=== PATIENT | male | born 1950 | race Caucasian/White ===

== ENCOUNTER 2017-01-11 05:40 | Inpatient (IN) ==
[2017-01-11] MEDS ORDERED: *HR* Morphine 2 MG/ML SYRINGE IVP ONE (06:11)
[2017-01-11] MEDS ORDERED: 0.9 % Sodium Chloride 1,000 ML IVC ONE (06:11)
[2017-01-11] MEDS ORDERED: Ondansetron 4 MG/2 ML VIAL IVP ONE (06:11)
--- NOTE | 2017-01-11 06:34 | Emergency Department Note ---
Disposition Clinical Impression: Right flank pain Anemia Qualifiers: Anemia type: unspecified type Qualified Code(s): D64.9 - Anemia, unspecified Disposition: Still a Patient Condition: Fair Referrals: Elio Melendez MD [Primary Care Provider] - Forms: Work/School Release, ED Satisfaction Letter Abdominal Pain HPI - General Chief Complaint: ED Abdominal Pain Stated Complaint: R Flank pain/SOB Time Seen by Provider: 01/11/17 06:01 Source: patient Mode of arrival: ambulatory Limitations: no limitations Nursing Notes Reviewed: Yes Vital Signs Reviewed: Yes - History of Present Illness HPI Narrative: 58-year-old male with multiple comorbidities including CHF COPD CAD status post angioplasty, presents with bilateral flank pain atraumatic started a few days ago, worsening shortness of breath for the last few days. Patient has no history of renal stones denies hematuria dysuria states that this pain is 6 out of 10 bilateral flanks crampy aching. Spills like something expanding. Reports worsening shortness of breath and dyspnea also states that he has intermittent2/ 10 chest pain worse with exertion. Pt Subjective Complaint: abdominal pain Consistency: intermittent Pain Severity: moderate Pain Scale: 8 Quality: stabbing, aching Radiation: R flank Improves with: nothing Worsens with: nothing Associated symptoms: Denies: nausea, vomiting - Related Data Home Medications Medication Instructions Recorded Confirmed Aspirin Enteric Coated [Aspirin EC] 81 mg PO DAILY 09/06/15 09/07/15 Lisinopril [Zestril] 40 mg PO DAILY 09/06/15 09/07/15 Metoprolol XL (24 HR) Succ [Toprol 50 mg PO DAILY 09/06/15 09/07/15 Xl] metFORMIN [Glucophage] 500 mg PO DAILY 09/06/15 09/07/15 Simvastatin [Zocor] 40 mg PO HS 09/07/15 09/07/15 amLODIPine [Norvasc] 2.5 mg DAILY 09/07/15 09/07/15 Previous Rx's Medication Instructions Recorded Ondansetron ODT [Zofran ODT] 4 mg SL Q4HR PRN #20 tab.rapdis 09/05/15 Albuterol Sulfate [Albuterol 1 puff IH Q6HR PRN #1 hfa.aer.ad 09/10/15 Inhaler] Amoxicillin/Clavulanate [Augmentin] 875 mg PO BIDWM #14 tablet 09/10/15 predniSONE [PredniSONE] 20 mg PO DAILY #20 tablet 09/10/15 Allergies Allergy/AdvReac Type Severity Reaction Status Date / Time No Known Allergies Allergy Verified 01/26/15 08:12 All systems ED: reviewed and negative except as stated. Review of Systems: As Per HPI Constitutional: Denies: fever Eyes: Denies: eye pain ENT ED: Denies: ear pain Cardiovascular: Denies: chest pain Gastrointestinal: Reports: as per HPI, abdominal pain Genitourinary: Denies: urgency, dysuria, hematuria Musculoskeletal: Reports: back pain Integumentary: Denies: rash Neurological: Denies: headache Abdominal Pain PMH - Past Medical History Medical history: Reports: COPD, coronary artery disease, diabetes, hypertension , myocardial infarction Male Surgical History: Reports: other Psychiatric history: Reports: anxiety, depression - Social History Smoking status: Former smoker Alcohol use: Reports: none Drug use: Reports: none Physical Exam Constitutional: NAD, vital signs reviewed and wnl, cachectic appearing Eyes: PERRLA, sclera anicteric, conjunctival pallor ENT & Mouth: MM dry Neck: normal inspection, neck is supple Resp: CTA bilaterally, no resp distress CV: RRR, no m/g/r GI: normal inspection, soft, no guarding or rigidity , negative CVA tenderness bilaterally Neuro: A&O3, CNII-XII grossly intact, TAMEZ Skin: on limited exam, skin intact with no rashes or lesions - General Limitations: no limitations General appearance: alert, in no apparent distress Course Course Narrative: 58-year-old male appears distress given history of hypertension and smoking, and back pain atraumatic concerned that he could have an aneurysm that is undiagnosed, we will CT of abdomen and pelvis check basic lab work including renal function, urinalysis hydrated with 1 L of fluids, morphine and Zofran at this time is hemodynamically stable and if his workup is negative may be able to go home, but he does have multiple comorbiditiesto be reevaluated. - Reevaluation(s) Reevaluation #1: Hemoglobin came back at 6.9, ordered 2 units and type and screen, patient also had a CT noncontrast of his chest, noncontrast of his CT abdomen and pelvis was changed from the contrast study I initially ordered secondary to function, patient with acute renal failure, hemoglobin and anemia possibly chronic disease denies any hematuria hematemesis or melena, care signed out to the date team Dr. Arambula and Batista see their notes for follow-up on labs admission. Time: 07:13 Vital Signs Temperature 97.9 F 01/11/17 05:41 Pulse Rate 73 01/11/17 05:41 Respiratory Rate 20 01/11/17 05:41 Blood Pressure 205/81 01/11/17 05:41 O2 Sat by Pulse Oximetry 97 01/11/17 05:41 Temperature 97.9 F 01/11/17 05:41 Pulse Rate 64 01/11/17 07:14 Respiratory Rate 18 01/11/17 07:14 Blood Pressure 148/69 01/11/17 07:14 O2 Sat by Pulse Oximetry 96 01/11/17 07:14 Oxygen Delivery Oxygen Delivery Room Air Abdominal Pain - Differential Diagnosis Differential Diagnosis: Likely: abdominal pain non-specific, diverticulosis - Medical Records Medical records reviewed: Yes I reviewed the patient's medical records. - Lab Data Lab results reviewed: Yes I reviewed the patient's lab results. Result diagrams: 01/11/17 06:23 01/11/17 06:23 Lab Results 01/11/17 01/11/17 01/11/17 Range/Units 06:23 06:23 06:23 WBC 3.3 L (4.3-11.1) K/mcL RBC 2.28 L (4.19-5.50) M/mcL Hgb 6.9 L (12.9-16.9) g/dL Hct 22.0 L (37.5-50.1) % MCV 96.5 (83.0-100.0) fL MCH 30.3 (28.0-33.3) pg MCHC 31.4 L (31.6-35.5) g/dL RDW 17.1 H (11.5-14.5) % Plt Count 227 (140-400) K/mcL MPV 10.0 (9.4-12.4) fL Seg Neutrophils % 60.0 % Band Neutrophils % 2.0 (0-4) % Lymphocytes % 26.0 % Monocytes % 8.0 % Eosinophils % 2.0 % Myelocytes % 2.0 H (0) % Neutrophils # 2.1 (1.6-8.9) K/mcL Lymphocytes # 0.9 (0.6-4.6) K/mcL Monocytes # 0.3 (0.0-1.3) K/mcL Eosinophils # 0.1 (0.0-0.6) K/mcL Platelet Estimate Normal (Normal) Anisocytosis 1+ A (Not Present) Sodium 136 (136-145) mEq/L Potassium 4.0 (3.5-4.5) mEq/L Chloride 110 H (98-109) mEq/L Carbon Dioxide 21 (19-29) mEq/L BUN 50 H (8-26) mg/dL Creatinine 3.44 H (0.72-1.25) mg/dL Est GFR ( Amer) 22 L (> 60) Est GFR (Non-Af Amer) 18 L (> 60) BUN/Creatinine Ratio 15 (6-26) Glucose 102 H (70-99) mg/dL Calculated Osmolality 296 (280-300) Lactic Acid 0.6 (0.5-2.2) mmol/L Calcium 11.4 H (8.6-10.8) mg/dL Total Bilirubin 0.2 (0.2-1.2) mg/dL Direct Bilirubin 0.1 (0.0-0.5) mg/dL Indirect Bilirubin 0.1 (0.0-1.2) mg/dL AST 37 H (5-34) Units/L ALT 24 (0-55) Units/L Alkaline Phosphatase 119 (38-126) Units/L Troponin I (0-0.03) ng/mL Serum Total Protein 10.7 H (6.0-8.3) g/dL Albumin 2.6 L (3.5-5.0) g/dL Globulin 8.1 H (2.4-3.5) g/dL Albumin/Globulin Ratio 0.3 L (1.1-2.2) Lipase 38 (8-78) Units/L Urine Color (Yellow) Urine Clarity (Clear) Urine pH (5.0-8.0) pH Units Ur Specific [place] (1.010-1.025) Urine Protein (Neg-Trace) mg/dL Urine Glucose (UA) (Normal) mg/dL Urine Ketones (Negative) mg/dL Urine Blood (Negative) Urine Nitrite (Negative) Urine Bilirubin (Negative) Urine Urobilinogen (Normal) mg/dL Ur Leukocyte Esterase (Negative) Urine Microscopic RBC (0-3) per hpf Urine Microscopic WBC (0-3) per hpf Ur Squamous Epith Cells (None-Few) per lpf Urine Bacteria (None-Few) per hpf Hyaline Casts (None-Few) per lpf Ur Culture Indicated? (NO) 01/11/17 01/11/17 Range/Units 06:23 06:26 WBC (4.3-11.1) K/mcL RBC (4.19-5.50) M/mcL Hgb (12.9-16.9) g/dL Hct (37.5-50.1) % MCV (83.0-100.0) fL MCH (28.0-33.3) pg MCHC (31.6-35.5) g/dL RDW (11.5-14.5) % Plt Count (140-400) K/mcL MPV (9.4-12.4) fL Seg Neutrophils % % Band Neutrophils % (0-4) % Lymphocytes % % Monocytes % % Eosinophils % % Myelocytes % (0) % Neutrophils # (1.6-8.9) K/mcL Lymphocytes # (0.6-4.6) K/mcL Monocytes # (0.0-1.3) K/mcL Eosinophils # (0.0-0.6) K/mcL Platelet Estimate (Normal) Anisocytosis (Not Present) Sodium (136-145) mEq/L Potassium (3.5-4.5) mEq/L Chloride (98-109) mEq/L Carbon Dioxide (19-29) mEq/L BUN (8-26) mg/dL Creatinine (0.72-1.25) mg/dL Est GFR ( Amer) (> 60) Est GFR (Non-Af Amer) (> 60) BUN/Creatinine Ratio (6-26) Glucose (70-99) mg/dL Calculated Osmolality (280-300) Lactic Acid (0.5-2.2) mmol/L Calcium (8.6-10.8) mg/dL Total Bilirubin (0.2-1.2) mg/dL Direct Bilirubin (0.0-0.5) mg/dL Indirect Bilirubin (0.0-1.2) mg/dL AST (5-34) Units/L ALT (0-55) Units/L Alkaline Phosphatase (38-126) Units/L Troponin I 0.02 (0-0.03) ng/mL Serum Total Protein (6.0-8.3) g/dL Albumin (3.5-5.0) g/dL Globulin (2.4-3.5) g/dL Albumin/Globulin Ratio (1.1-2.2) Lipase (8-78) Units/L Urine Color Yellow (Yellow) Urine Clarity Clear (Clear) Urine pH 6.0 (5.0-8.0) pH Units Ur Specific [place] 1.024 (1.010-1.025) Urine Protein >=300 H (Neg-Trace) mg/dL Urine Glucose (UA) Normal (Normal) mg/dL Urine Ketones Negative (Negative) mg/dL Urine Blood Small H (Negative) Urine Nitrite Negative (Negative) Urine Bilirubin Negative (Negative) Urine Urobilinogen Normal (Normal) mg/dL Ur Leukocyte Esterase Negative (Negative) Urine Microscopic RBC 3-5 H (0-3) per hpf Urine Microscopic WBC 0-3 (0-3) per hpf Ur Squamous Epith Cells Many H (None-Few) per lpf Urine Bacteria None Seen (None-Few) per hpf Hyaline Casts None Seen (None-Few) per lpf Ur Culture Indicated? NO (NO) - Radiology Data Radiology results reviewed: Yes I reviewed the patient's radiology results. Chest X-Ray 01/11/17 06:38 IMPRESSION: 1. Increased bibasilar lung infiltrates, concerning for pneumonia. 2. There is a subpleural mass noted along the left lateral chest wall which may represent overlying soft tissue, however, an underlying pleural-based lesion cannot be excluded. CT of the chest versus repeat chest radiograph could be performed for further evaluation. D/ / Gary Wright MD / Gary Wright MD Interpreting Provider: Gary Wright MD - EKG Data EKG attestation: Yes I reviewed and interpreted this EKG. EKG shows normal: sinus rhythm Rate: normal (63 bpm OK 176 QRS [address] segment elevations or depressions.) Rhythm: NSR S.B.A.R. - S.B.A.R. Transition of Care: Dispo pending CT and labs Situation: Demographics, MOA Background: Presenting Complaint, Relevant PMH, Meds, & Allergies Assessment: Vital Signs, Course and respsone to treatment, Exam Concerns, Patient/Family Expectation, Pertinant Lab Results, Outstanding Labs Recommendation: Barrier(s) to disposition, Recommendation based on pending studies, treatments, or consults [email or web address] Report Given to: Lynne Phan Repor Time: 06:36 Attestation Statement - Attestation Attestation: I, Sanjay Rebollar MD, personally evaluated this patient and discussed their management with the resident physician. I reviewed the resident's note and agree with the documented findings, medical decision making, and plan of care. 66-year-old male presents to the emergency department with a complaint primarily of right flank pain which started about 3 days prior to arrival. He also has some left flank pain but worse on the right. The pain is worse with movement and improved with lying still. He denies any fall or injury but states he had been lifting some firewood before the pain started. Denies any chest pain or shortness of breath. No fever. No dizziness or syncope. No GI bleed symptoms. No UTI symptoms. On examination patient is a well-developed well-nourished elderly male in no acute distress. He is hard of hearing. He is alert and oriented 3. There is no cyanosis or diaphoresis. Chest is nontender to palpation. Breath sounds are equal bilaterally. Heart regular rate and rhythm. Abdomen is soft and nontender with normal bowel sounds. There is some tenderness to palpation over the right flank area. Labs reviewed. Hemoglobin 6.9. Acute kidney injury with creatinine greater than 3. Chest x-ray showed a questionable subpleural mass along the left lateral chest wall and CT was recommended. At shift change patient is awaiting a CT chest and of the abdomen and pelvis. Patient is signed out to the oncoming dayshift team, Dr. Batista and Dr. Arambula.
[2017-01-11 06:35] LABS: Mean Corpuscular HGB Conc 31.4 g/dL (31.6-35.5); Mean Corpuscular Hemoglobin 30.3 pg (28.0-33.3); Mean Corpuscular Volume 96.5 fL (83.0-100.0); Platelet Count 227 K/mcL (140-400); Red Blood Count 2.28 M/mcL (4.19-5.50); Red Cell Distribution Width 17.1 % (11.5-14.5)
[2017-01-11 06:37] LABS: Bilirubin,Urine Negative (Negative); Blood,Urine Small (Negative); Clarity,Urine Clear (Clear); Color,Urine Yellow (Yellow); Glucose,Urine (UA) Normal (Normal); Ketones,Urine Negative (Negative); Leukocyte Esterase,Urine Negative (Negative); Nitrite,Urine Negative (Negative); Protein,Urine >=300 mg/dL (Neg-Trace); Specific Gravity,Urine 1.024 (1.010-1.025); Urobilinogen,Urine Normal (Normal)
[2017-01-11 06:37] LABS: Hemoglobin 6.9 g/dL (12.9-16.9)
[2017-01-11 06:41] LABS: Bacteria,Urine None Seen per hpf (None-Few); Hyaline Casts,Urine None Seen per lpf (None-Few); Squamous Epithelial Cell,Urine Many per lpf (None-Few); WBC,Urine 0-3 per hpf (0-3)
[2017-01-11 06:47] LABS: Albumin 2.6 g/dL (3.5-5.0); Albumin/Globulin Ratio 0.3 (1.1-2.2); Bilirubin,Direct 0.1 mg/dL (0.0-0.5); Bilirubin,Indirect 0.1 mg/dL (0.0-1.2); Bilirubin,Total 0.2 mg/dL (0.2-1.2); Calcium 11.4 mg/dL (8.6-10.8); Globulin 8.1 g/dL (2.4-3.5); Total Protein 10.7 g/dL (6.0-8.3)
[2017-01-11 07:10] LABS: Eosinophils # 0.1 K/mcL (0.0-0.6)
[2017-01-11 07:12] LABS: Lymphocytes # 0.9 K/mcL (0.6-4.6); Monocytes # 0.3 K/mcL (0.0-1.3); Neutrophils # 2.1 K/mcL (1.6-8.9); Platelet Estimate Normal (Normal)
[2017-01-11 07:13] LABS: Anisocytosis 1+ (Not Present)
[2017-01-11] MEDS ORDERED: 0.9 % Sodium Chloride 250 ML ONE ×2 (08:19→14:21)
[2017-01-11 08:20] LABS: Prothrombin Time 10.8 Seconds (9.4-12.1)
[2017-01-11 08:23] LABS: Activated Partial Thrombo Time 28.8 Seconds (26.0-36.0)
--- NOTE | 2017-01-11 09:03 | Emergency Department Note ---
START Narrative - START START: Patient was signed out to me from Dr. Rebollar. I did a bedside rectal exam to evaluate for fecal occult blood. This was negative. Patient's CAT scans are concerning for a left lung mass as well as possible bronchogenic carcinoma. Patient also has destructive bony lesions to the chest and pelvis. In the setting of his renal failure as well as his anemia and bony destructive lesions multiple myeloma is a consideration. Patient will need to be transfused blood as well. We have consult with oncology. Patient will need to be admitted for further workup. Critical care time was approximately 35 minutes. Time spent and blood transfusion as well as consultation with oncology in the hospitalist service.
--- NOTE | 2017-01-11 09:17 | Emergency Department Note ---
Disposition Clinical Impression: Right flank pain, Lung mass, Bony metastasis, Acute kidney injury Anemia Qualifiers: Anemia type: unspecified type Qualified Code(s): D64.9 - Anemia, unspecified Disposition: Admitted As Inpatient Condition: Fair Referrals: Elio Melendez MD [Primary Care Provider] - Forms: ED Satisfaction Letter, Work/School Release General Adult HPI - General Chief complaint: ED Abdominal Pain Stated complaint: R Flank pain/SOB Time Seen by Provider: 01/11/17 06:01 Source: patient Mode of arrival: ambulatory Limitations: no limitations - History of Present Illness Pain Scale: 0 - Related Data Home Medications Medication Instructions Recorded Confirmed Aspirin Enteric Coated [Aspirin EC] 81 mg PO DAILY 09/06/15 09/07/15 Lisinopril [Zestril] 40 mg PO DAILY 09/06/15 09/07/15 Simvastatin [Zocor] 40 mg PO HS 09/07/15 09/07/15 Amlodipine Besylate 10 mg PO DAILY 01/11/17 01/11/17 Budesonide/Formoterol 160/4.5 2 puff IH BIDR 01/11/17 01/11/17 [Symbicort 160/4.5] Chlorthalidone 25 mg PO QAM 01/11/17 01/11/17 Ergocalciferol (VITAMIN D2) 50,000 unit PO QWEEK 01/11/17 01/11/17 [Vitamin D2] Gabapentin [Neurontin] 300 mg PO HS 01/11/17 01/11/17 Lidocaine Patch [Lidoderm 5% patch] 1 - 2 each TP DAILY PRN 01/11/17 01/11/17 Metoprolol Succinate 100 mg PO DAILY 01/11/17 01/11/17 Tamsulosin [Flomax] 0.4 mg PO DAILY 01/11/17 01/11/17 Previous Rx's Medication Instructions Recorded Albuterol Sulfate [Albuterol 1 puff IH Q6HR PRN #1 hfa.aer.ad 09/10/15 Inhaler] Allergies Allergy/AdvReac Type Severity Reaction Status Date / Time No Known Allergies Allergy Verified 01/26/15 08:12 Constitutional: Denies: fever Eyes: Denies: eye pain ENT ED: Denies: ear pain Cardiovascular: Denies: chest pain Gastrointestinal: Reports: as per HPI, abdominal pain Genitourinary: Denies: urgency, dysuria, hematuria Musculoskeletal: Reports: back pain Integumentary: Denies: rash Neurological: Denies: headache Past Medical History - Past Medical History Medical history: Reports: COPD, coronary artery disease, diabetes, hypertension , myocardial infarction Surgical history: Reports: angioplasty/stent Psychiatric history: Reports: anxiety, depression - Social History Smoking Status: Former smoker Smokeless Tobacco Status: No Alcohol use: Reports: none Drug use: Reports: none Physical Exam - General Limitations: no limitations General appearance: alert, in no apparent distress Course Course Narrative: I assumed care of this patient from the night team. The CT scan shows a pulmonary mass and rib bony erosion along with abd/pelvis bony changes. Possibly could be due to multiple myeloma. In addition he has an EVER with an elevated creatinine. I called and spoke with Dr Banegas with oncology who agreed to see the patient. Will admit to the hospitalist. He is currently receiving his blood. Hemodynamically stable. Accepted by Dr Matt. Vital Signs Temperature 97.9 F 01/11/17 05:41 Pulse Rate 73 01/11/17 05:41 Respiratory Rate 20 01/11/17 05:41 Blood Pressure 205/81 01/11/17 05:41 O2 Sat by Pulse Oximetry 97 01/11/17 05:41 Temperature 98.7 F 01/11/17 08:45 Pulse Rate 60 01/11/17 09:06 Respiratory Rate 18 01/11/17 09:06 Blood Pressure 142/77 01/11/17 09:06 O2 Sat by Pulse Oximetry 95 01/11/17 09:06 Oxygen Delivery Oxygen Delivery Room Air Medical Decision Making - Medical Records Medical records reviewed: Yes I reviewed the patient's medical records. - Lab Data Lab results reviewed: Yes I reviewed the patient's lab results. Result diagrams: 01/11/17 06:23 01/11/17 06:23 Lab Results 01/11/17 01/11/17 01/11/17 Range/Units 06:23 06:23 06:23 WBC 3.3 L (4.3-11.1) K/mcL RBC 2.28 L (4.19-5.50) M/mcL Hgb 6.9 L (12.9-16.9) g/dL Hct 22.0 L (37.5-50.1) % MCV 96.5 (83.0-100.0) fL MCH 30.3 (28.0-33.3) pg MCHC 31.4 L (31.6-35.5) g/dL RDW 17.1 H (11.5-14.5) % Plt Count 227 (140-400) K/mcL MPV 10.0 (9.4-12.4) fL Seg Neutrophils % 60.0 % Band Neutrophils % 2.0 (0-4) % Lymphocytes % 26.0 % Monocytes % 8.0 % Eosinophils % 2.0 % Myelocytes % 2.0 H (0) % Neutrophils # 2.1 (1.6-8.9) K/mcL Lymphocytes # 0.9 (0.6-4.6) K/mcL Monocytes # 0.3 (0.0-1.3) K/mcL Eosinophils # 0.1 (0.0-0.6) K/mcL Platelet Estimate Normal (Normal) Anisocytosis 1+ A (Not Present) PT (9.4-12.1) Seconds INR APTT (26.0-36.0) Seconds Sodium 136 (136-145) mEq/L Potassium 4.0 (3.5-4.5) mEq/L Chloride 110 H (98-109) mEq/L Carbon Dioxide 21 (19-29) mEq/L BUN 50 H (8-26) mg/dL Creatinine 3.44 H (0.72-1.25) mg/dL Est GFR ( Amer) 22 L (> 60) Est GFR (Non-Af Amer) 18 L (> 60) BUN/Creatinine Ratio 15 (6-26) Glucose 102 H (70-99) mg/dL Calculated Osmolality 296 (280-300) Lactic Acid 0.6 (0.5-2.2) mmol/L Calcium 11.4 H (8.6-10.8) mg/dL Total Bilirubin 0.2 (0.2-1.2) mg/dL Direct Bilirubin 0.1 (0.0-0.5) mg/dL Indirect Bilirubin 0.1 (0.0-1.2) mg/dL AST 37 H (5-34) Units/L ALT 24 (0-55) Units/L Alkaline Phosphatase 119 (38-126) Units/L Troponin I (0-0.03) ng/mL Serum Total Protein 10.7 H (6.0-8.3) g/dL Albumin 2.6 L (3.5-5.0) g/dL Globulin 8.1 H (2.4-3.5) g/dL Albumin/Globulin Ratio 0.3 L (1.1-2.2) Lipase 38 (8-78) Units/L Urine Color (Yellow) Urine Clarity (Clear) Urine pH (5.0-8.0) pH Units Ur Specific [place] (1.010-1.025) Urine Protein (Neg-Trace) mg/dL Urine Glucose (UA) (Normal) mg/dL Urine Ketones (Negative) mg/dL Urine Blood (Negative) Urine Nitrite (Negative) Urine Bilirubin (Negative) Urine Urobilinogen (Normal) mg/dL Ur Leukocyte Esterase (Negative) Urine Microscopic RBC (0-3) per hpf Urine Microscopic WBC (0-3) per hpf Ur Squamous Epith Cells (None-Few) per lpf Urine Bacteria (None-Few) per hpf Hyaline Casts (None-Few) per lpf Ur Culture Indicated? (NO) Stool Occult Blood (Negative) Blood Type Antibody Screen Crossmatch 01/11/17 01/11/17 01/11/17 Range/Units 06:23 06:23 06:26 WBC (4.3-11.1) K/mcL RBC (4.19-5.50) M/mcL Hgb (12.9-16.9) g/dL Hct (37.5-50.1) % MCV (83.0-100.0) fL MCH (28.0-33.3) pg MCHC (31.6-35.5) g/dL RDW (11.5-14.5) % Plt Count (140-400) K/mcL MPV (9.4-12.4) fL Seg Neutrophils % % Band Neutrophils % (0-4) % Lymphocytes % % Monocytes % % Eosinophils % % Myelocytes % (0) % Neutrophils # (1.6-8.9) K/mcL Lymphocytes # (0.6-4.6) K/mcL Monocytes # (0.0-1.3) K/mcL Eosinophils # (0.0-0.6) K/mcL Platelet Estimate (Normal) Anisocytosis (Not Present) PT 10.8 (9.4-12.1) Seconds INR 1.0 APTT 28.8 (26.0-36.0) Seconds Sodium (136-145) mEq/L Potassium (3.5-4.5) mEq/L Chloride (98-109) mEq/L Carbon Dioxide (19-29) mEq/L BUN (8-26) mg/dL Creatinine (0.72-1.25) mg/dL Est GFR ( Amer) (> 60) Est GFR (Non-Af Amer) (> 60) BUN/Creatinine Ratio (6-26) Glucose (70-99) mg/dL Calculated Osmolality (280-300) Lactic Acid (0.5-2.2) mmol/L Calcium (8.6-10.8) mg/dL Total Bilirubin (0.2-1.2) mg/dL Direct Bilirubin (0.0-0.5) mg/dL Indirect Bilirubin (0.0-1.2) mg/dL AST (5-34) Units/L ALT (0-55) Units/L Alkaline Phosphatase (38-126) Units/L Troponin I 0.02 (0-0.03) ng/mL Serum Total Protein (6.0-8.3) g/dL Albumin (3.5-5.0) g/dL Globulin (2.4-3.5) g/dL Albumin/Globulin Ratio (1.1-2.2) Lipase (8-78) Units/L Urine Color Yellow (Yellow) Urine Clarity Clear (Clear) Urine pH 6.0 (5.0-8.0) pH Units Ur Specific [place] 1.024 (1.010-1.025) Urine Protein >=300 H (Neg-Trace) mg/dL Urine Glucose (UA) Normal (Normal) mg/dL Urine Ketones Negative (Negative) mg/dL Urine Blood Small H (Negative) Urine Nitrite Negative (Negative) Urine Bilirubin Negative (Negative) Urine Urobilinogen Normal (Normal) mg/dL Ur Leukocyte Esterase Negative (Negative) Urine Microscopic RBC 3-5 H (0-3) per hpf Urine Microscopic WBC 0-3 (0-3) per hpf Ur Squamous Epith Cells Many H (None-Few) per lpf Urine Bacteria None Seen (None-Few) per hpf Hyaline Casts None Seen (None-Few) per lpf Ur Culture Indicated? NO (NO) Stool Occult Blood (Negative) Blood Type Antibody Screen Crossmatch 01/11/17 01/11/17 Range/Units 07:09 08:13 WBC (4.3-11.1) K/mcL RBC (4.19-5.50) M/mcL Hgb (12.9-16.9) g/dL Hct (37.5-50.1) % MCV (83.0-100.0) fL MCH (28.0-33.3) pg MCHC (31.6-35.5) g/dL RDW (11.5-14.5) % Plt Count (140-400) K/mcL MPV (9.4-12.4) fL Seg Neutrophils % % Band Neutrophils % (0-4) % Lymphocytes % % Monocytes % % Eosinophils % % Myelocytes % (0) % Neutrophils # (1.6-8.9) K/mcL Lymphocytes # (0.6-4.6) K/mcL Monocytes # (0.0-1.3) K/mcL Eosinophils # (0.0-0.6) K/mcL Platelet Estimate (Normal) Anisocytosis (Not Present) PT (9.4-12.1) Seconds INR APTT (26.0-36.0) Seconds Sodium (136-145) mEq/L Potassium (3.5-4.5) mEq/L Chloride (98-109) mEq/L Carbon Dioxide (19-29) mEq/L BUN (8-26) mg/dL Creatinine (0.72-1.25) mg/dL Est GFR ( Amer) (> 60) Est GFR (Non-Af Amer) (> 60) BUN/Creatinine Ratio (6-26) Glucose (70-99) mg/dL Calculated Osmolality (280-300) Lactic Acid (0.5-2.2) mmol/L Calcium (8.6-10.8) mg/dL Total Bilirubin (0.2-1.2) mg/dL Direct Bilirubin (0.0-0.5) mg/dL Indirect Bilirubin (0.0-1.2) mg/dL AST (5-34) Units/L ALT (0-55) Units/L Alkaline Phosphatase (38-126) Units/L Troponin I (0-0.03) ng/mL Serum Total Protein (6.0-8.3) g/dL Albumin (3.5-5.0) g/dL Globulin (2.4-3.5) g/dL Albumin/Globulin Ratio (1.1-2.2) Lipase (8-78) Units/L Urine Color (Yellow) Urine Clarity (Clear) Urine pH (5.0-8.0) pH Units Ur Specific [place] (1.010-1.025) Urine Protein (Neg-Trace) mg/dL Urine Glucose (UA) (Normal) mg/dL Urine Ketones (Negative) mg/dL Urine Blood (Negative) Urine Nitrite (Negative) Urine Bilirubin (Negative) Urine Urobilinogen (Normal) mg/dL Ur Leukocyte Esterase (Negative) Urine Microscopic RBC (0-3) per hpf Urine Microscopic WBC (0-3) per hpf Ur Squamous Epith Cells (None-Few) per lpf Urine Bacteria (None-Few) per hpf Hyaline Casts (None-Few) per lpf Ur Culture Indicated? (NO) Stool Occult Blood Negative (Negative) Blood Type A POSITIVE Antibody Screen NEGATIVE Crossmatch See Detail - Radiology Data Radiology results reviewed: Yes I reviewed the patient's radiology results.
[2017-01-11] MEDS ORDERED: Acetaminophen 325 MG TABLET PO PRN (11:11)
[2017-01-11] MEDS ORDERED: Naloxone 0.4 MG/ML INJ IVP PRN (11:11)
--- NOTE | 2017-01-11 11:23 | Internal Med History&Physical ---
Date of Encounter: 01/11/17 Time of Encounter: 10:00 Assessment and Plan (1) Acute kidney injury Current visit: Yes Status: Acute Patient likely has multifactorial acute kidney injury. Pt has CKD 3. He is on an KAMILAH inhibitor and this will be stopped. He does appear mildly dehydrated. I also suspect that he may have multiple myeloma involving kidney, with proteinuria. This could certainly contribute to renal failure as well. Patient will receive IV fluids. We will avoid nephrotoxins. Will closely monitor. If he does not improve, then we will need imaging and nephrology consultation. (2) Bony metastasis Current visit: Yes Status: Acute As mentioned patient likely has also myeloma with diffuse bony involvement. Cannot rule out a lung cancer given his history of pulmonary nodules with bony involvement as well, although I believe the former is more likely. Her there evidence of multiple myeloma includes his anemia, hypercalcemia, renal failure. Oncology has been consulted and we will await their input. I did order a serum protein electrophoresis. He will also need a urine protein electrophoresis, and a skeletal survey. We will defer this to oncology and their evaluation. For his hypercalcemia, a bisphosphonate would twice a day I will let this can also help reduce bone pain. Given his renal dysfunction I will hold on this for now and readdress pending their evaluation. His hip pain is almost certainly due to bony metastatic disease. It is currently improved with rest. Will use [place] when necessary. (3) Lung mass Current visit: Yes Status: Acute Patient with known lung nodules. Whether this is related to his myeloma versus a primary lung cancer is yet to be determined. I will hold off on pulmonary evaluation pending oncology evaluation. (4) Anemia Current visit: No Status: Acute Suspect this is due to multiple myeloma. He is receiving 2 units of packed red blood cells. He has no evidence of acute blood loss. He has never had a colonoscopy but did have a flexible sigmoidoscopy over a decade ago. He denies any rectal bleeding. Qualifiers: Anemia type: unspecified type Qualified Code(s): D64.9 - Anemia, unspecified (5) Hypercalcemia Current visit: Yes Status: Acute Likely due to Multiple Myeloma and dehydration. IVF as mentioned. See above for discussion on use of bisphosphonate (6) COPD (chronic obstructive pulmonary disease) Current visit: Yes Status: Acute Stable, home O2, MDI's, no acute exacerbation Qualifiers: COPD type: COPD with acute exacerbation Qualified Code(s): J44.1 - Chronic obstructive pulmonary disease with (acute) exacerbation (7) Chronic hypoxemic respiratory failure Current visit: Yes Status: Acute Stable (8) Diabetes mellitus Current visit: No Status: Chronic stbale, corrective insulin Qualifiers: Diabetes mellitus type: type 2 Diabetes mellitus complication status: without complication Diabetes mellitus cook station insulin use: without shelter use Qualified Code(s): E11.9 - Type 2 diabetes mellitus without complications (9) Tobacco abuse Current visit: Yes Status: Acute Quit 1 yr ago Internal Medicine - H&P: HPI Admitted From: Emergency Dept Plans for Post Hospital Care: Home History of present illness: Mr. Flores is a 66 year old male Hospital course: Mr. Flores is a 65 year old male with a past medical history of COPD on home oxygen., coronary artery disease s/ stenting, type 2 diabetes mellitus, hypertension, OR in 1996, hyperlipidemia, ckd 3, depression, and known pulmonary nodules. Patient has extensive tobacco abuse history but he quit one year ago.Patient was admitted here in August 2015 for aspiration pneumonia. Patient is unsure what follow-up he has had with his pulmonary nodules. Patient presents to the emergency room today with intractable back pain. Stating it occurred about 3 days ago and has been a persistent aching, pretty much only with activity. Described as low back up her sacral pain bilaterally. He denies any worsening shortness of breath. He is on oxygen chronically. No fevers or chills. No nausea, vomiting, diarrhea. No recent trauma. In the emergency department he was hemodynamically stable satting 90% on 2 L. On exam he appeared mildly dehydrated and disheveled. X-ray studies were markedly abnormal with a leukopenia of 3.3, hemoglobin of 6.9, platelets 2 27,000. MCV of 97. BUN/creatinine of 50 over 3.44. A urinalysis was positive for proteinuria. CT of his chest showed pulmonary nodules with a large mass with destruction of the sixth rib also evidence of diffuse bony infiltrative disease. Additional labs include an elevated calcium of 11.2, and an elevated total protein of 10.7. Patient was admitted for further workup and evaluation. Patient states she has no weight loss. No night sweats. He was feeling fine other than the pain he was describing above. Pt is currently receiving 2 units packed red blood cells. Oncology has been consulted. Past Med Surg Social Fam HX - Past Medical History Medical history: COPD, coronary artery disease, diabetes, hypertension, myocardial infarction Psychiatric history: anxiety, depression - Past Surgical History Surgical History: angioplasty/stent - Social History Smoking Status: Current every day smoker Packs per day: 2 Smokeless Tobacco Status: No Alcohol use: none Drug use: none Occupational status: retired Current living situation: Home Activity Level: Independent ambulation Recent Out of Country Travel Within the Last 8 Weeks: No Exposure or Possible Exposure to Illness During Travel: No - Family History Father Living Status: Hx Family Cardiac Disorders: Yes ([place]) Hx Family Endocrine Disorder: Yes (DM) Mother Living Status: Hx Family Endocrine Disorder: Yes (DM) Sister Adopted: No Race: Family Member Ethnicity: Non- Living Status: Still Living Hx Family Cancer: Yes (history of breast cancer s/p bilateral mastectomy.) - Additional Family History Additional family history: Fam hx reviewed and noncontributory Internal Medicine - H&P: Meds Aspirin Enteric Coated [Aspirin EC] 81 mg PO DAILY 09/06/15 [History] Lisinopril [Zestril] 40 mg PO DAILY 09/06/15 [History] Simvastatin [Zocor] 40 mg PO HS 09/07/15 [History] Albuterol Sulfate [Albuterol Inhaler] 1 puff IH Q6HR PRN #1 [email or web address] 09/10/15 [Rx] Amlodipine Besylate 10 mg PO DAILY 01/11/17 [History] Budesonide/Formoterol 160/4.5 [Symbicort 160/4.5] 2 puff IH BIDR 01/11/17 [ History] Chlorthalidone 25 mg PO QAM 01/11/17 [History] Ergocalciferol (VITAMIN D2) [Vitamin D2] 50,000 unit PO QWEEK 01/11/17 [History] Gabapentin [Neurontin] 300 mg PO HS 01/11/17 [History] Lidocaine Patch [Lidoderm 5% patch] 1 - 2 each TP DAILY PRN 01/11/17 [History] Metoprolol Succinate 100 mg PO DAILY 01/11/17 [History] Tamsulosin [Flomax] 0.4 mg PO DAILY 01/11/17 [History] 3 Allergy/AdvReac Type Severity Reaction Status Date / Time No Known Allergies Allergy Verified 01/26/15 08:12 All Systems PM: A 10-system review of systems was performed and is negative for pertinent findings except as documented above in the HPI. - Constitutional Vitals: Temp Pulse Resp BP Pulse Ox 98.0 F 54 18 167/90 100 01/11/17 10:40 01/11/17 10:40 01/11/17 10:40 01/11/17 10:40 01/11/17 10:40 General appearance: Present: A&O X 3, no acute distress - Head Head exam: Present: atraumatic, normocephalic - Eye Eye exam: Present: PERRL, conjuntiva pink, sclera anicteric Pupils: Present: PERRL - Neck Neck exam general surgery: Present: supple, trachea midline. Absent: lymphadenopathy - Respiratory Respiratory exam: Present: CTAB, rales (bilat bases, prolonged exp phase). Absent: accessory muscle use, rhonchi, wheezes - Cardiovascular Cardiovascular exam: Present: RRR, +S1, +S2. Absent: diastolic murmur, gallop, rubs, systolic murmur - GI/Abdominal GI/Abdominal exam: Present: normal bowel sounds, soft, no peritoneal signs. Absent: distended, tenderness - Extremities Exam Extremities exam: Present: warm, radial pulses palpable and symmetrical. Absent : calf tenderness, cyanotic, pedal edema - Neurological Exam Neurological exam: Present: CN II-XII intact, oriented X3, no focal deficits. Absent: pronater drift, facial droop, speech deficit - Skin Skin exam: Present: dry, intact Internal Med - H&P Results - Labs CBC & Chem 7: 01/11/17 06:23 01/11/17 06:23
--- NOTE | 2017-01-11 14:13 | Oncology Inp Consult Note ---
Date of Encounter: 01/11/17 Time of Encounter: 13:00 Assessment and Plan (1) Chest mass Status: Acute Assessment and plan: I reviewed personally his CT chest that revealed a soft tissue mass causing bone destruction at the at the level of the left 6th rib. He is minimally symptomatic from it at this time, but I suspect that it's been growing on for several months. He was informed of the results of his CT scans, and our concern of an underlying malignancy. Differential diagnosis included lung cancer, plasma cell neoplasm ( including Multiple myeloma, plasmocytoma), amyloidosis, or another malignancy with metastasis to bone. His CT chest revealed bilateral pulmonary nodes, some of them new, others stable when compared with prior scans. - I explained to Mr. Flores my recommendations for further work up to rule out an underlying malignancy, including a CT guided biopsy of the left chest wall mass. Recommendation: - Please arrange for IR guided biopsy of left chest wall mass. -Please order SPEP, UPEP ( ideally in 24 hour urine collection), serum immunofixation, urine immunofixation, serum free light chains (FLC). -Skeletal survey. - If biopsy of left chest wall mass reveals plasma cells, or if her myeloma work up (SPEP, UPEP, FLC) shows concerning results, I would recommend to perform a bone marrow biopsy ( under IR); so at this time, I will hold off onto that. (2) Hypercalcemia Status: Acute Assessment and plan: Probably hypercalcemia of malignancy. - Check serum PTH, ionized calcium, PTHrP, phosphorus, magnesium - Please order Zoledronic acid 4 mg x 1 ( IV infusion). - IVF NS - Lasix is not indicated, unless he develops volume overload/CHF like picture. - Repeat BMP in AM. (3) Pulmonary nodules Status: Chronic Assessment and plan: - CT shows a combination of stable and new bilateral lung nodules, but not dominant lung mass. -I'll reassess once the results of the chest wall mass biopsy and myeloma work up are available (4) Anemia Status: Acute Assessment and plan: - Normocytic, but MCV leading toward upper normal values. - Vitamin B12 levels low ( 207) in April 2016. Apparently not in vitamin B12 replacement. It may be nutritional, in view of poor diet habits. Repeat Vitamin B12 and start replacement with 1000 mcg IM daily if abnormally low. - Please check iron panel ( ferritin, TIBC, transferrin saturation ) - Check occult blood in stools ( if not done yet). - Please order blood smear ( physician review). - Supportive management with transfusion of blood for Hemoglobin level of 7.0 g/ dl or lower. Qualifiers: Anemia type: other cause Other causes of anemia: other cause, not classified Qualified Code(s): D64.89 - Other specified anemias (5) Acute kidney injury Status: Acute Assessment and plan: - More likely due to a combination of hypercalcemia, volume depletion. Management with IVF. - Check FLC, SPEP to rule out MM. (6) Diabetes mellitus Status: Chronic Assessment and plan: - Continue management as per primary team. Qualifiers: Diabetes mellitus type: type 2 Diabetes mellitus complication status: without complication Diabetes mellitus group home insulin use: without group home use Qualified Code(s): E11.9 - Type 2 diabetes mellitus without complications (7) COPD (chronic obstructive pulmonary disease) Status: Acute Assessment and plan: - Seems stable/baseline. Qualifiers: COPD type: COPD with acute exacerbation Qualified Code(s): J44.1 - Chronic obstructive pulmonary disease with (acute) exacerbation - Data of Consult Requesting Physician: Italo Garner MD Primary Care Provider: Elio Melendez MD - Consult Narrative Reason for consult: left chest wall mass suspcious for malignancy. History of present illness: Chief complaint: left chest wall mass, flank pain. Mr. Flores is a 66 year old male with history of COPD on home oxygen, CAD s/p stent, DM 2, HTN, hyperlipidemia, CKD 3, depression, smoking ( quit one year ago ) presenting to the ED due to right flank pain. Oncology consult requested after CT scan shows a mass in the left chest wall associated with destruction of the left rib highly suggestive of malignancy. labs also demonstrate hypercalcemia, acute on chronic kidney injury and anemia. Mr. Flores reports that he came to the hospital due to right flank pain. Reports that his right flank pain started approximately 3 days ago, not radiated and not associated with ipsilateral or contralateral leg weakness. He denies urinary complaints. He reports a history of pain at the level of the left thoracic wall, that has been going on for approximately 2 years. He reports that he was told by his primary care physician that his pain was due to shingles although he does not remember having noticed erythema or blisters in that area. He was prescribed gabapentin with some improvement, although his pain has intermittent recurred and worsened. At the time of the visit he reports that the pain is still present , but minimal, worsen usually with cough and with palpation. He denies weight loss. Reports that his diet is not great in view that he lives alone and usually does not cook healthy food. He reports a family history of breast cancer ( sister, who underwent bilateral mastectomy without recurrence). He is , and reports that his only child ( adult daughter) lives in [place]. He lives alone, and reports being independent with activities of daily living. Reports a long history of smoking, but quit approximately one year ago due to COPD. He reports using oxygen at home, but only at night. 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 Denies recent falls, or difficulties with ambulation, not requiring walkker or cane. He has history of DM and CKD, but his creatinine is above the baseline values. Upon review of prior records, I noticed that his creatinine in 2013 was 1.10,, but then went up to 1.6 in August 2015, and fluctuate from 1.5 to 1.6 until April 2016. There are not more labs in our system until the current admission when his creatinine was found to be 3.44 mg/dl. He was noticed to be anemic. He reports eating mainly meats, but his vitamin B12 levels are low. He denies any bleeding events, including hematochezia. 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 Reports that his daughter lives in [place].) Activity Level: Independent ambulation Recent Out of Country Travel Within the Last 8 Weeks: No - Family History Father Living Status: Hx Family Cardiac Disorders: Yes ([place]) Hx Family Endocrine Disorder: Yes (DM) Mother Living Status: Hx Family Endocrine Disorder: Yes (DM) Sister Adopted: No Race: Family Member Ethnicity: Non- Living Status: Still Living Hx Family Cancer: Yes (history of breast cancer s/p bilateral mastectomy.) Medications and Allergies Aspirin Enteric Coated [Aspirin EC] 81 mg PO DAILY 09/06/15 [History] Lisinopril [Zestril] 40 mg PO DAILY 09/06/15 [History] Simvastatin [Zocor] 40 mg PO HS 09/07/15 [History] Albuterol Sulfate [Albuterol Inhaler] 1 puff IH Q6HR PRN #1 [email or web address] 09/10/15 [Rx] Amlodipine Besylate 10 mg PO DAILY 01/11/17 [History] Budesonide/Formoterol 160/4.5 [Symbicort 160/4.5] 2 puff IH BIDR 01/11/17 [ History] Chlorthalidone 25 mg PO QAM 01/11/17 [History] Ergocalciferol (VITAMIN D2) [Vitamin D2] 50,000 unit PO QWEEK 01/11/17 [History] Gabapentin [Neurontin] 300 mg PO HS 01/11/17 [History] Lidocaine Patch [Lidoderm 5% patch] 1 - 2 each TP DAILY PRN 01/11/17 [History] Metoprolol Succinate 100 mg PO DAILY 01/11/17 [History] Tamsulosin [Flomax] 0.4 mg PO DAILY 01/11/17 [History] 3 Allergy/AdvReac Type Severity Reaction Status Date / Time No Known Allergies Allergy Verified 01/26/15 08:12 Constitutional: Present: fatigue. Absent: fever(s), frequent falls, headache(s) , weight gain, weight loss Eyes: Absent: blurry vision, change in vision, diplopia Ears: Present: decreased hearing (Reports decreased hearing for many years, what he attribute to a family history ( mother also had hearing issues).) Nose, mouth and throat: Present: abnormal hearing. Absent: bleeding gums, facial pain, odynophagia Cardiovascular: Present: chest pain at rest, dyspnea, dyspnea on exertion. Absent: edema, irregular heart rhythm, leg edema, pedal edema Respiratory: Present: dyspnea, dyspnea on exertion. Absent: hemoptysis, wheezing, chest congestion Gastrointestinal: Present: nausea. Absent: abdominal pain, change in bowel habits, coffee ground emesis, diarrhea, dysphagia, melena Genitourinary: flank pain (right sided flank pain going on for the last 3 days.) Musculoskeletal: Absent: joint swelling, loss of height, radiating pain into limb Integumentary: Absent: pruritus, rash, skin ulcer Neurological: Present: abnormal hearing, disequilibrium, lack of coordination. Absent: abnormal gait, abnormal speech, behavioral changes, radicular pain Psychiatric: Absent: anxiety, behavioral changes, confusion, hallucinations Endocrine: Absent: polyphagia, polyuria Hematologic/Lymphatic: Absent: easy bleeding, lymphadenopathy Oncology - Exam - Constitutional Vitals: Temp Pulse Resp BP Pulse Ox 98.0 F 58 14 153/77 100 01/11/17 11:35 01/11/17 11:35 01/11/17 11:35 01/11/17 11:35 01/11/17 10:40 - Head Head exam: Present: normal inspection, normocephalic - Eye Eye exam: Present: EOMI, PERRL Pupils: Present: PERRL - ENT ENT exam: Present: mucous membranes moist, normal exam, normal oropharynx - Neck Neck exam: Present: full ROM, normal inspection. Absent: lymphadenopathy, meningismus, tenderness - Respiratory Respiratory exam: Present: CTAB. Absent: prolonged expiratory phase, rales, respiratory distress, wheezes, tachypnea - Cardiovascular Cardiovascular exam: Present: RRR, +S1. Absent: diastolic murmur, gallop, irregular rhythm - GI/Abdominal GI/Abdominal exam: Present: normal bowel sounds, pulsatile mass, soft. Absent: organomegaly, rebound, rigid, tenderness - Extremities Exam Extremities exam: Present: normal capillary refill, normal inspection. Absent: joint swelling, pedal edema, tenderness - Back Exam Back exam: Present: CVA tenderness (R) (with palpation at the level of the right flank. no skin changes. Pain does not get worse with gentle palpation.). Absent: vertebral tenderness - Neurological Exam Neurological exam: Present: alert, altered, CN II-XII intact, oriented X3 - Psychiatric Psychiatric exam: Present: normal affect, normal mood - Skin Skin exam: Present: intact. Absent: cyanosis, erythema Consult Discharge Plan - Plan Referrals: Elio Melendez MD [Primary Care Provider] -
[2017-01-11] MEDS: 0.9 % Sodium Chloride 1,000 ML IVC SCH (17:53)
[2017-01-11] MEDS: Gabapentin 300 MG CAPSULE PO SCH (21:18)
[2017-01-11] MEDS: Budesonide/Formoterol 160/4.5 MDI IH SCH (22:31)
[2017-01-12] MEDS: 0.9 % Sodium Chloride 1,000 ML IVC SCH ×3 (00:41→23:16)
[2017-01-12 05:26] LABS: Basophils % 0.8 %; Eosinophils # 0.1 K/mcL (0.0-0.6); Eosinophils % 4.9 %; Hematocrit 22.9 % (37.5-50.1); Hemoglobin 7.5 g/dL (12.9-16.9); Immature Granulocytes % 3.2 % (0-4); Lymphocytes # 0.9 K/mcL (0.6-4.6); Mean Corpuscular HGB Conc 32.8 g/dL (31.6-35.5); Mean Corpuscular Hemoglobin 31.1 pg (28.0-33.3); Mean Platelet Volume 10.1 fL (9.4-12.4); Monocytes # 0.2 K/mcL (0.0-1.3); Monocytes % 7.7 %; Neutrophils # 1.2 K/mcL (1.6-8.9); Platelet Count 160 K/mcL (140-400); Red Blood Count 2.41 M/mcL (4.19-5.50); Red Cell Distribution Width 17.2 % (11.5-14.5); Segmented Neutrophils % 47.4 %
[2017-01-12 05:40] LABS: Calcium 9.7 mg/dL (8.6-10.8); Potassium 4.1 mEq/L (3.5-4.5)
--- NOTE | 2017-01-12 07:24 | Electrocardiograph Report ---
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
[2017-01-12] MEDS: Aspirin Enteric Coated 81 MG Tablet PO SCH (08:22)
[2017-01-12] MEDS: Metoprolol XL (24 HR) Succ 50 MG TAB.ER.24H PO SCH (08:22)
[2017-01-12] MEDS: amLODIPine 5 MG TABLET PO SCH (08:23)
[2017-01-12] MEDS: Budesonide/Formoterol 160/4.5 MDI IH SCH ×2 (08:50→21:55)
[2017-01-12] MEDS ORDERED: 0.9 % Sodium Chloride 1,000 ML IVC SCH (11:33)
--- NOTE | 2017-01-12 11:52 | Internal Med Progress Note ---
Date of Encounter: 01/12/17 Time of Encounter: 11:50 - Assessment and plan (1) Hypercalcemia Current Visit: Yes Status: Acute Assessment and plan: Due to possible malignancy Improving Cont IV hydration will check PTH, Mg, PO4 levels in AM Will give 1 dose Bisphopshoate Zolendronic acid too (2) Chest mass Current Visit: Yes Status: Acute Assessment and plan: Heme Onc consulted Ordered CT guided Left chest wall mas Biopsy will f/u on results (3) Bony metastasis Current Visit: Yes Status: Acute Assessment and plan: Intractable pain cont IV analgesics Will give 1 dose IV Zolendronic acid too (4) Right flank pain Current Visit: Yes Status: Acute (5) Anemia Current Visit: No Status: Acute Assessment and plan: Acute anemia due to malignancy s/p PRBC .. Hb improved to 7.5 check Iron studies cont close monitoring Qualifiers: Anemia type: unspecified type Qualified Code(s): D64.9 - Anemia, unspecified (6) Pulmonary nodules Current Visit: No Status: Chronic Assessment and plan: Possible metastatic disease had h/o smoking.. concerned for primary lung malignancy too will f/u on CT guided chest wall mass biopsy (7) Acute kidney injury Current Visit: Yes Status: Acute Assessment and plan: EVER with CKD-3 mostly due to dehydration and possible multiple myeloma too will f/u on SPEP and UPEP results Nephro consulted (8) CKD (chronic kidney disease) stage 3, GFR 30-59 ml/min Current Visit: Yes Status: Chronic (9) Hypertension Current Visit: No Status: Chronic Assessment and plan: resumed home meds Qualifiers: Hypertension type: essential hypertension Qualified Code(s): I10 - Essential (primary) hypertension (10) Diabetes mellitus Current Visit: No Status: Chronic Assessment and plan: BS are well controlled and in 100's with out any therapy check HbA1C Accu checks ACHS for now Qualifiers: Diabetes mellitus type: type 2 Diabetes mellitus complication status: without complication 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 Flores is a 65 year old male with a past medical history of COPD on home oxygen., coronary artery disease s/ stenting, type 2 diabetes mellitus, hypertension, CT in 1996, hyperlipidemia, ckd 3, depression, and known pulmonary nodules. Patient has extensive tobacco abuse history but he quit one year ago.Patient was admitted here in August 2015 for aspiration pneumonia. Patient is unsure what follow-up he has had with his pulmonary nodules. Patient presents to the emergency room today with intractable back pain. Stating it occurred about 3 days ago and has been a persistent aching, pretty much only with activity. Described as low back up her sacral pain bilaterally. He denies any worsening shortness of breath. He is on oxygen chronically. No fevers or chills. No nausea, vomiting, diarrhea. No recent trauma. In the emergency department he was hemodynamically stable satting 90% on 2 L. On exam he appeared mildly dehydrated and disheveled. X-ray studies were markedly abnormal with a leukopenia of 3.3, hemoglobin of 6.9, platelets 2 27,000. MCV of 97. BUN/creatinine of 50 over 3.44. A urinalysis was positive for proteinuria. CT of his chest showed pulmonary nodules with a large mass with destruction of the sixth rib also evidence of diffuse bony infiltrative disease. Additional labs include an elevated calcium of 11.2, and an elevated total protein of 10.7. Patient was admitted for further workup and evaluation. Pt was admitted in the hospital and started him on aggressive IV hydration. His symptoms started improving slowly. He still has same amount of pain in lower back.. Worsens with movement.. denied any CP / SOB. - Constitutional Vitals: Temp Pulse Resp BP Pulse Ox 98.1 F 61 18 137/71 98 01/12/17 10:22 01/12/17 10:22 01/12/17 10:22 01/12/17 10:22 01/12/17 10:22 General appearance: Present: A&O X 3, no acute distress - Head Head exam: Present: atraumatic, normal inspection - Respiratory Respiratory exam: Present: decreased breath sounds. Absent: respiratory distress, rhonchi, wheezes - Cardiovascular Cardiovascular exam: Present: RRR, +S1, +S2. Absent: systolic murmur - GI/Abdominal GI/Abdominal exam: Present: soft. Absent: rebound, rigid, tenderness - Extremities Exam Extremities exam: Absent: calf tenderness, pedal edema, tenderness - Back Exam Back exam: Present: paraspinal tenderness - Neurological Exam Neurological exam: Present: alert, oriented X3 - Psychiatric Psychiatric exam: Present: normal affect, normal mood Internal Medicine: Result - Labs CBC & Chem 7: 01/12/17 04:53 01/12/17 04:53 Labs: Short CBC 01/12/17 Range/Units 04:53 WBC 2.5 L (4.3-11.1) K/mcL Hgb 7.5 L (12.9-16.9) g/dL Hct 22.9 L (37.5-50.1) % Plt Count 160 (140-400) K/mcL Neutrophils # 1.2 L (1.6-8.9) K/mcL BMP 01/12/17 04:53 Sodium 137 Potassium 4.1 Chloride 113 H Carbon Dioxide 21 BUN 42 H Creatinine 2.89 H Glucose 94 Calcium 9.7 - ABG Interpretation ABG results: PT/INR, D-dimer PT 10.8 Seconds (9.4-12.1) 01/11/17 06:23 Consult Discharge Plan - Plan Referrals: Elio Melendez MD [Primary Care Provider] -
--- NOTE | 2017-01-12 12:50 | IR Procedure Note ---
Date of procedure: 01/12/17 Consent Obtained: Verbal consent, Written consent Timeout: Correct patient and procedure verified, Correct site verified, Time out performed, Skin prep completed Local anesthetic: Lidocaine 1% Indications: Pleural mass Procedure Performed: CT guided biopsy Site/Technique: CT guided biopsy left pleural based mass Results/Findings: 7 20 gauge biopsies obtained Estimated blood loss (cc): 2 Complications: None; Tolerated procedure well Post Procedure Treatment Plan: Continue inpatient care
--- NOTE | 2017-01-12 13:07 | Oncology Inp Progress Note ---
Date of Encounter: 01/12/17 Time of Encounter: 12:00 (1) Chest mass Current Visit: Yes Status: Acute Assessment and plan: - s/p IR guided biopsy today. Follow up pathology results. - Still waiting for SPEP, UPEP, serum IF, urine IF, serum Free light chains to rule out an underlying plasma cell neoplasm. -If work up reveals the presence of clonal paraproteinemia/paraproteinuria, I'd recommend to perform a Bone Marrow biopsy ( discussed with the patient, and agreeable). (2) Hypercalcemia Current Visit: Yes Status: Acute Assessment and plan: - Resolved while being managed with IVF. Serum calcium levels today dropped to 9.7 mg/dl. - Monitor calcium levels daily. If recurrent hypercalcemia, consider zoledronic acid 4 mg x 1 ( if not administered before, since I do not see him in the JUN). (3) Pulmonary nodules Current Visit: No Status: Chronic Assessment and plan: - CT shows a combination of stable and new bilateral lung nodules, but not dominant lung mass. - The significance of the lung nodules needs to be reassess once the results of the chest wall mass biopsy and myeloma work up are available (4) Anemia Current Visit: Yes Status: Acute Assessment and plan: - s/p 2 PRBC yesterday. Hb levels today improved up only to 7.5 due to concommitant administration of IVF and hemodilutional component. - No associated bleeding. Blood smear reviewed: no presence of RBC fragmentation. Noticed normocytic, hypochromic red blood cells. WBC with normal stage of maturation. - Awaiting for work up to rule out plasma cell neoplasm. - Start vitamin b12 replacement, but discontinue it if repeated levels are within normal parameters. - Please check iron panel ( ferritin, TIBC, transferrin saturation ) and occult blood in stools. - Supportive management with transfusion of blood for Hemoglobin level of 7.0 g/ dl or lower. Qualifiers: Anemia type: other cause Other causes of anemia: other cause, not classified Qualified Code(s): D64.89 - Other specified anemias (5) Acute kidney injury Current Visit: No Status: Acute Assessment and plan: - Serum creatinine improving, now down to 2.8 mg/dl after receiving IVF. Oncology: Subj Interval history: Chief complaint: right flank pain. Patient seen at the bedside prior to IR guided biopsy. He reported not significant overnight events, but persistent right flank pain. He feels that has not improved. Only minimal discomfort at the left chest wall. ROS: negative for shortness of breath , nausea, vomiting, fever - Constitutional Vitals: Vital Signs Temp Pulse Resp BP Pulse Ox 01/12/17 10:22 98.1 F 61 18 137/71 98 01/12/17 08:52 18 98 01/12/17 06:57 98.0 F 56 16 149/71 95 01/12/17 04:10 98.5 F 61 15 164/72 96 01/11/17 23:17 98.4 F 64 14 133/71 98 01/11/17 22:31 17 97 01/11/17 18:45 99.2 F 64 16 154/70 96 01/11/17 17:29 97.8 F 65 14 161/78 99 01/11/17 14:48 98.3 F 60 14 137/62 97 Intake and Output 01/11/17 01/12/17 01/12/17 23:59 07:59 15:59 Intake Total 816 / 816 1999 240 / 240 Output Total 525 / 525 800 / 800 300 / 300 Balance 291 / 291 1200 / 1200 -60 / -60 Intake: IV Fluids 1999 0.9 % Sodium Chloride 1, 1999 000 ML @ 150 mls/hr IVC . Q6H40M [facility] Rx#:[id number] Oral 490 / 490 240 / 240 Blood Product 326 / 326 Rbcs Leuko Poor As-1 326 / 326 Unit [id number] Output: Urine 525 / 525 800 / 800 300 / 300 Other: Meal Dinner Breakfast Percent of Meal Consumed 95% 100% # Bowel Movements 0 0 Weight 85.729 kg Patient Weight 01/12/17 23:59 Weight 85.729 kg - Head Head exam: Present: normal inspection, normocephalic - Eye Eye exam: Present: EOMI, normal appearance - ENT ENT exam: Present: normal exam - Respiratory Respiratory exam: Present: chest wall tenderness, CTAB. Absent: rales, respiratory distress - Cardiovascular Cardiovascular exam: Absent: diastolic murmur, irregular rhythm, JVD - GI/Abdominal GI/Abdominal exam: Present: normal bowel sounds. Absent: organomegaly, pulsatile mass, rebound - Extremities Exam Extremities exam: Present: normal inspection. Absent: pedal edema - Neurological Exam Neurological exam: Present: alert. Absent: altered - Psychiatric Psychiatric exam: Present: normal affect Oncology: Obj Data - Labs CBC & Chem 7: 01/12/17 04:53 01/12/17 04:53 Labs: Laboratory Results - last 24 hr 01/12/17 01/12/17 04:53 04:53 WBC 2.5 L RBC 2.41 L Hgb 7.5 L Hct 22.9 L MCV 95.0 MCH 31.1 MCHC 32.8 RDW 17.2 H Plt Count 160 MPV 10.1 Immature Gran % 3.2 Seg Neutrophils % 47.4 Lymphocytes % 36.0 Monocytes % 7.7 Eosinophils % 4.9 Basophils % 0.8 Neutrophils # 1.2 L Lymphocytes # 0.9 Monocytes # 0.2 Eosinophils # 0.1 Basophils # 0.0 Sodium 137 Potassium 4.1 Chloride 113 H Carbon Dioxide 21 BUN 42 H Creatinine 2.89 H Est GFR ( Amer) 26 L Est GFR (Non-Af Amer) 22 L BUN/Creatinine Ratio 15 Glucose 94 Calculated Osmolality 294 Calcium 9.7 - ABG Interpretation ABG results: PT/INR, D-dimer PT 10.8 Seconds (9.4-12.1) 01/11/17 06:23 Consult Discharge Plan - Plan Referrals: Elio Melendez MD [Primary Care Provider] -
[2017-01-12] MEDS ORDERED: *HR* Morphine 2 MG/ML SYRINGE IVP PRN (15:21)
[2017-01-12] MEDS: Gabapentin 300 MG CAPSULE PO SCH (20:09)
--- NOTE | 2017-01-12 23:08 | Nephrology Consult Note ---
Date of Encounter: 01/12/17 Time of Encounter: 23:04 Assessment and Plan (1) Acute kidney injury Current Visit: Yes Status: Acute Patient with acute kidney injury that is likely due to upper calcium anemia and possible dehydration. Renal function is improving with lower calcium level and hydration. At this time is does not appear that he needs renal replacement therapy. We will check renal ultrasound. (2) Anemia Current Visit: Yes Status: Acute Per primary team. Transfuse as needed. Qualifiers: Anemia type: other cause Other causes of anemia: other cause, not classified Qualified Code(s): D64.89 - Other specified anemias (3) Hypercalcemia Current Visit: Yes Status: Acute Improving with aggressive hydration. May be related to malignancy. (4) Lung mass Current Visit: Yes Status: Acute Per oncology. S/p biopsy. (5) Right flank pain Current Visit: Yes Status: Acute Etiology is unclear. Not likely related to renal dysfunction. Seems musculoskeletal History of Present Illness - Reason for Consult Consult date: 01/12/17 Acute Kidney Injury - Chief Complaint EVER Past Med Surg Social Fam HX - Past Medical History Medical history: COPD, coronary artery disease, diabetes, hypertension, myocardial infarction Psychiatric history: anxiety, depression - Past Surgical History Surgical History: angioplasty/stent - Social History Smoking Status: Current every day smoker Packs per day: 2 Smokeless Tobacco Status: No Alcohol use: none Drug use: none - Family History Sister Adopted: No Race: Family Member Ethnicity: Non- Living Status: Still Living Hx Family Cancer: Yes (history of breast cancer s/p bilateral mastectomy.) Father Living Status: Hx Family Cardiac Disorders: Yes ([place]) Hx Family Endocrine Disorder: Yes (DM) Mother Living Status: Hx Family Endocrine Disorder: Yes (DM) Medications and Allergies Aspirin Enteric Coated [Aspirin EC] 81 mg PO DAILY 09/06/15 [History] Lisinopril [Zestril] 40 mg PO DAILY 09/06/15 [History] Simvastatin [Zocor] 40 mg PO HS 09/07/15 [History] Albuterol Sulfate [Albuterol Inhaler] 1 puff IH Q6HR PRN #1 [email or web address] 09/10/15 [Rx] Amlodipine Besylate 10 mg PO DAILY 01/11/17 [History] Budesonide/Formoterol 160/4.5 [Symbicort 160/4.5] 2 puff IH BIDR 01/11/17 [ History] Chlorthalidone 25 mg PO QAM 01/11/17 [History] Ergocalciferol (VITAMIN D2) [Vitamin D2] 50,000 unit PO QWEEK 01/11/17 [History] Gabapentin [Neurontin] 300 mg PO HS 01/11/17 [History] Lidocaine Patch [Lidoderm 5% patch] 1 - 2 each TP DAILY PRN 01/11/17 [History] Metoprolol Succinate 100 mg PO DAILY 01/11/17 [History] Tamsulosin [Flomax] 0.4 mg PO DAILY 01/11/17 [History] 3 Allergy/AdvReac Type Severity Reaction Status Date / Time No Known Allergies Allergy Verified 01/26/15 08:12 Exam - Vital Signs Vital signs: Initial Vital Signs Temp Pulse Resp BP Pulse Ox 97.9 F 73 20 205/81 97 01/11/17 05:41 01/11/17 05:41 01/11/17 05:41 01/11/17 05:41 01/11/17 05:41 Vital Signs - Last 8 Hours Temp Pulse Resp BP Pulse Ox 01/12/17 22:07 143/75 01/12/17 19:50 97.1 F L 70 16 174/78 96 Intake and Output 01/12/17 01/12/17 01/12/17 07:59 15:59 23:59 Intake Total 1999 480 / 480 240 / 240 Output Total 800 / 800 850 / 850 300 / 300 Balance 1200 / 1200 -370 / -370 -60 / -60 Intake: IV Fluids 1999 0.9 % Sodium Chloride 1, 1999 / 1999 000 ML @ 150 mls/hr IVC . Q6H40M [facility] Rx#:[id number] Oral 480 / 480 240 / 240 Output: Urine 800 / 800 850 / 850 300 / 300 Other: Meal Breakfast Dinner Percent of Meal Consumed 100% 100% # Bowel Movements 0 0 Weight 85.729 kg Patient Weight 01/12/17 23:59 Weight 85.729 kg Results - Lab Results 01/12/17 04:53 01/12/17 04:53 Most recent lab results Calcium 9.7 mg/dL (8.6-10.8) 01/12/17 04:53 Consult Discharge Plan - Plan Referrals: Elio Melendez MD [Primary Care Provider] -
[2017-01-13 08:15] LABS: Basophils % 0.4 %; Eosinophils # 0.1 K/mcL (0.0-0.6); Eosinophils % 3.7 %; Hematocrit 22.7 % (37.5-50.1); Hemoglobin 7.2 g/dL (12.9-16.9); Immature Granulocytes % 2.6 % (0-4); Lymphocytes # 0.8 K/mcL (0.6-4.6); Lymphocytes % 30.4 %; Mean Corpuscular HGB Conc 31.7 g/dL (31.6-35.5); Mean Corpuscular Hemoglobin 30.1 pg (28.0-33.3); Mean Platelet Volume 10.7 fL (9.4-12.4); Monocytes # 0.2 K/mcL (0.0-1.3); Monocytes % 6.7 %; Neutrophils # 1.5 K/mcL (1.6-8.9); Platelet Count 175 K/mcL (140-400); Red Blood Count 2.39 M/mcL (4.19-5.50); Segmented Neutrophils % 56.2 %
[2017-01-13 09:03] LABS: Albumin 2.5 g/dL (3.5-5.0); Albumin/Globulin Ratio 0.4 (1.1-2.2); Bilirubin,Total 0.3 mg/dL (0.2-1.2); Calcium 9.8 mg/dL (8.6-10.8); Globulin 6.5 g/dL (2.4-3.5); Magnesium 1.5 mg/dL (1.6-2.6); Phosphorous 3.5 mg/dL (2.3-4.7)
[2017-01-13] MEDS: amLODIPine 5 MG TABLET PO SCH (09:50)
[2017-01-13] MEDS: Aspirin Enteric Coated 81 MG Tablet PO SCH (09:51)
[2017-01-13] MEDS: Metoprolol XL (24 HR) Succ 50 MG TAB.ER.24H PO SCH (09:51)
[2017-01-13] MEDS: Budesonide/Formoterol 160/4.5 MDI IH SCH ×2 (10:07→22:31)
--- NOTE | 2017-01-13 10:11 | Oncology Inp Progress Note ---
Date of Encounter: 01/13/17 Time of Encounter: 10:10 (1) Acute kidney injury Current Visit: Yes Status: Acute Assessment and plan: Given subacute worsening since earlier this year, likely paraproteinemia compounded by associated hypercalcemia with dehydration. Responding to fluids. If MM present, will initiate decadron/velcade before d/c. (2) Bony metastasis Current Visit: Yes Status: Acute Assessment and plan: Likely paraproteinemia given presentation and elevated globulin. Awaiting SPEP , UPEP, serum IF, urine IF, serum Free light chains to evaluate for underlying plasma cell neoplasm. Further workup pending these results. Again, will likely treat with Dex/Velcade Sunday prior to d/c if paraproteinemia confirmed. Patient informed of plan today (3) Chest mass Current Visit: Yes Status: Acute Assessment and plan: Awaiting biopsy results (4) Anemia Current Visit: No Status: Acute Assessment and plan: Hemoglobin stable at 7.2. Again likely secondary to underlying MM/ paraproteinemia. No need for transfusion. Continue to monitor Qualifiers: Anemia type: unspecified type Qualified Code(s): D64.9 - Anemia, unspecified Oncology: Subj Interval history: Had acute right back spasm this AM, improving. Otherwise uneventful night overnight. Feeling okay this AM. SPEP pending. Urine studies yet to be collected and nursing notified. Anxious to go home. - Constitutional Vitals: Vital Signs Temp Pulse Resp BP Pulse Ox 01/13/17 10:08 16 97 01/13/17 08:06 98.5 F 64 16 171/76 96 01/13/17 03:58 98.5 F 60 14 138/68 94 01/12/17 23:00 98.6 F 65 15 133/62 97 01/12/17 22:07 143/75 01/12/17 19:50 97.1 F L 70 16 174/78 96 01/12/17 14:24 98.5 F 64 18 146/68 97 01/12/17 10:22 98.1 F 61 18 137/71 98 Intake and Output 01/13/17 01/13/17 01/13/17 00:59 08:59 16:59 Intake Total 240 / 240 450 / 450 Output Total 300 / 300 1150 / 1150 Balance -60 / -60 -700 / -700 Intake: Oral 240 / 240 450 / 450 Output: Urine 300 / 300 1150 / 1150 Other: Meal Dinner Percent of Meal Consumed 100% # Bowel Movements 0 Weight 86.183 kg Patient Weight 01/14/17 00:59 Weight 86.183 kg - Head Head exam: Present: atraumatic, normal inspection, normocephalic - Eye Eye exam: Present: conjuntiva pink, sclera anicteric - ENT ENT exam: Present: mucous membranes moist, normal exam - Neck Neck exam: Present: full ROM, normal inspection - Respiratory Respiratory exam: Present: decreased breath sounds, CTAB - Cardiovascular Cardiovascular exam: Present: RRR - Extremities Exam Extremities exam: Present: normal capillary refill, normal inspection - Back Exam Back exam: Present: muscle spasm - Neurological Exam Neurological exam: Present: alert, CN II-XII intact, oriented X3 Oncology: Obj Data - Labs CBC & Chem 7: 01/13/17 06:44 01/13/17 06:44 Labs: Laboratory Results - last 24 hr 01/13/17 01/13/17 01/13/17 06:44 06:44 06:44 WBC 2.7 L RBC 2.39 L Hgb 7.2 L Hct 22.7 L MCV 95.0 MCH 30.1 MCHC 31.7 RDW 17.0 H Plt Count 175 MPV 10.7 Immature Gran % 2.6 Seg Neutrophils % 56.2 Lymphocytes % 30.4 Monocytes % 6.7 Eosinophils % 3.7 Basophils % 0.4 Neutrophils # 1.5 L Lymphocytes # 0.8 Monocytes # 0.2 Eosinophils # 0.1 Basophils # 0.0 Sodium 136 Potassium 4.0 Chloride 114 H Carbon Dioxide 19 BUN 38 H Creatinine 2.85 H Est GFR ( Amer) 27 L Est GFR (Non-Af Amer) 22 L BUN/Creatinine Ratio 13 Glucose 90 Calculated Osmolality 291 Calcium 9.8 Phosphorus 3.5 Magnesium 1.5 L Iron 50 L % Saturation 22 Transferrin 162 L Ferritin 326 H Total Bilirubin 0.3 AST 26 ALT 19 Alkaline Phosphatase 99 Serum Total Protein 9.0 H Albumin 2.5 L Globulin 6.5 H Albumin/Globulin Ratio 0.4 L PTH Intact 3.8 L - Impressions Impressions Biopsy CT 01/12/17 00:00 IMPRESSION: Successful CT guided core biopsy of a pleural based mass in the left chest.. D/ / Juaquin Kelly MD / Juaquin Kelly MD Interpreting Provider: Juaquin Kelly MD Chest X-Ray 01/12/17 13:50 IMPRESSION: No pneumothorax following percutaneous needle biopsy of a pleural based mass in the left chest. D/ / Juaquin Kelly MD / Juaquin Kelly MD Interpreting Provider: Juaquin Kelly MD - ABG Interpretation ABG results: PT/INR, D-dimer PT 10.8 Seconds (9.4-12.1) 01/11/17 06:23 Consult Discharge Plan - Plan Referrals: Elio Melendez MD [Primary Care Provider] -
[2017-01-13] MEDS: 0.9 % Sodium Chloride 1,000 ML IVC SCH ×2 (10:21→20:46)
[2017-01-13 10:31] LABS: Folate 7.9 ng/mL (7.0-31.4)
[2017-01-13] MEDS ORDERED: Magnesium Sulfate 2 GM in D5% in Water 100 ML IVPB ONE (10:56)
[2017-01-13] MEDS ORDERED: Baclofen 10 MG TABLET PO PRN (11:45)
--- NOTE | 2017-01-13 11:45 | Internal Med Progress Note ---
Date of Encounter: 01/13/17 Time of Encounter: 10:45 - Assessment and plan (1) Lung mass Current Visit: Yes Status: Acute Assessment and plan: s/p biopsy by IR, awaiting results oncology on board and consultation appreciated (2) Bony metastasis Current Visit: Yes Status: Acute Assessment and plan: Intractable pain cont IV analgesics added Senna plus 2tabs PO BID for constipation miralax prn constipation added baclofen prn back spasm (3) Hypercalcemia Current Visit: Yes Status: Acute Assessment and plan: Due to possible malignancy Improving Cont IV hydration (4) Hypertension Current Visit: No Status: Chronic Assessment and plan: Noted to be hypertensive added hydralazine 10mg IV q6h prn SBP>160 will continue home meds closely monitor BP Qualifiers: Hypertension type: essential hypertension Qualified Code(s): I10 - Essential (primary) hypertension (5) Diabetes mellitus Current Visit: No Status: Chronic Assessment and plan: BS are well controlled and in 100's with out any therapy f/u HbA1C Accu checks ACHS for now Qualifiers: Diabetes mellitus type: type 2 Diabetes mellitus complication status: without complication Diabetes mellitus medical terminologist insulin use: without medical terminologist use Qualified Code(s): E11.9 - Type 2 diabetes mellitus without complications (6) Acute kidney injury Current Visit: No Status: Acute Assessment and plan: Nephrology on board and consultation appreciated will continue to closely monitor avoid nephrotoxic agents (7) Anemia Current Visit: No Status: Acute Assessment and plan: Acute anemia due to malignancy s/p PRBC H&H low but acceptable will continue to monitor and transfuse for Hgb<7 iron studies consistent with anemia of chronic disease cont close monitoring Qualifiers: Anemia type: unspecified type Qualified Code(s): D64.9 - Anemia, unspecified (8) COPD (chronic obstructive pulmonary disease) Current Visit: Yes Status: Acute Assessment and plan: not in exacerbation resumed home bronchodilators Qualifiers: COPD type: COPD with acute exacerbation Qualified Code(s): J44.1 - Chronic obstructive pulmonary disease with (acute) exacerbation (9) CKD (chronic kidney disease) stage 3, GFR 30-59 ml/min Current Visit: Yes Status: Chronic (10) DVT prophylaxis Current Visit: No Status: Acute Assessment and plan: SCD - Subjective Interval history: Patient seen and examined at bedside. Resting in bed and reports of having back spasms and being constipated. No overnight issues reported. - Constitutional Vitals: Temp Pulse Resp BP Pulse Ox 98.6 F 62 16 160/74 94 01/13/17 10:41 01/13/17 10:41 01/13/17 10:41 01/13/17 10:41 01/13/17 10:41 General appearance: Present: A&O X 3, no acute distress, answers questions appropriately - Head Head exam: Present: atraumatic, normocephalic - Eye Eye exam: Present: conjuntiva pink, sclera anicteric - Respiratory Respiratory exam: Present: CTAB. Absent: accessory muscle use, rales, rhonchi, wheezes - Cardiovascular Cardiovascular exam: Present: RRR, +S1, +S2 - GI/Abdominal GI/Abdominal exam: Present: normal bowel sounds, soft, no peritoneal signs. Absent: distended, tenderness - Extremities Exam Extremities exam: Present: warm, radial pulses palpable and symmetrical. Absent : calf tenderness - Neurological Exam Neurological exam: Present: alert, oriented X3 - Psychiatric Psychiatric exam: Present: normal affect, normal mood Internal Medicine: Result - Labs CBC & Chem 7: 01/13/17 06:44 01/13/17 06:44 Labs: Short CBC 01/13/17 Range/Units 06:44 WBC 2.7 L (4.3-11.1) K/mcL Hgb 7.2 L (12.9-16.9) g/dL Hct 22.7 L (37.5-50.1) % Plt Count 175 (140-400) K/mcL Neutrophils # 1.5 L (1.6-8.9) K/mcL BMP 01/13/17 06:44 Sodium 136 Potassium 4.0 Chloride 114 H Carbon Dioxide 19 BUN 38 H Creatinine 2.85 H Glucose 90 Calcium 9.8 Liver Function 01/13/17 Range/Units 06:44 Total Bilirubin 0.3 (0.2-1.2) mg/dL AST 26 (5-34) Units/L ALT 19 (0-55) Units/L Alkaline Phosphatase 99 (38-126) Units/L Albumin 2.5 L (3.5-5.0) g/dL - ABG Interpretation ABG results: PT/INR, D-dimer PT 10.8 Seconds (9.4-12.1) 01/11/17 06:23 - Impressions Impressions Biopsy CT 01/12/17 00:00 IMPRESSION: Successful CT guided core biopsy of a pleural based mass in the left chest.. D/ / Juaquin Kelly MD / Juaquin Kelly MD Interpreting Provider: Juaquin Kelly MD Chest X-Ray 01/12/17 13:50 IMPRESSION: No pneumothorax following percutaneous needle biopsy of a pleural based mass in the left chest. D/ / Juaquin Kelly MD / Juaquin Kelly MD Interpreting Provider: Juaquin Kelly MD - VTE Documentation of Mechanical Device: Intermittent pneumatic compression device Consult Discharge Plan - Plan Referrals: Elio Melendez MD [Primary Care Provider] -
[2017-01-13] MEDS: *HR* HYDROcodone/Acet 5/325 mg TABLET PO PRN (12:17)
[2017-01-13] MEDS: Sennosides/Docusate Sodium TABLET PO SCH ×2 (14:17→20:45)
[2017-01-13] MEDS: Gabapentin 300 MG CAPSULE PO SCH ×2 (20:45→20:54)
[2017-01-14 05:13] LABS: Basophils % 0.7 %; Eosinophils # 0.1 K/mcL (0.0-0.6); Eosinophils % 3.6 %; Hematocrit 22.1 % (37.5-50.1); Hemoglobin 7.1 g/dL (12.9-16.9); Immature Granulocytes % 2.2 % (0-4); Lymphocytes # 0.8 K/mcL (0.6-4.6); Mean Corpuscular HGB Conc 32.1 g/dL (31.6-35.5); Mean Corpuscular Hemoglobin 30.5 pg (28.0-33.3); Mean Corpuscular Volume 94.8 fL (83.0-100.0); Mean Platelet Volume 10.4 fL (9.4-12.4); Monocytes # 0.2 K/mcL (0.0-1.3); Monocytes % 7.3 %; Neutrophils # 1.6 K/mcL (1.6-8.9); Platelet Count 143 K/mcL (140-400); Red Blood Count 2.33 M/mcL (4.19-5.50); Red Cell Distribution Width 16.8 % (11.5-14.5); Segmented Neutrophils % 58.2 %
[2017-01-14 05:31] LABS: Calcium 9.6 mg/dL (8.6-10.8); Magnesium 1.6 mg/dL (1.6-2.6); Phosphorous 3.7 mg/dL (2.3-4.7)
[2017-01-14] MEDS: 0.9 % Sodium Chloride 1,000 ML IVC SCH ×2 (06:08→20:13)
[2017-01-14] MEDS: Budesonide/Formoterol 160/4.5 MDI IH SCH ×2 (07:42→22:16)
[2017-01-14 08:55] LABS: Hematocrit 24.1 % (37.5-50.1); Hemoglobin 7.7 g/dL (12.9-16.9)
[2017-01-14] MEDS ORDERED: Sennosides/Docusate Sodium TABLET PO ONE (09:58)
[2017-01-14] MEDS: *HR* HYDROcodone/Acet 5/325 mg TABLET PO PRN ×2 (10:45→20:18)
[2017-01-14] MEDS: Metoprolol XL (24 HR) Succ 50 MG TAB.ER.24H PO SCH (10:46)
[2017-01-14] MEDS: Aspirin Enteric Coated 81 MG Tablet PO SCH (10:47)
[2017-01-14] MEDS: amLODIPine 5 MG TABLET PO SCH (10:47)
[2017-01-14] MEDS: Sennosides/Docusate Sodium TABLET PO SCH ×2 (11:25→20:07)
--- NOTE | 2017-01-14 11:38 | Internal Med Progress Note ---
Date of Encounter: 01/14/17 Time of Encounter: 11:38 - Assessment and plan (1) Lung mass Current Visit: Yes Status: Acute Assessment and plan: s/p biopsy by IR, awaiting results oncology on board and consultation appreciated (2) Bony metastasis Current Visit: Yes Status: Acute Assessment and plan: Intractable pain cont IV analgesics continue Senna plus 2tabs PO BID for constipation miralax prn constipation baclofen prn back spasm (3) Hypercalcemia Current Visit: Yes Status: Acute Assessment and plan: Due to possible malignancy Improving Cont IV hydration (4) Hypertension Current Visit: No Status: Chronic Assessment and plan: Noted to be hypertensive hydralazine 10mg IV q6h prn SBP>160 will continue home meds closely monitor BP Qualifiers: Hypertension type: essential hypertension Qualified Code(s): I10 - Essential (primary) hypertension (5) Diabetes mellitus Current Visit: No Status: Chronic Assessment and plan: BS are well controlled f/u HbA1C Accu checks ACHS for now Qualifiers: Diabetes mellitus type: type 2 Diabetes mellitus complication status: without complication Diabetes mellitus long-term insulin use: without long-term use Qualified Code(s): E11.9 - Type 2 diabetes mellitus without complications (6) Acute kidney injury Current Visit: No Status: Acute Assessment and plan: Nephrology on board and consultation appreciated will continue to closely monitor avoid nephrotoxic agents (7) Anemia Current Visit: No Status: Acute Assessment and plan: Acute anemia due to malignancy s/p PRBC H&H low but acceptable will continue to monitor and transfuse for Hgb<7 iron studies consistent with anemia of chronic disease cont close monitoring Qualifiers: Anemia type: unspecified type Qualified Code(s): D64.9 - Anemia, unspecified (8) COPD (chronic obstructive pulmonary disease) Current Visit: Yes Status: Acute Assessment and plan: not in exacerbation resumed home bronchodilators Qualifiers: COPD type: COPD with acute exacerbation Qualified Code(s): J44.1 - Chronic obstructive pulmonary disease with (acute) exacerbation (9) CKD (chronic kidney disease) stage 3, GFR 30-59 ml/min Current Visit: Yes Status: Chronic (10) DVT prophylaxis Current Visit: No Status: Acute Assessment and plan: SCD - Subjective Interval history: Patient seen and examined at bedside. Reports of improvement in back spasms and reports of having a bowel movement after receiving senna plus and miralax. No overnight events reported. - Constitutional Vitals: Temp Pulse Resp BP Pulse Ox 98.4 F 63 14 176/82 96 01/14/17 11:32 01/14/17 11:32 01/14/17 11:32 01/14/17 11:32 01/14/17 11:32 General appearance: Present: A&O X 3, no acute distress, answers questions appropriately - Head Head exam: Present: atraumatic, normocephalic - Eye Eye exam: Present: conjuntiva pink, sclera anicteric - Respiratory Respiratory exam: Present: CTAB. Absent: accessory muscle use, rales, rhonchi, wheezes - Cardiovascular Cardiovascular exam: Present: RRR, +S1, +S2. Absent: diastolic murmur, gallop, rubs, systolic murmur - GI/Abdominal GI/Abdominal exam: Present: normal bowel sounds, soft, no peritoneal signs. Absent: distended, tenderness - Extremities Exam Extremities exam: Present: warm, radial pulses palpable and symmetrical. Absent : calf tenderness - Neurological Exam Neurological exam: Present: alert, oriented X3 - Psychiatric Psychiatric exam: Present: normal affect, normal mood Internal Medicine: Result - Labs CBC & Chem 7: 01/14/17 08:29 01/14/17 04:52 Labs: Short CBC 01/14/17 01/14/17 Range/Units 04:52 08:29 WBC 2.8 L (4.3-11.1) K/mcL Hgb 7.1 L 7.7 L (12.9-16.9) g/dL Hct 22.1 L 24.1 L (37.5-50.1) % Plt Count 143 (140-400) K/mcL Neutrophils # 1.6 (1.6-8.9) K/mcL BMP 01/14/17 04:52 Sodium 136 Potassium 4.0 Chloride 113 H Carbon Dioxide 20 BUN 35 H Creatinine 2.53 H Glucose 91 Calcium 9.6 - ABG Interpretation ABG results: PT/INR, D-dimer PT 10.8 Seconds (9.4-12.1) 01/11/17 06:23 - VTE Documentation of Mechanical Device: Intermittent pneumatic compression device Consult Discharge Plan - Plan Referrals: Elio Melendez MD [Primary Care Provider] -
[2017-01-14 19:49] LABS: Lambda Qnt Free Light Chains 0.74 mg/dL (0.57-2.63)
[2017-01-14] MEDS: Gabapentin 300 MG CAPSULE PO SCH (20:13)
[2017-01-14 23:53] LABS: Alpha 2 Globulin (PEP) 0.96 g/dL (0.48-1.05); Beta Globulin (PEP) 0.52 g/dL (0.48-1.10)
[2017-01-15 04:22] LABS: Basophils % 0.7 %; Eosinophils # 0.1 K/mcL (0.0-0.6); Eosinophils % 3.2 %; Hematocrit 22.5 % (37.5-50.1); Hemoglobin 7.2 g/dL (12.9-16.9); Immature Granulocytes % 2.2 % (0-4); Lymphocytes # 0.7 K/mcL (0.6-4.6); Lymphocytes % 24.5 %; Mean Corpuscular Hemoglobin 30.4 pg (28.0-33.3); Mean Corpuscular Volume 94.9 fL (83.0-100.0); Mean Platelet Volume 9.9 fL (9.4-12.4); Monocytes # 0.2 K/mcL (0.0-1.3); Monocytes % 6.5 %; Neutrophils # 1.7 K/mcL (1.6-8.9); Platelet Count 139 K/mcL (140-400); Red Blood Count 2.37 M/mcL (4.19-5.50); Red Cell Distribution Width 16.8 % (11.5-14.5); Segmented Neutrophils % 62.9 %
[2017-01-15 04:44] LABS: Calcium 9.8 mg/dL (8.6-10.8); Magnesium 1.4 mg/dL (1.6-2.6); Phosphorous 3.6 mg/dL (2.3-4.7); Potassium 3.9 mEq/L (3.5-4.5)
[2017-01-15] MEDS ORDERED: Magnesium Sulfate 2 GM in D5% in Water 100 ML IVPB ONE (07:44)
[2017-01-15] MEDS: Budesonide/Formoterol 160/4.5 MDI IH SCH ×2 (07:48→21:21)
[2017-01-15] MEDS: 0.9 % Sodium Chloride 1,000 ML IVC SCH ×3 (07:51→15:45)
--- NOTE | 2017-01-15 07:56 | Oncology Inp Progress Note ---
Date of Encounter: 01/15/17 Time of Encounter: 06:30 (1) Acute kidney injury Current Visit: Yes Status: Acute Assessment and plan: Given subacute worsening since earlier this year, likely paraproteinemia compounded by associated hypercalcemia with dehydration. Responding to fluids. If MM present, will initiate decadron/velcade before d/c. Awaiting labs and biopsy. (2) Bony metastasis Current Visit: Yes Status: Acute Assessment and plan: Likely paraproteinemia given presentation and elevated globulin. Awaiting SPEP , UPEP, serum IF, urine IF, serum Free light chains to evaluate for underlying plasma cell neoplasm. Further workup pending these results. Again, will likely treat with Dex/Velcade Sunday prior to d/c if paraproteinemia confirmed. Patient informed of plan today. Awaiting labs and biopsy (3) Chest mass Current Visit: Yes Status: Acute Assessment and plan: Awaiting biopsy results (4) Anemia Current Visit: No Status: Acute Assessment and plan: Hemoglobin stable at 7.2. Again likely secondary to underlying MM/ paraproteinemia. No need for transfusion. Continue to monitor Qualifiers: Anemia type: unspecified type Qualified Code(s): D64.9 - Anemia, unspecified Oncology: Subj Interval history: Sleeping well this morning. He does note some continued right lower back pain. Pain has relented from Sunday. He still has difficulty standing secondary to pain. He is worried about how he will be of the shave. Appetite is good. No fever chills or symptoms of infection. Laboratory reports and biopsy are currently pending. - Constitutional Vitals: Vital Signs Temp Pulse Resp BP Pulse Ox 01/15/17 03:46 98.7 F 65 14 145/65 93 01/15/17 01:33 98.0 F 59 14 152/68 97 01/14/17 19:10 98.2 F 63 16 138/58 93 01/14/17 15:28 98.5 F 58 16 149/75 94 01/14/17 12:36 60 144/68 01/14/17 11:32 98.4 F 63 14 176/82 96 Intake and Output 01/14/17 01/15/17 01/15/17 16:59 00:59 08:59 Intake Total 353 / 353 360 / 360 550 / 550 Output Total 250 / 250 500 / 500 900 / 900 Balance 103 / 103 -140 / -140 -350 / -350 Intake: IV Fluids 213 / 213 0.9 % Sodium Chloride 1, 213 / 213 000 ML @ 100 mls/hr IVC . Q10H TETE Rx#:[id number] Oral 140 / 140 360 / 360 550 / 550 Output: Urine 250 / 250 500 / 500 900 / 900 Other: Meal Lunch Dinner Percent of Meal Consumed 75% 80% Stool Size Moderate Stool Consistency formed Stool Color Brown # Voids 1 # Bowel Movements 0 Weight 86.183 kg Patient Weight 01/16/17 00:59 Weight 86.183 kg - Head Head exam: Present: atraumatic, normal inspection, normocephalic - Eye Eye exam: Present: conjuntiva pink, sclera anicteric - ENT ENT exam: Present: mucous membranes moist, normal exam - Neck Neck exam: Present: full ROM, normal inspection - Respiratory Respiratory exam: Present: CTAB - Cardiovascular Cardiovascular exam: Present: RRR - GI/Abdominal GI/Abdominal exam: Present: normal bowel sounds, soft - Extremities Exam Extremities exam: Present: normal inspection - Neurological Exam Neurological exam: Present: alert, CN II-XII intact, oriented X3 Oncology: Obj Data - Labs CBC & Chem 7: 01/15/17 03:52 01/15/17 03:52 Labs: Laboratory Results - last 24 hr 01/14/17 01/15/17 01/15/17 08:29 03:52 03:52 WBC 2.8 L RBC 2.37 L Hgb 7.7 L 7.2 L Hct 24.1 L 22.5 L MCV 94.9 MCH 30.4 MCHC 32.0 RDW 16.8 H Plt Count 139 L MPV 9.9 Immature Gran % 2.2 Seg Neutrophils % 62.9 Lymphocytes % 24.5 Monocytes % 6.5 Eosinophils % 3.2 Basophils % 0.7 Neutrophils # 1.7 Lymphocytes # 0.7 Monocytes # 0.2 Eosinophils # 0.1 Basophils # 0.0 Sodium 134 L Potassium 3.9 Chloride 112 H Carbon Dioxide 18 L BUN 37 H Creatinine 2.63 H Est GFR ( Amer) 30 L Est GFR (Non-Af Amer) 24 L BUN/Creatinine Ratio 14 Glucose 85 Calculated Osmolality 286 Calcium 9.8 Phosphorus 3.6 Magnesium 1.4 L - ABG Interpretation ABG results: PT/INR, D-dimer PT 10.8 Seconds (9.4-12.1) 01/11/17 06:23 Consult Discharge Plan - Plan Referrals: Elio Melendez MD [Primary Care Provider] -
[2017-01-15] MEDS: Metoprolol XL (24 HR) Succ 50 MG TAB.ER.24H PO SCH (09:05)
[2017-01-15] MEDS: Aspirin Enteric Coated 81 MG Tablet PO SCH (09:05)
[2017-01-15] MEDS: amLODIPine 5 MG TABLET PO SCH (09:05)
[2017-01-15] MEDS: Sennosides/Docusate Sodium TABLET PO SCH ×2 (09:06→20:31)
[2017-01-15 09:33] LABS: IFE Reflexed IFE Done
[2017-01-15] MEDS ORDERED: Dexamethasone 10 MG/ML VIAL PO ONE (09:57)
[2017-01-15] MEDS: Acyclovir 200 MG CAPSULE PO SCH ×2 (10:56→20:31)
[2017-01-15 12:46] LABS: Immunoglobulin A <7 mg/dL (68-408); Immunoglobulin G 4900 mg/dL (768-1632); Immunoglobulin M 10 mg/dL (35-263)
--- NOTE | 2017-01-15 14:43 | Internal Med Progress Note ---
Date of Encounter: 01/15/17 Time of Encounter: 14:40 - Assessment and plan (1) Lung mass Current Visit: Yes Status: Acute Assessment and plan: s/p biopsy by IR, awaiting results oncology on board and consultation appreciated SPEP confirmed Multiple myeloma scheduled for bone marrow biopsy in am (2) Bony metastasis Current Visit: Yes Status: Acute Assessment and plan: Intractable pain cont IV analgesics continue Senna plus 2tabs PO BID for constipation miralax prn constipation baclofen prn back spasm (3) Hypercalcemia Current Visit: Yes Status: Acute Assessment and plan: Due to possible malignancy Improving Cont IV hydration (4) Hypertension Current Visit: No Status: Chronic Assessment and plan: Noted to be hypertensive hydralazine 10mg IV q6h prn SBP>160 will continue home meds closely monitor BP Qualifiers: Hypertension type: essential hypertension Qualified Code(s): I10 - Essential (primary) hypertension (5) Diabetes mellitus Current Visit: No Status: Chronic Assessment and plan: BS are well controlled f/u HbA1C Accu checks ACHS for now Qualifiers: Diabetes mellitus type: type 2 Diabetes mellitus complication status: without complication Diabetes mellitus shelter insulin use: without shelter use Qualified Code(s): E11.9 - Type 2 diabetes mellitus without complications (6) Acute kidney injury Current Visit: No Status: Acute Assessment and plan: Nephrology on board and consultation appreciated will continue to closely monitor avoid nephrotoxic agents f/u renal US (7) Anemia Current Visit: No Status: Acute Assessment and plan: Acute anemia due to malignancy H&H low but acceptable will continue to monitor and transfuse for Hgb<7 iron studies consistent with anemia of chronic disease cont close monitoring Qualifiers: Anemia type: unspecified type Qualified Code(s): D64.9 - Anemia, unspecified (8) COPD (chronic obstructive pulmonary disease) Current Visit: Yes Status: Acute Assessment and plan: not in exacerbation resumed home bronchodilators Qualifiers: COPD type: COPD with acute exacerbation Qualified Code(s): J44.1 - Chronic obstructive pulmonary disease with (acute) exacerbation (9) CKD (chronic kidney disease) stage 3, GFR 30-59 ml/min Current Visit: Yes Status: Chronic (10) DVT prophylaxis Current Visit: No Status: Acute Assessment and plan: SCD (11) Hypomagnesemia Current Visit: Yes Status: Acute Assessment and plan: Mg supplemented continue to monitor electrolytes and replace as needed - Subjective Interval history: Patient seen and examined at bedside. Resting in bed and denies any distress. SPEP confirms patient has multiple myeloma Oncology to do bone marrow biopsy in am renal us pending - Constitutional Vitals: Temp Pulse Resp BP Pulse Ox 99.4 F 64 19 160/71 96 01/15/17 08:07 01/15/17 08:07 01/15/17 08:07 01/15/17 08:07 01/15/17 08:07 General appearance: Present: A&O X 3, no acute distress, answers questions appropriately - Head Head exam: Present: atraumatic, normocephalic - Eye Eye exam: Present: conjuntiva pink, sclera anicteric - Respiratory Respiratory exam: Absent: respiratory distress, wheezes - Cardiovascular Cardiovascular exam: Present: RRR, +S1, +S2. Absent: diastolic murmur, gallop, rubs, systolic murmur - GI/Abdominal GI/Abdominal exam: Present: normal bowel sounds, soft, no peritoneal signs. Absent: distended, tenderness - Extremities Exam Extremities exam: Present: warm, radial pulses palpable and symmetrical. Absent : calf tenderness - Neurological Exam Neurological exam: Present: alert, oriented X3 - Psychiatric Psychiatric exam: Present: normal affect, normal mood Internal Medicine: Result - Labs CBC & Chem 7: 01/15/17 03:52 01/15/17 03:52 Labs: Short CBC 01/15/17 Range/Units 03:52 WBC 2.8 L (4.3-11.1) K/mcL Hgb 7.2 L (12.9-16.9) g/dL Hct 22.5 L (37.5-50.1) % Plt Count 139 L (140-400) K/mcL Neutrophils # 1.7 (1.6-8.9) K/mcL BMP 01/15/17 03:52 Sodium 134 L Potassium 3.9 Chloride 112 H Carbon Dioxide 18 L BUN 37 H Creatinine 2.63 H Glucose 85 Calcium 9.8 - ABG Interpretation ABG results: PT/INR, D-dimer PT 10.8 Seconds (9.4-12.1) 01/11/17 06:23 - VTE Documentation of Mechanical Device: Intermittent pneumatic compression device Consult Discharge Plan - Plan Referrals: Elio Melendez MD [Primary Care Provider] -
[2017-01-15] MEDS: Gabapentin 300 MG CAPSULE PO SCH (20:31)
[2017-01-16 07:17] LABS: Hematocrit 20.2 % (37.5-50.1); Hemoglobin 6.7 g/dL (12.9-16.9); Mean Corpuscular HGB Conc 33.2 g/dL (31.6-35.5); Mean Corpuscular Hemoglobin 31.2 pg (28.0-33.3); Mean Platelet Volume 10.7 fL (9.4-12.4); Platelet Count 131 K/mcL (140-400); Red Blood Count 2.15 M/mcL (4.19-5.50); Red Cell Distribution Width 16.4 % (11.5-14.5)
[2017-01-16 07:32] LABS: Magnesium 1.6 mg/dL (1.6-2.6); Phosphorous 3.2 mg/dL (2.3-4.7)
[2017-01-16] MEDS: Budesonide/Formoterol 160/4.5 MDI IH SCH ×2 (08:11→20:41)
[2017-01-16] MEDS: Metoprolol XL (24 HR) Succ 50 MG TAB.ER.24H PO SCH (08:22)
[2017-01-16 08:39] LABS: Lymphocytes # 0.8 K/mcL (0.6-4.6); Monocytes # 0.1 K/mcL (0.0-1.3); Neutrophils # 3.1 K/mcL (1.6-8.9); Platelet Estimate Normal (Normal)
[2017-01-16] MEDS: amLODIPine 5 MG TABLET PO SCH (09:19)
[2017-01-16] MEDS: Aspirin Enteric Coated 81 MG Tablet PO SCH (09:19)
[2017-01-16] MEDS: Sennosides/Docusate Sodium TABLET PO SCH ×2 (09:19→20:27)
[2017-01-16] MEDS: Acyclovir 200 MG CAPSULE PO SCH ×2 (09:19→20:28)
--- NOTE | 2017-01-16 10:27 | History & Physical Report ---
Date of Encounter: 01/16/17 Time of Encounter: 10:27 24 Hour HP Update - Instructions Instructions: If the History and Physical is less than 30 days old and was completed prior to A.M. admission and or procedure and has NOT been updated on calendar day of procedure please complete this update prior to performing procedure. - Update Patient reports changes in Medical Condition: No Changes in examination, assessment, or condition: No Changes in Medication: No Preop tests/diagnostics Reviewed: Yes Surgery Remains Indicated: Yes Consent for Planned Operative Procedure(s) Verified: Yes
--- NOTE | 2017-01-16 10:28 | Pre-Sedation Evaluation ---
Pre-sedation evaluation - Pre-sedation checklist Date of procedure: 01/12/17 Procedure: bronch Recent Vitals: Last Vital Signs Temp 97.6 F 01/16/17 07:15 Pulse 56 01/16/17 07:15 Resp 16 01/16/17 07:15 BP 131/65 01/16/17 07:15 Pulse Ox 97 01/16/17 07:15 H&P (including ROS) documented in medical record: Yes Previous reaction to sedatives/anesthetics: No Dietary Status: NPO after Midnight Airway Assessment: Patient can open mouth completely, TMJ function normal, Micrognathia (under-bite, receding chin) absent, Neck with adequate range of motion Dentition: No loose teeth or bridges Possible difficult airway: No ASA Classification *see protocol: CLASS II-Mild systemic disease Plan of Care: Pt appropriate candidate for procedure/moderate/conscious sedation , Risks/benefits of procedure/sedation discussed w/ patient/family
[2017-01-16] MEDS ORDERED: 0.9 % Sodium Chloride 500 ML ONE ×2 (10:42→14:20)
[2017-01-16] MEDS: *HR* FentaNYL (PF) 100 MCG/2 ML VIAL IVP PRN ×2 (10:59→11:03)
[2017-01-16] MEDS: *HR* Midazolam HCl 2 MG/2 ML VIAL IVP PRN ×2 (11:00→11:03)
--- NOTE | 2017-01-16 12:03 | Nephrology Progress Note ---
Date of Encounter: 01/16/17 Time of Encounter: 12:01 - Assessment and Plan (1) Acute kidney injury Current Visit: No Status: Acute Kidney function worsening last 2 days-Scr 2.74 and GFR 23 Good UOP 1525 (2) Anemia Current Visit: Yes Status: Acute Hgb 6.7 per primary team Transfuse per parameters Qualifiers: Anemia type: other cause Other causes of anemia: other cause, not classified Qualified Code(s): D64.89 - Other specified anemias (3) Lung mass Current Visit: Yes Status: Acute per oncology team Had bone biopsy today Subjective Principal diagnosis: EVER, lung mass Interval history: Patient seen and examined. Just returned from bone biopsy. Objective - Vital Signs Vital signs: Vital Signs Temp Pulse Resp BP Pulse Ox 01/16/17 11:52 97.2 F L 53 18 129/71 93 01/16/17 11:35 97.2 F L 53 18 119/59 95 01/16/17 11:11 55 16 135/96 98 01/16/17 11:04 56 18 141/72 98 01/16/17 07:15 97.6 F 56 16 131/65 97 01/16/17 03:33 98.2 F 60 17 136/60 93 01/15/17 23:13 97.6 F 61 17 144/68 94 01/15/17 19:44 97.7 F 66 16 153/70 95 Intake and Output 01/15/17 01/16/17 01/16/17 23:59 07:59 15:59 Intake Total 920 / 920 0 / 0 0 / 0 Output Total 525 / 525 250 / 250 250 / 250 Balance 395 / 395 -250 / -250 -250 / -250 Intake: Oral 920 / 920 0 / 0 0 / 0 Output: Urine 525 / 525 250 / 250 250 / 250 Other: Meal Dinner NPO Percent of Meal Consumed 100% 0% # Bowel Movements 1 Weight 87.226 kg Blood Glucose* 201 Patient Weight 01/16/17 23:59 Weight 87.226 kg - General Appearance General appearance: Present: well-developed, well-nourished EENT: Present: ATNC, mucous membranes moist, hearing intact, vision intact Neck: Present: supple Respiratory: Present: clear Cardiology: Present: no edema, normal S1, normal S2 Gastrointestinal: Present: no tenderness, no guarding Integumentary: Present: warm and dry Neurologic: Present: alert and oriented x3 Psychiatric: Present: mood/affect appropriate, cooperative - Lab 01/16/17 06:51 01/16/17 06:51 Most recent lab results Calcium 10.0 mg/dL (8.6-10.8) 01/16/17 06:51 Phosphorus 3.2 mg/dL (2.3-4.7) 01/16/17 06:51 Magnesium 1.6 mg/dL (1.6-2.6) 01/16/17 06:51 - VTE Documentation of Mechanical Device: Intermittent pneumatic compression device Consult Discharge Plan - Plan Referrals: Elio Melendez MD [Primary Care Provider] -
[2017-01-16] MEDS ORDERED: *HR* Dextrose 50 % in Water (Syg) 50 ML SYRINGE IVP PRN ×2 (12:16→12:17)
[2017-01-16] MEDS ORDERED: Dextrose Gel 15 GM PO PRN ×2 (12:16)
[2017-01-16] MEDS ORDERED: D5% in Water 1,000 ML IVC PRN ×2 (12:16→12:17)
--- NOTE | 2017-01-16 16:25 | Internal Med Progress Note ---
Date of Encounter: 01/16/17 Time of Encounter: 11:30 - Assessment and plan (1) Multiple myeloma Current Visit: Yes Status: Acute Assessment and plan: New diagnosis of multiple myeloma based findings of SPEP. Bone marrow biopsy done today. Received Velcade and Decadron. Acyclovir 400 mg twice daily for prophylaxis also started. Oncology following. Qualifiers: Multiple myeloma remission status: not in remission Qualified Code(s): C90.00 - Multiple myeloma not having achieved remission (2) Anemia Current Visit: Yes Status: Acute Assessment and plan: Hemoglobin 6.7 today. Likely due to multiple myeloma. Has borderline normal vitamin B-12. We will replete. we will transfuse 1 unit packed red blood cells. Qualifiers: Anemia type: other cause Other causes of anemia: chronic disease, neoplastic Qualified Code(s): D63.0 - Anemia in neoplastic disease (3) ARF (acute renal failure) Current Visit: Yes Status: Acute Assessment and plan: Due to multiple myeloma. Renal function slightly worse today. Nephrology following. Continue to monitor renal function. Avoid further nephrotoxic agents. Qualifiers: Acute renal failure type: with other specified pathological lesion Qualified Code(s): N17.8 - Other acute kidney failure (4) Bony metastasis Current Visit: Yes Status: Acute Assessment and plan: Most likely from multiple myeloma (5) CKD (chronic kidney disease) stage 3, GFR 30-59 ml/min Current Visit: Yes Status: Chronic Assessment and plan: With acute renal failure. Management as above (6) COPD (chronic obstructive pulmonary disease) Current Visit: Yes Status: Acute Qualifiers: COPD type: COPD with acute exacerbation Qualified Code(s): J44.1 - Chronic obstructive pulmonary disease with (acute) exacerbation (7) Diabetes mellitus Current Visit: Yes Status: Chronic Assessment and plan: blood glucose is elevated today. Likely due to use of Decadron. We will monitor blood sugars closely Qualifiers: Diabetes mellitus type: type 2 Diabetes mellitus complication status: without complication Diabetes mellitus superintendent terminal insulin use: without superintendent terminal use Qualified Code(s): E11.9 - Type 2 diabetes mellitus without complications (8) DVT prophylaxis Current Visit: Yes Status: Acute Assessment and plan: With subcutaneous Lovenox (9) Hypercalcemia Current Visit: Yes Status: Acute Assessment and plan: Calcium levels are stable. (10) Hypertension Current Visit: Yes Status: Chronic Assessment and plan: Blood pressure is slightly elevated today but overall has been well controlled. Will continue to monitor for now. If persistently elevated, will increase antihypertensive regimen Qualifiers: Hypertension type: essential hypertension Qualified Code(s): I10 - Essential (primary) hypertension (11) Hypomagnesemia Current Visit: Yes Status: Acute Assessment and plan: Improved. (12) Lung mass Current Visit: Yes Status: Acute Assessment and plan: Pleural-based mass. This has been biopsied. Awaiting pathology results. - Subjective Interval history: Patient is awake and alert. Underwent bone marrow biopsy earlier today. Tolerated procedure well. Pain well-controlled postprocedure. Says that his back pain and spasms have resolved now. - Constitutional Vitals: Temp Pulse Resp BP Pulse Ox 97.4 F L 62 20 144/66 93 01/16/17 15:06 01/16/17 15:06 01/16/17 15:06 01/16/17 15:06 01/16/17 15:06 General appearance: Present: cooperative, A&O X 3, no acute distress, answers questions appropriately - Neck Neck exam general surgery: Present: supple, trachea midline. Absent: lymphadenopathy - Respiratory Respiratory exam: Present: CTAB. Absent: accessory muscle use, rales, rhonchi, wheezes - Cardiovascular Cardiovascular exam: Present: RRR, +S1, +S2. Absent: diastolic murmur, gallop, rubs, systolic murmur - GI/Abdominal GI/Abdominal exam: Present: normal bowel sounds, soft, no peritoneal signs. Absent: distended, tenderness - Extremities Exam Extremities exam: Present: warm, radial pulses palpable and symmetrical. Absent : calf tenderness, cyanotic, pedal edema - Neurological Exam Neurological exam: Present: alert, oriented X3, no focal deficits. Absent: facial droop, speech deficit - Skin Skin exam: Present: dry, intact Internal Medicine: Result - Labs CBC & Chem 7: 01/16/17 06:51 01/16/17 06:51 Labs: Short CBC 01/16/17 Range/Units 06:51 WBC 4.0 L (4.3-11.1) K/mcL Hgb 6.7 L (12.9-16.9) g/dL Hct 20.2 L (37.5-50.1) % Plt Count 131 L (140-400) K/mcL Neutrophils # 3.1 (1.6-8.9) K/mcL BMP 01/16/17 06:51 Sodium 136 Potassium 4.0 Chloride 114 H Carbon Dioxide 16 L BUN 47 H D Creatinine 2.74 H Glucose 192 H Calcium 10.0 - ABG Interpretation ABG results: PT/INR, D-dimer PT 10.8 Seconds (9.4-12.1) 01/11/17 06:23 - Impressions Impressions Retroperitoneum Ultrasound 01/15/17 19:30 IMPRESSION: Mild increase in renal parenchymal echogenicity consistent with medical renal disease. No obstruction. Unremarkable urinary bladder ultrasound. D/ / 01/15/2017 20:51:58 Ryan Zarate MD / sulaiman Interpreting Provider: Ryan Zarate MD Bone Marrow Biopsy w/ CT 01/16/17 00:00 IMPRESSION: Successful CT guided bone marrow aspiration and core biopsy of the iliac bone. D/ / Segundo Lozano MD / Segundo Lozano MD Interpreting Provider: Segundo Lozano MD - VTE Documentation of Mechanical Device: Intermittent pneumatic compression device Consult Discharge Plan - Plan Referrals: Elio Melendez MD [Primary Care Provider] -
[2017-01-16] MEDS: Insulin LISPRO 300 UNITS/3 ML VIAL SQ SCH (16:33)
[2017-01-16] MEDS: Cyanocobalamin (B-12) 1,000 MCG TABLET PO SCH (18:11)
[2017-01-16] MEDS: Gabapentin 300 MG CAPSULE PO SCH (20:28)
[2017-01-16] MEDS ORDERED: Insulin LISPRO 300 UNITS/3 ML VIAL SQ SCH (21:00)
[2017-01-17 06:06] LABS: Hematocrit 21.5 % (37.5-50.1); Immature Platelets 3.2 % (1.1-6.1); Mean Corpuscular HGB Conc 32.6 g/dL (31.6-35.5); Mean Corpuscular Hemoglobin 30.7 pg (28.0-33.3); Mean Corpuscular Volume 94.3 fL (83.0-100.0); Mean Platelet Volume 11.4 fL (9.4-12.4); Platelet Count 147 K/mcL (140-400); Red Blood Count 2.28 M/mcL (4.19-5.50)
[2017-01-17 06:49] LABS: Calcium 10.2 mg/dL (8.6-10.8)
[2017-01-17 07:19] LABS: Anisocytosis 1+ (Not Present); Lymphocytes # 0.3 K/mcL (0.6-4.6); Monocytes # 0.2 K/mcL (0.0-1.3); Neutrophils # 4.4 K/mcL (1.6-8.9); Platelet Estimate Normal (Normal)
[2017-01-17] MEDS: Budesonide/Formoterol 160/4.5 MDI IH SCH (08:42)
[2017-01-17] MEDS: Insulin LISPRO 300 UNITS/3 ML VIAL SQ SCH ×3 (09:35→17:10)
[2017-01-17] MEDS: amLODIPine 5 MG TABLET PO SCH (09:40)
[2017-01-17] MEDS: Sennosides/Docusate Sodium TABLET PO SCH (09:41)
[2017-01-17] MEDS: Cyanocobalamin (B-12) 1,000 MCG TABLET PO SCH (09:41)
[2017-01-17] MEDS: Metoprolol XL (24 HR) Succ 50 MG TAB.ER.24H PO SCH (09:41)
[2017-01-17] MEDS: Aspirin Enteric Coated 81 MG Tablet PO SCH (09:41)
[2017-01-17] MEDS: Acyclovir 200 MG CAPSULE PO SCH (09:42)
[2017-01-17] MEDS ORDERED: *HR* Enoxaparin 30 MG/0.3 ML SYRINGE SQ SCH (13:00)
[2017-01-17] MEDS ORDERED: Mag Hydrox/Al Hydrox/Simeth 30 ML UDC PO PRN (14:23)
--- NOTE | 2017-01-17 14:35 | Discharge Summary ---
Date of Encounter: 01/17/17 Time of Encounter: 14:26 - Discharge Diagnosis (1) Multiple myeloma Priority: Primary Status: Acute Qualifiers: Multiple myeloma remission status: not in remission Qualified Code(s): C90.00 - Multiple myeloma not having achieved remission (2) Anemia Priority: Secondary Status: Acute Qualifiers: Anemia type: other cause Other causes of anemia: chronic disease, neoplastic Qualified Code(s): D63.0 - Anemia in neoplastic disease (3) ARF (acute renal failure) Priority: Secondary Status: Acute Qualifiers: Acute renal failure type: with other specified pathological lesion Qualified Code(s): N17.8 - Other acute kidney failure (4) Bony metastasis Priority: Secondary Status: Acute (5) CKD (chronic kidney disease) stage 3, GFR 30-59 ml/min Priority: Secondary Status: Chronic (6) COPD (chronic obstructive pulmonary disease) Priority: Secondary Status: Acute Qualifiers: COPD type: COPD with acute exacerbation Qualified Code(s): J44.1 - Chronic obstructive pulmonary disease with (acute) exacerbation (7) Diabetes mellitus Priority: Secondary Status: Chronic Qualifiers: Diabetes mellitus type: type 2 Diabetes mellitus complication status: without complication Diabetes mellitus parts counterman insulin use: without parts counterman use Qualified Code(s): E11.9 - Type 2 diabetes mellitus without complications (8) DVT prophylaxis Priority: Secondary Status: Acute (9) Hypercalcemia Priority: Secondary Status: Acute (10) Hypertension Priority: Secondary Status: Chronic Qualifiers: Hypertension type: essential hypertension Qualified Code(s): I10 - Essential (primary) hypertension (11) Hypomagnesemia Priority: Secondary Status: Acute (12) Lung mass Priority: Secondary Status: Acute - Discharge Medications Prescriptions: hydrALAZINE [HydrALAZINE] 25 mg PO Q8HR #90 tablet Acyclovir [Zovirax] 400 mg PO BID #30 capsule Cyanocobalamin (Vitamin B-12) [Vitamin B12] 1,000 mcg PO DAILY #30 tablet Home Medications: Aspirin Enteric Coated [Aspirin EC] 81 mg PO DAILY 09/06/15 [History] Simvastatin [Zocor] 40 mg PO HS 09/07/15 [History] Albuterol Sulfate [Albuterol Inhaler] 1 puff IH Q6HR PRN #1 hfa.aer.ad 09/10/15 [Rx] Amlodipine Besylate 10 mg PO DAILY 01/11/17 [History] Budesonide/Formoterol 160/4.5 [Symbicort 160/4.5] 2 puff IH BIDR 01/11/17 [ History] Gabapentin [Neurontin] 300 mg PO HS 01/11/17 [History] Lidocaine Patch [Lidoderm 5% patch] 1 - 2 each TP DAILY PRN 01/11/17 [History] Metoprolol Succinate 100 mg PO DAILY 01/11/17 [History] Tamsulosin [Flomax] 0.4 mg PO DAILY 01/11/17 [History] Acyclovir [Zovirax] 400 mg PO BID #30 capsule 01/17/17 [Rx] Cyanocobalamin (Vitamin B-12) [Vitamin B12] 1,000 mcg PO DAILY #30 tablet [Rx] hydrALAZINE [HydrALAZINE] 25 mg PO Q8HR #90 tablet 01/17/17 [Rx] Allergies/Adverse Reactions: 3 Allergy/AdvReac Type Severity Reaction Status Date / Time No Known Allergies Allergy Verified 01/26/15 08:12 Procedures/tests Complete & Pending: Procedures Performed prior 72 hours Category Date Time Status CT guided biopsy [CT] Routine Cat Scan 01/16/[address] biopsy bone marrow [CT] Routine Exams 01/16/17 Completed Retroperitoneal Ultrasound - Complete [US Exams 01/15/17 19:30 Completed retroperitoneal comp] [US] Stat Date of admission: 01/11/17 14:38 Primary care physician: Elio Melendez MD Consults: 01/12/17 11:31 Consult to Interventional Radiology [CONS] Routine Consulting Provider: Radiology Interventional Cols Reason for Consult: CT guided biopsy of Left chestwall mass Call Completed: Yes 01/12/17 11:46 Consult to Nephrology [CONS] Routine Consulting Provider: Delon Obrien Reason for Consult: EVER with hypercalcemia Call Completed: Yes 01/16/17 10:53 Consult to Physical Therapy [CONS] Routine Comment: Evaluate, develop and implement POC Reason for Consult: discharge planning OT [Consult to Occupational Therapy] [CONS] Routine Comment: Evaluate, develop and implement POC Reason for Consult: discharge planning Discharging clinician: Charlotte Stubbs Anticipated date of discharge: 01/17/17 - Patient Status Disposition: Home, Self-Care Condition: Good Functional capacity at discharge: independent ambulation Overall status at discharge: patient is back to baseline - Discharge Instructions Instructions: Diabetes Mellitus Type 2 in Adults (DC), Anemia (GEN) Follow Up With: Elio Melendez MD [Primary Care Provider] - 01/25/17 3:00 pm (in 1 week) Delon Obrien MD [Partnered Physician] - 02/15/17 10:30 am (in 3 weeks) Fransisco Cabral MD [Partnered Physician] - 02/01/17 9:00 am (in 1-2 weeks) - Diet and Activity Activity: as per physical therapy Diet: diabetic diet, low salt diet Hospital course: Mr. Flores is a 66 year old male patient with history of multiple myeloma, COPD was hospitalized here with acute kidney injury on chronic kidney disease stage III. He had presented to the ER with intractable back pain. CT scan of the chest was done which showed pulmonary nodules with a large mass with destruction of the sixth rib and evidence of diffuse bony infiltrative disease. He did have elevated calcium of 11.2 and elevated total protein of 10.7. His BUN was 50 and creatinine 3.4. He also had hemoglobin of 6.9. Oncology was consulted and per their recommendations patient underwent biopsy of the left pleural-based mass under CT guidance. Nephrology was also consulted to help manage patient's acute kidney injury. Patient was treated with IV fluids. His renal function improved initially but his creatinine has more or less stabilized between 2.5 and 2.7. Patient also underwent bone marrow biopsy and he can follow-up on the results with oncology. His hemoglobin level this morning was 7 . I discussed this with patient's electromechanical inspector and he recommended transfusing patient in discharging him with outpatient follow-up. His back pain has now completely subsided. Patient will be discharged today with outpatient follow-up arranged with nephrology and hematology. Pathology results from biopsy of the pleural-based mass suggest that it is related to his multiple myeloma with kappa monocytic plasma cell neoplasm. - Time Spent with Patient Total time spent providing and/or coordinating discharge services: Greater than 30 minutes (45 min) - Constitutional Vitals: Temp Pulse Resp BP Pulse Ox 97.8 F 56 16 155/73 95 01/17/17 12:00 01/17/17 12:00 01/17/17 12:00 01/17/17 12:01/17/17 12:00 General appearance: Present: cooperative, A&O X 3, no acute distress, answers questions appropriately - Neck Neck exam general surgery: Present: supple, trachea midline. Absent: lymphadenopathy - Respiratory Respiratory exam: Present: CTAB. Absent: accessory muscle use, rales, rhonchi, wheezes - Cardiovascular Cardiovascular exam: Present: RRR, +S1, +S2. Absent: diastolic murmur, gallop, rubs, systolic murmur - Extremities Exam Extremities exam: Present: warm, radial pulses palpable and symmetrical. Absent : calf tenderness, cyanotic, pedal edema - Skin Skin exam: Present: dry, intact, pallor - VTE Documentation of Mechanical Device: Intermittent pneumatic compression device
[2017-01-17] MEDS ORDERED: 0.9 % Sodium Chloride 250 ML ONE (15:21)
[2017-01-17 18:19] VITALS: BP 157/84
[2017-01-17 20:13] LABS: Urine Collection Duration RANDOM hr; Urine Collection Volume RANDOM mL
== END 2017-01-17 18:55 | disposition home or self-care (01) | DRG 841 ==
LOC: EMEROO 05:40 → 3ANU 05:40 → SUATTDRO 14:38
PROVIDERS: ADMIT Internal Medicine; ATTEND Internal Medicine

== ENCOUNTER 2017-02-06 10:15 | Inpatient (IN) ==
[2017-02-06] MEDS ORDERED: Aspirin 81 MG TAB.CHEW PO ONE (10:20)
--- NOTE | 2017-02-06 10:23 | Emergency Department Note ---
Disposition Clinical Impression: Chest pain Qualifiers: Chest pain type: unspecified Qualified Code(s): R07.9 - Chest pain, unspecified Disposition: Admitted As Inpatient Condition: Fair Referrals: Elio Melendez MD [Primary Care Provider] - Forms: ED Satisfaction Letter Time of Disposition: 14:05 Chest Pain HPI - General Chief Complaint: ED Chest Pain Stated Complaint: chest pain Time Seen by Provider: 02/06/17 10:18 Source: patient, EMS Mode of arrival: EMS Limitations: other (Hard of hearing) Vital Signs Reviewed: Yes Nursing Notes Reviewed: Yes - History of Present Illness HPI Narrative: 66-year-old who comes in complaining of chest pain started just prior to arrival describes is substernal. Patient is hard of hearing and does not have his hearing aids. Pt complaint: chest pain Onset (ago): Just [employer] Duration: intermittent Onset: during rest Pain Location: substernal, left chest Severity: moderate Quality: tightness, aching Pain Radiation: none Improves with: nitroglycerin Worsens with: nothing Context: other Treatments prior to arrival chest pain: nitroglycerin - Related Data Home Medications Medication Instructions Recorded Confirmed Aspirin Enteric Coated [Aspirin EC] 81 mg PO DAILY 09/06/15 02/01/17 Simvastatin [Zocor] 40 mg PO HS 09/07/15 02/01/17 Amlodipine Besylate 10 mg PO DAILY 01/11/17 02/01/17 Budesonide/Formoterol 160/4.5 2 puff IH BIDR 01/11/17 02/01/17 [Symbicort 160/4.5] Gabapentin [Neurontin] 300 mg PO HS 01/11/17 02/01/17 Lidocaine Patch [Lidoderm 5% patch] 1 - 2 each TP DAILY PRN 01/11/17 02/01/17 Metoprolol Succinate 100 mg PO DAILY 01/11/17 02/01/17 Tamsulosin [Flomax] 0.4 mg PO DAILY 01/11/17 02/01/17 Previous Rx's Medication Instructions Recorded Albuterol Sulfate [Albuterol 1 puff IH Q6HR PRN #1 hfa.aer.ad 09/10/15 Inhaler] Acyclovir [Zovirax] 400 mg PO BID #30 capsule 01/17/17 Cyanocobalamin (Vitamin B-12) 1,000 mcg PO DAILY #30 tablet 01/17/17 [Vitamin B12] hydrALAZINE [HydrALAZINE] 25 mg PO Q8HR #90 tablet 01/17/17 Acyclovir [Zovirax] 400 mg PO BID #60 tablet 01/26/17 Dexamethasone [Decadron] 40 mg PO DAILY #40 tab 01/26/17 Ranitidine HCl [Zantac] 150 mg PO DAILY #30 tablet 01/26/17 Promethazine [Phenergan] 25 mg PO Q6HR PRN #60 tablet 02/01/17 Allergies Allergy/AdvReac Type Severity Reaction Status Date / Time No Known Allergies Allergy Verified 02/06/17 10:18 All systems ED: reviewed and negative except as stated. Constitutional: Denies: fever, chills, weakness, weight change Eyes: Denies: eye pain, eye discharge, vision change ENT ED: Denies: ear pain, throat pain, dental pain, hearing loss, epistaxis, congestion, dysphagia Cardiovascular: Reports: chest pain. Denies: palpitations, dyspnea on exertion , edema, syncope Respiratory: Denies: cough, dyspnea, wheezes, hemoptysis, stridor Gastrointestinal: Denies: abdominal pain, nausea, vomiting, diarrhea, constipation, hematemesis, melena, hematochezia Genitourinary: Denies: urgency, dysuria, frequency, hematuria Musculoskeletal: Denies: back pain, neck pain, arthralgia, myalgia Integumentary: Denies: rash, abrasion, lesions Neurological: Denies: headache, weakness, numbness, paresthesias, confusion, abnormal gait, vertigo Psychiatric: Denies: anxiety, depression, suicidal thoughts, homicidal thoughts , auditory hallucinations, visual hallucinations Endocrine: Denies: fatigue Hematological/Lymphatic: Denies: easy bleeding, easy bruising Allergic/Immunologic: Denies: facial swelling, urticaria Chest Pain PMH - Past Medical History Medical history: Reports: COPD, coronary artery disease, diabetes, hypertension , myocardial infarction Surgical history: Reports: angioplasty/stent Psychiatric history: Reports: anxiety, depression - Social History Smoking Status: Former smoker Alcohol use: Reports: none Drug use: Reports: none Physical Exam - General Limitations: no limitations General appearance: alert, in no apparent distress - Head Head exam: atraumatic, normocephalic, normal inspection - Eye Eye exam: Present: normal appearance, PERRL, EOMI - ENT ENT exam: normal exam, normal oropharynx, mucous membranes moist - Neck Neck exam: Present: normal inspection, full ROM, trachea midline - Chest Chest inspection: Present: normal inspection, symmetric chest wall rise - Respiratory Respiratory exam: Present: normal lung sounds bilaterally - Cardiovascular Cardiovascular exam: Present: regular rate, normal rhythm, normal heart sounds - Abdominal Exam Abdominal exam: Present: soft, Non-Tender. Absent: tenderness, distention, guarding, rebound, rigidity - Extremities Exam Extremities exam: Present: normal inspection, full ROM. Absent: tenderness, pedal edema - Expanded Lower Extremity Exam Neurovascular/Tendon exam: Absent: motor deficit, sensory deficit, tendon deficit Gait: not tested/not observed - Back Exam Back exam: Present: normal inspection, full ROM. Absent: tenderness - Neurological Exam Neurological exam: Present: alert, oriented X3 - Psychiatric Psychiatric exam: Present: normal affect, normal mood - Skin Skin exam: Present: warm, dry, intact, normal color Course - Reevaluation(s) Reevaluation #1: 66-year-old coming in with chest pain has a history of multiple myeloma. D- dimer was elevated at 1800, creatinine was 2.91. A VQ scan was obtained which low probability PE. Time: 14:04 - Consultations Consultation #1: Discussed with Porter Abbott Time: 14:07 Vital Signs Temperature 97.6 F 02/06/17 10:19 Pulse Rate 82 02/06/17 10:19 Respiratory Rate 24 02/06/17 10:19 Blood Pressure 173/92 02/06/17 10:19 O2 Sat by Pulse Oximetry 92 02/06/17 10:19 Temperature 97.6 F 02/06/17 10:19 Pulse Rate 76 02/06/17 12:02 Respiratory Rate 24 02/06/17 12:02 Blood Pressure 165/79 02/06/17 11:37 O2 Sat by Pulse Oximetry 92 02/06/17 12:02 Oxygen Delivery Oxygen Delivery Nasal Cannula Chest Pain - Lab Data Lab results reviewed: Yes I reviewed the patient's lab results. Result diagrams: 02/06/17 10:45 02/06/17 10:45 Lab Results 02/06/17 02/06/17 02/06/17 Range/Units 10:45 10:45 10:45 WBC 9.4 D (4.3-11.1) K/mcL RBC 2.54 L (4.19-5.50) M/mcL Hgb 7.8 L (12.9-16.9) g/dL Hct 23.9 L (37.5-50.1) % MCV 94.1 (83.0-100.0) fL MCH 30.7 (28.0-33.3) pg MCHC 32.6 (31.6-35.5) g/dL RDW 16.2 H (11.5-14.5) % Plt Count 185 (140-400) K/mcL MPV 10.7 (9.4-12.4) fL Seg Neutrophils % 62.0 % Band Neutrophils % 6.0 H (0-4) % Lymphocytes % 22.0 % Monocytes % 8.0 % Metamyelocytes % 2.0 H (0) % Neutrophils # 6.4 (1.6-8.9) K/mcL Lymphocytes # 2.1 (0.6-4.6) K/mcL Monocytes # 0.8 (0.0-1.3) K/mcL Platelet Estimate Normal (Normal) PT 11.7 (9.4-12.1) Seconds INR 1.1 APTT 28.7 (26.0-36.0) Seconds D-Dimer 1866 H (0-500) ng/mLFEU Sodium (136-145) mEq/L Potassium (3.5-4.5) mEq/L Chloride (98-109) mEq/L Carbon Dioxide (19-29) mEq/L BUN (8-26) mg/dL Creatinine (0.72-1.25) mg/dL Est GFR ( Amer) (> 60) Est GFR (Non-Af Amer) (> 60) BUN/Creatinine Ratio (6-26) Glucose (70-99) mg/dL Calculated Osmolality (280-300) Calcium (8.6-10.8) mg/dL Troponin I (0-0.03) ng/mL B-Natriuretic Peptide 1147 H (0-100) pg/mL 02/06/17 02/06/17 Range/Units 10:45 10:45 WBC (4.3-11.1) K/mcL RBC (4.19-5.50) M/mcL Hgb (12.9-16.9) g/dL Hct (37.5-50.1) % MCV (83.0-100.0) fL MCH (28.0-33.3) pg MCHC (31.6-35.5) g/dL RDW (11.5-14.5) % Plt Count (140-400) K/mcL MPV (9.4-12.4) fL Seg Neutrophils % % Band Neutrophils % (0-4) % Lymphocytes % % Monocytes % % Metamyelocytes % (0) % Neutrophils # (1.6-8.9) K/mcL Lymphocytes # (0.6-4.6) K/mcL Monocytes # (0.0-1.3) K/mcL Platelet Estimate (Normal) PT (9.4-12.1) Seconds INR APTT (26.0-36.0) Seconds D-Dimer (0-500) ng/mLFEU Sodium 135 L (136-145) mEq/L Potassium 4.3 (3.5-4.5) mEq/L Chloride 112 H (98-109) mEq/L Carbon Dioxide 18 L (19-29) mEq/L BUN 55 H (8-26) mg/dL Creatinine 2.91 H (0.72-1.25) mg/dL Est GFR ( Amer) 26 L (> 60) Est GFR (Non-Af Amer) 22 L (> 60) BUN/Creatinine Ratio 19 (6-26) Glucose 231 H (70-99) mg/dL Calculated Osmolality 302 H (280-300) Calcium 8.4 L (8.6-10.8) mg/dL Troponin I 0.02 (0-0.03) ng/mL B-Natriuretic Peptide (0-100) pg/mL - Radiology Data Radiology results reviewed: Yes I reviewed the patient's radiology results. Chest X-Ray 02/06/17 10:20 IMPRESSION: Slightly increased interstitial opacities bilaterally as well as increased airspace opacity in mid to lower left lung. Findings may reflect pneumonia in the appropriate clinical setting. D/ / 02/06/2017 11:00:14 Claudia Palmer MD / sulaiman Interpreting Provider: Claudia Palmer MD Pulmonary Perfusion Imaging 02/06/17 11:57 IMPRESSION: Low Probability for Pulmonary Embolus. D/ / Vinh Morrison MD / Vinh Morrison MD Interpreting Provider: Vinh Morrison MD - EKG Data EKG attestation: Yes I reviewed and interpreted this EKG. EKG shows normal: sinus rhythm Rate: normal Rhythm: NSR Interpretation: nonspecific ST-T wave changes Heart Score - Score History: Moderately Suspicious EKG: Non Specific repolarisation Disturbance Age: Greater than 65 Risk Factors: Equal/Greater than 3 risk factor or history of atherosclerotic disease Troponin: Less than normal limit HEART Score Total: 6
[2017-02-06 10:51] LABS: Hematocrit 23.9 % (37.5-50.1); Mean Corpuscular HGB Conc 32.6 g/dL (31.6-35.5); Mean Corpuscular Hemoglobin 30.7 pg (28.0-33.3); Mean Corpuscular Volume 94.1 fL (83.0-100.0); Mean Platelet Volume 10.7 fL (9.4-12.4); Platelet Count 185 K/mcL (140-400); Red Blood Count 2.54 M/mcL (4.19-5.50); Red Cell Distribution Width 16.2 % (11.5-14.5)
[2017-02-06 10:56] LABS: INR 1.1; Prothrombin Time 11.7 Seconds (9.4-12.1)
[2017-02-06 10:58] LABS: Activated Partial Thrombo Time 28.7 Seconds (26.0-36.0)
[2017-02-06 11:20] LABS: Calcium 8.4 mg/dL (8.6-10.8); Potassium 4.3 mEq/L (3.5-4.5)
[2017-02-06 11:22] LABS: Hemoglobin 7.8 g/dL (12.9-16.9)
[2017-02-06 11:24] LABS: Lymphocytes # 2.1 K/mcL (0.6-4.6); Monocytes # 0.8 K/mcL (0.0-1.3); Neutrophils # 6.4 K/mcL (1.6-8.9); Platelet Estimate Normal (Normal)
[2017-02-06] MEDS ORDERED: Acetaminophen 325 MG TABLET PO PRN (15:07)
[2017-02-06] MEDS ORDERED: Naloxone 0.4 MG/ML INJ IVP PRN (15:07)
[2017-02-06] MEDS ORDERED: 0.9 % Sodium Chloride 1,000 ML IVC SCH (15:15)
[2017-02-06] MEDS ORDERED: *HR* Dextrose 50 % in Water (Syg) 50 ML SYRINGE IVP PRN (15:24)
[2017-02-06] MEDS ORDERED: Dextrose Gel 15 GM PO PRN ×2 (15:24)
[2017-02-06] MEDS ORDERED: D5% in Water 1,000 ML IVC PRN (15:24)
[2017-02-06] MEDS ORDERED: Albuterol 2.5 MG/3 ML NEBULIZER IH PRN (15:25)
--- NOTE | 2017-02-06 15:39 | Internal Med History&Physical ---
Date of Encounter: 02/06/17 Time of Encounter: 15:34 Assessment and Plan (1) Chest pain Current visit: Yes Status: Acute 1 patient was awakened with midsternal moderate chest pain 10 out of 10. Patient does have a past medical history of CAD with NJ in the past. As well as hypertension diabetes recently diagnosed with cancer. First troponin was 0.02 which we will continue to trend 2 continuous cardiac monitoring 3 we will obtain cardiac echo 4 continue with aspirin and statin beta santi 5. Nothing by mouth at midnight 6 consult cardiology Qualifiers: Chest pain type: unspecified Qualified Code(s): R07.9 - Chest pain, unspecified (2) CHF (congestive heart failure) Current visit: Yes Status: Acute 1 unsure of EF. Will obtain cardiac echo 2 strict I's and O's 3Daily weights 4 give a dose of Lasix and monitor creatinine Qualifiers: Congestive heart failure type: unspecified congestive heart failure type Congestive heart failure chronicity: unspecified congestive heart failure chronicity Qualified Code(s): I50.9 - Heart failure, unspecified (3) Acute kidney injury Current visit: No Status: Acute 1 patient has history of CK D stage III previous creatinine was 2.6 presently 2.9. Patient does admit that he has had poor oral intake. continue to monitor creatinine 2 monitor intake and output daily weights 3 avoid nephrotoxins 4 we will give a dose of Lasix (4) Hypertension Current visit: No Status: Chronic 1 continue with Norvasc and metoprolol Qualifiers: Hypertension type: essential hypertension Qualified Code(s): I10 - Essential (primary) hypertension (5) Diabetes mellitus Current visit: No Status: Chronic 1 patient is on steroids for treatment of multiple myeloma. He does have elevated blood sugars 231. 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 Qualified Code(s): E11.9 - Type 2 diabetes mellitus without complications (6) COPD (chronic obstructive pulmonary disease) Current visit: No Status: Chronic 1 continue with oxygen as needed titrated to maintain SPO2 greater than 92% 2 continue with bronchodilators Qualifiers: COPD type: unspecified COPD Qualified Code(s): J44.9 - Chronic obstructive pulmonary disease, unspecified (7) DVT prophylaxis Current visit: No Status: Acute Heparin subcutaneous (8) Multiple myeloma Current visit: No Status: Acute 1 patient is following with oncology we will continue as outpatient and consult as needed 2 continue with Velcade and decadron on Mondays and as outpatient. Qualifiers: Multiple myeloma remission status: not in remission Qualified Code(s): C90.00 - Multiple myeloma not having achieved remission Internal Medicine - H&P: HPI Chief complaint: CP Admitted From: Emergency Dept Plans for Post Hospital Care: Home History of present illness: Mr. Flores is a 66 year old male past medical history of COPD coronary disease NJ several years ago diabetes hypertension multiple myeloma. According to the patient he was awakened this morning by midsternal sharp 10 out of 10 chest pain which was nonradiating. He did experience associated symptoms of shortness of breath he denies any nausea or lightheadedness. He said the pain was intense and was not similar to the pain he had with his previous NJ. There were no aggravating or relieving factors. He did call EMS and by the time they arrived the pain had subsided. However by the time he was transported to the emergency department his pain had returned. He was given an aspirin placed on oxygen. He states the pain was relieved once he was sitting on the side of the bed was able to catch his breath. Lab work did reveal elevated d-dimer of 1866 VQ scan was performed due to elevated creatinine at 2.9 which was low probability for PE. BNP was 1147 history prior was 0.02. EKG with ST depression in lateral leads chest x-ray suggestive of possible pneumonia. He has been admitted for further workup and evaluation. Presently patient denies any chest pain his lung sounds are clear heart sounds are regular S1-S2 with no rubs Gallops murmurs noted abdomen soft and nontender no pedal edema noted. He does have chronic shortness of breath denies any cough or sputum production fevers or chills. He does admit to some chronic fatigue and states that he sleeps a lot. He admits that he experienced a presyncopal episode last week while he was sitting as well as occasional palpitations. He did see his oncologist and the EKG was obtained at that time. He is hemodynamically stable at this time. I did review this case with Dr. Dudley who agrees with plan. Past Med Surg Social Fam HX - Past Medical History Medical history: COPD, coronary artery disease, diabetes, hypertension, myocardial infarction Psychiatric history: anxiety, depression - Past Surgical History Surgical History: angioplasty/stent - Social History Smoking Status: Former smoker Smokeless Tobacco Status: No Alcohol use: none Drug use: none - Family History Sister Adopted: No Family Member Ethnicity: Non- Living Status: Still Living Hx Family Cancer: Yes (history of breast cancer s/p bilateral mastectomy.) Father Living Status: Hx Family Cardiac Disorders: Yes (NJ) Hx Family Endocrine Disorder: Yes (DM) Mother Living Status: Hx Family Endocrine Disorder: Yes (DM) Internal Medicine - H&P: Meds Aspirin Enteric Coated [Aspirin EC] 81 mg PO DAILY 09/06/15 [History] Simvastatin [Zocor] 40 mg PO HS 09/07/15 [History] Albuterol Sulfate [Albuterol Inhaler] 1 puff IH Q6HR PRN #1 [id number] 09/10/15 [Rx] Amlodipine Besylate 10 mg PO DAILY 01/11/17 [History] Budesonide/Formoterol 160/4.5 [Symbicort 160/4.5] 2 puff IH BIDR 01/11/17 [ History] Gabapentin [Neurontin] 300 mg PO HS 01/11/17 [History] Lidocaine Patch [Lidoderm 5% patch] 1 - 2 each TP DAILY PRN 01/11/17 [History] Metoprolol Succinate 100 mg PO DAILY 01/11/17 [History] Tamsulosin [Flomax] 0.4 mg PO DAILY 01/11/17 [History] Acyclovir [Zovirax] 400 mg PO BID #30 capsule 01/17/17 [Rx] Cyanocobalamin (Vitamin B-12) [Vitamin B12] 1,000 mcg PO DAILY #30 tablet [Rx] hydrALAZINE [HydrALAZINE] 25 mg PO Q8HR #90 tablet 01/17/17 [Rx] Dexamethasone [Decadron] 40 mg PO DAILY #40 tab 01/26/17 [Rx] Ranitidine HCl [Zantac] 150 mg PO DAILY #30 tablet 01/26/17 [Rx] Promethazine [Phenergan] 25 mg PO Q6HR PRN #60 tablet 02/01/17 [Rx] 3 Allergy/AdvReac Type Severity Reaction Status Date / Time No Known Allergies Allergy Verified 02/06/17 10:18 All Systems PM: A 10-system review of systems was performed and is negative for pertinent findings except as documented above in the HPI. - Constitutional Constitutional: fatigue, no chills, no fever(s), no night sweats - EENT Eyes: no change in vision, no discharge, no pain, no photophobia Nose, mouth and throat: no dysphagia, no nasal discharge, no neck pain, no sore throat - Cardiovascular Cardiovascular ROS IM: chest pain, dyspnea, orthopnea, palpitations - Respiratory Respiratory: dyspnea on exertion, no cough, no dyspnea, no wheezing, no excessive phlegm production - Gastrointestinal Gastrointestinal: no abdominal pain, no diarrhea, no hematemesis, no hematochezia, no melena, no nausea, no vomiting - Musculoskeletal Musculoskeletal ROS IM: no numbness, no tingling - Integumentary Integumentary IM: no rash, no unusual bruising - Neurological Neurological ROS: no confusion, no convulsions, no focal weakness, no numbness, no tingling, no tremor(s) - Hematologic/Lymphatic Hematologic/Lymphatic: no easy bruising - Constitutional Vitals: Temp Pulse Resp BP Pulse Ox 97.6 F 68 20 157/95 94 02/06/17 10:19 02/06/17 14:00 02/06/17 14:40 02/06/17 14:40 02/06/17 14:00 General appearance: Present: A&O X 3, answers questions appropriately - Head Head exam: Present: atraumatic, normocephalic - Eye Eye exam: Present: PERRL, conjuntiva pink, sclera anicteric Pupils: Present: PERRL - Neck Neck exam general surgery: Present: supple, trachea midline. Absent: lymphadenopathy - Respiratory Respiratory exam: Present: CTAB. Absent: accessory muscle use, rales, rhonchi, wheezes - Cardiovascular Cardiovascular exam: Present: RRR, +S1, +S2. Absent: diastolic murmur, gallop, rubs, systolic murmur - GI/Abdominal GI/Abdominal exam: Present: normal bowel sounds, soft, no peritoneal signs. Absent: distended, tenderness - Extremities Exam Extremities exam: Present: warm, radial pulses palpable and symmetrical. Absent : calf tenderness, cyanotic, pedal edema - Neurological Exam Neurological exam: Present: CN II-XII intact, oriented X3, no focal deficits. Absent: pronater drift, facial droop, speech deficit - Skin Skin exam: Present: dry, intact Internal Med - H&P Results - Labs CBC & Chem 7: 02/06/17 19:22 02/06/17 10:45 - EKG Data EKG shows normal: sinus rhythm - EKG Data EKG comments: 02/06/17 15:45 He does have left ventricle hypertrophy and T wave inversion 02/06/17 18:02 - Diagnostic Studies Chest x-ray Additional comments: Chest X-Ray 02/06/17 10:20 IMPRESSION: Slightly increased interstitial opacities bilaterally as well as increased airspace opacity in mid to lower left lung. Findings may reflect pneumonia in the appropriate clinical setting. D/ / 02/06/2017 11:00:14 Claudia Palmer MD / sulaiman Interpreting Provider: Claudia Palmer MD Pulmonary Perfusion Imaging 02/06/17 11:57 IMPRESSION: Low Probability for Pulmonary Embolus. D/ / Vinh Morrison MD / Vinh Morrison MD Interpreting Provider: Vinh Morrison MD
[2017-02-06] MEDS ORDERED: *HR* Heparin 5,000 UNIT/ML VIAL SQ SCH (18:00)
[2017-02-06] MEDS ORDERED: *HR* Heparin 5,000 UNIT/ML VIAL IVP ONE (19:05)
[2017-02-06] MEDS ORDERED: *HR* Heparin 5,000 UNIT/ML VIAL IVP PRN ×2 (19:05)
[2017-02-06] MEDS ORDERED: Furosemide 20 MG/2 ML VIAL IVP ONE (19:07)
[2017-02-06] MEDS ORDERED: Heparin 25,000 UNIT/500 ML D5W 25,000 UNIT/500 ML MLS IVC SCH (19:15)
[2017-02-06 19:29] LABS: Hematocrit 22.8 % (37.5-50.1); Hemoglobin 7.4 g/dL (12.9-16.9); Mean Corpuscular HGB Conc 32.5 g/dL (31.6-35.5); Mean Corpuscular Hemoglobin 30.8 pg (28.0-33.3); Mean Platelet Volume 10.7 fL (9.4-12.4); Platelet Count 183 K/mcL (140-400)
[2017-02-06 19:37] LABS: INR 1.1; Prothrombin Time 12.3 Seconds (9.4-12.1)
[2017-02-06 19:39] LABS: Activated Partial Thrombo Time 27.3 Seconds (26.0-36.0)
[2017-02-06] MEDS: hydrALAZINE 25 MG TABLET PO SCH (19:52)
[2017-02-06] MEDS: Insulin LISPRO 300 UNITS/3 ML VIAL SQ SCH ×2 (19:53→22:33)
[2017-02-06] MEDS: Budesonide/Formoterol 160/4.5 MDI IH SCH (22:19)
[2017-02-06] MEDS: Gabapentin 300 MG CAPSULE PO SCH (22:31)
[2017-02-07] MEDS: hydrALAZINE 25 MG TABLET PO SCH ×3 (03:09→18:00)
[2017-02-07 05:54] LABS: Hematocrit 20.7 % (37.5-50.1); Hemoglobin 6.6 g/dL (12.9-16.9); Mean Corpuscular HGB Conc 31.9 g/dL (31.6-35.5); Mean Corpuscular Hemoglobin 30.6 pg (28.0-33.3); Mean Corpuscular Volume 95.8 fL (83.0-100.0); Mean Platelet Volume 11.5 fL (9.4-12.4); Platelet Count 165 K/mcL (140-400); Red Blood Count 2.16 M/mcL (4.19-5.50); Red Cell Distribution Width 16.5 % (11.5-14.5)
[2017-02-07 06:03] LABS: Calcium 8.1 mg/dL (8.6-10.8); Potassium 4.9 mEq/L (3.5-4.5)
[2017-02-07 06:04] LABS: Chol/HDL Ratio 6.5 (0-4.9)
[2017-02-07 06:18] LABS: Lymphocytes # 0.8 K/mcL (0.6-4.6); Monocytes # 0.3 K/mcL (0.0-1.3); Neutrophils # 6.7 K/mcL (1.6-8.9); Platelet Estimate Normal (Normal)
[2017-02-07] MEDS: Budesonide/Formoterol 160/4.5 MDI IH SCH ×2 (07:25→20:15)
[2017-02-07] MEDS ORDERED: Lidocaine -MPF 2% 5 ML VIAL INFILT ONE (08:17)
[2017-02-07] MEDS ORDERED: *HR* Propofol 200 MG/20 ML VIAL IVP ONE (08:17)
[2017-02-07] MEDS ORDERED: Aspirin Enteric Coated 81 MG Tablet PO SCH (09:00)
[2017-02-07] MEDS: amLODIPine 5 MG TABLET PO SCH (09:47)
[2017-02-07] MEDS: Metoprolol XL (24 HR) Succ 50 MG TAB.ER.24H PO SCH (09:47)
[2017-02-07] MEDS: Famotidine 20 MG TABLET PO SCH (09:47)
[2017-02-07] MEDS: Cyanocobalamin (B-12) 1,000 MCG TABLET PO SCH (09:47)
[2017-02-07] MEDS: Insulin LISPRO 300 UNITS/3 ML VIAL SQ SCH ×4 (09:49→20:00)
--- NOTE | 2017-02-07 09:58 | Internal Med Progress Note ---
<Grayson Arshad - Last Filed: 02/07/17 15:48> Date of Encounter: 02/07/17 Time of Encounter: 09:54 - Assessment and plan (1) NSTEMI (non-ST elevated myocardial infarction) Current Visit: Yes Status: Acute Assessment and plan: 66M presents with CP previous hx of NJ s/p angioplasty and HTN Troponin trending up 0.02>1.28>3.21>3.88 TORIN [address] depression in leads V4,V5 started on heparin drip overnight Repeat echo shows EF 60% with moderate to severe pulmonary HTN Due to patient hgb <6.6 heparin was d/c and patient is being given 3 units BANNER additional troponin pending appreciate cardiology recommendations: patient decline LHC, may be started on aspirin after GI clears him. (2) Anemia Current Visit: Yes Status: Acute Assessment and plan: hgb 6.6 hx of multiple myeloma no evidence of bleeding on exam denies hematocezia and melena transfusing 3 units BANNER cardiology states patient at intermediate risk for endoscopy GI consulted: Endoscopy tomorrow. NPO midnight repeat CBC at 11PM tonight. Qualifiers: Anemia type: other cause Other causes of anemia: chronic disease, neoplastic Qualified Code(s): D63.0 - Anemia in neoplastic disease (3) Acute kidney injury Current Visit: Yes Status: Acute Assessment and plan: EVER on CKD stage 3 in setting of multiple myeloma and anemia hgb <6.6 tranfusing 3PRBC repeat CMP pending for tonight. patient is fluid overloaded: sob, rales in b/l bases will be cautious about given him IVF nephrology consulted. (4) DVT prophylaxis Current Visit: Yes Status: Acute Assessment and plan: EPCD (5) Elevated d-dimer Current Visit: Yes Status: Acute Assessment and plan: elevated d-dimer nuclear ventilation/perfusion scan low probability Wells score 1 for multiple myeloma (6) Multiple myeloma Current Visit: Yes Status: Acute Assessment and plan: recent diagnosis of multiple myeloma on Velcade/Dexamethasone with last dose two days ago recent hospitalization last month when diagnoses with multiple myeloma requiring transfuion: had findings on Chest Ct Soft tissue mass centered to the left chest wall centered within the lateral aspect of the left 6th rib with bony destruction of the left 6th rib in the region. which was biopsied and path result showed kappa-monotypic plasma cell neoplasm. oncology consulted Qualifiers: Multiple myeloma remission status: not in remission Qualified Code(s): C90.00 - Multiple myeloma not having achieved remission - Subjective Interval history: Patient reports he had 2nd epidose of chest pain overnight which has now resolved. Troponin have been on upward trend with latest 3.83. He was started on heparin drip overnight and cardiology was consulted. Hgb was 6.6 this morning. Patient states his sob has improved, denies palpiations N/V, LE swelling, LE pain. - Constitutional Vitals: Temp Pulse Resp BP Pulse Ox 97.5 F L 67 15 117/74 91 02/07/17 05:00 02/07/17 07:00 02/07/17 07:00 02/07/17 07:00 02/07/17 07:00 General appearance: Present: A&O X 3, answers questions appropriately - Respiratory Respiratory exam: Present: decreased breath sounds, rales (b/l up to mid lungs) . Absent: wheezes - Cardiovascular Cardiovascular exam: Present: RRR, +S1, +S2 - GI/Abdominal GI/Abdominal exam: Present: normal bowel sounds, soft, no peritoneal signs. Absent: distended, tenderness - Extremities Exam Extremities exam: Present: warm, radial pulses palpable and symmetrical. Absent : calf tenderness, cyanotic, pedal edema - Neurological Exam Neurological exam: Present: altered, CN II-XII intact, oriented X3, strengths equal and symetr throughout. Absent: motor sensory deficit, facial droop, speech deficit - Psychiatric Psychiatric exam: Present: normal affect, normal mood - Skin Skin exam: Present: dry, intact Internal Medicine: Result - Labs CBC & Chem 7: 02/07/17 05:13 02/07/17 05:13 Labs: Short CBC 02/06/17 02/07/17 Range/Units 19:22 05:13 WBC 10.1 7.8 (4.3-11.1) K/mcL Hgb 7.4 L 6.6 L (12.9-16.9) g/dL Hct 22.8 L 20.7 L (37.5-50.1) % Plt Count 183 165 (140-400) K/mcL Neutrophils # 6.7 (1.6-8.9) K/mcL BMP 02/07/17 05:13 Sodium 138 Potassium 4.9 H Chloride 115 H Carbon Dioxide 22 BUN 63 H Creatinine 3.06 H Glucose 129 H Calcium 8.1 L Cardiac Enzymes 02/06/17 02/06/17 02/07/17 Range/Units 16:28 22:34 05:13 Troponin I 1.28 H* 3.21 H* 3.88 H* (0-0.03) ng/mL - ABG Interpretation ABG results: PT/INR, D-dimer PT 12.3 Seconds (9.4-12.1) H 02/06/17 19:22 D-Dimer 1866 ng/mLFEU (0-500) H 02/06/17 10:45 - Impressions Impressions Echocardiogram 02/06/17 15:26 Impressions: Normal LV systolic function, LVEF 60%. Normal left ventricular diastolic function. Normal right ventricular size and function. Mildly dilated left atrium. Mildly dilated right atrium. Mild mitral regurgitation. Moderate-severe pulmonary hypertension. Estimated RVSP = 58-63 mmHg. Left Ventricular Wall Motion: Rest Echo Findings All wall segments showed normal motion. Findings: Study Quality * Suboptimal echo windows. ECG Findings * Normal sinus rhythm. Left Ventricle * Normal LV systolic function, LVEF 60%. * Normal LV chamber size and wall thickness. * Normal left ventricular diastolic function. Right Ventricle * Normal right ventricular size and function. Left Atrium * Mildly dilated left atrium. Right Atrium * Mildly dilated right atrium. Aorta * Normally sized aortic root. Pericardium * There is no pericardial effusion present. IVC * The IVC is borderline dilated. Aortic Valve * Aortic valve not well visualized. * No aortic stenosis. * Trace aortic regurgitation. Mitral Valve * Mildly thickened mitral valve leaflets. * No mitral stenosis. * Mild mitral regurgitation. Tricuspid Valve * Normal tricuspid valve structure. * No tricuspid stenosis. * Trace tricuspid regurgitation. * Moderate-severe pulmonary hypertension. Estimated RVSP = 58-63 mmHg. Pulmonic Valve * Pulmonic valve not well visualized. * No pulmonic stenosis. * No pulmonic regurgitation. Consult Discharge Plan - Plan Referrals: Elio Melendez MD [Primary Care Provider] - <Italo Garner P - Last Filed: 02/07/17 18:47> Date of Encounter: 02/07/17 - Constitutional Vitals: Temp Pulse Resp BP Pulse Ox 97.9 F 74 18 138/76 92 02/07/17 18:01 02/07/17 18:01 02/07/17 18:01 02/07/17 18:01 02/07/17 18:01 Internal Medicine: Result - Labs CBC & Chem 7: 02/07/17 05:13 02/07/17 05:13 Labs: Short CBC 02/06/17 02/07/17 Range/Units 19:22 05:13 WBC 10.1 7.8 (4.3-11.1) K/mcL Hgb 7.4 L 6.6 L (12.9-16.9) g/dL Hct 22.8 L 20.7 L (37.5-50.1) % Plt Count 183 165 (140-400) K/mcL Neutrophils # 6.7 (1.6-8.9) K/mcL BMP 02/07/17 05:13 Sodium 138 Potassium 4.9 H Chloride 115 H Carbon Dioxide 22 BUN 63 H Creatinine 3.06 H Glucose 129 H Calcium 8.1 L Cardiac Enzymes 02/06/17 02/07/17 02/07/17 Range/Units 22:34 05:13 16:20 Troponin I 3.21 H* 3.88 H* 2.63 H* (0-0.03) ng/mL - ABG Interpretation ABG results: PT/INR, D-dimer PT 12.3 Seconds (9.4-12.1) H 02/06/17 19:22 D-Dimer 1866 ng/mLFEU (0-500) H 02/06/17 10:45 - Impressions Impressions Echocardiogram 02/06/17 15:26 Impressions: Normal LV systolic function, LVEF 60%. Normal left ventricular diastolic function. Normal right ventricular size and function. Mildly dilated left atrium. Mildly dilated right atrium. Mild mitral regurgitation. Moderate-severe pulmonary hypertension. Estimated RVSP = 58-63 mmHg. Left Ventricular Wall Motion: Rest Echo Findings All wall segments showed normal motion. Findings: Study Quality * Suboptimal echo windows. ECG Findings * Normal sinus rhythm. Left Ventricle * Normal LV systolic function, LVEF 60%. * Normal LV chamber size and wall thickness. * Normal left ventricular diastolic function. Right Ventricle * Normal right ventricular size and function. Left Atrium * Mildly dilated left atrium. Right Atrium * Mildly dilated right atrium. Aorta * Normally sized aortic root. Pericardium * There is no pericardial effusion present. IVC * The IVC is borderline dilated. Aortic Valve * Aortic valve not well visualized. * No aortic stenosis. * Trace aortic regurgitation. Mitral Valve * Mildly thickened mitral valve leaflets. * No mitral stenosis. * Mild mitral regurgitation. Tricuspid Valve * Normal tricuspid valve structure. * No tricuspid stenosis. * Trace tricuspid regurgitation. * Moderate-severe pulmonary hypertension. Estimated RVSP = 58-63 mmHg. Pulmonic Valve * Pulmonic valve not well visualized. * No pulmonic stenosis. * No pulmonic regurgitation. - Attending Attestation I examined this patient and my medical decision-making was reviewed with the Resident Physician. I agree with the documented findings, disposition and treatment plan as described except to the extent set forth below. Cardiology/GI/oncology recommendations appreciated.
[2017-02-07] MEDS ORDERED: 0.9 % Sodium Chloride 500 ML ONE ×2 (11:12→16:08)
[2017-02-07] MEDS ORDERED: Furosemide 20 MG/2 ML VIAL IVP ONE ×2 (11:25→15:19)
--- NOTE | 2017-02-07 11:49 | Gastroenterology Consult Note ---
<[place] - Last Filed: 02/07/17 11:45> Date of Encounter: 02/07/17 Time of Encounter: 11:15 - Assessment and plan (1) Anemia Current Visit: No Status: Acute Assessment and plan: Pt has recent diagnosis of multiple myeloma. Will check LFTs. May be related to multiple myeloma but GI bleeding needs ruled out. Pt also has elevated troponins. Will proceed with EGD and Colonoscopy tomorrow if pt is cleared per cardiology. Qualifiers: Anemia type: other cause Other causes of anemia: chronic disease, neoplastic Qualified Code(s): D63.0 - Anemia in neoplastic disease - Time Spent With Patient Total time spent is greater than 50% in coordination of care (as documented) at patient's floor/unit and/or counseling patient: GI History of Present Illness - Data of Consult Patient: known to practice within the last 3 years Consult date: 02/07/17 Requesting Physician: Ramiro Mata DO - Consult Narrative Reason for consult: anemia History of present illness: Mr. Flores is a 66 year old male who presented with chest pain. He has past a medical history of recently diagnosed with multiple myeloma, COPD, coronary disease, [place] several years ago, diabetes and hypertension.Troponins have been trending up with max 3.88, followed by cardiology. His initial labs showed a hgb of 7.4 and now has dropped to 6.6, PLT 165, INR 1.1, BUN 63, Creat 3.06. He was hospitalized in 01/[address] with flank pain and CT chest showed left chest wall mass. CT guided needle biopsy was consistent with multiple myeloma. He was anemic at that time with a Hgb 6.9 and was transfused 4 units PRBCs. He has been started on velcade and decadron per oncology. He was awakened this morning by midsternal sharp 10 out of 10 chest pain which was nonradiating, with associated symptoms of shortness of breath. He denies any nausea or lightheadedness. He denies abdominal pain, nausea or vomiting. He denies bloody or tarry stools. He does complain of constipation and has not had a BM in the past 4 days. He denies dysphagia or odynophagia. He has decreased appetite and reports losing 20 pounds in the past month. Colonoscopy: 10/12 which showed internal hemorrhoids EGD: denies NSAIDS: ASA Anticoagulants: heparin drip Past Med Surg Social Fam HX - Past Medical History Medical history: COPD, coronary artery disease, diabetes, hypertension, myocardial infarction Psychiatric history: anxiety, depression - Past Surgical History Surgical History: angioplasty/stent - Social History Smoking Status: Former smoker Smokeless Tobacco Status: No Alcohol use: none Drug use: none - Family History Sister Adopted: No Family Member Ethnicity: Non- Living Status: Still Living Hx Family Cancer: Yes (history of breast cancer s/p bilateral mastectomy.) Father Living Status: Age at : 61 Hx Family Cardiac Disorders: Yes ([place]) Hx Family Endocrine Disorder: Yes (DM) Mother Living Status: Age at : 90 Hx Family Endocrine Disorder: Yes (DM) Review of Systems: GI: as per [place] GENERAL: denies fever, or chills EYES: denies yellow discoloration ENT: denies pain with swallowing or difficulty swallowing CARDIO: see HPI, no palpitations RESP: Shortness of breath with exertion : denies change in color of urine NEURO: weakness HEME: increased bruising MS: denies joint pain, joint swelling or back pain. DERM: denies rash or itching PSYCH: history of anxiety or depression - Constitutional Vitals: Temp Pulse Resp BP Pulse Ox 97.3 F L 68 17 115/55 92 02/07/17 11:00 02/07/17 11:00 02/07/17 11:00 02/07/17 11:00 02/07/17 11:00 Exam: CONSTITUTIONAL:~alert, no acute distress.~HEAD:~normocephalic.~EYES:~no jaundice.~NECK:~no obvious swelling.~HEART:~regular rate and rhythm, no murmurs. ~LUNGS:~bilateral good air entry.~ABDOMEN:~non distended, soft, non tender, no masses pulpable, no organomegaly.~RECTAL EXAM:~Deferred.~EXTREMITIES:~no clubbing, cyanosis or edema.~SKIN:~no stigmata of chronic liver disease.~ NEUROLOGIC:~no obvious focal defect.~~~~ Results - Labs CBC & Chem 7: 02/07/17 05:13 02/07/17 05:13 Labs: Last Result Calcium 8.1 mg/dL (8.6-10.8) L 02/07/17 05:13 Troponin I 3.88 ng/mL (0-0.03) H* 02/07/17 05:13 Triglycerides 134 mg/dL (< 150) 02/07/17 05:13 Entire Visit Hgb 6.6 g/dL (12.9-16.9) L 02/07/17 05:13 Hct 20.7 % (37.5-50.1) L 02/07/17 05:13 PT 12.3 Seconds (9.4-12.1) H 02/06/17 19:22 - ABG ABG results: PT/INR, D-dimer PT 12.3 Seconds (9.4-12.1) H 02/06/17 19:22 D-Dimer 1866 ng/mLFEU (0-500) H 02/06/17 10:45 - Impressions Impressions Echocardiogram 02/06/17 15:26 Impressions: Normal LV systolic function, LVEF 60%. Normal left ventricular diastolic function. Normal right ventricular size and function. Mildly dilated left atrium. Mildly dilated right atrium. Mild mitral regurgitation. Moderate-severe pulmonary hypertension. Estimated RVSP = 58-63 mmHg. Left Ventricular Wall Motion: Rest Echo Findings All wall segments showed normal motion. Findings: Study Quality * Suboptimal echo windows. ECG Findings * Normal sinus rhythm. Left Ventricle * Normal LV systolic function, LVEF 60%. * Normal LV chamber size and wall thickness. * Normal left ventricular diastolic function. Right Ventricle * Normal right ventricular size and function. Left Atrium * Mildly dilated left atrium. Right Atrium * Mildly dilated right atrium. Aorta * Normally sized aortic root. Pericardium * There is no pericardial effusion present. IVC * The IVC is borderline dilated. Aortic Valve * Aortic valve not well visualized. * No aortic stenosis. * Trace aortic regurgitation. Mitral Valve * Mildly thickened mitral valve leaflets. * No mitral stenosis. * Mild mitral regurgitation. Tricuspid Valve * Normal tricuspid valve structure. * No tricuspid stenosis. * Trace tricuspid regurgitation. * Moderate-severe pulmonary hypertension. Estimated RVSP = 58-63 mmHg. Pulmonic Valve * Pulmonic valve not well visualized. * No pulmonic stenosis. * No pulmonic regurgitation. Consult Discharge Plan - Plan Referrals: Elio Melendez MD [Primary Care Provider] - <Marisa Hutson - Last Filed: 02/07/17 17:23> Date of Encounter: 02/07/17 Time of Encounter: 13:00 - Time Spent With Patient Total time spent is greater than 50% in coordination of care (as documented) at patient's floor/unit and/or counseling patient: GI History of Present Illness - Data of Consult Requesting Physician: Ramiro Mata DO - Consult Narrative History of present illness: Mr. Flores is a 66 year old male - Constitutional Vitals: Temp Pulse Resp BP Pulse Ox 98.6 F 68 18 121/52 92 02/07/17 17:13 02/07/17 17:13 02/07/17 17:13 02/07/17 17:13 02/07/17 17:13 Results - Labs CBC & Chem 7: 02/07/17 05:13 02/07/17 05:13 Labs: Last Result Calcium 8.1 mg/dL (8.6-10.8) L 02/07/17 05:13 Troponin I 2.63 ng/mL (0-0.03) H* 02/07/17 16:20 Triglycerides 134 mg/dL (< 150) 02/07/17 05:13 Entire Visit Hgb 6.6 g/dL (12.9-16.9) L 02/07/17 05:13 Hct 20.7 % (37.5-50.1) L 02/07/17 05:13 PT 12.3 Seconds (9.4-12.1) H 02/06/17 19:22 - ABG ABG results: PT/INR, D-dimer PT 12.3 Seconds (9.4-12.1) H 02/06/17 19:22 D-Dimer 1866 ng/mLFEU (0-500) H 02/06/17 10:45 - Impressions Impressions Echocardiogram 02/06/17 15:26 Impressions: Normal LV systolic function, LVEF 60%. Normal left ventricular diastolic function. Normal right ventricular size and function. Mildly dilated left atrium. Mildly dilated right atrium. Mild mitral regurgitation. Moderate-severe pulmonary hypertension. Estimated RVSP = 58-63 mmHg. Left Ventricular Wall Motion: Rest Echo Findings All wall segments showed normal motion. Findings: Study Quality * Suboptimal echo windows. ECG Findings * Normal sinus rhythm. Left Ventricle * Normal LV systolic function, LVEF 60%. * Normal LV chamber size and wall thickness. * Normal left ventricular diastolic function. Right Ventricle * Normal right ventricular size and function. Left Atrium * Mildly dilated left atrium. Right Atrium * Mildly dilated right atrium. Aorta * Normally sized aortic root. Pericardium * There is no pericardial effusion present. IVC * The IVC is borderline dilated. Aortic Valve * Aortic valve not well visualized. * No aortic stenosis. * Trace aortic regurgitation. Mitral Valve * Mildly thickened mitral valve leaflets. * No mitral stenosis. * Mild mitral regurgitation. Tricuspid Valve * Normal tricuspid valve structure. * No tricuspid stenosis. * Trace tricuspid regurgitation. * Moderate-severe pulmonary hypertension. Estimated RVSP = 58-63 mmHg. Pulmonic Valve * Pulmonic valve not well visualized. * No pulmonic stenosis. * No pulmonic regurgitation. - Attending Attestation I examined this patient and my medical decision-making was reviewed with the Resident Physician. I agree with the documented findings, disposition and treatment plan as described except to the extent set forth below. Anemia, most prob due to MM, but r/o GI causes
--- NOTE | 2017-02-07 12:27 | Cardiology Consult Note ---
Date of Encounter: 02/07/17 Time of Encounter: 12:19 - Attending Attestation I have personally performed a face to face evaluation on this patient. I have reviewed and agree with the care plan with METAL CONTROL COORDINATOR. History and Exam by me shows: Subjective: Patient presented with an episode of chest pain described as different in quality from prior DE. Exam: NAD, alert, conversant and oriented x3 No JVD RRR, normal S1S2, no murmur rub or gallop Lungs with diminished air entry, no rales wheeze or rhonchi Abdomen soft, audible bowel sounds No LE edema, 2+ symmetric radial pulses, 2+ distal pulses Impression: 1. NSTEMI: Elevated troponin, now 3.88, in the setting of profound anemia Hgb 6.6 and ARF on CKD. Does have known CAD and history of remote POBA. Echo returned demonstrating normal LV and RV function. Suspect troponin elevation and ECG changes are secondary to demand ischemia in setting of anemia. He is currently being transfused - recommend stopping heparin gtt. Discussed consideration for LHC with patient and educated him on R/B/A specifically addressing concern for anemia and ARF. Patient expressed understanding of the risks vs benefits - he declined proceeding with LHC. Recommend resuming aspirin when okay with GI. Continue statin and BB. Cardiac rehab not warranted at this time. 2. Pre-Op CV Assessment: Asked by GI to give risk recommendations surrounding endoscopy. This is a low risk procedure not being performed with general anesthesia. The patient denies any further pain since presenting to the hospital and his LV EF is normal. He is being transfused at this time. Patient has declined LHC. No further cardiac testing is appropriate at this time. Estimated intermediate risk given presenting NSTEMI. Assessment and Plan (1) NSTEMI (non-ST elevated myocardial infarction) Current Visit: Yes Status: Acute Troponins 0.02, 1.28, 3.21, 3.88--still uptrending, in setting of anemia with HGB 6.6, EVER on CKD with creatinine 3.06. NSTEMI vs demand ischemia. Check another troponin since still uptrending. Hx of CAD and angioplasty 16 years ago. Episode of chest pain yesterday, since resolved. Currently chest pain free. Chest pain may have been secondary to anemia. Pt was on heparin gtt initially, however, HGB is 6.6 (6-9 range since last month ). Heparin gtt stopped, as primary team is giving blood. Diffuse EKG changes noted--could also be secondary to anemia. Echo resulted--EF 60%, normal wall motion, normal diastolic function. Moderate- severe phtn est RVSP 58-63mmHg. Discussed with pt regarding LHC--R/B/A--complicated given anemia and EVER on CKD. Pt is DNRCCA-DNI. He verbalizes understanding of details discussed and voiced that he does not wish to undergo a LHC, which is reasonable given his anemia and renal function with preserved EF and normal wall motion on echo. Recommend resuming ASA once okay with GI. Continue Statin, BB. Anticipate sign off once seen and evaluated by Dr. Walden. (2) ARF (acute renal failure) Current Visit: Yes Status: Acute Stage III CKD at baseline, currently EVER on CKD with creatinine 3.06. Management per primary team. Qualifiers: Acute renal failure type: with other specified pathological lesion Qualified Code(s): N17.8 - Other acute kidney failure (3) COPD exacerbation Current Visit: Yes Status: Acute Reports worsened dyspnea. Echo shows preserved EF and normal diastolic function. This rules out CHF. Moderate-severe phtn est RVSP 58-63mmHg. Treatment per primary team. (4) CAD (coronary artery disease) Current Visit: Yes Status: Chronic CAD with hx of DE/angioplasty 16 years ago per pt. Continue BB and Statin. Recommend resuming ASA once okay with GI. Qualifiers: Coronary Disease-Associated Artery/Lesion type: [place] artery [place] vs. transplanted heart: [place] heart Associated angina: angina presence unspecified Qualified Code(s): I25.10 - Atherosclerotic heart disease of [place] coronary artery without angina pectoris (5) Pre-operative cardiovascular examination Current Visit: Yes Status: Acute Pre-op risk stratification to undergo GI evaluation (colonoscopy/EGD). Troponin 3.88, still uptrending in setting of anemia and EVER on CKD. EKG changes in setting of anemia. Will check another troponin to see if up or downtrending. Echo shows EF preserved 60%, normal wall motion. Pt declines LHC, wants medical management. Pt intermediate risk from cardiac standpoint to undergo low risk procedure of EGD/colonoscopy. (6) Anemia Current Visit: No Status: Acute HGB 6.6 (ranging 6-9 over the past month). Could be secondary to multiple myeloma. GI following as well. Heparin gtt stopped due to anemia. PRBC ordered by primary team. Qualifiers: Anemia type: other cause Other causes of anemia: chronic disease, neoplastic Qualified Code(s): D63.0 - Anemia in neoplastic disease Discussion w patient/family: The assessment and plan as outlined above was discussed with the patient and/or family members who expressed understanding and agreement. All questions were answered. Thank you for involving us in the care of your patient. Please call with any questions. History of Present Illness Consult date: 02/07/17 Requesting physician: Hari Dudley Consult reason: NSTEMI Chief complaint: chest pain, dyspnea History of present illness: Mr. Flores is a 66 year old male with PMH of COPD, CAD s/p angioplasty 16 years ago, DM, hypertension, recently diagnosed multiple myeloma. According to the patient he was awakened yesterday morning by midsternal sharp 10 out of 10 chest pain which was nonradiating. He did experience associated symptoms of shortness of breath, diaphoresis. He said the pain was intense and was not similar to the pain he had with his previous DE. He called EMS, was given nitro which helped the pain then it returned. He was given an aspirin placed on oxygen. He states the pain was relieved once he was sitting on the side of the bed was able to catch his breath. No recurrence of chest pain since yesterday. He had an elevated d-dimer of 1866, VQ scan was performed due to elevated creatinine and was low probability for PE. BNP was 1147. Troponins elevated. Initial was 0.02, then 1.28, 3.21 and 3.88. Cardiology consulted for further recommendations. Pt chest pain free. Still reports dyspnea when trying to lay flat. HGB 6.6, creatinine 3.06 (EVER on CKD). Echo resulted-- EF 60% with normal diastolic function, mild MR and TR, moderate-severe phtn estimated RVSP 58- 63mmHg. Past Med Surg Social Fam HX - Past Medical History Medical history: COPD, coronary artery disease, diabetes, hypertension, myocardial infarction Psychiatric history: anxiety, depression - Past Surgical History Surgical History: angioplasty/stent - Social History Smoking Status: Former smoker Smokeless Tobacco Status: No Alcohol use: none Drug use: none - Family History Sister Adopted: No Family Member Ethnicity: Non- Living Status: Still Living Hx Family Cancer: Yes (history of breast cancer s/p bilateral mastectomy.) Father Living Status: Age at : 61 Hx Family Cardiac Disorders: Yes (DE) Hx Family Endocrine Disorder: Yes (DM) Mother Living Status: Age at : 90 Hx Family Endocrine Disorder: Yes (DM) Medications and Allergies Aspirin Enteric Coated [Aspirin EC] 81 mg PO DAILY 09/06/15 [History] Simvastatin [Zocor] 40 mg PO HS 09/07/15 [History] Albuterol Sulfate [Albuterol Inhaler] 1 puff IH Q6HR PRN #1 [email or web address] 09/10/15 [Rx] Amlodipine Besylate 10 mg PO DAILY 01/11/17 [History] Budesonide/Formoterol 160/4.5 [Symbicort 160/4.5] 2 puff IH BIDR 01/11/17 [ History] Gabapentin [Neurontin] 300 mg PO HS 01/11/17 [History] Lidocaine Patch [Lidoderm 5% patch] 1 - 2 each TP DAILY PRN 01/11/17 [History] Metoprolol Succinate 100 mg PO DAILY 01/11/17 [History] Tamsulosin [Flomax] 0.4 mg PO DAILY 01/11/17 [History] Acyclovir [Zovirax] 400 mg PO BID #30 capsule 01/17/17 [Rx] Cyanocobalamin (Vitamin B-12) [Vitamin B12] 1,000 mcg PO DAILY #30 tablet [Rx] hydrALAZINE [HydrALAZINE] 25 mg PO Q8HR #90 tablet 01/17/17 [Rx] Dexamethasone [Decadron] 40 mg PO DAILY #40 tab 01/26/17 [Rx] Ranitidine HCl [Zantac] 150 mg PO DAILY #30 tablet 01/26/17 [Rx] Promethazine [Phenergan] 25 mg PO Q6HR PRN #60 tablet 02/01/17 [Rx] 3 Allergy/AdvReac Type Severity Reaction Status Date / Time No Known Allergies Allergy Verified 02/06/17 10:18 All Systems Review: A 10-system review of systems was performed and is negative for pertinent findings except as documented above in the HPI. - Cardiovascular Cardiovascular: as per HPI, chest pain at rest, chest pain with exertion, dyspnea at rest, dyspnea on exertion, orthopnea - Respiratory Respiratory: dyspnea Physical Examination Vital Signs, Last 4 Hours Temp Pulse Resp BP Pulse Ox 02/07/17 11:45 97.3 F L 68 18 115/55 02/07/17 11:00 97.3 F L 68 17 115/55 92 Vital Signs Temp Pulse Resp BP Pulse Ox 02/07/17 12:18 97.8 F 68 18 160/89 92 02/07/17 11:45 97.3 F L 68 18 115/55 02/07/17 11:00 97.3 F L 68 17 115/55 92 02/07/17 07:00 67 15 117/74 91 02/07/17 05:00 97.5 F L 64 18 115/56 96 02/07/17 00:00 98.3 F 67 18 126/58 94 02/06/17 21:00 97.9 F 76 24 148/73 93 02/06/17 16:57 97.8 F 65 14 130/74 94 02/06/17 15:30 63 20 120/59 96 02/06/17 15:00 66 20 141/66 95 02/06/17 14:40 20 157/95 02/06/17 14:30 70 20 157/95 95 02/06/17 14:00 68 24 138/75 94 Intake and Output 02/06/17 02/07/17 02/07/17 23:59 07:59 15:59 Intake Total 240 / 240 159 / 159 228 / 228 Output Total 490 / 490 600 / 600 Balance 240 / 240 -331 / -331 -372 / -372 Intake: IV Fluids 139 / 139 128 / 128 Heparin 25,000 UNIT/500 ML D5W 139 / 139 128 / 128 25,000 unit In 500 ml @ 11.2 UNIT/KG/HR 19.833 mls/hr IVC . Q24H TETE Rx#:[id number] Oral 240 / 240 20 / 20 100 / 100 Blood Product 0 / 0 Rbcs Leuko Poor As-3 Ph Unit 0 / 0 [id number] Output: Urine 490 / 490 600 / 600 Other: Meal Dinner Percent of Meal Consumed 100% # Voids 1 Weight 84.5 kg Blood Glucose* 200 124 114 Patient Weight 02/07/17 23:59 Weight 84.5 kg General: Conversant, No Apparent Distress HEENT: Atraumatic, Normocephaly, Mucus Membranes Moist Neck: Normal carotid pulses Cardiac: Reg Rate and Rhythm, Normal S1 and S2, No Murmur Lungs: Other (diminished) Neuro: Alert and responsive, No focal deficits noted Abdomen: Soft, Non-Tender Skin: No rashes noted on visualized skin Musculoskeletal: No Chest Wall Tenderness Extremities: No Clubbing, No Cyanosis, No Edema, Normal Pulses Results 02/07/17 05:13 02/07/17 05:13 Lab Results 02/06/17 02/06/17 02/06/17 16:28 19:22 19:22 WBC 10.1 Hgb 7.4 L Hct 22.8 L Plt Count 183 INR 1.1 APTT 27.3 Sodium Potassium Chloride Carbon Dioxide BUN Creatinine Glucose Calcium Magnesium Troponin I 1.28 H* 02/06/17 02/07/17 02/07/17 22:34 01:51 05:13 WBC Hgb Hct Plt Count INR APTT 74.8 H D Sodium Potassium Chloride Carbon Dioxide BUN Creatinine Glucose Calcium Magnesium Troponin I 3.21 H* 3.88 H* 02/07/17 02/07/17 02/07/17 05:13 05:13 07:59 WBC 7.8 Hgb 6.6 L Hct 20.7 L Plt Count 165 INR APTT 80.1 H Sodium 138 Potassium 4.9 H Chloride 115 H Carbon Dioxide 22 BUN 63 H Creatinine 3.06 H Glucose 129 H Calcium 8.1 L Magnesium 2.0 Troponin I Short CBC 02/07/17 02/06/17 Range/Units 05:13 19:22 WBC 7.8 10.1 (4.3-11.1) K/mcL Hgb 6.6 L 7.4 L (12.9-16.9) g/dL Hct 20.7 L 22.8 L (37.5-50.1) % Plt Count 165 183 (140-400) K/mcL Neutrophils # 6.7 (1.6-8.9) K/mcL BMP 02/07/17 Range/Units 05:13 Sodium 138 (136-145) mEq/L Potassium 4.9 H (3.5-4.5) mEq/L Chloride 115 H (98-109) mEq/L Carbon Dioxide 22 (19-29) mEq/L BUN 63 H (8-26) mg/dL Creatinine 3.06 H (0.72-1.25) mg/dL Glucose 129 H (70-99) mg/dL Calcium 8.1 L (8.6-10.8) mg/dL Cardiac Enzymes 02/07/17 02/06/17 02/06/17 Range/Units 05:13 22:34 16:28 Troponin I 3.88 H* 3.21 H* 1.28 H* (0-0.03) ng/mL Impressions Chest X-Ray 02/06/17 10:20 IMPRESSION: Slightly increased interstitial opacities bilaterally as well as increased airspace opacity in mid to lower left lung. Findings may reflect pneumonia in the appropriate clinical setting. D/ / 02/06/2017 11:00:14 Claudia Palmer MD / sulaiman Interpreting Provider: Claudia Palmer MD Pulmonary Perfusion Imaging 02/06/17 11:57 IMPRESSION: Low Probability for Pulmonary Embolus. D/ / Vinh Morrison MD / Vinh Morrison MD Interpreting Provider: Vinh Morrison MD Echocardiogram 02/06/17 15:26 Impressions: Normal LV systolic function, LVEF 60%. Normal left ventricular diastolic function. Normal right ventricular size and function. Mildly dilated left atrium. Mildly dilated right atrium. Mild mitral regurgitation. Moderate-severe pulmonary hypertension. Estimated RVSP = 58-63 mmHg. Left Ventricular Wall Motion: Rest Echo Findings All wall segments showed normal motion. Findings: Study Quality * Suboptimal echo windows. ECG Findings * Normal sinus rhythm. Left Ventricle * Normal LV systolic function, LVEF 60%. * Normal LV chamber size and wall thickness. * Normal left ventricular diastolic function. Right Ventricle * Normal right ventricular size and function. Left Atrium * Mildly dilated left atrium. Right Atrium * Mildly dilated right atrium. Aorta * Normally sized aortic root. Pericardium * There is no pericardial effusion present. IVC * The IVC is borderline dilated. Aortic Valve * Aortic valve not well visualized. * No aortic stenosis. * Trace aortic regurgitation. Mitral Valve * Mildly thickened mitral valve leaflets. * No mitral stenosis. * Mild mitral regurgitation. Tricuspid Valve * Normal tricuspid valve structure. * No tricuspid stenosis. * Trace tricuspid regurgitation. * Moderate-severe pulmonary hypertension. Estimated RVSP = 58-63 mmHg. Pulmonic Valve * Pulmonic valve not well visualized. * No pulmonic stenosis. * No pulmonic regurgitation. Active Medications Acetaminophen (Tylenol) 650 mg PO Q6HR PRN PRN Reason: Mild Pain (1-3) Stop: 08/08/17 15:08 Albuterol Sulfate (Proventil Neb) 2.5 mg IH Q2H PRN PRN Reason: Shortness Of Breath/Wheezing Stop: 08/08/17 15:26 Amlodipine Besylate (Norvasc) 10 mg PO DAILY [facility] Stop: 08/09/17 09:01 Last Admin: 02/07/17 09:47 Dose: 10 mg Budesonide/Formoterol Fumarate (Symbicort) 2 puff IH BIDR TETE PRN Reason: Protocol Stop: 08/08/17 22:01 Last Admin: 02/07/17 07:25 Dose: Not Given Cyanocobalamin (Vitamin B12) 1,000 mcg PO DAILY [facility] Stop: 08/09/17 09:01 Last Admin: 02/07/17 09:47 Dose: 1,000 mcg Dextrose/Water (Dextrose 50% (Syg)) 25 ml IVP AD PRN PRN Reason: Hypoglycemia Stop: 08/08/17 15:25 Famotidine (Pepcid) 20 mg PO DAILY [facility] Stop: 08/09/17 09:01 Last Admin: 02/07/17 09:47 Dose: 20 mg Gabapentin (Neurontin) 300 mg PO HS [facility] Stop: 08/08/17 21:01 Last Admin: 02/06/17 22:31 Dose: 300 mg Glucagon (Glucagen) 1 mg IM ONCE PRN PRN Reason: Hypoglycemia Stop: 08/08/17 15:25 Glucose (Gluctose) 15 gm PO ONCE PRN PRN Reason: Hypoglycemia Stop: 08/08/17 15:25 Glucose (Gluctose) 30 gm PO ONCE PRN PRN Reason: Hypoglycemia Stop: 08/08/17 15:25 Hydralazine HCl (Hydralazine) 25 mg PO Q8HR TETE Stop: 08/08/17 16:01 Last Admin: 02/07/17 09:49 Dose: 25 mg Dextrose (Dextrose 5%) 1,000 mls @ 100 mls/hr IVC .Q10H PRN PRN Reason: HYPOGLYCEMIA Stop: 08/08/17 15:25 Insulin Human Lispro (Humalog) 0 units SQ HS TETE PRN Reason: Protocol Stop: 08/08/17 21:01 Last Admin: 02/06/17 22:33 Dose: Not Given Insulin Human Lispro (Humalog) 0 units SQ TIDAC TETE PRN Reason: Protocol Stop: 08/08/17 16:31 Last Admin: 02/07/17 12:08 Dose: Not Given Lidocaine HCl (Lidoderm 5% Patch) 1 each TP DAILY PRN PRN Reason: Pain Stop: 08/08/17 15:19 Metoprolol Succinate (Toprol Xl) 100 mg PO DAILY [facility] Stop: 08/09/17 09:01 Last Admin: 02/07/17 09:47 Dose: 100 mg Morphine Sulfate (Morphine Sulfate) 2 mg IVP Q4HR PRN PRN Reason: Severe Pain (7-10) Stop: 08/08/17 15:08 Naloxone HCl (Narcan) 0.4 mg IVP Q2MIN PRN PRN Reason: Opioid Reversal Stop: 08/08/17 15:08 Simvastatin (Zocor) 40 mg PO HS [facility] PRN Reason: Protocol Stop: 08/08/17 21:01 Last Admin: 02/06/17 22:31 Dose: 40 mg Tamsulosin HCl (Flomax) 0.4 mg PO DAILY [facility] PRN Reason: Protocol Stop: 08/09/17 09:01 Last Admin: 02/07/17 09:48 Dose: 0.4 mg - Imaging and Cardiology Echo: report reviewed - EKG Interpretation EKG results cardiology: personally reviewed (diffuse EKG changes noted.), other (12 hr tele AVG HR 64, SR, no significant pauses or arrhythmias.) Consult Discharge Plan - Plan Referrals: Elio Melendez MD [Primary Care Provider] -
--- NOTE | 2017-02-07 12:37 | Electrocardiograph Report ---
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
--- NOTE | 2017-02-07 17:04 | Oncology Inp Consult Note ---
<Evan Arambula Jr - Last Filed: 02/07/17 17:09> Date of Encounter: 02/07/17 Time of Encounter: 16:25 Assessment and Plan (1) Multiple myeloma Status: Acute Assessment and plan: This is a new IgG kappa ISS stage III multiple myeloma diagnosis. Seen by Dr Fransisco Cabral at [facility]. Hx CKD and DM, off medication. Patient stes he had LHC greater than 10 years ago "with 73% and 52% blockages". Initially diagnosed with myeloma on 01/11/17 during hospitalization for back pain , hypercalcemia and EVER. BM bx 01/16/17 with hypocellular marrow with ~70% kappa restricted involvement. Normal (46XY) cytogenetics, FISH with gain 5,9,15 (Hyperploidy), standard risk disease. Current therapy: 1. Velcade/Dexamethasone days 1,4,8,15 every 21 days Treatment intent: Palliative Velcade/Dexamethasone Day 1 on 02/05/17; Day 4 on a no show appointment Day 8 treatment scheduled for 02/08/17 and Day 15 on 02/12/17 at [facility]. Patient admitted 02/06/17 for NSTEMI. Hgb 6.8, heparin drip with transfusions. Heparin drip subsequently stopped. Patient declined LHC. Hx left heart cath greater than 10 years ago with CAD. GI Scopes planned due to anemia. Most likely could be related to myeloma. However, need to rule out GI cause. Hold velcade and dexamethasone on 02/08 and 02/12/[address] Gutiérrez datapower consultant and she was advised, and will assess patient in the morning. Qualifiers: Multiple myeloma remission status: not in remission Qualified Code(s): C90.00 - Multiple myeloma not having achieved remission (2) NSTEMI (non-ST elevated myocardial infarction) Status: Acute Assessment and plan: Per cardiology (3) Anemia Status: Acute Assessment and plan: This multifactorial, most likely related to his multiple myeloma. However, we need to rule out GI bleed. We agree with GI plan. Transfuse PRN. Qualifiers: Anemia type: other cause Other causes of anemia: chronic disease, neoplastic Qualified Code(s): D63.0 - Anemia in neoplastic disease - Data of Consult Patient: known to practice within the last 3 years Consult date: 02/07/17 Requesting Physician: Ramiro Mata DO Primary Care Provider: Elio Melendez MD - Consult Narrative Reason for consult: multiple myeloma with NSTEMI History of present illness: Mr. Flores is a 66 year old male Diagnosis: 1. IgG kappa ISS stage III multiple myeloma. Initially diagnosed 01/11/17 during hospitalization for back pain, hypercalcemia and EVER. BM bx 01/16/17 with hypocellular marrow with ~70% kappa restricted involvement. Normal (46XY) cytogenetics, FISH with gain 5,9,15 (Hyperploidy), standard risk disease. 2. Acute on chronic kidney disease 3. DM, off medication Current therapy: 1. Velcade/Dexamethasone days 1,4,8,15 every 21 days Treatment intent: Palliative Velcade/Dexamethasone Day 1 on 02/05; Day 4 on 02-05 no show Day 8 scheduled for 02/08/17 and Day 15 on 02/12/17 Patient admitted 02/06/17 for NSTEMI. Hgb 6.8, heparin drip with transfusions. Heparin drip subsequently stopped. Pateint declined LHC. Hx left heart cath greater than 10 years ago with CAD. Oncology consulted to follow due to patient's low Hgb and Cycle 1 treatment for multiple myeloma. Past Med Surg Social Fam HX - Past Medical History Medical history: COPD, coronary artery disease, diabetes, hypertension, myocardial infarction Psychiatric history: anxiety, depression - Past Surgical History Surgical History: angioplasty/stent - Social History Smoking Status: Former smoker Smokeless Tobacco Status: No Alcohol use: none Drug use: none - Family History Sister Adopted: No Family Member Ethnicity: Non- Living Status: Still Living Hx Family Cancer: Yes (history of breast cancer s/p bilateral mastectomy.) Father Living Status: Age at : 61 Hx Family Cardiac Disorders: Yes (MS) Hx Family Endocrine Disorder: Yes (DM) Mother Living Status: Age at : 90 Hx Family Endocrine Disorder: Yes (DM) Medications and Allergies Aspirin Enteric Coated [Aspirin EC] 81 mg PO DAILY 09/06/15 [History] Simvastatin [Zocor] 40 mg PO HS 09/07/15 [History] Albuterol Sulfate [Albuterol Inhaler] 1 puff IH Q6HR PRN #1 hfa.aer.ad 09/10/15 [Rx] Amlodipine Besylate 10 mg PO DAILY 01/11/17 [History] Budesonide/Formoterol 160/4.5 [Symbicort 160/4.5] 2 puff IH BIDR 01/11/17 [ History] Gabapentin [Neurontin] 300 mg PO HS 01/11/17 [History] Lidocaine Patch [Lidoderm 5% patch] 1 - 2 each TP DAILY PRN 01/11/17 [History] Metoprolol Succinate 100 mg PO DAILY 01/11/17 [History] Tamsulosin [Flomax] 0.4 mg PO DAILY 01/11/17 [History] Acyclovir [Zovirax] 400 mg PO BID #30 capsule 01/17/17 [Rx] Cyanocobalamin (Vitamin B-12) [Vitamin B12] 1,000 mcg PO DAILY #30 tablet [Rx] hydrALAZINE [HydrALAZINE] 25 mg PO Q8HR #90 tablet 01/17/17 [Rx] Dexamethasone [Decadron] 40 mg PO DAILY #40 tab 01/26/17 [Rx] Ranitidine HCl [Zantac] 150 mg PO DAILY #30 tablet 01/26/17 [Rx] Promethazine [Phenergan] 25 mg PO Q6HR PRN #60 tablet 02/01/17 [Rx] 3 Allergy/AdvReac Type Severity Reaction Status Date / Time No Known Allergies Allergy Verified 02/06/17 10:18 Cardiovascular: Present: chest pain, dyspnea on exertion Oncology - Exam - Constitutional Vitals: Temp Pulse Resp BP Pulse Ox 98.3 F 67 18 129/58 90 02/07/17 16:58 02/07/17 16:58 02/07/17 16:58 02/07/17 16:58 02/07/17 16:58 General appearance: cooperative, no acute distress - Head Head exam: Present: atraumatic, normal inspection - Eye Eye exam: Present: normal appearance Pupils: Present: PERRL - ENT ENT exam: Present: mucous membranes moist - Neck Neck exam: Present: full ROM, normal inspection - Respiratory Respiratory exam: Present: CTAB - Cardiovascular Cardiovascular exam: Present: RRR, +S1, +S2 - GI/Abdominal GI/Abdominal exam: Present: normal bowel sounds, soft - Extremities Exam Extremities exam: Present: full ROM, normal inspection - Neurological Exam Neurological exam: Present: alert, oriented X3, no focal deficits - Psychiatric Psychiatric exam: Present: normal affect, normal mood - Skin Skin exam: Present: dry, intact, warm Oncology - Results Labs: Short CBC 02/06/17 02/07/17 Range/Units 19:22 05:13 WBC 10.1 7.8 (4.3-11.1) K/mcL Hgb 7.4 L 6.6 L (12.9-16.9) g/dL Hct 22.8 L 20.7 L (37.5-50.1) % Plt Count 183 165 (140-400) K/mcL Neutrophils # 6.7 (1.6-8.9) K/mcL BMP 02/07/17 05:13 Sodium 138 Potassium 4.9 H Chloride 115 H Carbon Dioxide 22 BUN 63 H Creatinine 3.06 H Glucose 129 H Calcium 8.1 L Cardiac Enzymes 02/06/17 02/06/17 02/07/17 Range/Units 16:28 22:34 05:13 Troponin I 1.28 H* 3.21 H* 3.88 H* (0-0.03) ng/mL Consult Discharge Plan - Plan Referrals: Elio Melendez MD [Primary Care Provider] - <Sierra Gutiérrez - Last Filed: 02/08/17 11:06> Date of Encounter: 02/08/17 - Data of Consult Requesting Physician: Ramiro Mata DO Primary Care Provider: Elio Melendez MD - Consult Narrative History of present illness: Multiple myeloma, patient reports that he has had 3 doses of Velcade injections so far, presented with anemia and and NSTEMI. Due to significant anemia patient has been transfused. Monitor hemoglobin and hematocrit. We will hold Velcade, during hospital stay. Endoscopy planned as in-patient. I examined this patient and my medical decision-making was reviewed with the Advanced Practice Nurse, Anthony Arambula. I agree with the documented findings, disposition and treatment plan as described except to the extent set forth below. Oncology - Exam - Constitutional Vitals: Temp Pulse Resp BP Pulse Ox 98.8 F 66 14 134/56 92 02/08/17 10:39 02/08/17 10:39 02/08/17 10:39 02/08/17 10:39 02/08/17 10:39 Oncology - Results Labs: Short CBC 02/08/17 Range/Units 06:40 WBC 5.8 (4.3-11.1) K/mcL Hgb 8.8 L D (12.9-16.9) g/dL Hct 26.3 L (37.5-50.1) % Plt Count 136 L (140-400) K/mcL BMP 02/08/17 05:28 Sodium 137 Potassium 4.1 Chloride 112 H Carbon Dioxide 19 BUN 70 H Creatinine 2.97 H Glucose 91 Calcium 8.2 L Liver Function 02/08/17 Range/Units 05:28 Total Bilirubin 0.4 (0.2-1.2) mg/dL AST 39 H (5-34) Units/L ALT 40 (0-55) Units/L Alkaline Phosphatase 110 (38-126) Units/L Albumin 1.9 L (3.5-5.0) g/dL
[2017-02-07] MEDS: Gabapentin 300 MG CAPSULE PO SCH (20:02)
[2017-02-07] MEDS ORDERED: 0.9 % Sodium Chloride 250 ML ONE (22:27)
[2017-02-08] MEDS: hydrALAZINE 25 MG TABLET PO SCH ×3 (00:35→17:45)
[2017-02-08 06:21] LABS: Albumin/Globulin Ratio 0.3 (1.1-2.2); Bilirubin,Total 0.4 mg/dL (0.2-1.2); Calcium 8.2 mg/dL (8.6-10.8); Potassium 4.1 mEq/L (3.5-4.5); Total Protein 7.9 g/dL (6.0-8.3)
[2017-02-08 06:31] LABS: Albumin 1.9 g/dL (3.5-5.0)
--- NOTE | 2017-02-08 06:50 | Internal Med Progress Note ---
<Grayson Arshad - Last Filed: 02/08/17 14:36> Date of Encounter: 02/08/17 Time of Encounter: 14:36 - Assessment and plan (1) NSTEMI (non-ST elevated myocardial infarction) Current Visit: Yes Status: Acute Assessment and plan: Troponin trending down. Currently not on aspirin secondary to anemia. Anemia improved with 3 PPI C. Hemoglobin now 8.8. At this point were awaiting upper and lower endoscopy before starting patient on aspirin. (2) Anemia Current Visit: Yes Status: Acute Assessment and plan: hgb 8.8 now after 3 [facility] hx of multiple myeloma GI consulted: Endoscopy today. repeat H&H this afternoon. Hemodynamically stable. Qualifiers: Anemia type: other cause Other causes of anemia: chronic disease, neoplastic Qualified Code(s): D63.0 - Anemia in neoplastic disease (3) Acute kidney injury Current Visit: Yes Status: Acute Assessment and plan: EVER on CKD stage 3 in setting of multiple myeloma and anemia hgb <6.6 nephrology consulted. Minor improvement. Continue to monitor. (4) DVT prophylaxis Current Visit: Yes Status: Acute Assessment and plan: EPCD (5) Elevated d-dimer Current Visit: Yes Status: Acute Assessment and plan: elevated d-dimer nuclear ventilation/perfusion scan low probability Wells score 1 for multiple myeloma Respiratory status stable. (6) Multiple myeloma Current Visit: Yes Status: Acute Assessment and plan: recent diagnosis of multiple myeloma Oncologist stated that we will hold Velcade and dexamethasone until patient status improves. Qualifiers: Multiple myeloma remission status: not in remission Qualified Code(s): C90.00 - Multiple myeloma not having achieved remission - Subjective Interval history: sob improved. Denies chest pain, abdominal pain, nausea, vomiting, weakness. - Constitutional Vitals: Temp Pulse Resp BP Pulse Ox 98.9 F 76 20 137/87 90 02/08/17 02:08 02/08/17 02:08 02/08/17 02:08 02/08/17 02:08 02/08/17 02:08 General appearance: Present: A&O X 3, answers questions appropriately - Respiratory Additional comments: Right basilar rales. Otherwise clear. - Cardiovascular Cardiovascular exam: Present: RRR, +S1, +S2 - GI/Abdominal GI/Abdominal exam: Present: normal bowel sounds, soft, no peritoneal signs. Absent: distended, tenderness - Extremities Exam Extremities exam: Present: warm, radial pulses palpable and symmetrical. Absent : calf tenderness, cyanotic, pedal edema - Neurological Exam Neurological exam: Present: alert, oriented X3 - Psychiatric Psychiatric exam: Present: normal affect, normal mood Internal Medicine: Result - Labs CBC & Chem 7: 02/08/17 06:40 02/08/17 05:28 Labs: BMP 02/08/17 05:28 Sodium 137 Potassium 4.1 Chloride 112 H Carbon Dioxide 19 BUN 70 H Creatinine 2.97 H Glucose 91 Calcium 8.2 L Liver Function 02/08/17 Range/Units 05:28 Total Bilirubin 0.4 (0.2-1.2) mg/dL AST 39 H (5-34) Units/L ALT 40 (0-55) Units/L Alkaline Phosphatase 110 (38-126) Units/L Albumin 1.9 L (3.5-5.0) g/dL - ABG Interpretation ABG results: PT/INR, D-dimer PT 12.3 Seconds (9.4-12.1) H 02/06/17 19:22 D-Dimer 1866 ng/mLFEU (0-500) H 02/06/17 10:45 Consult Discharge Plan - Plan Referrals: Elio Melendez MD [Primary Care Provider] - <Italo Garner - Last Filed: 02/08/17 18:51> Date of Encounter: 02/08/17 - Constitutional Vitals: Temp Pulse Resp BP Pulse Ox 98.3 F 57 12 132/70 92 02/08/17 16:44 02/08/17 16:44 02/08/17 16:44 02/08/17 16:44 02/08/17 16:44 Internal Medicine: Result - Labs CBC & Chem 7: 02/08/17 16:29 02/08/17 05:28 Labs: Short CBC 02/08/17 02/08/17 Range/Units 06:40 16:29 WBC 5.8 (4.3-11.1) K/mcL Hgb 8.8 L D 8.5 L (12.9-16.9) g/dL Hct 26.3 L 25.6 L (37.5-50.1) % Plt Count 136 L (140-400) K/mcL Neutrophils # 4.4 (1.6-8.9) K/mcL BMP 02/08/17 05:28 Sodium 137 Potassium 4.1 Chloride 112 H Carbon Dioxide 19 BUN 70 H Creatinine 2.97 H Glucose 91 Calcium 8.2 L Liver Function 02/08/17 Range/Units 05:28 Total Bilirubin 0.4 (0.2-1.2) mg/dL AST 39 H (5-34) Units/L ALT 40 (0-55) Units/L Alkaline Phosphatase 110 (38-126) Units/L Albumin 1.9 L (3.5-5.0) g/dL - ABG Interpretation ABG results: PT/INR, D-dimer PT 12.3 Seconds (9.4-12.1) H 02/06/17 19:22 D-Dimer 1866 ng/mLFEU (0-500) H 02/06/17 10:45 - Attending Attestation I examined this patient and my medical decision-making was reviewed with the Resident Physician. I agree with the documented findings, disposition and treatment plan as described except to the extent set forth below.
[2017-02-08 06:56] LABS: Hematocrit 26.3 % (37.5-50.1); Hemoglobin 8.8 g/dL (12.9-16.9); Mean Corpuscular HGB Conc 33.5 g/dL (31.6-35.5); Mean Corpuscular Hemoglobin 30.6 pg (28.0-33.3); Mean Corpuscular Volume 91.3 fL (83.0-100.0); Mean Platelet Volume 10.9 fL (9.4-12.4); Platelet Count 136 K/mcL (140-400); Red Blood Count 2.88 M/mcL (4.19-5.50); Red Cell Distribution Width 17.2 % (11.5-14.5)
[2017-02-08] MEDS: Budesonide/Formoterol 160/4.5 MDI IH SCH ×2 (07:57→20:02)
[2017-02-08] MEDS: Insulin LISPRO 300 UNITS/3 ML VIAL SQ SCH ×4 (09:17→20:36)
[2017-02-08] MEDS: amLODIPine 5 MG TABLET PO SCH (09:17)
[2017-02-08] MEDS: Famotidine 20 MG TABLET PO SCH (09:17)
[2017-02-08] MEDS: Metoprolol XL (24 HR) Succ 50 MG TAB.ER.24H PO SCH (09:18)
[2017-02-08] MEDS: Cyanocobalamin (B-12) 1,000 MCG TABLET PO SCH (09:18)
[2017-02-08 10:10] LABS: Eosinophils # 0.1 K/mcL (0.0-0.6); Lymphocytes # 0.6 K/mcL (0.6-4.6); Monocytes # 0.5 K/mcL (0.0-1.3); Neutrophils # 4.4 K/mcL (1.6-8.9)
[2017-02-08 10:11] LABS: Nucleated Red Blood Cells 1 /100 WBC (0)
[2017-02-08 10:24] LABS: Large Platelets Present (Not Present); Platelet Clumps Few (Not Present); Platelet Estimate Slight Decrease (Normal)
--- NOTE | 2017-02-08 11:25 | Nephrology Consult Note ---
Date of Encounter: 02/08/17 Time of Encounter: 11:21 Assessment and Plan (1) Acute kidney injury Current Visit: No Status: Acute Creatinine 2.97, GFR 21, BUN 70. Mr. Flores was admitted one month prior with similar lab results with previously normal renal function. He was found to have hypercalciuria and with treatment his renal function slightly improved but not significantly. His current calcium is 8.2. - Suspect to underlying multiple myeloma. Plan: - Urinalysis with reflex microscopy, serum uric acid, urine creatinine, urine sodium, urine protein - Avoid nephrotoxic medications and renally dose antibiotics - Daily standing weights, strict renal diet low-sodium. - Strict urinary intake and output (2) Hypertension Current Visit: No Status: Chronic Blood pressure appropriate, continue current antihypertensive therapy. Qualifiers: Hypertension type: essential hypertension Qualified Code(s): I10 - Essential (primary) hypertension (3) Multiple myeloma Current Visit: Yes Status: Acute Current history of multiple myeloma, oncology on board. Patient undergo chemotherapy. Qualifiers: Multiple myeloma remission status: not in remission Qualified Code(s): C90.00 - Multiple myeloma not having achieved remission History of Present Illness - Reason for Consult Consult date: 02/08/17 Acute Kidney Injury Requesting physician: Italo Garner - Chief Complaint Multiple myeloma - History of Present Illness Mr. Flores 66-year-old male with a past medical history COPD, coronary artery disease, ND, diabetes type 2, multiple myeloma, hypertension was admitted with chest pain found to have a NSTEMI and congestive heart failure. At the time of admission his creatinine was 2.91, GFR of 22, BUN 55. He is currently undergoing treatment for his other medical problems without improvement in his renal function. Discussion with Mr. Flores identifies that he was admitted one month prior and had elevated creatinine and diminished GFR. He denies any acute medical changes since the time of his last discharge and has not followed up with a cheesemaker. He does have a history of BPH for which he takes normal medication daily but has noticed that it is more difficult for him to start and stop the stream. He denies any history of kidney stones, blood in his urine, burning with urination, recent urinary tract infections, previous diagnosis of chronic kidney disease or history of renal failure or injury. Past Med Surg Social Fam HX - Past Medical History Medical history: COPD, coronary artery disease, diabetes, hypertension, myocardial infarction Psychiatric history: anxiety, depression - Past Surgical History Surgical History: angioplasty/stent - Social History Smoking Status: Former smoker Smokeless Tobacco Status: No Alcohol use: none Drug use: none - Family History Sister Adopted: No Family Member Ethnicity: Non- Living Status: Still Living Hx Family Cancer: Yes (history of breast cancer s/p bilateral mastectomy.) Father Living Status: Age at : 61 Hx Family Cardiac Disorders: Yes (ND) Hx Family Endocrine Disorder: Yes (DM) Mother Living Status: Age at : 90 Hx Family Endocrine Disorder: Yes (DM) Medications and Allergies Aspirin Enteric Coated [Aspirin EC] 81 mg PO DAILY 09/06/15 [History] Simvastatin [Zocor] 40 mg PO HS 09/07/15 [History] Albuterol Sulfate [Albuterol Inhaler] 1 puff IH Q6HR PRN #1 hfa.aer.ad 09/10/15 [Rx] Amlodipine Besylate 10 mg PO DAILY 01/11/17 [History] Budesonide/Formoterol 160/4.5 [Symbicort 160/4.5] 2 puff IH BIDR 01/11/17 [ History] Gabapentin [Neurontin] 300 mg PO HS 01/11/17 [History] Lidocaine Patch [Lidoderm 5% patch] 1 - 2 each TP DAILY PRN 01/11/17 [History] Metoprolol Succinate 100 mg PO DAILY 01/11/17 [History] Tamsulosin [Flomax] 0.4 mg PO DAILY 01/11/17 [History] Acyclovir [Zovirax] 400 mg PO BID #30 capsule 01/17/17 [Rx] Cyanocobalamin (Vitamin B-12) [Vitamin B12] 1,000 mcg PO DAILY #30 tablet [Rx] hydrALAZINE [HydrALAZINE] 25 mg PO Q8HR #90 tablet 01/17/17 [Rx] Dexamethasone [Decadron] 40 mg PO DAILY #40 tab 01/26/17 [Rx] Ranitidine HCl [Zantac] 150 mg PO DAILY #30 tablet 01/26/17 [Rx] Promethazine [Phenergan] 25 mg PO Q6HR PRN #60 tablet 02/01/17 [Rx] 3 Allergy/AdvReac Type Severity Reaction Status Date / Time No Known Allergies Allergy Verified 02/06/17 10:18 Review of Systems Constitutional: no excessive sweating, no weight loss Eyes: bilateral: blurred vision (patient denies), diplopia (patient denies) Nose, mouth and throat: no dizziness, no headache(s) Cardiovascular: no chest pain, no palpitations Respiratory: no cough, no dyspnea Gastrointestinal: no abdominal pain, no change in bowel habits Musculoskeletal: no muscle weakness, no numbness Integumentary: no hirsutism, no striae Psychiatric: no depression, no difficulty concentrating Endocrine: as per HPI Hematologic/Lymphatic: no easy bruising, no lymphadenopathy Exam - Vital Signs Vital signs: Initial Vital Signs Temp Pulse Resp BP Pulse Ox 97.6 F 82 24 173/92 92 02/06/17 10:19 02/06/17 10:19 02/06/17 10:19 02/06/17 10:19 02/06/17 10:19 Vital Signs - Last 8 Hours Temp Pulse Resp BP Pulse Ox 02/08/17 10:39 98.8 F 66 14 134/56 92 02/08/17 06:52 99.8 F H 70 14 142/63 92 Intake and Output 02/07/17 02/08/17 02/08/17 23:59 07:59 15:59 Intake Total 470 / 470 470 / 470 360 / 360 Output Total 600 / 850 375 / 375 125 / 125 Balance -130 / -380 95 / 95 235 / 235 Intake: Oral 120 / 120 120 / 120 360 / 360 Blood Product 350 / 350 350 / 350 Rbcs Leuko Poor As-1 Unit 350 / 350 [id number] Rbcs Leuko Poor As-1 Unit 0 / 0 350 / 350 [id number] Output: Urine 600 / 850 375 / 375 125 / 125 Other: Meal Breakfast Percent of Meal Consumed 0% Weight 83.8 kg Blood Glucose* 159 89 84 Patient Weight 02/08/17 23:59 Weight 83.8 kg - General Appearance Exam: General: Patient alert, awake, oriented 3, interactive, in no acute distress HEENT: Normocephalic, atraumatic, pupils equal reactive to light, nasal cavity patent and open septum median position, oral mucosa moist, uvula midline, neck supple trachea midline no palpable lymphadenopathy, no thyromegaly. Chest: Symmetric bilateral correlating with respiratory effort, effort nonlabored. Cardiac: Regular rate and rhythm, positive S1 and S2. no bruits appreciated bilateral carotids, Radial pulses 2+ bilateral, posterior tibial and dorsal pedal pulses 2+ bilateral. Respiratory: Clear to auscultation all lung painter Abdomen: Soft, nontender, positive bowel sounds, no palpable masses appreciated on examination Extremities: Symmetric bilateral, bilateral lower extremities without erythema or edema patient moving all 4 extremities spontaneously. Neurologic: No focal deficits appreciated on examination. Face symmetric, muscle strength symmetric bilateral upper and lower extremities. Results - Lab Results 02/08/17 06:40 02/08/17 05:28 Most recent lab results Calcium 8.2 mg/dL (8.6-10.8) L 02/08/17 05:28 Magnesium 2.0 mg/dL (1.6-2.6) 02/07/17 05:13 Consult Discharge Plan - Plan Referrals: Elio Melendez MD [Primary Care Provider] -
[2017-02-08 12:33] LABS: Total Protein 7.6 g/dL (6.0-8.3)
[2017-02-08 13:12] LABS: Uric Acid 9.7 mg/dL (3.5-7.2)
--- NOTE | 2017-02-08 14:55 | Anesthesia Evaluation PreOp ---
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 History: Denies Any Significant HX Other Medical History: Renal (CKD), Other (multiple myeloma) Alcohol Use: none Drug use: none Medications and Allergies Aspirin Enteric Coated [Aspirin EC] 81 mg PO DAILY 09/06/15 [History] Simvastatin [Zocor] 40 mg PO HS 09/07/15 [History] Albuterol Sulfate [Albuterol Inhaler] 1 puff IH Q6HR PRN #1 hfa.aer.ad 09/10/15 [Rx] Amlodipine Besylate 10 mg PO DAILY 01/11/17 [History] Budesonide/Formoterol 160/4.5 [Symbicort 160/4.5] 2 puff IH BIDR 01/11/17 [ History] Gabapentin [Neurontin] 300 mg PO HS 01/11/17 [History] Lidocaine Patch [Lidoderm 5% patch] 1 - 2 each TP DAILY PRN 01/11/17 [History] Metoprolol Succinate 100 mg PO DAILY 01/11/17 [History] Tamsulosin [Flomax] 0.4 mg PO DAILY 01/11/17 [History] Acyclovir [Zovirax] 400 mg PO BID #30 capsule 01/17/17 [Rx] Cyanocobalamin (Vitamin B-12) [Vitamin B12] 1,000 mcg PO DAILY #30 tablet [Rx] hydrALAZINE [HydrALAZINE] 25 mg PO Q8HR #90 tablet 01/17/17 [Rx] Dexamethasone [Decadron] 40 mg PO DAILY #40 tab 01/26/17 [Rx] Ranitidine HCl [Zantac] 150 mg PO DAILY #30 tablet 01/26/17 [Rx] Promethazine [Phenergan] 25 mg PO Q6HR PRN #60 tablet 02/01/17 [Rx] 3 Allergy/AdvReac Type Severity Reaction Status Date / Time No Known Allergies Allergy Verified 02/06/17 10:18 - Meds/Allergy Pre-op Review Medications Reviewed: Yes Allergies Reviewed: Yes Beta Blockers on Current Med List: Yes If Beta Blockers taken, Date/Time (Last Dose taken): today 917 Anesthesia Results - Labs 02/08/17 06:40 02/08/17 05:28 Laboratory Tests 02/08/17 02/08/17 05:28 06:40 Hgb 8.8 L D Hct 26.3 L Plt Count 136 L BUN 70 H Creatinine 2.97 H - Imaging EKG: report reviewed (SINUS RHYTHM LEFT VENTRICULAR HYPERTROPHY AND ST-T CHANGE [VOLTAGE CRITERIA PLUS ST/T ABNORMALITY]) Additional studies: echo: Impressions: Normal LV systolic function, LVEF 60%. Normal left ventricular diastolic function. Normal right ventricular size and function. Mildly dilated left atrium. Mildly dilated right atrium. Mild mitral regurgitation. Moderate-severe pulmonary hypertension. Estimated RVSP = 58-63 mmHg. Anesthesia Exam Selected Entries 02/08/17 10:39 Temperature 98.8 F Pulse Rate 66 Respiratory Rate 14 Blood Pressure 134/56 O2 Sat by Pulse Oximetry 92 Oxygen Flow Rate (LPM) 2 - HEENT Pupil (Motor): EOMI Mallampati: II Teeth: Poor dentition Oral Opening: Greater than 3 - BLEACHER PULP LOC: Oriented BLEACHER PULP Motor: Normal RUE, Normal LUE, Normal RLE, Normal LLE, Normal Face BLEACHER PULP Sensory: Normal: RUE, LUE, RLE, LLE, Face - Cardiac Rhythm: Regular Murmur: None - Pulmonary Breath Sounds: bilateral Clear Respiratory Effort: Symmetrical Anesthesia Assess/Plan ASA Score: 4 Modified [place] Scale for Level of Consciousness: Cooperative, oriented, and tranquil Anesthetic Plan: MAC Monitoring Plan: Standard Monitors Recovery Plan: Other
[2017-02-08] MEDS ORDERED: Lidocaine -MPF 2% 5 ML VIAL INFILT ONE (14:58)
[2017-02-08] MEDS ORDERED: *HR* Propofol 200 MG/20 ML VIAL IVP ONE (14:58)
[2017-02-08] MEDS ORDERED: SODIUM CHLORIDE/NAHCO3/KCL/PEG 4,000 ML SOLN.RECON PO ONE (15:34)
[2017-02-08] MEDS ORDERED: Polyethylene Glycol 3350 255 GM POWDER PO ONE (15:34)
[2017-02-08 16:41] LABS: Hematocrit 25.6 % (37.5-50.1); Hemoglobin 8.5 g/dL (12.9-16.9)
[2017-02-08] MEDS: Gabapentin 300 MG CAPSULE PO SCH (20:31)
[2017-02-09] MEDS: hydrALAZINE 25 MG TABLET PO SCH ×3 (01:33→17:04)
[2017-02-09 06:44] LABS: Eosinophils # 0.1 K/mcL (0.0-0.6); Hematocrit 27.9 % (37.5-50.1); Hemoglobin 9.3 g/dL (12.9-16.9); Mean Corpuscular HGB Conc 33.3 g/dL (31.6-35.5); Mean Corpuscular Hemoglobin 30.1 pg (28.0-33.3); Mean Corpuscular Volume 90.3 fL (83.0-100.0); Mean Platelet Volume 11.7 fL (9.4-12.4); Platelet Count 132 K/mcL (140-400); Red Blood Count 3.09 M/mcL (4.19-5.50); Red Cell Distribution Width 17.5 % (11.5-14.5)
[2017-02-09 06:59] LABS: Calcium 8.2 mg/dL (8.6-10.8)
--- NOTE | 2017-02-09 07:09 | Internal Med Progress Note ---
<Grayson Arshad - Last Filed: 02/09/17 14:35> Date of Encounter: 02/09/17 Time of Encounter: 10:50 - Assessment and plan (1) Anemia Current Visit: Yes Status: Acute Assessment and plan: hgb stable hx of multiple myeloma GI consulted: EGD shows gastritis, salmon-colored mucosa and granular mucosa of duodenal bulb. biospy pending Colonoscopy today daily PPI Hemodynamically stable. Qualifiers: Anemia type: other cause Other causes of anemia: chronic disease, neoplastic Qualified Code(s): D63.0 - Anemia in neoplastic disease (2) NSTEMI (non-ST elevated myocardial infarction) Current Visit: Yes Status: Acute Assessment and plan: Troponin trending down. Currently not on aspirin secondary to anemia. Anemia improved with 3 PPI C. Hemoglobin now 8.8. At this point were awaiting upper and lower endoscopy before starting patient on aspirin. (3) Acute kidney injury Current Visit: Yes Status: Acute Assessment and plan: EVER on CKD stage 3 in setting of multiple myeloma and anemia hgb <6.6 nephrology consulted. improving Continue to monitor. (4) DVT prophylaxis Current Visit: Yes Status: Acute Assessment and plan: EPCD (5) Elevated d-dimer Current Visit: Yes Status: Acute Assessment and plan: elevated d-dimer nuclear ventilation/perfusion scan low probability Wells score 1 for multiple myeloma Respiratory status stable. (6) Multiple myeloma Current Visit: Yes Status: Acute Assessment and plan: recent diagnosis of multiple myeloma Oncologist stated that we will hold Velcade and dexamethasone until patient status improves. will resume velcade and dexamethasone on sunday: patient has outpatient follow up with oncology. back pain worse since last dose held. morphine prn for pain control. Qualifiers: Multiple myeloma remission status: not in remission Qualified Code(s): C90.00 - Multiple myeloma not having achieved remission - Subjective Interval history: Denies chest pain, abdominal pain, nausea, vomiting, weakness. Reports sharp low back pain which patient had before diagnosis of Multiple Myeloma. Pain worse with bending or standing and denies radiation. Denies LE weakness, numbness, tingling. Patient was prepped overnight for colonoscopy but still is having dark stool. Will continue bowel prep until clear. - Constitutional Vitals: Temp Pulse Resp BP Pulse Ox 97.5 F L 65 22 162/78 94 02/09/17 03:00 02/09/17 03:00 02/09/17 03:00 02/09/17 03:00 02/09/17 03:00 General appearance: Present: A&O X 3, answers questions appropriately - Respiratory Respiratory exam: Present: rales (minor b/l basilar). Absent: accessory muscle use, wheezes - Cardiovascular Cardiovascular exam: Present: RRR, +S1, +S2 - GI/Abdominal GI/Abdominal exam: Present: normal bowel sounds, soft, no peritoneal signs. Absent: distended, tenderness - Extremities Exam Extremities exam: Present: radial pulses palpable and symmetrical. Absent: pedal edema Additional comments: low back pain with palpation, standing. - Neurological Exam Neurological exam: Present: alert, oriented X3 Internal Medicine: Result - Labs CBC & Chem 7: 02/09/17 05:56 02/09/17 05:56 Labs: Short CBC 02/08/17 02/08/17 02/09/17 Range/Units 06:40 16:29 05:56 WBC 5.8 4.5 (4.3-11.1) K/mcL Hgb 8.8 L D 8.5 L 9.3 L (12.9-16.9) g/dL Hct 26.3 L 25.6 L 27.9 L (37.5-50.1) % Plt Count 136 L 132 L (140-400) K/mcL Neutrophils # 4.4 (1.6-8.9) K/mcL BMP 02/09/17 05:56 Sodium 135 L Potassium 4.0 Chloride 111 H Carbon Dioxide 20 BUN 62 H Creatinine 2.71 H Glucose 93 Calcium 8.2 L - ABG Interpretation ABG results: PT/INR, D-dimer PT 12.3 Seconds (9.4-12.1) H 02/06/17 19:22 D-Dimer 1866 ng/mLFEU (0-500) H 02/06/17 10:45 Consult Discharge Plan - Plan Referrals: Elio Melendez MD [Primary Care Provider] - 02/16/17 3:00 pm <Italo Garner - Last Filed: 02/09/17 19:03> Date of Encounter: 02/09/17 - Constitutional Vitals: Temp Pulse Resp BP Pulse Ox 97.8 F 79 20 165/78 95 02/09/17 18:40 02/09/17 18:40 02/09/17 18:40 02/09/17 18:40 02/09/17 18:40 Internal Medicine: Result - Labs CBC & Chem 7: 02/09/17 05:56 02/09/17 05:56 Labs: Short CBC 02/09/17 Range/Units 05:56 WBC 4.5 (4.3-11.1) K/mcL Hgb 9.3 L (12.9-16.9) g/dL Hct 27.9 L (37.5-50.1) % Plt Count 132 L (140-400) K/mcL Neutrophils # 3.2 (1.6-8.9) K/mcL BMP 02/09/17 05:56 Sodium 135 L Potassium 4.0 Chloride 111 H Carbon Dioxide 20 BUN 62 H Creatinine 2.71 H Glucose 93 Calcium 8.2 L - ABG Interpretation ABG results: PT/INR, D-dimer PT 12.3 Seconds (9.4-12.1) H 02/06/17 19:22 D-Dimer 1866 ng/mLFEU (0-500) H 02/06/17 10:45 - Attending Attestation I examined this patient and my medical decision-making was reviewed with the Resident Physician. I agree with the documented findings, disposition and treatment plan as described except to the extent set forth below.
[2017-02-09 07:19] LABS: Lymphocytes # 0.9 K/mcL (0.6-4.6); Monocytes # 0.1 K/mcL (0.0-1.3); Neutrophils # 3.2 K/mcL (1.6-8.9); Platelet Estimate Slight Decrease (Normal)
[2017-02-09 07:20] LABS: Toxic Granulation Present (Not Present)
[2017-02-09] MEDS: Budesonide/Formoterol 160/4.5 MDI IH SCH ×2 (08:02→19:37)
[2017-02-09] MEDS: Insulin LISPRO 300 UNITS/3 ML VIAL SQ SCH ×4 (09:39→22:06)
--- NOTE | 2017-02-09 10:54 | Nephrology Progress Note ---
Date of Encounter: 02/09/17 Time of Encounter: 10:50 - Assessment and Plan (1) Acute kidney injury Current Visit: No Status: Acute Creatinine 2.97, GFR 21, BUN 70. Mr. Flores was admitted one month prior with similar lab results with previously normal renal function. He was found to have hypercalciuria and with treatment his renal function slightly improved but not significantly. His current calcium is 8.2. - Suspect to underlying multiple myeloma. 02/09: Slight improvement in creatinine at 2.71, GFR 24. This may be his new baseline. - Serum uric acid was 9.7, urine creatinine, sodium, protein and urinalysis with reflex microscopy still pending. Plan: - Urinalysis with reflex microscopy, urine creatinine, urine sodium, urine protein -All pending. - Avoid nephrotoxic medications and renally dose antibiotics - Daily standing weights, strict renal diet low-sodium. - Strict urinary intake and output (2) Hypertension Current Visit: No Status: Chronic Blood pressure appropriate, continue current antihypertensive therapy. Qualifiers: Hypertension type: essential hypertension Qualified Code(s): I10 - Essential (primary) hypertension (3) Multiple myeloma Current Visit: Yes Status: Acute Current history of multiple myeloma, oncology on board. Patient undergo chemotherapy. Qualifiers: Multiple myeloma remission status: not in remission Qualified Code(s): C90.00 - Multiple myeloma not having achieved remission Subjective Principal diagnosis: Acute kidney injury Interval history: Mr. Flores 58-year-old male seen and evaluated patient that since morning. He denies any changes or acute problems since our interactions yesterday. He is planning for colonoscopy today and possible discharge. He denies any headaches , fevers, chills, nausea vomiting diarrhea constipation and abdominal pain, chest pain, palpitations, change in urination burning with urination or blood in his urine. Objective - Vital Signs Vital signs: Vital Signs Temp Pulse Resp BP Pulse Ox 02/09/17 07:16 98.3 F 61 15 140/64 92 02/09/17 03:00 97.5 F L 65 22 162/78 94 02/09/17 00:00 97.9 F 64 20 158/67 02/08/17 20:00 97.8 F 62 19 135/61 96 02/08/17 16:44 98.3 F 57 12 132/70 92 02/08/17 15:04 98 F 63 20 139/66 93 Intake and Output 02/08/17 02/09/17 02/09/17 23:59 07:59 15:59 Intake Total 680 / 680 0 / 0 0 / 0 Output Total 200 / 200 0 / 0 Balance 680 / 680 -200 / -200 0 / 0 Intake: Oral 680 / 680 0 / 0 0 / 0 Output: Urine 0 / 0 Urine/Stool Mix 200 / 200 Other: Meal Dinner Percent of Meal Consumed 0% Stool Size Large Moderate Stool Consistency loose liquid Stool Color Green Brown Black # Voids 2 1 Weight 82.7 kg 82.7 kg Blood Glucose* 94 83 Patient Weight 02/09/17 23:59 Weight 82.7 kg - General Appearance General appearance: Present: well-developed, well-nourished, appears started age Neck: Present: no JVD, no thyromegaly, supple Respiratory: Present: no kyphosis, no scoliosis Cardiology: Present: no murmurs, no rub, no gallops, no edema, regular rate, regular rhythm, normal S1, normal S2 Gastrointestinal: Present: normoactive bowel sounds, no tenderness Integumentary: Present: no rash, warm and dry Neurologic: Present: no focal deficit, no asterixis, alert and oriented x3, reflexes 2+ and symmetric, gait normal, strength 5/5 Musculoskeletal: Present: no deformities, no erythema, no cyanosis, no clubbing Psychiatric: Present: mood/affect appropriate, cooperative - Lab 02/09/17 05:56 02/09/17 05:56 Most recent lab results Calcium 8.2 mg/dL (8.6-10.8) L 02/09/17 05:56 Magnesium 2.0 mg/dL (1.6-2.6) 02/07/17 05:13 Consult Discharge Plan - Plan Referrals: Elio Melendez MD [Primary Care Provider] -
[2017-02-09] MEDS: 0.9 % Sodium Chloride 1,000 ML IVC SCH (14:40)
[2017-02-09] MEDS ORDERED: Ipratropium/Albuterol Neb 3 ML ONE (15:04)
--- NOTE | 2017-02-09 15:48 | Event Note ---
Date of Encounter: 02/09/17 Time of Encounter: 15:00 Patient out of room for colonoscopy. Anemia suspected acute loss and secondary to multiple myeloma. Current therapy: 1. Velcade/Dexamethasone days 1,4,8,15 every 21 days Treatment intent: Palliative Velcade/Dexamethasone Day 1 on 01/31/17; Day 4 on Day 8 treatment scheduled for 02/08/17 (held due to inpatient with NSTEMI) and Day 15 on 02/12/17. Patient has existing appointment with Dr Danny Cabral 02/12/17 at 220pm and treatment at 300 pm. OK to discharge if medically stable, and we will see him outpatient,
[2017-02-09] MEDS: Cyanocobalamin (B-12) 1,000 MCG TABLET PO SCH (17:00)
[2017-02-09] MEDS: amLODIPine 5 MG TABLET PO SCH (17:00)
[2017-02-09] MEDS: Metoprolol XL (24 HR) Succ 50 MG TAB.ER.24H PO SCH (17:00)
[2017-02-09 19:49] LABS: Bilirubin,Urine Negative (Negative); Blood,Urine Trace (Negative); Clarity,Urine Clear (Clear); Color,Urine Yellow (Yellow); Glucose,Urine (UA) Normal (Normal); Ketones,Urine Negative (Negative); Leukocyte Esterase,Urine Negative (Negative); Nitrite,Urine Negative (Negative); PH,Urine 5.5 pH Units (5.0-8.0); Protein,Urine >=300 mg/dL (Neg-Trace); Specific Gravity,Urine 1.019 (1.010-1.025); Urobilinogen,Urine Normal (Normal)
[2017-02-09 19:50] LABS: Bacteria,Urine None Seen per hpf (None-Few); Hyaline Casts,Urine None Seen per lpf (None-Few); Squamous Epithelial Cell,Urine Many per lpf (None-Few); WBC,Urine 0-3 per hpf (0-3)
[2017-02-09 20:28] LABS: Protein/Creatinine Ratio,Urine 8.37 mg/mg (0-0.20)
[2017-02-09] MEDS: Gabapentin 300 MG CAPSULE PO SCH (21:03)
[2017-02-10] MEDS: hydrALAZINE 25 MG TABLET PO SCH ×3 (00:51→16:47)
[2017-02-10 05:10] LABS: Eosinophils # 0.1 K/mcL (0.0-0.6); Hematocrit 27.1 % (37.5-50.1); Mean Corpuscular HGB Conc 33.2 g/dL (31.6-35.5); Mean Corpuscular Hemoglobin 30.7 pg (28.0-33.3); Mean Corpuscular Volume 92.5 fL (83.0-100.0); Mean Platelet Volume 11.7 fL (9.4-12.4); Platelet Count 124 K/mcL (140-400); Red Blood Count 2.93 M/mcL (4.19-5.50); Red Cell Distribution Width 16.7 % (11.5-14.5)
[2017-02-10 05:23] LABS: Calcium 7.7 mg/dL (8.6-10.8); Potassium 3.8 mEq/L (3.5-4.5)
[2017-02-10 05:50] LABS: Lymphocytes # 0.7 K/mcL (0.6-4.6); Monocytes # 0.4 K/mcL (0.0-1.3); Neutrophils # 2.4 K/mcL (1.6-8.9); Platelet Estimate Slight Decrease (Normal)
[2017-02-10 05:51] LABS: Large Platelets Present (Not Present); Platelet Clumps Few (Not Present); Toxic Granulation Present (Not Present)
[2017-02-10] MEDS: Budesonide/Formoterol 160/4.5 MDI IH SCH ×2 (08:00→20:08)
[2017-02-10] MEDS: Insulin LISPRO 300 UNITS/3 ML VIAL SQ SCH ×4 (09:45→21:38)
[2017-02-10] MEDS: Cyanocobalamin (B-12) 1,000 MCG TABLET PO SCH (09:48)
[2017-02-10] MEDS: Metoprolol XL (24 HR) Succ 50 MG TAB.ER.24H PO SCH (09:48)
[2017-02-10] MEDS: amLODIPine 5 MG TABLET PO SCH (09:48)
--- NOTE | 2017-02-10 12:51 | Nephrology Progress Note ---
Date of Encounter: 02/10/17 Time of Encounter: 12:48 - Assessment and Plan (1) ARF (acute renal failure) Current Visit: Yes Status: Acute Patient has acute kidney injury that seemed to be related to her multiple myeloma. She is currently getting treatment for her multiple myeloma. We will evaluate for improvement. At this time her renal function seems stable. Avoid nephrotoxins. Adjust medications for renal function. Qualifiers: Acute renal failure type: with other specified pathological lesion Qualified Code(s): N17.8 - Other acute kidney failure (2) Anemia Current Visit: Yes Status: Acute EGD and colonoscopy were unremarkable for a source of bleeding. Transfuse as needed. He is on vitamin B12. Most recent iron saturation was 22%. Qualifiers: Anemia type: other cause Other causes of anemia: chronic disease, neoplastic Qualified Code(s): D63.0 - Anemia in neoplastic disease (3) Multiple myeloma Current Visit: Yes Status: Acute Per hematology. Qualifiers: Multiple myeloma remission status: not in remission Qualified Code(s): C90.00 - Multiple myeloma not having achieved remission (4) NSTEMI (non-ST elevated myocardial infarction) Current Visit: Yes Status: Acute No active chest pain. May be demand ischemia. Defer to primary team and cardiology. Subjective Principal diagnosis: Acute kidney injury Interval history: Patient seen. He has no new complaint. His review of systems is overall stable. Objective - Vital Signs Vital signs: Vital Signs Temp Pulse Resp BP Pulse Ox 02/10/17 07:59 98.1 F 65 16 158/85 98 02/09/17 23:20 98.8 F 79 18 141/67 95 02/09/17 18:40 97.8 F 79 20 165/78 95 02/09/17 16:00 97.8 F 69 15 148/63 94 02/09/17 14:10 98.3 F 67 16 169/89 95 Intake and Output 02/09/17 02/10/17 02/10/17 23:59 07:59 15:59 Intake Total 0 / 0 720 / 720 Output Total 350 / 350 700 / 700 Balance -350 / -350 -700 / -700 720 / 720 Intake: Oral 0 / 0 720 / 720 Output: Urine 350 / 350 700 / 700 Other: Meal Breakfast Percent of Meal Consumed 100% Weight 82.2 kg Blood Glucose* 92 92 100 Patient Weight 02/10/17 23:59 Weight 82.2 kg - General Appearance General appearance: Present: well-developed, well-nourished EENT: Present: ATNC Neck: Present: supple Additional Comments: Respirations are unlabored. Cardiology: Present: regular rate Integumentary: Present: warm and dry Neurologic: Present: alert and oriented x3 Psychiatric: Present: mood/affect appropriate - Lab 02/10/17 04:38 02/10/17 04:38 Most recent lab results Calcium 7.7 mg/dL (8.6-10.8) L 02/10/17 04:38 Magnesium 2.0 mg/dL (1.6-2.6) 02/07/17 05:13 Urine Creatinine 68 mg/dL 02/09/17 15:50 Urine Sodium 74.0 mEq/L 02/09/17 15:50 Urine Total Protein 569 mg/dL (1-14) H 02/09/17 15:50 Consult Discharge Plan - Plan Referrals: Elio Melendez MD [Primary Care Provider] - 02/16/17 3:00 pm
[2017-02-10] MEDS: 0.9 % Sodium Chloride 1,000 ML IVC SCH (16:36)
--- NOTE | 2017-02-10 17:55 | Internal Med Progress Note ---
Date of Encounter: 02/10/17 Time of Encounter: 17:53 - Assessment and plan (1) Anemia Current Visit: Yes Status: Acute Assessment and plan: hgb stable hx of multiple myeloma GI consulted: EGD shows gastritis, salmon-colored mucosa and granular mucosa of duodenal bulb. biospy pending Colonoscopy today daily PPI Hemodynamically stable. 02/10/2017. Patient's hemoglobin is stable. GI on board for anemia workup. Presently on daily PPI. We will follow the recommendations from gastroenterology. Qualifiers: Anemia type: other cause Other causes of anemia: chronic disease, neoplastic Qualified Code(s): D63.0 - Anemia in neoplastic disease (2) NSTEMI (non-ST elevated myocardial infarction) Current Visit: Yes Status: Acute Assessment and plan: Troponin trending down. Currently not on aspirin secondary to anemia. Anemia improved with 3 PPI C. Hemoglobin now 8.8. At this point were awaiting upper and lower endoscopy before starting patient on aspirin. (3) Acute kidney injury Current Visit: Yes Status: Acute Assessment and plan: Patient's creatinine is getting better. Nephrology on the board. We will follow their recommendations. (4) DVT prophylaxis Current Visit: Yes Status: Acute Assessment and plan: EPCD - Subjective Interval history: Patient seen and examined. Chart reviewed. Patient is comfortably sitting in a chair. patient denies any chest pain, shortness of breath, nausea, vomiting, abdominal pain or diarrhea. - Constitutional Vitals: Temp Pulse Resp BP Pulse Ox 98.4 F 65 16 148/78 97 02/10/17 16:02 02/10/17 16:02 02/10/17 16:02 02/10/17 16:02 02/10/17 16:02 General appearance: Present: A&O X 3, answers questions appropriately - Head Head exam: Present: atraumatic, normocephalic - Eye Eye exam: Present: PERRL, conjuntiva pink, sclera anicteric Pupils: Present: PERRL - Neck Neck exam general surgery: Present: supple, trachea midline. Absent: lymphadenopathy - Respiratory Respiratory exam: Present: CTAB. Absent: accessory muscle use, rales, rhonchi, wheezes - Cardiovascular Cardiovascular exam: Present: RRR, +S1, +S2. Absent: diastolic murmur, gallop, rubs, systolic murmur - GI/Abdominal GI/Abdominal exam: Present: normal bowel sounds, soft, no peritoneal signs. Absent: distended, tenderness - Extremities Exam Extremities exam: Present: warm, radial pulses palpable and symmetrical. Absent : calf tenderness, cyanotic, pedal edema - Neurological Exam Neurological exam: Present: CN II-XII intact, oriented X3, no focal deficits. Absent: pronater drift, facial droop, speech deficit - Skin Skin exam: Present: dry, intact Internal Medicine: Result - Labs CBC & Chem 7: 02/10/17 04:38 02/10/17 04:38 Labs: Short CBC 02/10/17 Range/Units 04:38 WBC 3.7 L (4.3-11.1) K/mcL Hgb 9.0 L (12.9-16.9) g/dL Hct 27.1 L (37.5-50.1) % Plt Count 124 L (140-400) K/mcL Neutrophils # 2.4 (1.6-8.9) K/mcL BMP 02/10/17 04:38 Sodium 138 Potassium 3.8 Chloride 113 H Carbon Dioxide 22 BUN 52 H Creatinine 2.73 H Glucose 97 Calcium 7.7 L Urine 02/09/17 Range/Units 15:50 Urine Color Yellow (Yellow) Urine Clarity Clear (Clear) Urine pH 5.5 (5.0-8.0) pH Units Ur Specific [place] 1.019 (1.010-1.025) Urine Protein >=300 H (Neg-Trace) mg/dL Urine Glucose (UA) Normal (Normal) mg/dL - ABG Interpretation ABG results: PT/INR, D-dimer PT 12.3 Seconds (9.4-12.1) H 02/06/17 19:22 D-Dimer 1866 ng/mLFEU (0-500) H 02/06/17 10:45 Consult Discharge Plan - Plan Referrals: Elio Melendez MD [Primary Care Provider] - 02/16/17 3:00 pm
[2017-02-10] MEDS: Gabapentin 300 MG CAPSULE PO SCH (19:07)
[2017-02-11] MEDS: hydrALAZINE 25 MG TABLET PO SCH ×3 (00:18→17:20)
[2017-02-11 04:08] LABS: Basophils % 0.2 %; Eosinophils # 0.1 K/mcL (0.0-0.6); Eosinophils % 2.6 %; Hematocrit 27.2 % (37.5-50.1); Hemoglobin 8.8 g/dL (12.9-16.9); Immature Granulocytes % 4.1 % (0-4); Lymphocytes # 0.7 K/mcL (0.6-4.6); Lymphocytes % 17.3 %; Mean Corpuscular HGB Conc 32.4 g/dL (31.6-35.5); Mean Corpuscular Hemoglobin 30.1 pg (28.0-33.3); Mean Corpuscular Volume 93.2 fL (83.0-100.0); Mean Platelet Volume 11.9 fL (9.4-12.4); Monocytes # 0.3 K/mcL (0.0-1.3); Monocytes % 7.2 %; Neutrophils # 2.9 K/mcL (1.6-8.9); Platelet Count 123 K/mcL (140-400); Red Blood Count 2.92 M/mcL (4.19-5.50); Red Cell Distribution Width 16.6 % (11.5-14.5); Segmented Neutrophils % 68.6 %
[2017-02-11 04:28] LABS: Albumin/Globulin Ratio 0.3 (1.1-2.2); Bilirubin,Total 0.3 mg/dL (0.2-1.2); Globulin 5.6 g/dL (2.4-3.5); Potassium 4.3 mEq/L (3.5-4.5); Total Protein 7.3 g/dL (6.0-8.3)
[2017-02-11 04:29] LABS: Albumin 1.7 g/dL (3.5-5.0)
[2017-02-11] MEDS: Budesonide/Formoterol 160/4.5 MDI IH SCH ×2 (07:40→20:30)
[2017-02-11] MEDS: Insulin LISPRO 300 UNITS/3 ML VIAL SQ SCH ×4 (09:38→21:58)
[2017-02-11] MEDS: Cyanocobalamin (B-12) 1,000 MCG TABLET PO SCH (09:42)
[2017-02-11] MEDS: amLODIPine 5 MG TABLET PO SCH (09:42)
[2017-02-11] MEDS: Metoprolol XL (24 HR) Succ 50 MG TAB.ER.24H PO SCH (09:42)
--- NOTE | 2017-02-11 11:38 | Nephrology Progress Note ---
Date of Encounter: 02/11/17 Time of Encounter: 11:35 - Assessment and Plan (1) ARF (acute renal failure) Current Visit: Yes Status: Acute Patient has acute kidney injury that seemed to be related to his multiple myeloma. He is currently getting treatment for her multiple myeloma. We will evaluate for improvement. At this time his renal function seems stable. Avoid nephrotoxins. Adjust medications for renal function. Qualifiers: Acute renal failure type: with other specified pathological lesion Qualified Code(s): N17.8 - Other acute kidney failure (2) Anemia Current Visit: Yes Status: Acute EGD and colonoscopy were unremarkable for a source of bleeding other than what was described as mild gastritis. Transfuse as needed. He is on vitamin B12. Most recent iron saturation was 22%. Seems to be secondary to multiple myeloma. Qualifiers: Anemia type: other cause Other causes of anemia: chronic disease, neoplastic Qualified Code(s): D63.0 - Anemia in neoplastic disease (3) Multiple myeloma Current Visit: Yes Status: Acute Per hematology. Current therapy: 1. Velcade/Dexamethasone days 1,4,8,15 every 21 days Qualifiers: Multiple myeloma remission status: not in remission Qualified Code(s): C90.00 - Multiple myeloma not having achieved remission (4) NSTEMI (non-ST elevated myocardial infarction) Current Visit: Yes Status: Acute No active chest pain. May be demand ischemia. Defer to primary team and cardiology. Subjective Principal diagnosis: Acute kidney injury Interval history: Patient seen. He has no new complaint. His review of systems is overall stable. Objective - Vital Signs Vital signs: Vital Signs Temp Pulse Resp BP Pulse Ox 02/11/17 07:43 98.4 F 65 16 138/71 96 02/11/17 05:14 98.6 F 66 18 133/58 93 02/11/17 00:17 66 127/57 02/10/17 20:42 98.8 F 66 16 132/73 93 02/10/17 16:02 98.4 F 65 16 148/78 97 Intake and Output 02/10/17 02/11/17 02/11/17 23:59 07:59 15:59 Intake Total 0 / 0 0 / 0 240 / 240 Output Total 350 / 350 825 / 825 Balance -350 / -350 -825 / -825 240 / 240 Intake: Oral 0 / 0 0 / 0 240 / 240 Output: Urine 350 / 350 825 / 825 Other: Meal Breakfast Percent of Meal Consumed 100% # Voids 0 0 Weight 82.7 kg Blood Glucose* 92 98 96 Patient Weight 02/11/17 23:59 Weight 82.7 kg - General Appearance General appearance: Present: well-developed, well-nourished EENT: Present: ATNC Neck: Present: supple Additional Comments: Respirations are unlabored. Cardiology: Present: no edema, regular rate Integumentary: Present: warm and dry Neurologic: Present: alert and oriented x3 Psychiatric: Present: mood/affect appropriate - Lab 02/11/17 03:29 02/11/17 03:29 Most recent lab results Calcium 8.0 mg/dL (8.6-10.8) L 02/11/17 03:29 Magnesium 2.0 mg/dL (1.6-2.6) 02/07/17 05:13 Urine Creatinine 68 mg/dL 02/09/17 15:50 Urine Sodium 74.0 mEq/L 02/09/17 15:50 Urine Total Protein 569 mg/dL (1-14) H 02/09/17 15:50 Consult Discharge Plan - Plan Referrals: Elio Melendez MD [Primary Care Provider] - 02/16/17 3:00 pm
--- NOTE | 2017-02-11 13:30 | Internal Med Progress Note ---
Date of Encounter: 02/11/17 Time of Encounter: 13:27 - Assessment and plan (1) Anemia Current Visit: Yes Status: Acute Assessment and plan: hgb stable hx of multiple myeloma GI consulted: EGD shows gastritis, salmon-colored mucosa and granular mucosa of duodenal bulb. biospy pending Colonoscopy today daily PPI Hemodynamically stable. 02/10/2017. Patient's hemoglobin is stable. GI on board for anemia workup. Presently on daily PPI. We will follow the recommendations from gastroenterology. 02/11/2017 Stable hemoglobin and hematocrit. No occult or obvious bleeding noted. We will continue present treatment. Qualifiers: Anemia type: other cause Other causes of anemia: chronic disease, neoplastic Qualified Code(s): D63.0 - Anemia in neoplastic disease (2) NSTEMI (non-ST elevated myocardial infarction) Current Visit: Yes Status: Acute Assessment and plan: Troponin trending down. Currently not on aspirin secondary to anemia. Anemia improved with 3 PPI C. Hemoglobin now 8.8. At this point were awaiting upper and lower endoscopy before starting patient on aspirin. 02/11/2017 Patient is not keen for any further intervention by cardiology. He is aware of the possible complications and risk involved. (3) Acute kidney injury Current Visit: Yes Status: Acute Assessment and plan: Patient's creatinine is getting better. Nephrology on the board. We will follow their recommendations. (4) DVT prophylaxis Current Visit: Yes Status: Acute Assessment and plan: EPCD - Subjective Interval history: Patient seen and examined. Chart reviewed. Patient is comfortably sitting in a chair. patient denies any chest pain, shortness of breath, nausea, vomiting, abdominal pain or diarrhea. 02/11/2017 Patient seen and examined. Chart reviewed. Patient is comfortably sitting in the chair. Patient lives by himself. Patient is very keen to go home Patient denies chest pain, shortness of breath, nausea, vomiting, abdominal pain or diarrhea. - Constitutional Vitals: Temp Pulse Resp BP Pulse Ox 98.4 F 65 16 138/71 96 02/11/17 07:43 02/11/17 07:43 02/11/17 07:43 02/11/17 07:43 02/11/17 07:43 General appearance: Present: A&O X 3, answers questions appropriately - Head Head exam: Present: atraumatic, normocephalic - Eye Eye exam: Present: PERRL, conjuntiva pink, sclera anicteric Pupils: Present: PERRL - Neck Neck exam general surgery: Present: supple, trachea midline. Absent: lymphadenopathy - Respiratory Respiratory exam: Present: CTAB. Absent: accessory muscle use, rales, rhonchi, wheezes - Cardiovascular Cardiovascular exam: Present: RRR, +S1, +S2. Absent: diastolic murmur, gallop, rubs, systolic murmur - GI/Abdominal GI/Abdominal exam: Present: normal bowel sounds, soft, no peritoneal signs. Absent: distended, tenderness - Extremities Exam Extremities exam: Present: warm, radial pulses palpable and symmetrical. Absent : calf tenderness, cyanotic, pedal edema - Neurological Exam Neurological exam: Present: CN II-XII intact, oriented X3, no focal deficits. Absent: pronater drift, facial droop, speech deficit - Skin Skin exam: Present: dry, intact Internal Medicine: Result - Labs CBC & Chem 7: 02/11/17 03:29 02/11/17 03:29 Labs: Short CBC 02/11/17 Range/Units 03:29 WBC 4.2 L (4.3-11.1) K/mcL Hgb 8.8 L (12.9-16.9) g/dL Hct 27.2 L (37.5-50.1) % Plt Count 123 L (140-400) K/mcL Neutrophils # 2.9 (1.6-8.9) K/mcL BMP 02/11/17 03:29 Sodium 139 Potassium 4.3 Chloride 112 H Carbon Dioxide 21 BUN 43 H Creatinine 2.85 H Glucose 91 Calcium 8.0 L Liver Function 02/11/17 Range/Units 03:29 Total Bilirubin 0.3 (0.2-1.2) mg/dL AST 40 H (5-34) Units/L ALT 47 (0-55) Units/L Alkaline Phosphatase 108 (38-126) Units/L Albumin 1.7 L (3.5-5.0) g/dL - ABG Interpretation ABG results: PT/INR, D-dimer PT 12.3 Seconds (9.4-12.1) H 02/06/17 19:22 D-Dimer 1866 ng/mLFEU (0-500) H 02/06/17 10:45 Consult Discharge Plan - Plan Referrals: Elio Melendez MD [Primary Care Provider] - 02/16/17 3:00 pm
[2017-02-11] MEDS: *HR* Morphine 2 MG/ML SYRINGE IVP PRN ×2 (17:20→22:20)
[2017-02-11] MEDS: Gabapentin 300 MG CAPSULE PO SCH (22:01)
[2017-02-12] MEDS: hydrALAZINE 25 MG TABLET PO SCH ×2 (01:21→10:04)
[2017-02-12 03:27] LABS: Basophils % 0.3 %; Eosinophils # 0.1 K/mcL (0.0-0.6); Eosinophils % 2.5 %; Hematocrit 27.1 % (37.5-50.1); Hemoglobin 8.9 g/dL (12.9-16.9); Immature Granulocytes % 3.9 % (0-4); Lymphocytes # 0.7 K/mcL (0.6-4.6); Lymphocytes % 20.3 %; Mean Corpuscular HGB Conc 32.8 g/dL (31.6-35.5); Mean Corpuscular Hemoglobin 30.2 pg (28.0-33.3); Mean Corpuscular Volume 91.9 fL (83.0-100.0); Mean Platelet Volume 11.2 fL (9.4-12.4); Monocytes # 0.3 K/mcL (0.0-1.3); Monocytes % 8.1 %; Neutrophils # 2.3 K/mcL (1.6-8.9); Platelet Count 125 K/mcL (140-400); Red Blood Count 2.95 M/mcL (4.19-5.50); Red Cell Distribution Width 16.4 % (11.5-14.5); Segmented Neutrophils % 64.9 %
--- NOTE | 2017-02-12 06:11 | Discharge Summary ---
<Grayson Arshad - Last Filed: 02/12/17 14:03> Date of Encounter: 02/12/17 Time of Encounter: 06:11 - Discharge Diagnosis (1) Anemia Priority: Primary Status: Acute Qualifiers: Anemia type: other cause Other causes of anemia: chronic disease, neoplastic Qualified Code(s): D63.0 - Anemia in neoplastic disease (2) Multiple myeloma Priority: Secondary Status: Acute Qualifiers: Multiple myeloma remission status: not in remission Qualified Code(s): C90.00 - Multiple myeloma not having achieved remission (3) NSTEMI (non-ST elevated myocardial infarction) Priority: Secondary Status: Acute (4) Acute kidney injury Priority: Secondary Status: Acute (5) Elevated d-dimer Priority: Secondary Status: Acute (6) DVT prophylaxis Priority: Secondary Status: Acute - Discharge Medications Prescriptions: Omeprazole [PriLOSEC] 40 mg PO DAILY@0730 #30 capsule.dr Home Medications: Aspirin Enteric Coated [Aspirin EC] 81 mg PO DAILY 09/06/15 [History] Simvastatin [Zocor] 40 mg PO HS 09/07/15 [History] Albuterol Sulfate [Albuterol Inhaler] 1 puff IH Q6HR PRN #1 hfa.aer.ad 09/10/15 [Rx] Amlodipine Besylate 10 mg PO DAILY 01/11/17 [History] Budesonide/Formoterol 160/4.5 [Symbicort 160/4.5] 2 puff IH BIDR 01/11/17 [ History] Gabapentin [Neurontin] 300 mg PO HS 01/11/17 [History] Lidocaine Patch [Lidoderm 5% patch] 1 - 2 each TP DAILY PRN 01/11/17 [History] Metoprolol Succinate 100 mg PO DAILY 01/11/17 [History] Tamsulosin [Flomax] 0.4 mg PO DAILY 01/11/17 [History] Acyclovir [Zovirax] 400 mg PO BID #30 capsule 01/17/17 [Rx] Cyanocobalamin (Vitamin B-12) [Vitamin B12] 1,000 mcg PO DAILY #30 tablet [Rx] hydrALAZINE [HydrALAZINE] 25 mg PO Q8HR #90 tablet 01/17/17 [Rx] Dexamethasone [Decadron] 40 mg PO DAILY #40 tab 01/26/17 [Rx] Promethazine [Phenergan] 25 mg PO Q6HR PRN #60 tablet 02/01/17 [Rx] Omeprazole [PriLOSEC] 40 mg PO DAILY@0730 #30 capsule. 02/12/17 [Rx] Allergies/Adverse Reactions: 3 Allergy/AdvReac Type Severity Reaction Status Date / Time No Known Allergies Allergy Verified 02/06/17 10:18 Date of admission: 02/07/17 18:45 Primary care physician: Elio Melendez MD Consults: 02/09/17 09:36 Consult to Occupational Therapy [CONS] Routine Comment: Evaluate, develop and implement POC Reason for Consult: evaluaiton for weakness Consult to Physical Therapy [CONS] Routine Comment: Evaluate, develop and implement POC Reason for Consult: evaluation for weakness. Discharging clinician: Grayson Arshad Anticipated date of discharge: 02/12/17 - Patient Status Disposition: Home, Self-Care Condition: Fair Functional capacity at discharge: independent ambulation Overall status at discharge: patient is progressing back to baseline - Discharge Instructions Instructions: Omeprazole (By mouth), Chest Pain (DC), Anemia (GEN) Follow Up With: Elio Melendez MD [Primary Care Provider] - 02/16/17 3:00 pm Alex Javier MD [Partnered Physician] - (requested an appointment office will call patient at home with appointment date and time) Delon Obrien MD [Partnered Physician] - 02/15/17 10:30 am - Diet and Activity Activity: increase activity as tolerated Diet: advance to your usual diet Hospital course: Mr. Flores is a 66 year old male history of multiple myeloma, coronary artery disease, presented with chest pain. Patient elevated d-dimer and underwent ventilation perfusion scanning which showed low probability of myocardial infarction. His Well's score was 1 (multiple myeloma). Patient had anginal chest pain. EKG showed ST depressions in leads V4, V5. Patient's troponin initially was 0.02 became elevated through the night and peaked at 3.88. TORIN score 7. Patient was placed on heparin drip and cardiology was consulted. However, next morning after admission patient's hemoglobin was seen to be 6.6. Cardiology was notified and heparin gtt was discontinued. Cardiology also asked patient if he would proceed with [facility] but patient declined. Furthermore patient was transfused 3 units PRBC. GI was consulted for EGD and colonoscopy. Patient was started on PPI twice a day. This anemia patient also had EVER on CKD (2nd to multiple myeloma in setting of anemia) nephrology was consulted. Oncology was also consulted as patient has recent diagnosis of multiple myeloma one month ago where he presented with low back pain. Patient got a bone marrow biopsy which resulted in this diagnosis. During previous admission he required 4 PBRC transfusion as well. Patient was on Velcade and dexamethasone for treatment, but this was held due to his admission. Upper endoscopy showed salmon colored mucosa, granular mucosa the duodenal bulb , biopsy are pending. Colonoscopy showed internal hemorrhoids. Due to no active bleeding patient was restarted on aspirin. After transfusing patient 3 PBRC, his hemoglobin remained stable around 9.0. Patient's kidney function improved with tranfusion, and he will follow up with nephrology outpatient. His hemodynamics also remained stable. Patient's low back pain returned and he was unable to tolerate standing on his legs due to the pain. PT/OT conuslted and cleared patient for discharge. Patient will be going home with home health PT. He has oncology appointment today at 3PM for his next dose of Velcade/ dexamethasone. Patient will follow up GI outpatient for follow up on biopsy results from endoscopy. Patient will start omeprazole twice a day. - Time Spent with Patient Total time spent providing and/or coordinating discharge services: - Constitutional Vitals: Temp Pulse Resp BP Pulse Ox 98.2 F 64 18 134/63 96 02/12/17 04:23 02/12/17 04:23 02/12/17 04:23 02/12/17 04:23 02/12/17 04:23 General appearance: Present: A&O X 3, answers questions appropriately - Head Head exam: Present: atraumatic, normocephalic - Eye Eye exam: Present: PERRL, conjuntiva pink, sclera anicteric - Neck Neck exam general surgery: Present: supple, trachea midline. Absent: lymphadenopathy - Respiratory Respiratory exam: Present: CTAB. Absent: accessory muscle use, rales, rhonchi, wheezes - Cardiovascular Cardiovascular exam: Present: RRR, +S1, +S2. Absent: diastolic murmur, gallop, rubs, systolic murmur - GI/Abdominal GI/Abdominal exam: Present: normal bowel sounds, soft. Absent: distended, tenderness - Extremities Exam Extremities exam: Present: warm, radial pulses palpable and symmetrical. Absent : calf tenderness, cyanotic, pedal edema - Neurological Exam Neurological exam: Present: alert, oriented X3. Absent: facial droop, speech deficit - Skin Skin exam: Present: dry, intact <Patsy,Italo P - Last Filed: 02/12/17 21:03> Date of Encounter: 02/12/17 - Discharge Diagnosis (1) Anemia Status: Acute Qualifiers: Anemia type: other cause Other causes of anemia: chronic disease, neoplastic Qualified Code(s): D63.0 - Anemia in neoplastic disease (2) NSTEMI (non-ST elevated myocardial infarction) Status: Acute (3) Acute kidney injury Status: Acute (4) DVT prophylaxis Status: Acute Date of admission: 02/07/17 18:45 Primary care physician: Elio Melendez MD Consults: 02/09/17 09:36 Consult to Occupational Therapy [CONS] Routine Comment: Evaluate, develop and implement POC Reason for Consult: evaluaiton for weakness Consult to Physical Therapy [CONS] Routine Comment: Evaluate, develop and implement POC Reason for Consult: evaluation for weakness. Hospital course: Mr. Flores is a 66 year old male - Time Spent with Patient Total time spent providing and/or coordinating discharge services: - Constitutional Vitals: Temp Pulse Resp BP Pulse Ox 98.3 F 65 18 157/77 96 02/12/17 07:00 02/12/17 07:00 02/12/17 07:00 02/12/17 07:00 02/12/17 07:00 - Attending Attestation I examined this patient and my medical decision-making was reviewed with the Resident Physician. I agree with the documented findings, disposition and treatment plan as described except to the extent set forth below.
[2017-02-12 07:16] VITALS: BP 157/77
--- NOTE | 2017-02-12 10:01 | Physician Discharge Referral ---
<Grayson Arshad - Last Filed: 02/12/17 14:02> Home Health/Hosp Referral Info Transfer to: Home Health Attending Provider: Dr. Garner Provider in Charge Post Discharge: PCP - Diagnosis (1) Anemia Priority: Primary Status: Acute (2) Multiple myeloma Priority: Secondary Status: Acute (3) NSTEMI (non-ST elevated myocardial infarction) Priority: Secondary Status: Acute (4) Acute kidney injury Priority: Secondary Status: Acute (5) Elevated d-dimer Priority: Secondary Status: Acute (6) DVT prophylaxis Priority: Secondary Status: Acute - Respiratory Orders None Smoking Cessation: Smoking cessation has been advised. For more information, call the [employer] Quit Line at 5-627-XQXT-NOW. - Diet/Nutrition Diet/Nutrition Orders: Renal - Activity Activity Orders: Up ad chani - Services Needed Following services are medically necessary services: Physical Therapy - Transfer Medications Prescriptions: Omeprazole [PriLOSEC] 40 mg PO DAILY@0730 #30 capsule. Home Medications: Aspirin Enteric Coated [Aspirin EC] 81 mg PO DAILY 09/06/15 [History] Simvastatin [Zocor] 40 mg PO HS 09/07/15 [History] Albuterol Sulfate [Albuterol Inhaler] 1 puff IH Q6HR PRN #1 hfa.aer.ad 09/10/15 [Rx] Amlodipine Besylate 10 mg PO DAILY 01/11/17 [History] Budesonide/Formoterol 160/4.5 [Symbicort 160/4.5] 2 puff IH BIDR 01/11/17 [ History] Gabapentin [Neurontin] 300 mg PO HS 01/11/17 [History] Lidocaine Patch [Lidoderm 5% patch] 1 - 2 each TP DAILY PRN 01/11/17 [History] Metoprolol Succinate 100 mg PO DAILY 01/11/17 [History] Tamsulosin [Flomax] 0.4 mg PO DAILY 01/11/17 [History] Acyclovir [Zovirax] 400 mg PO BID #30 capsule 01/17/17 [Rx] Cyanocobalamin (Vitamin B-12) [Vitamin B12] 1,000 mcg PO DAILY #30 tablet [Rx] hydrALAZINE [HydrALAZINE] 25 mg PO Q8HR #90 tablet 01/17/17 [Rx] Dexamethasone [Decadron] 40 mg PO DAILY #40 tab 01/26/17 [Rx] Promethazine [Phenergan] 25 mg PO Q6HR PRN #60 tablet 02/01/17 [Rx] Omeprazole [PriLOSEC] 40 mg PO DAILY@0730 #30 capsule. 02/12/17 [Rx] Allergies/Adverse Reactions: 3 Allergy/AdvReac Type Severity Reaction Status Date / Time No Known Allergies Allergy Verified 02/06/17 10:18 Certification: Further, I certify that my clinical findings support that this patient is homebound (i.e. absences from home require considerable and taxing effort and are for medical reasons or shinto services or infrequently or short duration when for other reasons) because: Homebound Reason: Patient requires assistance of a person or device to safely leave home Attestation: My signature below is to certify that this patient is under my care and that I, or nurse practitioner, or a physician's human resource assistant working with me, has a face-to -face encounter with this patient. <Italo Garner P - Last Filed: 02/12/17 21:03> - Diagnosis (1) Anemia Status: Acute (2) NSTEMI (non-ST elevated myocardial infarction) Status: Acute (3) Acute kidney injury Status: Acute (4) DVT prophylaxis Status: Acute - Respiratory Orders Smoking Cessation: Smoking cessation has been advised. For more information, call the [place] [employer] Quit Line at 5-027-JGBG-NOW. Certification: Further, I certify that my clinical findings support that this patient is homebound (i.e. absences from home require considerable and taxing effort and are for medical reasons or shinto services or infrequently or short duration when for other reasons) because: Attestation: My signature below is to certify that this patient is under my care and that I, or nurse practitioner, or a physician's human resource assistant working with me, has a face-to -face encounter with this patient.
[2017-02-12] MEDS: Cyanocobalamin (B-12) 1,000 MCG TABLET PO SCH (10:04)
[2017-02-12] MEDS: Metoprolol XL (24 HR) Succ 50 MG TAB.ER.24H PO SCH (10:04)
[2017-02-12] MEDS: amLODIPine 5 MG TABLET PO SCH (10:04)
[2017-02-12] MEDS: Insulin LISPRO 300 UNITS/3 ML VIAL SQ SCH ×2 (10:05→11:50)
[2017-02-12] MEDS: Budesonide/Formoterol 160/4.5 MDI IH SCH (10:42)
== END 2017-02-12 15:52 | disposition home or self-care (01) | DRG 280 ==
LOC: EMEROO 10:15 → 2NENU 10:15
PROVIDERS: ADMIT Internal Medicine; ATTEND Internal Medicine
PROC: ENDOEBX (2017-02-08 15:05)

== ENCOUNTER 2017-02-23 14:06 | Inpatient (IN) ==
[2017-02-23] MEDS ORDERED: 0.9 % Sodium Chloride 500 ML IVC ONE (14:16)
--- NOTE | 2017-02-23 14:21 | Emergency Department Note ---
Disposition Clinical Impression: Chest pain Disposition: Admitted As Inpatient Condition: Fair Time of Disposition: 17:28 Chest Pain HPI - General Chief Complaint: ED Chest Pain Stated Complaint: Chest pain /CARISSA Time Seen by Provider: 02/23/17 14:13 Source: patient, EMS Mode of arrival: EMS Limitations: no limitations Vital Signs Reviewed: Yes Nursing Notes Reviewed: Yes - History of Present Illness HPI Narrative: Patient presents to ED with the chief complaint of chest pain. Patient reports that he has been having chest discomfort since last night. States it is retrosternal and radiates up towards the sternal notch. The very heavy pressure-like feeling. States the pain went away last night, but he woke up this morning at 3 AM and had pain that will not go away. EMS gave him nitroglycerin which took his pain from an 8 to a 2. States he has had a stent previously but was over a decade ago. States from what he can remember. This pain is very similar. Also has a history of COPD and states that that made him feel short of breath. Denies any recent illnesses. - Related Data Home Medications Medication Instructions Recorded Confirmed Aspirin Enteric Coated [Aspirin EC] 81 mg PO DAILY 09/06/15 02/23/17 Simvastatin [Zocor] 40 mg PO HS 09/07/15 02/23/17 Amlodipine Besylate 10 mg PO DAILY 01/11/17 02/23/17 Gabapentin [Neurontin] 300 mg PO HS 01/11/17 02/23/17 Lidocaine Patch [Lidoderm 5% patch] 1 - 2 each TP DAILY PRN 01/11/17 02/23/17 Metoprolol Succinate 100 mg PO DAILY 01/11/17 02/23/17 Tamsulosin [Flomax] 0.4 mg PO DAILY 01/11/17 02/23/17 Dexamethasone [Decadron] 40 mg PO AD 02/23/17 02/23/17 Oxygen 3 l NS AD 02/23/17 02/23/17 Previous Rx's Medication Instructions Recorded Acyclovir [Zovirax] 400 mg PO BID #30 capsule 01/17/17 Cyanocobalamin (Vitamin B-12) 1,000 mcg PO DAILY #30 tablet 01/17/17 [Vitamin B12] hydrALAZINE [HydrALAZINE] 25 mg PO Q8HR #90 tablet 01/17/17 Promethazine [Phenergan] 25 mg PO Q6HR PRN #60 tablet 02/01/17 Omeprazole [PriLOSEC] 40 mg PO DAILY@0730 #30 capsule. 02/12/17 Cyclobenzaprine [Flexeril] 10 mg PO TID PRN #30 tablet 02/15/17 HYDROcodone/Acet 5/325 mg [[place] 1 tab PO Q6H PRN #60 tab 02/15/17 5-325 mg] Sennosides [Senokot] 8.6 mg PO BID #60 tablet 02/22/17 Allergies Allergy/AdvReac Type Severity Reaction Status Date / Time No Known Allergies Allergy Verified 02/22/17 11:28 All systems ED: reviewed and negative except as stated. Constitutional: Denies: fever Eyes: Denies: vision change Cardiovascular: Reports: chest pain, palpitations, dyspnea on exertion Respiratory: Denies: cough, dyspnea Musculoskeletal: Denies: back pain Neurological: Denies: headache Chest Pain PMH - Past Medical History Medical history: Reports: COPD, coronary artery disease, diabetes, hypertension , myocardial infarction Surgical history: Reports: angioplasty/stent Psychiatric history: Reports: anxiety, depression - Social History Smoking Status: Former smoker Alcohol use: Reports: none Drug use: Reports: none Physical Exam - General Limitations: no limitations General appearance: alert, in no apparent distress - Head Head exam: atraumatic, normocephalic, normal inspection - Eye Eye exam: Present: normal appearance, PERRL, EOMI - ENT ENT exam: normal exam, normal oropharynx, mucous membranes moist - Neck Neck exam: Present: normal inspection, full ROM, trachea midline - Chest Chest inspection: Present: normal inspection, symmetric chest wall rise - Respiratory Respiratory exam: Present: normal lung sounds bilaterally - Cardiovascular Cardiovascular exam: Present: regular rate, normal rhythm, normal heart sounds - Abdominal Exam Abdominal exam: Present: soft, Non-Tender. Absent: tenderness, distention, guarding, rebound, rigidity - Extremities Exam Extremities exam: Present: normal inspection, full ROM. Absent: tenderness, pedal edema - Neurological Exam Neurological exam: Present: alert, oriented X3 - Psychiatric Psychiatric exam: Present: normal affect, normal mood - Skin Skin exam: Present: warm, dry, intact, normal color Course Course Narrative: Patient presenting with chest pain since 3 AM. Reports that it is his anginal component. Takes aspirin daily. We will workup and likely admit. Vital Signs Temperature 97.8 F 02/23/17 14:08 Pulse Rate 91 02/23/17 14:08 Respiratory Rate 18 02/23/17 14:08 Blood Pressure 141/89 02/23/17 14:08 O2 Sat by Pulse Oximetry 96 02/23/17 14:08 Temperature 97.8 F 02/23/17 14:08 Pulse Rate 91 02/23/17 14:08 Respiratory Rate 18 02/23/17 14:08 Blood Pressure 141/89 02/23/17 14:08 O2 Sat by Pulse Oximetry 96 02/23/17 14:08 Oxygen Delivery Oxygen Delivery Nasal Cannula Chest Pain - Lab Data Result diagrams: 02/23/17 14:42 02/23/17 14:42 Lab Results 02/23/17 02/23/17 02/23/17 Range/Units 14:42 14:42 14:42 WBC 5.6 D (4.3-11.1) K/mcL RBC 2.54 L (4.19-5.50) M/mcL Hgb 7.6 L (12.9-16.9) g/dL Hct 23.8 L (37.5-50.1) % MCV 93.7 (83.0-100.0) fL MCH 29.9 (28.0-33.3) pg MCHC 31.9 (31.6-35.5) g/dL RDW 16.8 H (11.5-14.5) % Plt Count 75 L (140-400) K/mcL MPV 11.2 (9.4-12.4) fL Seg Neutrophils % 88.0 % Band Neutrophils % 4.0 (0-4) % Lymphocytes % 4.0 % Monocytes % 2.0 % Metamyelocytes % 2.0 H (0) % Neutrophils # 5.2 (1.6-8.9) K/mcL Lymphocytes # 0.2 L (0.6-4.6) K/mcL Monocytes # 0.1 (0.0-1.3) K/mcL Nucleated RBCs/100 WBC 0.5 H (0) /100 WBC Toxic Granulation Present A (Not Present) Platelet Estimate Decreased L (Normal) Immature Plt Fraction 3.2 (1.1-6.1) % Anisocytosis 1+ A (Not Present) PT 10.7 (9.4-12.1) Seconds INR 1.0 APTT 25.3 L (26.0-36.0) Seconds Sodium (136-145) mEq/L Potassium (3.5-4.5) mEq/L Chloride (98-109) mEq/L Carbon Dioxide (19-29) mEq/L BUN (8-26) mg/dL Creatinine (0.72-1.25) mg/dL Est GFR ( Amer) (> 60) Est GFR (Non-Af Amer) (> 60) BUN/Creatinine Ratio (6-26) Glucose (70-99) mg/dL Calculated Osmolality (280-300) Calcium (8.6-10.8) mg/dL Troponin I (0-0.03) ng/mL B-Natriuretic Peptide 823 H (0-100) pg/mL Urine Color (Yellow) Urine Clarity (Clear) Urine pH (5.0-8.0) pH Units Ur Specific [place] (1.010-1.025) Urine Protein (Neg-Trace) mg/dL Urine Glucose (UA) (Normal) mg/dL Urine Ketones (Negative) mg/dL Urine Blood (Negative) Urine Nitrite (Negative) Urine Bilirubin (Negative) Urine Urobilinogen (Normal) mg/dL Ur Leukocyte Esterase (Negative) Urine Microscopic RBC (0-3) per hpf Urine Microscopic WBC (0-3) per hpf Ur Squamous Epith Cells (None-Few) per lpf Amorphous Sediment (Few) Urine Bacteria (None-Few) per hpf Hyaline Casts (None-Few) per lpf Ur Culture Indicated? (NO) 02/23/17 02/23/17 02/23/17 Range/Units 14:42 14:42 15:42 WBC (4.3-11.1) K/mcL RBC (4.19-5.50) M/mcL Hgb (12.9-16.9) g/dL Hct (37.5-50.1) % MCV (83.0-100.0) fL MCH (28.0-33.3) pg MCHC (31.6-35.5) g/dL RDW (11.5-14.5) % Plt Count (140-400) K/mcL MPV (9.4-12.4) fL Seg Neutrophils % % Band Neutrophils % (0-4) % Lymphocytes % % Monocytes % % Metamyelocytes % (0) % Neutrophils # (1.6-8.9) K/mcL Lymphocytes # (0.6-4.6) K/mcL Monocytes # (0.0-1.3) K/mcL Nucleated RBCs/100 WBC (0) /100 WBC Toxic Granulation (Not Present) Platelet Estimate (Normal) Immature Plt Fraction (1.1-6.1) % Anisocytosis (Not Present) PT (9.4-12.1) Seconds INR APTT (26.0-36.0) Seconds Sodium 140 (136-145) mEq/L Potassium 4.6 H (3.5-4.5) mEq/L Chloride 113 H (98-109) mEq/L Carbon Dioxide 20 (19-29) mEq/L BUN 70 H D (8-26) mg/dL Creatinine 2.61 H (0.72-1.25) mg/dL Est GFR ( Amer) 30 L (> 60) Est GFR (Non-Af Amer) 25 L (> 60) BUN/Creatinine Ratio 27 H (6-26) Glucose 128 H (70-99) mg/dL Calculated Osmolality 312 H (280-300) Calcium 7.7 L (8.6-10.8) mg/dL Troponin I 0.04 H* (0-0.03) ng/mL B-Natriuretic Peptide (0-100) pg/mL Urine Color Yellow (Yellow) Urine Clarity Clear (Clear) Urine pH 6.0 (5.0-8.0) pH Units Ur Specific [place] 1.028 H (1.010-1.025) Urine Protein >=1000 H (Neg-Trace) mg/dL Urine Glucose (UA) 100 H (Normal) mg/dL Urine Ketones Negative (Negative) mg/dL Urine Blood Small H (Negative) Urine Nitrite Negative (Negative) Urine Bilirubin Negative (Negative) Urine Urobilinogen Normal (Normal) mg/dL Ur Leukocyte Esterase Negative (Negative) Urine Microscopic RBC 5-15 H (0-3) per hpf Urine Microscopic WBC 5-15 H (0-3) per hpf Ur Squamous Epith Cells Many H (None-Few) per lpf Amorphous Sediment Few (Few) Urine Bacteria None Seen (None-Few) per hpf Hyaline Casts Few (None-Few) per lpf Ur Culture Indicated? NO (NO) - EKG Data EKG attestation: Yes I reviewed and interpreted this EKG. EKG results narrative: Patient's EKG showed sinus rhythm, ST segment depression in precordial leads that is unchanged from previous, no acute ischemic changes, normal axis. Heart Score - Score History: Moderately Suspicious EKG: Non Specific repolarisation Disturbance Age: Greater than 65 Risk Factors: Equal/Greater than 3 risk factor or history of atherosclerotic disease Troponin: 1-3x normal limit HEART Score Total: 7 Attestation Statement - Attestation Attestation: I examined this patient and my medical decision-making was reviewed with the Resident Physician. I agree with the documented findings, disposition and treatment plan as described except to the extent set forth below. Patient presents to the ED with a chief complaint of chest pain. Nonradiating. Now resolved. Patient has a history of an SC. He had angioplasty several years ago. Examination shows some laying in bed in no acute distress. Lungs clear. Plan. The patient's cardiac workup appears unremarkable. He does have a history of SC. Admitted secondary to risk factors for further cardiac workup.
[2017-02-23 14:49] LABS: Hematocrit 23.8 % (37.5-50.1); Immature Platelets 3.2 % (1.1-6.1); Mean Corpuscular HGB Conc 31.9 g/dL (31.6-35.5); Mean Corpuscular Hemoglobin 29.9 pg (28.0-33.3); Mean Corpuscular Volume 93.7 fL (83.0-100.0); Mean Platelet Volume 11.2 fL (9.4-12.4); Nucleated Red Blood Cells 0.5 /100 WBC (0); Red Blood Count 2.54 M/mcL (4.19-5.50); Red Cell Distribution Width 16.8 % (11.5-14.5)
[2017-02-23 14:59] LABS: Prothrombin Time 10.7 Seconds (9.4-12.1)
[2017-02-23 15:00] LABS: Calcium 7.7 mg/dL (8.6-10.8); Potassium 4.6 mEq/L (3.5-4.5)
[2017-02-23 15:02] LABS: Activated Partial Thrombo Time 25.3 Seconds (26.0-36.0)
[2017-02-23 15:18] LABS: Hemoglobin 7.6 g/dL (12.9-16.9); Platelet Count 75 K/mcL (140-400)
[2017-02-23 15:29] LABS: Anisocytosis 1+ (Not Present); Lymphocytes # 0.2 K/mcL (0.6-4.6); Monocytes # 0.1 K/mcL (0.0-1.3); Neutrophils # 5.2 K/mcL (1.6-8.9)
[2017-02-23 15:30] LABS: Platelet Estimate Decreased (Normal); Toxic Granulation Present (Not Present)
[2017-02-23 15:52] LABS: Bilirubin,Urine Negative (Negative); Blood,Urine Small (Negative); Clarity,Urine Clear (Clear); Color,Urine Yellow (Yellow); Glucose,Urine (UA) 100 mg/dL (Normal); Ketones,Urine Negative (Negative); Leukocyte Esterase,Urine Negative (Negative); Nitrite,Urine Negative (Negative); Specific Gravity,Urine 1.028 (1.010-1.025); Urobilinogen,Urine Normal (Normal)
[2017-02-23 15:53] LABS: Bacteria,Urine None Seen per hpf (None-Few); Hyaline Casts,Urine Few per lpf (None-Few); Squamous Epithelial Cell,Urine Many per lpf (None-Few)
[2017-02-23 16:05] LABS: Protein,Urine >=1000 mg/dL (Neg-Trace)
[2017-02-23 16:08] LABS: Amorphous Sediment,Urine Few (Few)
[2017-02-23] MEDS ORDERED: Acetaminophen 325 MG TABLET PO PRN (19:13)
[2017-02-23] MEDS ORDERED: *HR* Morphine 2 MG/ML SYRINGE IVP PRN (19:13)
[2017-02-23] MEDS ORDERED: Naloxone 0.4 MG/ML INJ IVP PRN (19:13)
[2017-02-23] MEDS ORDERED: Ondansetron 4 MG/2 ML VIAL IVP PRN (19:13)
[2017-02-23] MEDS ORDERED: NON-FORMULARY MEDICATION 1 EACH EACH (Oxygen [Oxygen] 3 L) NS SCH (19:15)
[2017-02-23 20:23] LABS: % Iron Saturation 49 % (20-55); Iron 102 mcg/dL (65-175); Transferrin 149 mg/dL (174-364)
[2017-02-23] MEDS: Aspirin Enteric Coated 81 MG Tablet PO SCH (21:02)
[2017-02-23] MEDS: Sennosides 8.6 MG TABLET PO SCH (21:02)
[2017-02-23] MEDS: Acyclovir 200 MG CAPSULE PO SCH (21:02)
--- NOTE | 2017-02-23 21:14 | Internal Med History&Physical ---
Date of Encounter: 02/23/17 Time of Encounter: 08:55 Assessment and Plan (1) NSTEMI (non-ST elevated myocardial infarction) Current visit: No Status: Acute Non-ST elevation HI - causing chest pain with elevated troponin Possible type II HI due to demand ischemia Continue Aspirin and statin, Toprol, low-dose IV heparin, Transfuse 2 units PRBC EKG - sinus rhythm with no acute changes Troponin - 0.68, cycle troponin BNP - 823 Watch for any bleeding due to thrombocytopenia Cardiology consult - discussed with Dr. Hill Repeat EKG, trend troponin, Cardiac telemetry, labs in a.m., monitor closely (2) Multiple myeloma Current visit: No Status: Acute Currently undergoing chemotherapy with Velcade Oncology consult - discussed with Dr. Villareal Qualifiers: Multiple myeloma remission status: not in remission Qualified Code(s): C90.00 - Multiple myeloma not having achieved remission (3) Thrombocytopenia Current visit: Yes Status: Chronic Thrombocytopenia likely due to chemotherapy - patient did have some nasal bleeding earlier in the day No active bleeding, monitor Oncology consult (4) CKD (chronic kidney disease) stage 3, GFR 30-59 ml/min Current visit: No Status: Chronic Chronic kidney disease stage III, with acute kidney injury Creatinine is higher than baseline likely due to chemotherapy (5) Hypertension Current visit: No Status: Chronic Essential hypertension, controlled, monitor Continue home dose of hydralazine and Toprol Qualifiers: Hypertension type: essential hypertension Qualified Code(s): I10 - Essential (primary) hypertension (6) COPD (chronic obstructive pulmonary disease) Current visit: No Status: Chronic COPD, stable, not in exacerbation Qualifiers: COPD type: unspecified COPD Qualified Code(s): J44.9 - Chronic obstructive pulmonary disease, unspecified (7) DVT prophylaxis Current visit: Yes Status: Acute Continue SCDs, patient is on low-dose IV heparin for non-STEMI Internal Medicine - H&P: HPI Chief complaint: chest pain Admitted From: Emergency Dept Plans for Post Hospital Care: Home History of present illness: Mr. Flores is a 66 year old male with past medical history of COPD, coronary artery disease, diabetes, hypertension, multiple myeloma on chemotherapy and anxiety and depression. Patient presents to the ED with complaints of chest pain. Examined in the room. Patient is awake and alert. Able to provide all history. Not in any distress. Family members at bedside. Patient states he developed chest discomfort last night and again this morning. He decided to call the squad to come to the ER. Patient states he did have some nasal bleed earlier today as well which she says has been a chronic issue for him. Patient also complains of shortness of breath which is worse with exertion. Patient describes the pain as dull pressure and rates it currently 2/10. Initially was around 8. Did not radiate and was mainly in the left side of chest. No aggravating or alleviating factors. No other associated symptoms. Initial workup in the ED reveals low H&H and low platelet count. Patient also has elevated creatinine which is likely chronic kidney disease. His initial troponin is 0.04 and the second troponin is 0.68. Due to patient's thrombocytopenia heparin is contraindicated. Patient has been given aspirin and statin. Cardiology consult pending. Patient will need probable left heart catheterization in view of elevated troponin. Patient recently admitted for non -ST elevation HI and refused heart catheter at the time. It was thought the patient likely has demand ischemia due to anemia. He underwent colonoscopy. Patient and family have been explained about his condition and plan of care. Past Med Surg Social Fam HX - Past Medical History Medical history: COPD, coronary artery disease, diabetes, hypertension, myocardial infarction Psychiatric history: anxiety, depression - Past Surgical History Surgical History: angioplasty/stent - Social History Smoking Status: Former smoker Smokeless Tobacco Status: No Alcohol use: none Drug use: none - Family History Sister Adopted: No Family Member Ethnicity: Non- Living Status: Still Living Hx Family Cancer: Yes (history of breast cancer s/p bilateral mastectomy.) Father Living Status: Hx Family Cardiac Disorders: Yes ([place]) Hx Family Endocrine Disorder: Yes (DM) Mother Living Status: Hx Family Endocrine Disorder: Yes (DM) Internal Medicine - H&P: Meds Aspirin Enteric Coated [Aspirin EC] 81 mg PO DAILY 09/06/15 [History] Simvastatin [Zocor] 40 mg PO HS 09/07/15 [History] Amlodipine Besylate 10 mg PO DAILY 01/11/17 [History] Gabapentin [Neurontin] 300 mg PO HS 01/11/17 [History] Lidocaine Patch [Lidoderm 5% patch] 1 - 2 each TP DAILY PRN 01/11/17 [History] Metoprolol Succinate 100 mg PO DAILY 01/11/17 [History] Tamsulosin [Flomax] 0.4 mg PO DAILY 01/11/17 [History] Acyclovir [Zovirax] 400 mg PO BID #30 capsule 01/17/17 [Rx] Cyanocobalamin (Vitamin B-12) [Vitamin B12] 1,000 mcg PO DAILY #30 tablet [Rx] hydrALAZINE [HydrALAZINE] 25 mg PO Q8HR #90 tablet 01/17/17 [Rx] Promethazine [Phenergan] 25 mg PO Q6HR PRN #60 tablet 02/01/17 [Rx] Omeprazole [PriLOSEC] 40 mg PO DAILY@0730 #30 capsule. 02/12/17 [Rx] Cyclobenzaprine [Flexeril] 10 mg PO TID PRN #30 tablet 02/15/17 [Rx] HYDROcodone/Acet 5/325 mg [[place] 5-325 mg] 1 tab PO Q6H PRN #60 tab 02/15/17 [Rx ] Sennosides [Senokot] 8.6 mg PO BID #60 tablet 02/22/17 [Rx] Dexamethasone [Decadron] 40 mg PO AD 02/23/17 [History] Oxygen 3 l NS AD 02/23/17 [History] 3 Allergy/AdvReac Type Severity Reaction Status Date / Time No Known Allergies Allergy Verified 02/22/17 11:28 All Systems PM: A 10-system review of systems was performed and is negative for pertinent findings except as documented above in the HPI. - Constitutional Constitutional: fatigue, no fever(s), no weakness - EENT Eyes: no blurry vision - Cardiovascular Cardiovascular ROS IM: chest pain, dyspnea, dyspnea on exertion, edema, no lightheadedness, no orthopnea, no palpitations, no syncope - Respiratory Respiratory: dyspnea, hemoptysis, dyspnea on exertion, wheezing, no cough, no chest congestion - Gastrointestinal Gastrointestinal: no abdominal pain, no belching, no bloating, no diarrhea, no hematemesis, no melena, no nausea, no vomiting - Genitourinary Genitourinary ROS male: no dysuria - Neurological Neurological ROS: no abnormal gait, no confusion, no disequilibrium, no dizziness, no memory loss, no numbness, no tingling - Constitutional Vitals: Temp Pulse Resp BP Pulse Ox 98.3 F 74 16 158/81 94 02/23/17 19:14 02/23/17 19:14 02/23/17 19:14 02/23/17 19:14 02/23/17 19:14 General appearance: Present: cooperative, A&O X 3, pleasant, no acute distress, loss of weight, answers questions appropriately - Head Head exam: Present: atraumatic - Eye Eye exam: Present: EOMI - ENT ENT exam: Present: mucous membranes moist - Respiratory Respiratory exam: Present: CTAB. Absent: rales, rhonchi, wheezes, tachypnea - Cardiovascular Cardiovascular exam: Present: RRR, +S1, +S2 - GI/Abdominal GI/Abdominal exam: Present: soft. Absent: distended, firm, guarding, tenderness - Extremities Exam Extremities exam: Present: radial pulses palpable and symmetrical. Absent: calf tenderness, cyanotic, pedal edema - Neurological Exam Neurological exam: Present: alert, oriented X3, no focal deficits. Absent: facial droop, speech deficit Internal Med - H&P Results - Labs CBC & Chem 7: 02/23/17 14:42 02/23/17 14:42 Labs: Cardiac Enzymes 02/23/17 Range/Units 20:02 Troponin I 0.68 H* (0-0.03) ng/mL
[2017-02-23] MEDS ORDERED: *HR* Heparin 5,000 UNIT/ML VIAL IVP PRN ×2 (21:58)
[2017-02-23] MEDS ORDERED: 0.9 % Sodium Chloride 500 ML ONE (22:50)
[2017-02-23] MEDS: Heparin 25,000 UNIT/500 ML D5W 25,000 UNIT/500 ML MLS IVC SCH (23:39)
--- NOTE | 2017-02-23 23:41 | Cardiology Consult Note ---
Date of Encounter: 02/23/17 Time of Encounter: 23:39 Assessment and Plan (1) NSTEMI (non-ST elevated myocardial infarction) Current Visit: Yes Status: Acute 66-year-old male with some cytopenia, severe anemia, chronic kidney disease with a creatinine of 2.61 presents with chest pain likely demand ischemia resulted in elevated troponin. Patient is high risk for left heart catheter for worsening renal failure as well as his significant anemia. His platelets are low however not prohibitive. The patient's hemoglobin has been low despite multiple blood transfusions. We will consult nephrology for further recommendations and GI further recommendations. We will continue to trend his troponins and likely will not intervene unless persistent ongoing unrelenting chest pain or progressive elevation of his troponins Discussion w patient/family: The assessment and plan as outlined above was discussed with the patient and/or family members who expressed understanding and agreement. All questions were answered. Thank you for involving us in the care of your patient. Please call with any questions. History of Present Illness Consult date: 02/23/17 Requesting physician: Tod Amador Consult reason: NSTEMI Chief complaint: chest pain History of present illness: Mr. Flores is a 66 year old male with past history of COPD coronary artery disease status post and possibly almost 16 years ago. Reports of his annulus are not available to review. He also has a history of multiple myeloma and hypertension. He was recently admitted to the hospital and evaluated cardiology 02/06/2017 with a peak troponin of 3.88. Patient's BNP was 1147 and presented with similar symptoms of exercise or sternal chest pain associated with significant shortness of breath. His hemoglobin today also is below 7 with an elevated creatinine above 2. His last echocardiogram showed a preserved ejection fraction with moderate severe pulmonary hypertension Past Med Surg Social Fam HX - Past Medical History Medical history: COPD, coronary artery disease, diabetes, hypertension, myocardial infarction Psychiatric history: anxiety, depression - Past Surgical History Surgical History: angioplasty/stent - Social History Smoking Status: Former smoker Smokeless Tobacco Status: No Alcohol use: none Drug use: none - Family History Sister Adopted: No Family Member Ethnicity: Non- Living Status: Still Living Hx Family Cancer: Yes (history of breast cancer s/p bilateral mastectomy.) Father Living Status: Hx Family Cardiac Disorders: Yes ([place]) Hx Family Endocrine Disorder: Yes (DM) Mother Living Status: Hx Family Endocrine Disorder: Yes (DM) Medications and Allergies Aspirin Enteric Coated [Aspirin EC] 81 mg PO DAILY 09/06/15 [History] Simvastatin [Zocor] 40 mg PO HS 09/07/15 [History] Amlodipine Besylate 10 mg PO DAILY 01/11/17 [History] Gabapentin [Neurontin] 300 mg PO HS 01/11/17 [History] Lidocaine Patch [Lidoderm 5% patch] 1 - 2 each TP DAILY PRN 01/11/17 [History] Metoprolol Succinate 100 mg PO DAILY 01/11/17 [History] Tamsulosin [Flomax] 0.4 mg PO DAILY 01/11/17 [History] Acyclovir [Zovirax] 400 mg PO BID #30 capsule 01/17/17 [Rx] Cyanocobalamin (Vitamin B-12) [Vitamin B12] 1,000 mcg PO DAILY #30 tablet [Rx] hydrALAZINE [HydrALAZINE] 25 mg PO Q8HR #90 tablet 01/17/17 [Rx] Promethazine [Phenergan] 25 mg PO Q6HR PRN #60 tablet 02/01/17 [Rx] Omeprazole [PriLOSEC] 40 mg PO DAILY@0730 #30 capsule. 02/12/17 [Rx] Cyclobenzaprine [Flexeril] 10 mg PO TID PRN #30 tablet 02/15/17 [Rx] HYDROcodone/Acet 5/325 mg [[place] 5-325 mg] 1 tab PO Q6H PRN #60 tab 02/15/17 [Rx ] Sennosides [Senokot] 8.6 mg PO BID #60 tablet 02/22/17 [Rx] Dexamethasone [Decadron] 40 mg PO AD 02/23/17 [History] Oxygen 3 l NS AD 02/23/17 [History] 3 Allergy/AdvReac Type Severity Reaction Status Date / Time No Known Allergies Allergy Verified 02/22/17 11:28 All Systems Review: A 10-system review of systems was performed and is negative for pertinent findings except as documented above in the HPI. Physical Examination Vital Signs, Last 4 Hours Temp Pulse Resp BP Pulse Ox 02/23/17 23:33 97.9 F 74 20 156/79 02/23/17 23:32 97.9 F 74 20 156/79 95 02/23/17 23:18 98.3 F 75 20 159/80 95 02/23/17 23:10 97.9 F 77 30 157/76 96 General: Conversant, No Apparent Distress HEENT: Atraumatic, Normocephaly, Mucus Membranes Moist Neck: No JVD, Normal carotid pulses Cardiac: Reg Rate and Rhythm, Normal S1 and S2, No Murmur Lungs: Normal Breath Sounds, No Wheeze, Rales, Rhonchi Neuro: Alert and responsive, No focal deficits noted Abdomen: Soft, Non-Tender Skin: No rashes noted on visualized skin Musculoskeletal: No Chest Wall Tenderness Extremities: No Clubbing, No Cyanosis, No Edema, Normal Pulses Results 02/23/17 14:42 02/23/17 14:42 Lab Results 02/23/17 02/23/17 20:02 23:05 APTT 27.9 Troponin I 0.68 H* Consult Discharge Plan - Plan Referrals: Elio Melendez MD [Primary Care Provider] -
[2017-02-24] MEDS ORDERED: Furosemide 40 MG/4 ML VIAL IVP ONE (01:59)
[2017-02-24] MEDS ORDERED: Ipratropium/Albuterol Neb 3 ML IH PRN (02:23)
[2017-02-24] MEDS ORDERED: 0.9 % Sodium Chloride 500 ML ONE (03:31)
[2017-02-24] MEDS ORDERED: *HR* Labetalol 20 MG/4 ML SYRINGE IVP PRN (04:15)
[2017-02-24] MEDS: Famotidine 20 MG/2 ML VIAL IVP SCH ×2 (05:44→20:15)
[2017-02-24] MEDS: Aspirin Enteric Coated 81 MG Tablet PO SCH (08:32)
[2017-02-24] MEDS: Metoprolol XL (24 HR) Succ 50 MG TAB.ER.24H PO SCH (08:33)
[2017-02-24] MEDS: amLODIPine 5 MG TABLET PO SCH (08:33)
[2017-02-24] MEDS: Cyanocobalamin (B-12) 1,000 MCG TABLET PO SCH (08:33)
[2017-02-24] MEDS: Acyclovir 200 MG CAPSULE PO SCH ×2 (08:34→20:14)
[2017-02-24] MEDS: Sennosides 8.6 MG TABLET PO SCH ×2 (08:34→20:14)
[2017-02-24 09:11] LABS: Hematocrit 27.9 % (37.5-50.1); Mean Corpuscular Hemoglobin 30.6 pg (28.0-33.3); Mean Corpuscular Volume 92.7 fL (83.0-100.0); Nucleated Red Blood Cells 1.6 /100 WBC (0); Red Blood Count 3.01 M/mcL (4.19-5.50); Red Cell Distribution Width 17.6 % (11.5-14.5)
[2017-02-24 09:13] LABS: Hemoglobin 9.2 g/dL (12.9-16.9); Platelet Count 69 K/mcL (140-400)
[2017-02-24 09:26] LABS: Calcium 7.8 mg/dL (8.6-10.8); Chol/HDL Ratio 7.7 (0-4.9); Magnesium 2.4 mg/dL (1.6-2.6); Potassium 4.4 mEq/L (3.5-4.5)
[2017-02-24 09:30] LABS: Eosinophils # 0.1 K/mcL (0.0-0.6); Lymphocytes # 1.1 K/mcL (0.6-4.6); Monocytes # 0.1 K/mcL (0.0-1.3); Neutrophils # 3.7 K/mcL (1.6-8.9)
[2017-02-24 09:31] LABS: Anisocytosis 1+ (Not Present); Platelet Estimate Decreased (Normal)
--- NOTE | 2017-02-24 09:32 | Oncology Inp Consult Note ---
Date of Encounter: 02/24/17 Time of Encounter: 09:26 Assessment and Plan (1) NSTEMI (non-ST elevated myocardial infarction) Status: Acute Assessment and plan: - I appreciate cardiology input. Cardiac event possible demand mediated. Cardiology not planning for interventions unless patient experiences persistent unrelenting chest pain( reports that at this time his chest pain has resolved) or worsening troponin values. - At this time being anticoagulated for NSTEMI with heparin. Duration of anticoagulation as per cardiology, usually a time frame between 48 hours and 5 days for patients who are managed conservatively. - Transfuse to keep platelet counts above 50K or I'd aim for a platelet goal > 75K if he experiences recurrent bleeding ( epistaxis). - Consider to monitor CBC every 8 or 12 hours. (2) Multiple myeloma Status: Acute Assessment and plan: - Seen at the clinic on 02/22/17, received treatment with velcade; currently on day 3 of current cycle. Current regimen is Velcade/dexamethasone ( day 1,,4,8,11 ). Reports being told by primary oncology team that he would be due for next treatment on Sunday. Qualifiers: Multiple myeloma remission status: not in remission Qualified Code(s): C90.00 - Multiple myeloma not having achieved remission (3) Anemia Status: Acute Assessment and plan: - Received last 2 blood transfusions on 02/23 and 02/24. CBC today revealed an hemoglobin of 9.2 g/dl. - Labs showed not findings suggestive of hemolysis. - I'd recommend to transfuse to keep an hemoglobin above 9 g/dl in view of ongoing cardiac issues; if he experiences recurrent chest pain or worsening troponin, I'd recommend to transfuse to keep his hemoglobin at or above 10 g/dl. Qualifiers: Anemia type: other cause Other causes of anemia: chronic disease, neoplastic Qualified Code(s): D63.0 - Anemia in neoplastic disease (4) CKD (chronic kidney disease) stage 3, GFR 30-59 ml/min Status: Chronic Assessment and plan: - Mildly abov baseline. Serum creatinine remains in the range of 2.5-2.6 mg/dl. - I agree with nephrology consult as per cardiology recommendations. - Data of Consult Requesting Physician: Tod Amador Primary Care Provider: Elio Melendez MD - Consult Narrative Reason for consult: management of MM History of present illness: Mr. Flores is a 66 year old male with recent diagnosis of IgG kappa ISS stage III multiple myeloma initially diagnosed on January 11, 2017 after being admitted to the hospital for babck pain , hypercalcemia and EVER. Another past medical history includes DM, CAD and anemia of CKD. He received first outpatient cycle of velcade/dexamenthasone on 02/22, planned for day 1,4,8, and 12 of 21 day cycle. He reports that on Sunday he woke with chest pain, what prompted to call emergency services and he was brought to the hospital by ambulance. EKG and troponins were consistent with NSTEMI PR. He recently experienced an episode of NSTEMI and was managed conservatively. He was started on heparin drip, and transfused blood with resolution of his symptoms. He was seen by cardiology who recommended for now only conservative management unless he experiences persistent relentless chest pain or worsening troponins. At that time of the visit today he reports that his chest pain has totally resolved, it resolved since yesterday. He denies shortness of breath and reports that his family are aware that he is being hospitalized. he reports being told that [facility] next chemotherapy treatment would be due on Sunday. Past Med Surg Social Fam HX - Past Medical History Medical history: COPD, coronary artery disease, diabetes, hypertension, myocardial infarction Psychiatric history: anxiety, depression - Past Surgical History Surgical History: angioplasty/stent - Social History Smoking Status: Former smoker Smokeless Tobacco Status: No Alcohol use: none Drug use: none - Family History Sister Adopted: No Family Member Ethnicity: Non- Living Status: Still Living Hx Family Cancer: Yes (history of breast cancer s/p bilateral mastectomy.) Father Living Status: Hx Family Cardiac Disorders: Yes ([place]) Hx Family Endocrine Disorder: Yes (DM) Mother Living Status: Hx Family Endocrine Disorder: Yes (DM) Medications and Allergies Aspirin Enteric Coated [Aspirin EC] 81 mg PO DAILY 09/06/15 [History] Simvastatin [Zocor] 40 mg PO HS 09/07/15 [History] Amlodipine Besylate 10 mg PO DAILY 01/11/17 [History] Gabapentin [Neurontin] 300 mg PO HS 01/11/17 [History] Lidocaine Patch [Lidoderm 5% patch] 1 - 2 each TP DAILY PRN 01/11/17 [History] Metoprolol Succinate 100 mg PO DAILY 01/11/17 [History] Tamsulosin [Flomax] 0.4 mg PO DAILY 01/11/17 [History] Acyclovir [Zovirax] 400 mg PO BID #30 capsule 01/17/17 [Rx] Cyanocobalamin (Vitamin B-12) [Vitamin B12] 1,000 mcg PO DAILY #30 tablet [Rx] hydrALAZINE [HydrALAZINE] 25 mg PO Q8HR #90 tablet 01/17/17 [Rx] Promethazine [Phenergan] 25 mg PO Q6HR PRN #60 tablet 02/01/17 [Rx] Omeprazole [PriLOSEC] 40 mg PO DAILY@0730 #30 capsule. 02/12/17 [Rx] Cyclobenzaprine [Flexeril] 10 mg PO TID PRN #30 tablet 02/15/17 [Rx] HYDROcodone/Acet 5/325 mg [[place] 5-325 mg] 1 tab PO Q6H PRN #60 tab 02/15/17 [Rx ] Sennosides [Senokot] 8.6 mg PO BID #60 tablet 02/22/17 [Rx] Dexamethasone [Decadron] 40 mg PO AD 02/23/17 [History] Oxygen 3 l NS AD 02/23/17 [History] 3 Allergy/AdvReac Type Severity Reaction Status Date / Time No Known Allergies Allergy Verified 02/22/17 11:28 Constitutional: Present: fatigue Cardiovascular: Present: chest pain. Absent: dyspnea Respiratory: Present: wheezing. Absent: pain on inspiration Gastrointestinal: Absent: diarrhea, hematemesis, hematochezia Musculoskeletal: Absent: muscle weakness, myalgias Neurological: Absent: behavioral changes, lack of coordination Psychiatric: Absent: anxiety, confusion Hematologic/Lymphatic: Present: as per HPI Oncology - Exam - Constitutional Vitals: Temp Pulse Resp BP Pulse Ox 98.3 F 66 15 162/78 98 02/24/17 07:39 02/24/17 07:39 02/24/17 07:39 02/24/17 07:39 02/24/17 08:42 - Head Head exam: Present: normal inspection - Eye Eye exam: Present: EOMI. Absent: periorbital tenderness - ENT ENT exam: Present: normal oropharynx - Neck Neck exam: Absent: lymphadenopathy, meningismus - Respiratory Respiratory exam: Present: wheezes. Absent: rales, respiratory distress - Cardiovascular Cardiovascular exam: Present: RRR, +S1. Absent: irregular rhythm, systolic murmur - GI/Abdominal GI/Abdominal exam: Present: normal bowel sounds. Absent: organomegaly - Extremities Exam Extremities exam: Present: normal inspection. Absent: pedal edema - Back Exam Back exam: Present: normal inspection. Absent: paraspinal tenderness - Neurological Exam Neurological exam: Present: alert, oriented X3. Absent: altered - Psychiatric Psychiatric exam: Present: normal affect, normal mood Oncology - Results Labs: Short CBC 02/24/17 Range/Units 08:08 WBC 5.0 (4.3-11.1) K/mcL Hgb 9.2 L D (12.9-16.9) g/dL Hct 27.9 L (37.5-50.1) % Plt Count 69 L (140-400) K/mcL Consult Discharge Plan - Plan Referrals: Elio Melendez MD [Primary Care Provider] -
--- NOTE | 2017-02-24 11:00 | Nephrology Consult Note ---
Date of Encounter: 02/24/17 Time of Encounter: 10:58 Assessment and Plan (1) NSTEMI (non-ST elevated myocardial infarction) Current Visit: Yes Status: Acute Per primary team and cardiology. Patient with another NSTEMI within a few weeks. From a renal standpoint he would benefit from further evaluation. Agree with cardiology that GI bleeding should be ruled out, but it was likely that his past anemia was secondary to his multiple myeloma. (2) ARF (acute renal failure) Current Visit: No Status: Acute Renal function relatively stable. If cardiology agrees to do cardiac cath he will need to be optimized from a renal standpoint to minimize the risk of progressing to needing renal replacement therapy. Qualifiers: Acute renal failure type: with other specified pathological lesion Qualified Code(s): N17.8 - Other acute kidney failure (3) Multiple myeloma Current Visit: No Status: Acute Per oncology and primary team. Patient receiving treatment. Qualifiers: Multiple myeloma remission status: not in remission Qualified Code(s): C90.00 - Multiple myeloma not having achieved remission (4) CKD (chronic kidney disease) stage 3, GFR 30-59 ml/min Current Visit: No Status: Chronic (5) Hypertension Current Visit: No Status: Chronic Titrate antihypertensive medication as needed. Qualifiers: Hypertension type: essential hypertension Qualified Code(s): I10 - Essential (primary) hypertension History of Present Illness - Reason for Consult Consult date: 02/24/17 Acute Kidney Injury, Chronic Kidney Disease - Chief Complaint CKD. Chest pain. - History of Present Illness Patient seen and evaluated. Family friends at his bedside. Patient in with chest pain. He feels better now. His friend reports that he has not been using his cpap mask and that he may be depressed. Patient was just discharged with similar presentation and had significant anemia. He did not want to pursue cardiac cath secondary to risk to his kidneys. At the time of my evaluation he was not having chest pain. Past Med Surg Social Fam HX - Past Medical History Medical history: COPD, coronary artery disease, diabetes, hypertension, myocardial infarction Psychiatric history: anxiety, depression - Past Surgical History Surgical History: angioplasty/stent - Social History Smoking Status: Former smoker Smokeless Tobacco Status: No Alcohol use: none Drug use: none - Family History Sister Adopted: No Family Member Ethnicity: Non- Living Status: Still Living Hx Family Cancer: Yes (history of breast cancer s/p bilateral mastectomy.) Father Living Status: Hx Family Cardiac Disorders: Yes ([place]) Hx Family Endocrine Disorder: Yes (DM) Mother Living Status: Hx Family Endocrine Disorder: Yes (DM) Medications and Allergies Aspirin Enteric Coated [Aspirin EC] 81 mg PO DAILY 09/06/15 [History] Simvastatin [Zocor] 40 mg PO HS 09/07/15 [History] Amlodipine Besylate 10 mg PO DAILY 01/11/17 [History] Gabapentin [Neurontin] 300 mg PO HS 01/11/17 [History] Lidocaine Patch [Lidoderm 5% patch] 1 - 2 each TP DAILY PRN 01/11/17 [History] Metoprolol Succinate 100 mg PO DAILY 01/11/17 [History] Tamsulosin [Flomax] 0.4 mg PO DAILY 01/11/17 [History] Acyclovir [Zovirax] 400 mg PO BID #30 capsule 01/17/17 [Rx] Cyanocobalamin (Vitamin B-12) [Vitamin B12] 1,000 mcg PO DAILY #30 tablet [Rx] hydrALAZINE [HydrALAZINE] 25 mg PO Q8HR #90 tablet 01/17/17 [Rx] Promethazine [Phenergan] 25 mg PO Q6HR PRN #60 tablet 02/01/17 [Rx] Omeprazole [PriLOSEC] 40 mg PO DAILY@0730 #30 capsule.dr 02/12/17 [Rx] Cyclobenzaprine [Flexeril] 10 mg PO TID PRN #30 tablet 02/15/17 [Rx] HYDROcodone/Acet 5/325 mg [[place] 5-325 mg] 1 tab PO Q6H PRN #60 tab 02/15/17 [Rx ] Sennosides [Senokot] 8.6 mg PO BID #60 tablet 02/22/17 [Rx] Dexamethasone [Decadron] 40 mg PO AD 02/23/17 [History] Oxygen 3 l NS AD 02/23/17 [History] 3 Allergy/AdvReac Type Severity Reaction Status Date / Time No Known Allergies Allergy Verified 02/22/17 11:28 Review of Systems All Systems: reviewed and no additional remarkable complaints except as stated ( as per hpi.) Exam - Vital Signs Vital signs: Initial Vital Signs Temp Pulse Resp BP Pulse Ox 97.8 F 91 18 141/89 96 02/23/17 14:08 02/23/17 14:08 02/23/17 14:08 02/23/17 14:08 02/23/17 14:08 Vital Signs - Last 8 Hours Temp Pulse Resp BP Pulse Ox 02/24/17 08:42 98 02/24/17 07:39 98.3 F 66 15 162/78 98 02/24/17 06:35 97.6 F 65 18 157/85 02/24/17 04:09 97.5 F L 72 22 160/81 02/24/17 04:08 97.5 F L 71 20 159/82 97 02/24/17 04:06 97.5 F L 72 22 160/81 97 02/24/17 04:04 97.5 F L 71 20 159/82 97 02/24/17 03:51 97.7 F 71 22 174/95 02/24/17 03:38 97.9 F 71 22 168/91 Intake and Output 02/23/17 02/24/17 02/24/17 23:59 07:59 15:59 Intake Total 0 / 0 789 / 789 0 / 0 Output Total 600 / 600 0 / 0 Balance 0 / 0 189 / 189 0 / 0 Intake: IV Fluids Heparin 25,000 UNIT/500 ML D5W 25,000 unit In 500 ml @ 11.8 UNIT/KG/HR 19.697 mls/hr IVC . Q24H [facility] Rx#:[id number] Oral 0 / 0 Blood Product 0 / 0 700 / 700 Rbcs Leuko Poor As-1 Unit 0 / 0 350 / 350 [id number] Rbcs Leuko Poor As-1 Unit 350 / 350 [id number] Output: Urine 600 / 600 0 / 0 Other: # Voids 3 Blood Glucose* 196 91 - General Appearance General appearance: well-developed, well-nourished EENT: ATNC Neck: supple Additional Comments: respirations are unlabored. Cardiology: regular rate Integumentary: warm and dry Neurologic: alert and oriented x3 Musculoskeletal: no cyanosis Psychiatric: mood/affect appropriate Results - Lab Results 02/24/17 08:08 02/24/17 08:08 Most recent lab results Calcium 7.8 mg/dL (8.6-10.8) L 02/24/17 08:08 Magnesium 2.4 mg/dL (1.6-2.6) 02/24/17 08:08 Consult Discharge Plan - Plan Referrals: Elio Melendez MD [Primary Care Provider] -
--- NOTE | 2017-02-24 12:43 | Cardiology Progress Note ---
Date of Encounter: 02/24/17 Time of Encounter: 12:41 Assessment and Plan (1) NSTEMI (non-ST elevated myocardial infarction) Current Visit: Yes Status: Acute 66-year-old male with multiple medical problems who presents with chest pain. Troponin elevated at 0.68 and 1.60. EKG with recurrent ST depression. TTE 02/06/17-Normal LV systolic function, LVEF 60%. Normal left ventricular diastolic function. Normal right ventricular size and function. Mildly dilated left atrium. Mildly dilated right atrium. Mild mitral regurgitation. Moderate-severe pulmonary hypertension. Estimated RVSP = 58-63 mmHg.He was hospitalized two weeks ago with [place]. Medical management has been recommended due to severe anemia, thrombocytopenia, chronic kidney disease. Patient is high risk for left heart catheter for worsening renal failure as well as his significant anemia. His platelets are low however not prohibitive. The patient's hemoglobin has been low despite multiple blood transfusions. He did undergo colonoscopy and was found to have no bleeding. Nephrology and hematology have been consulted for recommendations. Hgb improved today after blood transfusion. Plt decreased to 69. We will continue to trend his troponins and likely will not intervene unless persistent ongoing unrelenting chest pain or progressive elevation of his troponins. I discussed possibility of LHC in the future if he continues to have chest pain. Patient is currently on heparin gtt. Asa, statin, and bb. We will monitor with you. (2) CAD (coronary artery disease) Current Visit: No Status: Chronic H/o remote PTCA. Asa, statin, and bb. Qualifiers: Coronary Disease-Associated Artery/Lesion type: [place] artery [place] vs. transplanted heart: [place] heart Associated angina: angina presence unspecified Qualified Code(s): I25.10 - Atherosclerotic heart disease of [place] coronary artery without angina pectoris Discussion w patient/family: The assessment and plan as outlined above was discussed with the patient and/or family members who expressed understanding and agreement. All questions were answered. Thank you for involving us in the care of your patient. Please call with any questions. Subjective Principal diagnosis: NSTEMI Interval history: Mr. Flores denies recurrent chest pain. He voices concern for second [place] in the past month. Objective Vital Signs, Last 4 Hours Temp Pulse Resp BP Pulse Ox 02/24/17 11:27 97.7 F 64 15 158/84 94 02/24/17 08:42 98 General: Conversant, No Apparent Distress HEENT: Atraumatic, Normocephaly, Mucus Membranes Moist Neck: No JVD, Normal carotid pulses Cardiac: Reg Rate and Rhythm, Normal S1 and S2, No Murmur Lungs: Normal Breath Sounds, No Wheeze, Rales, Rhonchi Neuro: Alert and responsive, No focal deficits noted Abdomen: Soft, Non-Tender Skin: No rashes noted on visualized skin Musculoskeletal: No Chest Wall Tenderness Extremities: No Clubbing, No Cyanosis, Normal Pulses, Other (trace edema in ankles) Results 02/24/17 08:08 02/24/17 08:08 Lab Results 02/23/17 02/24/17 02/24/17 23:05 05:50 08:08 WBC Hgb Hct Plt Count APTT 27.9 34.6 Sodium Potassium Chloride Carbon Dioxide BUN Creatinine Glucose Calcium Magnesium Troponin I 1.60 H* 02/24/17 02/24/17 08:08 08:08 WBC 5.0 Hgb 9.2 L D Hct 27.9 L Plt Count 69 L APTT Sodium 138 Potassium 4.4 Chloride 112 H Carbon Dioxide 22 BUN 67 H Creatinine 2.65 H Glucose 84 Calcium 7.8 L Magnesium 2.4 Troponin I - Imaging and Cardiology Echo: report reviewed (02/06/17-Normal LV systolic function, LVEF 60%. Normal left ventricular diastolic function. Normal right ventricular size and function. Mildly dilated left atrium. Mildly dilated right atrium. Mild mitral regurgitation. Moderate-severe pulmonary hypertension. Estimated RVSP = 58-63 mmHg.) - EKG Interpretation EKG results cardiology: personally reviewed (SR with ST depression in the anteriolateral leads) Consult Discharge Plan - Plan Referrals: Elio Melendez MD [Primary Care Provider] -
--- NOTE | 2017-02-24 18:15 | Internal Med Progress Note ---
Date of Encounter: 02/24/17 Time of Encounter: 11:00 - Assessment and plan (1) NSTEMI (non-ST elevated myocardial infarction) Current Visit: Yes Status: Acute Assessment and plan: -Patient with elevated cardio biomarkers and EKG with recurrent ST depression. -TTE 02/06/17-Normal LV systolic function, LVEF 60%. Normal left ventricular diastolic function. Normal right ventricular size and function. Mildly dilated left atrium. Mildly dilated right atrium. Mild mitral regurgitation. Moderate- severe pulmonary hypertension. -Cardiology consult with recommendations for medical management due to severe anemia, thrombocytopenia, and chronic kidney disease; patient is at high risk for left heart catheter for worsening renal failure as well as his significant anemia. (2) CAD (coronary artery disease) Current Visit: No Status: Chronic Assessment and plan: -Patient with known coronary arterial disease with chest pain; management as above Qualifiers: Coronary Disease-Associated Artery/Lesion type: [place] artery [place] vs. transplanted heart: [place] heart Associated angina: angina presence unspecified Qualified Code(s): I25.10 - Atherosclerotic heart disease of [place] coronary artery without angina pectoris (3) COPD (chronic obstructive pulmonary disease) Current Visit: No Status: Chronic Qualifiers: COPD type: unspecified COPD Qualified Code(s): J44.9 - Chronic obstructive pulmonary disease, unspecified (4) CKD (chronic kidney disease) stage 3, GFR 30-59 ml/min Current Visit: No Status: Chronic Assessment and plan: -Stable as creatinine close to baseline (5) Multiple myeloma Current Visit: No Status: Acute Assessment and plan: -Management as an outpatient by oncology -Oncology has been consulted and appreciate recommendations. Qualifiers: Multiple myeloma remission status: not in remission Qualified Code(s): C90.00 - Multiple myeloma not having achieved remission (6) Thrombocytopenia Current Visit: Yes Status: Chronic Assessment and plan: -Oncology consult at recommendations to keep platelet counts above 50K or a platelet goal >75K if he experiences recurrent bleeding ( epistaxis). (7) Anemia Current Visit: No Status: Acute Assessment and plan: -Stable status post 2 units of packed red blood cells; recommendations to keep hemoglobin above 9. -We will continue to monitor Qualifiers: Anemia type: other cause Other causes of anemia: chronic disease, neoplastic Qualified Code(s): D63.0 - Anemia in neoplastic disease (8) DVT prophylaxis Current Visit: Yes Status: Acute Assessment and plan: Heparin infusion - Subjective Interval history: No acute events overnight. - Constitutional Vitals: Temp Pulse Resp BP Pulse Ox 97.6 F 67 20 152/77 95 02/24/17 15:33 02/24/17 15:33 02/24/17 15:33 02/24/17 15:33 02/24/17 15:33 General appearance: Present: cooperative, A&O X 3, pleasant, no acute distress, loss of weight, answers questions appropriately - Respiratory Respiratory exam: Present: CTAB. Absent: accessory muscle use, rales, rhonchi, wheezes - Cardiovascular Cardiovascular exam: Present: RRR, +S1, +S2. Absent: diastolic murmur, gallop, rubs, systolic murmur Internal Medicine: Result - Labs CBC & Chem 7: 02/24/17 08:08 02/24/17 08:08 Labs: Short CBC 02/24/17 Range/Units 08:08 WBC 5.0 (4.3-11.1) K/mcL Hgb 9.2 L D (12.9-16.9) g/dL Hct 27.9 L (37.5-50.1) % Plt Count 69 L (140-400) K/mcL Neutrophils # 3.7 (1.6-8.9) K/mcL BMP 02/24/17 08:08 Sodium 138 Potassium 4.4 Chloride 112 H Carbon Dioxide 22 BUN 67 H Creatinine 2.65 H Glucose 84 Calcium 7.8 L Cardiac Enzymes 02/24/17 02/24/17 Range/Units 08:08 14:11 Troponin I 1.60 H* 1.30 H* (0-0.03) ng/mL - ABG Interpretation ABG results: PT/INR, D-dimer PT 10.7 Seconds (9.4-12.1) 02/23/17 14:42 Consult Discharge Plan - Plan Referrals: Elio Melendez MD [Primary Care Provider] -
[2017-02-25] MEDS: Famotidine 20 MG/2 ML VIAL IVP SCH (05:46)
[2017-02-25] MEDS: Heparin 25,000 UNIT/500 ML D5W 25,000 UNIT/500 ML MLS IVC SCH (05:48)
[2017-02-25] MEDS: Cyanocobalamin (B-12) 1,000 MCG TABLET PO SCH (07:55)
[2017-02-25] MEDS: Sennosides 8.6 MG TABLET PO SCH ×2 (07:55→20:19)
[2017-02-25] MEDS: Aspirin Enteric Coated 81 MG Tablet PO SCH (07:55)
[2017-02-25] MEDS: Metoprolol XL (24 HR) Succ 50 MG TAB.ER.24H PO SCH (07:56)
[2017-02-25] MEDS: Acyclovir 200 MG CAPSULE PO SCH ×2 (07:56→20:19)
[2017-02-25] MEDS: amLODIPine 5 MG TABLET PO SCH (07:56)
--- NOTE | 2017-02-25 10:10 | Oncology Inp Progress Note ---
Date of Encounter: 02/25/17 Time of Encounter: 10:04 (1) NSTEMI (non-ST elevated myocardial infarction) Current Visit: Yes Status: Acute Assessment and plan: - Reports that his initial chest pain has resolved has resolved and not recurred , but now reports low intensity sore sensation. Troponins peaked yesterday at 1.60, then down to 1.3 yesterday. Cardiology on board. Considering cardiac cath if there is relentless pain or worsening troponins. - He remains anticoagulated with heparin drip. Please consult with cardiology about duration of anticoagulation. While on full anticoagulated, I'd recommend a platelet goal at or above 75K in view of tongue bleeding. Once he is off of full anticoagulation, platelet goal can be decreased to 50K. - I'd recommend an inpatient ENT consultation in view of tongue injury ( he reports that has not bled since yesterday). (2) Multiple myeloma Current Visit: No Status: Acute Assessment and plan: - Seen at the clinic on 02/22/17, received treatment with velcade; currently on day 4 of current cycle. Current regimen is Velcade/dexamethasone ( day 1,,4,8,11 ). He was due for next velcade treatment tomorrow. I will inform his primary oncology team to decide whether to postpone his next treatment with velcade ( in view of ongoing cardiac issues). Qualifiers: Multiple myeloma remission status: not in remission Qualified Code(s): C90.00 - Multiple myeloma not having achieved remission (3) Anemia Current Visit: No Status: Acute Assessment and plan: - Received last 2 blood transfusions on 02/23 and 02/24. CBC yesterday revealed an hemoglobin of 9.2 g/dl, no CBC today yet. - Please monitor CBC daily. - I'd recommend to transfuse to keep an hemoglobin above 9 g/dl in view of ongoing cardiac issues; if he experiences recurrent chest pain or worsening troponin, I'd recommend to transfuse to keep his hemoglobin at or above 10 g/dl. Qualifiers: Anemia type: other cause Other causes of anemia: chronic disease, neoplastic Qualified Code(s): D63.0 - Anemia in neoplastic disease (4) CKD (chronic kidney disease) stage 3, GFR 30-59 ml/min Current Visit: No Status: Chronic Assessment and plan: - Mildly above baseline. Serum creatinine yesterday 2.6 , slightly above baseline. Awaiting for labs today. - I agree with nephrology consult as per cardiology recommendations. Oncology: Subj Interval history: - Reports that his initial chest pain has resolved and not recurred, but reporting sensation of sore. Denies nausea, vomiting, diarrhea, shortness of breath. - Constitutional Vitals: Vital Signs Temp Pulse Resp BP Pulse Ox 02/25/17 09:01 18 98 02/25/17 07:59 96 02/25/17 06:53 98.6 F 55 14 163/73 96 02/25/17 03:46 97.6 F 53 17 150/71 92 02/24/17 22:40 98.1 F 61 17 147/67 94 02/24/17 19:59 97.6 F 58 18 154/80 96 02/24/17 15:33 97.6 F 67 20 152/77 95 02/24/17 11:27 97.7 F 64 15 158/84 94 Intake and Output 02/24/17 02/25/17 02/25/17 23:59 07:59 15:59 Intake Total 50 / 50 305 / 305 Output Total 175 / 175 500 / 500 Balance -125 / -125 -195 / -195 Intake: IV Fluids 50 / 50 305 / 305 Heparin 25,000 UNIT/500 ML D5W 50 / 50 305 / 305 25,000 unit In 500 ml @ 11.8 UNIT/KG/HR 19.697 mls/hr IVC . Q24H [facility] Rx#:[id number] Oral 0 / 0 Output: Urine 175 / 175 500 / 500 Other: Weight 81.9 kg Blood Glucose* 105 81 Patient Weight 02/25/17 23:59 Weight 81.9 kg - Head Head exam: Present: normal inspection - Eye Eye exam: Present: EOMI - Respiratory Respiratory exam: Present: CTAB - Cardiovascular Cardiovascular exam: Present: RRR Oncology: Obj Data - Labs CBC & Chem 7: 02/24/17 08:08 02/24/17 08:08 Labs: Laboratory Results - last 24 hr 02/24/17 02/24/17 02/24/17 07:41 11:31 14:11 APTT POC Glucose 91 H 90 H Troponin I 1.30 H* 02/24/17 02/24/17 02/24/17 14:11 15:37 18:41 APTT 77.1 H D 71.9 H POC Glucose 120 H Troponin I 02/25/17 03:07 APTT 77.3 H POC Glucose Troponin I - ABG Interpretation ABG results: PT/INR, D-dimer PT 10.7 Seconds (9.4-12.1) 02/23/17 14:42 Consult Discharge Plan - Plan Referrals: Elio Melendez MD [Primary Care Provider] -
[2017-02-25] MEDS: Isosorbide MONOnitrate (24 HR) 30 MG TAB.ER.24H PO SCH (10:23)
--- NOTE | 2017-02-25 11:12 | Cardiology Progress Note ---
Date of Encounter: 02/25/17 Time of Encounter: 08:30 Assessment and Plan (1) NSTEMI (non-ST elevated myocardial infarction) Current Visit: Yes Status: Acute 66-year-old male with multiple medical problems who presents with chest pain. Troponin elevated at 0.68 , 1.60, 1.30. EKG with recurrent ST depression. TTE 02/06/17-Normal LV systolic function, LVEF 60%. Normal left ventricular diastolic function. Normal right ventricular size and function. Mildly dilated left atrium. Mildly dilated right atrium. Mild mitral regurgitation. Moderate-severe pulmonary hypertension. Estimated RVSP = 58-63 mmHg.He was hospitalized two weeks ago with [place]. Medical management has been recommended due to severe anemia, thrombocytopenia, chronic kidney disease. Patient is high risk for left heart catheter for worsening renal failure as well as his significant anemia. The patient's hemoglobin has been low despite multiple blood transfusions. He did undergo colonoscopy and was found to have no bleeding. He reports having EGD and was found to have some bleeding. I do not see this report. Nephrology and hematology have been consulted for recommendations. Input appreciated. On heparin gtt now for 48 hours. Concern due to PLT less than 70 and development of blood blister and nose bleeds. Stopp heparin gtt. Will start DVT prophylaxis. Start imdur and increase as tolerated. Continue medical management unless recurrent chest pain despite maximal medical management due to increased bleeding risk with intermediate manager DAPT in the setting of thrombocytopenia. ALso concern for possible worsening renal failure. Asa, statin, and bb. Imdur added. Change zocor to lipitor. We will monitor with you. (2) CAD (coronary artery disease) Current Visit: No Status: Chronic H/o remote PTCA. Asa, statin, and bb. Qualifiers: Coronary Disease-Associated Artery/Lesion type: [place] artery [place] vs. transplanted heart: [place] heart Associated angina: angina presence unspecified Qualified Code(s): I25.10 - Atherosclerotic heart disease of [place] coronary artery without angina pectoris Discussion w patient/family: The assessment and plan as outlined above was discussed with the patient and/or family members who expressed understanding and agreement. All questions were answered. Thank you for involving us in the care of your patient. Please call with any questions. Subjective Principal diagnosis: NSTEMI Interval history: Mr. Flores denies recurrent chest pain but reports discomfort" all over". States "I just don't feel right with my heart or anything." He developed spontaneous large blood blister on his tounge and nose bleed yesterday evening. Objective Vital Signs, Last 4 Hours Resp Pulse Ox 02/25/17 09:01 18 98 02/25/17 07:59 96 General: Conversant, No Apparent Distress HEENT: Normocephaly, Mucus Membranes Moist, Other (maroon blood blister on left lateral tounge) Neck: No JVD, Normal carotid pulses Cardiac: Reg Rate and Rhythm, Normal S1 and S2, No Murmur Lungs: Normal Breath Sounds, No Wheeze, Rales, Rhonchi Neuro: Alert and responsive, No focal deficits noted Abdomen: Soft, Non-Tender Skin: No rashes noted on visualized skin Musculoskeletal: No Chest Wall Tenderness Extremities: No Clubbing, No Cyanosis, No Edema, Normal Pulses Results 02/24/17 08:08 02/24/17 08:08 Lab Results 02/24/17 02/24/17 02/24/17 14:11 14:11 18:41 APTT 77.1 H D 71.9 H Troponin I 1.30 H* 02/25/17 03:07 APTT 77.3 H Troponin I - Imaging and Cardiology Echo: report reviewed Consult Discharge Plan - Plan Referrals: Elio Melendez MD [Primary Care Provider] -
[2017-02-25 11:45] LABS: Nucleated Red Blood Cells 1.3 /100 WBC (0)
[2017-02-25 11:46] LABS: Basophils % 0.5 %; Eosinophils % 0.8 %; Hematocrit 27.6 % (37.5-50.1); Hemoglobin 8.9 g/dL (12.9-16.9); Immature Granulocytes % 5.2 % (0-4); Lymphocytes % 16.6 %; Mean Corpuscular HGB Conc 32.2 g/dL (31.6-35.5); Mean Corpuscular Hemoglobin 29.8 pg (28.0-33.3); Mean Corpuscular Volume 92.3 fL (83.0-100.0); Mean Platelet Volume 12.8 fL (9.4-12.4); Monocytes # 0.3 K/mcL (0.0-1.3); Monocytes % 7.5 %; Neutrophils # 2.7 K/mcL (1.6-8.9); Red Blood Count 2.99 M/mcL (4.19-5.50); Red Cell Distribution Width 17.2 % (11.5-14.5); Segmented Neutrophils % 69.4 %
[2017-02-25 11:52] LABS: Lymphocytes # 0.7 K/mcL (0.6-4.6); Platelet Count 55 K/mcL (140-400)
[2017-02-25 11:57] LABS: Calcium 7.5 mg/dL (8.6-10.8); Potassium 4.5 mEq/L (3.5-4.5)
--- NOTE | 2017-02-25 12:59 | Nephrology Progress Note ---
Date of Encounter: 02/25/17 Time of Encounter: 12:56 - Assessment and Plan (1) NSTEMI (non-ST elevated myocardial infarction) Current Visit: Yes Status: Acute Per primary team and cardiology. Patient would benefit from Cardiac cath, but there is concern for possible bleeding and now he doesn't think he would consent to dialysis. Medical management. (2) ARF (acute renal failure) Current Visit: No Status: Acute Creatinine stacey for now. Qualifiers: Acute renal failure type: with other specified pathological lesion Qualified Code(s): N17.8 - Other acute kidney failure (3) Multiple myeloma Current Visit: No Status: Acute Per oncology. Qualifiers: Multiple myeloma remission status: not in remission Qualified Code(s): C90.00 - Multiple myeloma not having achieved remission (4) CKD (chronic kidney disease) stage 3, GFR 30-59 ml/min Current Visit: No Status: Chronic Patient is now stating that he will not consent to dialysis. Will consult palliative care for goals of care. (5) Hypertension Current Visit: No Status: Chronic Titrate antihypertensive medications as tolerated. Qualifiers: Hypertension type: essential hypertension Qualified Code(s): I10 - Essential (primary) hypertension Subjective Principal diagnosis: NSTEMI Interval history: Patient seen. No new complaint. Talked with the patient and with his family regarding his condition. No chest pain or dypnea at rest. Patient is now stating that he doesn't think he wants to ever go on dialysis. He also has concerns about being on "machines" for a long period of time. Objective - Vital Signs Vital signs: Vital Signs Temp Pulse Resp BP Pulse Ox 02/25/17 11:25 97.7 F 55 16 156/73 96 02/25/17 09:01 18 98 02/25/17 07:59 96 02/25/17 06:53 98.6 F 55 14 163/73 96 02/25/17 03:46 97.6 F 53 17 150/71 92 02/24/17 22:40 98.1 F 61 17 147/67 94 02/24/17 19:59 97.6 F 58 18 154/80 96 02/24/17 15:33 97.6 F 67 20 152/77 95 Intake and Output 02/24/17 02/25/17 02/25/17 23:59 07:59 15:59 Intake Total 50 / 50 305 / 305 Output Total 175 / 175 500 / 500 Balance -125 / -125 -195 / -195 Intake: IV Fluids 50 / 50 305 / 305 Heparin 25,000 UNIT/500 ML D5W 50 / 50 305 / 305 25,000 unit In 500 ml @ 11.8 UNIT/KG/HR 19.697 mls/hr IVC . Q24H TETE Rx#:[id number] Oral 0 / 0 Output: Urine 175 / 175 500 / 500 Other: Weight 81.9 kg Blood Glucose* 105 81 94 Patient Weight 02/25/17 23:59 Weight 81.9 kg - General Appearance General appearance: Present: well-developed, well-nourished EENT: Present: ATNC Neck: Present: supple Additional Comments: Respirations are unlabored. Cardiology: Present: no edema, regular rate Gastrointestinal: Present: obese Integumentary: Present: warm and dry Neurologic: Present: alert and oriented x3 Psychiatric: Present: mood/affect appropriate - Lab 02/25/17 11:21 02/25/17 11:21 Most recent lab results Calcium 7.5 mg/dL (8.6-10.8) L 02/25/17 11:21 Magnesium 2.4 mg/dL (1.6-2.6) 02/24/17 08:08 Consult Discharge Plan - Plan Referrals: Elio Melendez MD [Primary Care Provider] -
[2017-02-25] MEDS: *HR* Heparin 5,000 UNIT/ML VIAL SQ SCH (17:15)
--- NOTE | 2017-02-25 18:19 | Internal Med Progress Note ---
Date of Encounter: 02/25/17 Time of Encounter: 11:00 - Assessment and plan (1) NSTEMI (non-ST elevated myocardial infarction) Current Visit: Yes Status: Acute Assessment and plan: -Patient with elevated cardio biomarkers and EKG with recurrent ST depression. -TTE 02/06/17-Normal LV systolic function, LVEF 60%. Normal left ventricular diastolic function. Normal right ventricular size and function. Mildly dilated left atrium. Mildly dilated right atrium. Mild mitral regurgitation. Moderate- severe pulmonary hypertension. -Cardiology consult with recommendations for medical management due to severe anemia, thrombocytopenia, and chronic kidney disease; patient is at high risk for left heart catheter for worsening renal failure as well as his significant anemia. -Heparin infusion was stopped per cardiology today (2) CAD (coronary artery disease) Current Visit: No Status: Chronic Assessment and plan: -Patient with known coronary arterial disease with chest pain; management as above Qualifiers: Coronary Disease-Associated Artery/Lesion type: [place] artery [place] vs. transplanted heart: [place] heart Associated angina: angina presence unspecified Qualified Code(s): I25.10 - Atherosclerotic heart disease of [place] coronary artery without angina pectoris (3) COPD (chronic obstructive pulmonary disease) Current Visit: No Status: Chronic Assessment and plan: -Stable; patient on baseline supplemental oxygen Qualifiers: COPD type: unspecified COPD Qualified Code(s): J44.9 - Chronic obstructive pulmonary disease, unspecified (4) CKD (chronic kidney disease) stage 3, GFR 30-59 ml/min Current Visit: No Status: Chronic Assessment and plan: -Stable as creatinine close to baseline -Nephrology following and appreciate any recommendations (5) Multiple myeloma Current Visit: No Status: Acute Assessment and plan: -Management as an outpatient by oncology -Oncology has been consulted and appreciate recommendations. Qualifiers: Multiple myeloma remission status: not in remission Qualified Code(s): C90.00 - Multiple myeloma not having achieved remission (6) Thrombocytopenia Current Visit: Yes Status: Chronic Assessment and plan: -Oncology consult at recommendations to keep platelet counts above 50K or a platelet goal >75K if he experiences recurrent bleeding ( epistaxis). (7) Anemia Current Visit: No Status: Acute Assessment and plan: -Stable status post 2 units of packed red blood cells; recommendations to keep hemoglobin above 9. -We will continue to monitor Qualifiers: Anemia type: other cause Other causes of anemia: chronic disease, neoplastic Qualified Code(s): D63.0 - Anemia in neoplastic disease (8) DVT prophylaxis Current Visit: Yes Status: Acute Assessment and plan: Heparin infusion - Subjective Interval history: No acute events overnight. - Constitutional Vitals: Temp Pulse Resp BP Pulse Ox 97.8 F 58 17 156/79 97 02/25/17 16:10 02/25/17 16:10 02/25/17 16:10 02/25/17 16:10 02/25/17 16:10 General appearance: Present: cooperative, A&O X 3, pleasant, no acute distress, loss of weight, answers questions appropriately - Expanded ENT Exam Mouth exam: Absent: tongue normal (Hematoma present secondary to trauma) - Respiratory Respiratory exam: Present: CTAB. Absent: accessory muscle use, rales, rhonchi, wheezes - Cardiovascular Cardiovascular exam: Present: RRR, +S1, +S2. Absent: diastolic murmur, gallop, rubs, systolic murmur Internal Medicine: Result - Labs CBC & Chem 7: 02/25/17 11:21 02/25/17 11:21 Labs: Short CBC 02/25/17 Range/Units 11:21 WBC 3.9 L (4.3-11.1) K/mcL Hgb 8.9 L (12.9-16.9) g/dL Hct 27.6 L (37.5-50.1) % Plt Count 55 L (140-400) K/mcL Neutrophils # 2.7 (1.6-8.9) K/mcL BMP 02/25/17 11:21 Sodium 139 Potassium 4.5 Chloride 113 H Carbon Dioxide 22 BUN 66 H Creatinine 2.83 H Glucose 77 Calcium 7.5 L - ABG Interpretation ABG results: PT/INR, D-dimer PT 10.7 Seconds (9.4-12.1) 02/23/17 14:42 Consult Discharge Plan - Plan Referrals: Elio Melendez MD [Primary Care Provider] -
[2017-02-26] MEDS ORDERED: Famotidine 20 MG/2 ML VIAL IVP SCH (06:00)
[2017-02-26] MEDS: *HR* Heparin 5,000 UNIT/ML VIAL SQ SCH ×2 (06:33→18:10)
[2017-02-26] MEDS: Cyanocobalamin (B-12) 1,000 MCG TABLET PO SCH (08:44)
[2017-02-26] MEDS: Aspirin Enteric Coated 81 MG Tablet PO SCH (08:44)
[2017-02-26] MEDS: Acyclovir 200 MG CAPSULE PO SCH ×2 (08:44→21:32)
[2017-02-26] MEDS: Isosorbide MONOnitrate (24 HR) 30 MG TAB.ER.24H PO SCH (08:44)
[2017-02-26] MEDS: Metoprolol XL (24 HR) Succ 50 MG TAB.ER.24H PO SCH (08:44)
[2017-02-26] MEDS: Sennosides 8.6 MG TABLET PO SCH ×2 (08:44→21:31)
[2017-02-26] MEDS: amLODIPine 5 MG TABLET PO SCH (08:44)
[2017-02-26 09:01] LABS: Hematocrit 27.9 % (37.5-50.1); Hemoglobin 9.1 g/dL (12.9-16.9); Mean Corpuscular HGB Conc 32.6 g/dL (31.6-35.5); Mean Corpuscular Hemoglobin 29.9 pg (28.0-33.3); Mean Corpuscular Volume 91.8 fL (83.0-100.0); Nucleated Red Blood Cells 0.5 /100 WBC (0); Red Blood Count 3.04 M/mcL (4.19-5.50); Red Cell Distribution Width 16.7 % (11.5-14.5)
[2017-02-26 09:03] LABS: Platelet Count 56 K/mcL (140-400)
[2017-02-26 09:09] LABS: Calcium 7.6 mg/dL (8.6-10.8); Potassium 4.4 mEq/L (3.5-4.5)
[2017-02-26 09:22] LABS: Eosinophils # 0.1 K/mcL (0.0-0.6); Lymphocytes # 0.3 K/mcL (0.6-4.6); Monocytes # 0.4 K/mcL (0.0-1.3); Neutrophils # 5.7 K/mcL (1.6-8.9); Platelet Estimate Decreased (Normal)
--- NOTE | 2017-02-26 10:24 | Cardiology Progress Note ---
Date of Encounter: 02/26/17 Time of Encounter: 10:21 Assessment and Plan (1) NSTEMI (non-ST elevated myocardial infarction) Current Visit: Yes Status: Acute 66-year-old male with multiple medical problems who presents with chest pain. Troponin elevated at 0.68 , 1.60, 1.30. EKG with recurrent ST depression. TTE 02/06/17-Normal LV systolic function, LVEF 60%. Normal left ventricular diastolic function. Normal right ventricular size and function. Mildly dilated left atrium. Mildly dilated right atrium. Mild mitral regurgitation. Moderate-severe pulmonary hypertension. Estimated RVSP = 58-63 mmHg.He was hospitalized two weeks ago with [place]. Medical management has been recommended due to severe anemia, thrombocytopenia, chronic kidney disease. Patient is high risk for left heart catheter for worsening renal failure as well as his significant anemia. The patient's hemoglobin has been low despite multiple blood transfusions. He did undergo colonoscopy and was found to have no bleeding. He reports having EGD and was found to have some bleeding. I do not see this report. Nephrology was consulted and patient does not think he wants dialysis. Still awaiting hematology's recommendations. Previously on heparin gtt for 48 hours but due to Concerns with PLT less than 70 and development of blood blister and nose bleeds heparin gtt was stopped and heparin DVT prophylaxis started. No reported nose bleeds since. Continue medical management unless recurrent chest pain despite maximal medical management due to increased bleeding risk with termite treater DAPT in the setting of thrombocytopenia. ALso concern for possible worsening renal failure. Asa, statin, and bb. Imdur added. Change zocor to lipitor. We will monitor with you. Today patient is considering/talking about palliative care and hospice but needs to talk to his daughter first before finalizing that decision. Palliative care was consulted. Plan: - Imdur 30mg PO daily - continue DVT prophylaxis with heparin - asa, lipitor, norvasc, labetalol, and metoprolol - continue medical management for NSTEMI as patient has not had chest pain today (2) CAD (coronary artery disease) Current Visit: No Status: Chronic H/o remote PTCA. Asa, statin, and bb. Qualifiers: Coronary Disease-Associated Artery/Lesion type: [place] artery [place] vs. transplanted heart: [place] heart Associated angina: angina presence unspecified Qualified Code(s): I25.10 - Atherosclerotic heart disease of [place] coronary artery without angina pectoris Discussion w patient/family: The assessment and plan as outlined above was discussed with the patient and/or family members who expressed understanding and agreement. All questions were answered. Thank you for involving us in the care of your patient. Please call with any questions. Subjective Principal diagnosis: NSTEMI Interval history: No acute events overnight. Today patient says he is currently not having chest pain at rest or when getting up out of bed. This morning he states that he is "ready to be done". He is tired of feeling bad and believes he has too many things going on to get better. Objective Vital Signs, Last 4 Hours Temp Pulse Resp BP Pulse Ox 02/26/17 08:35 100.5 F H 66 18 158/75 90 General: Conversant, No Apparent Distress HEENT: Atraumatic, Mucus Membranes Moist Cardiac: Reg Rate and Rhythm, Normal S1 and S2, No Murmur Lungs: Other (+ scattered wheezing) Neuro: Alert and responsive, No focal deficits noted Abdomen: Soft, Non-Tender Skin: No rashes noted on visualized skin Extremities: No Clubbing, No Cyanosis, No Edema, Normal Pulses Results 02/26/17 08:31 02/26/17 08:31 Lab Results 02/25/17 02/25/17 02/26/17 11:21 11:21 03:30 WBC 3.9 L Hgb 8.9 L Hct 27.6 L Plt Count 55 L APTT 29.6 D Sodium 139 Potassium 4.5 Chloride 113 H Carbon Dioxide 22 BUN 66 H Creatinine 2.83 H Glucose 77 Calcium 7.5 L 02/26/17 02/26/17 08:31 08:31 WBC 6.5 D Hgb 9.1 L Hct 27.9 L Plt Count 56 L APTT Sodium 139 Potassium 4.4 Chloride 114 H Carbon Dioxide 19 BUN 62 H Creatinine 2.84 H Glucose 88 Calcium 7.6 L - EKG Interpretation EKG results cardiology: personally reviewed (Normal sinus rhythm, LVH with ST depression in V4-V5) Consult Discharge Plan - Plan Referrals: Elio Melendez MD [Primary Care Provider] -
[2017-02-26] MEDS ORDERED: Isosorbide MONOnitrate (24 HR) 30 MG TAB.ER.24H PO ONE (11:30)
--- NOTE | 2017-02-26 11:54 | Palliative - Consult Note ---
Date of Encounter: 02/26/17 Time of Encounter: 09:45 - Assessment and Plan (1) Nausea and vomiting Current Visit: No Status: Acute Assessment and plan: Continue Ondansetron and monitor. He is taking fluids well - juice/soda taste good to him. Qualifiers: Vomiting type: unspecified Vomiting Intractability: unspecified Qualified Code(s): R11.2 - Nausea with vomiting, unspecified (2) Chest pain Current Visit: Yes Status: Acute Assessment and plan: Improved, cardiology following. Monitor Qualifiers: Qualified Code(s): R07.9 - Chest pain, unspecified (3) Goals of care, counseling/discussion Current Visit: Yes Status: Acute Assessment and plan: Long discussion with pt regarding goals of care. He feels that his chemo treatments have "weakened his heart", and states he is unsure if he wants to continue. He is aware that renal function is poor, and states he doesn't think he ever wants dialysis. His goal is to get home and desires to stay there for the duration of his life. He asked me about getting enrolled in hospice care. Discussed code status briefly - he desires to discuss with daughter [place]. His support is very limited - one daughter that lives/works in [place], and niece that is local that works at [employer]. I did get in touch with his daughter, Reena at her place of employment. She is going to see if she can get off early or work 1/2 day tomorrow to come down and meet. She is aware her father's options are limited, and that he has expressed he didn't want dialysis. Will be meeting with them tomorrow. D/W Dr. Amador. Palliative-CN HPI - Data of Consult Requesting Physician: Tod Amador Primary Care Provider: Elio Melendez MD - Consult Narrative History of present illness: Mr. Flores is a 66 year old male with who presented to the ED with complaints of chest pain. Patient states he developed chest the night before he came to hospital and again morning of admission. Did not radiate and was mainly in the left side of chest. He decided to call the squad to come to the ER. Patient also complains of shortness of breath which is worse with exertion. No aggravating or alleviating factors. No other associated symptoms. Other medical conditions include COPD, coronary artery disease, diabetes, hypertension , multiple myeloma on chemotherapy and anxiety and depression. Initial workup in the ED reveals low H&H and low platelet count. Patient also has elevated creatinine which is likely chronic kidney disease. His initial troponin is 0.04 and the second troponin is 0.68. Patient has been seen by cardiology as well as nephrology. He did not tolerate blood thinners and had nasal bleediing as well as tongue blister. He did not want to risk cardiac catheter r/t renal function and he states he would refuse dialysis. Patient states he has had cardiac events after both cancer treatments. Upon my visit, he is nauseated and unable to eat breakfast. Sipping on juice and soda. No family is present. He states that he feels his condition is going downhill and his "organs are all failing at once", and "my heart cannot handle any more chemotherapy". Denies pain, some shortness of breath with exertion, and generalized weakness. Palliative care was consulted to assist with goals of care discussion and symptom management. CC: Tod Amador Past Med Surg Social Fam HX - Past Medical History Medical history: COPD, coronary artery disease, diabetes, hypertension, myocardial infarction Psychiatric history: anxiety, depression - Past Surgical History Surgical History: angioplasty/stent - Social History Smoking Status: Former smoker Smokeless Tobacco Status: No Alcohol use: none Drug use: none - Family History Sister Adopted: No Family Member Ethnicity: Non- Living Status: Still Living Hx Family Cancer: Yes (history of breast cancer s/p bilateral mastectomy.) Father Living Status: Hx Family Cardiac Disorders: Yes ([place]) Hx Family Endocrine Disorder: Yes (DM) Mother Living Status: Hx Family Endocrine Disorder: Yes (DM) Medications and Allergies Aspirin Enteric Coated [Aspirin EC] 81 mg PO DAILY 09/06/15 [History] Simvastatin [Zocor] 40 mg PO HS 09/07/15 [History] Amlodipine Besylate 10 mg PO DAILY 01/11/17 [History] Gabapentin [Neurontin] 300 mg PO HS 01/11/17 [History] Lidocaine Patch [Lidoderm 5% patch] 1 - 2 each TP DAILY PRN 01/11/17 [History] Metoprolol Succinate 100 mg PO DAILY 01/11/17 [History] Tamsulosin [Flomax] 0.4 mg PO DAILY 01/11/17 [History] Acyclovir [Zovirax] 400 mg PO BID #30 capsule 01/17/17 [Rx] Cyanocobalamin (Vitamin B-12) [Vitamin B12] 1,000 mcg PO DAILY #30 tablet [Rx] hydrALAZINE [HydrALAZINE] 25 mg PO Q8HR #90 tablet 01/17/17 [Rx] Promethazine [Phenergan] 25 mg PO Q6HR PRN #60 tablet 02/01/17 [Rx] Omeprazole [PriLOSEC] 40 mg PO DAILY@0730 #30 capsule. 02/12/17 [Rx] Cyclobenzaprine [Flexeril] 10 mg PO TID PRN #30 tablet 02/15/17 [Rx] HYDROcodone/Acet 5/325 mg [Kim[place] 5-325 mg] 1 tab PO Q6H PRN #60 tab 02/15/17 [Rx ] Sennosides [Senokot] 8.6 mg PO BID #60 tablet 02/22/17 [Rx] Dexamethasone [Decadron] 40 mg PO AD 02/23/17 [History] Oxygen 3 l NS AD 02/23/17 [History] 3 Allergy/AdvReac Type Severity Reaction Status Date / Time No Known Allergies Allergy Verified 02/22/17 11:28 All systems: reviewed and no additional remarkable complaints except as stated ( weakness, nausea/vomiting, shortness of breath, chest tightness-but improved) Palliative Care-Exam - Constitutional Vitals: Temp Pulse Resp BP Pulse Ox 99.8 F H 64 17 132/57 94 02/26/17 11:23 02/26/17 11:23 02/26/17 11:23 02/26/17 11:23 02/26/17 11:23 General appearance: Present: no acute distress - Head Head Exam: Present: normal inspection, normocephalic - Eye Eye exam: Present: normal appearance, PERRL - Respiratory Respiratory exam: Present: decreased breath sounds, CTAB - Cardiovascular Cardiovascular exam: Present: +S1, +S2 - GI/Abdominal Exam GI/Abdominal exam: Present: normal bowel sounds, soft - Additional comments: Urine clear yellow in urinal - Extremities Exam Extremities exam: Present: normal capillary refill, normal inspection - Neurological Exam Neurological exam: Present: alert, oriented X3, strengths equal and symetr throughout - Skin Skin exam: Present: dry, warm Internal Medicine - CN: Reslt - Labs CBC & Chem 7: 02/26/17 08:31 02/26/17 08:31 Labs: Short CBC 02/25/17 02/26/17 Range/Units 11:21 08:31 WBC 3.9 L 6.5 D (4.3-11.1) K/mcL Hgb 8.9 L 9.1 L (12.9-16.9) g/dL Hct 27.6 L 27.9 L (37.5-50.1) % Plt Count 55 L 56 L (140-400) K/mcL Neutrophils # 2.7 5.7 (1.6-8.9) K/mcL BMP 02/25/17 02/26/17 11:21 08:31 Sodium 139 139 Potassium 4.5 4.4 Chloride 113 H 114 H Carbon Dioxide 22 19 BUN 66 H 62 H Creatinine 2.83 H 2.84 H Glucose 77 88 Calcium 7.5 L 7.6 L - ABG Interpretation ABG results: PT/INR, D-dimer PT 10.7 Seconds (9.4-12.1) 02/23/17 14:42 Consult Discharge Plan - Plan Referrals: Elio Melendez MD [Primary Care Provider] - Palliative Quality Palliative Quality: Screen for Code Status: Yes, Screen for Goals of Care: Yes, Screen for Pain: Yes, If Pain Regimen Started, Initiate Bowel Regimen: Yes, Screen for Nausea/Vomitting: Yes
--- NOTE | 2017-02-26 12:34 | Nephrology Progress Note ---
Date of Encounter: 02/26/17 Time of Encounter: 12:21 - Assessment and Plan (1) ARF (acute renal failure) Current Visit: No Status: Acute Creatinine stacey for now. Palliative care to discuss his goals of care. (2) Sepsis Current Visit: Yes Status: Acute Patient with fever and bandemia on his CBC with diff. Etiology is unclear. I recommend dubose culture, CXR and he probably needs empiric antibiotics. Aggressiveness of care will depend on his decision after speaking with palliative care and his family. Will alert primary team. Qualifiers: Qualified Code(s): A41.9 - Sepsis, unspecified organism (3) NSTEMI (non-ST elevated myocardial infarction) Current Visit: Yes Status: Acute Per primary team and cardiology. Patient would benefit from Cardiac cath, but there is concern for possible bleeding and now he doesn't think he would consent to dialysis. Medical management for now. No active chest pain. (4) Multiple myeloma Current Visit: No Status: Acute Per oncology. Qualifiers: Multiple myeloma remission status: not in remission Qualified Code(s): C90.00 - Multiple myeloma not having achieved remission (5) CKD (chronic kidney disease) stage 3, GFR 30-59 ml/min Current Visit: No Status: Chronic Patient is now stating that he will not consent to dialysis. He will discuss with palliative care and his daughter. (6) Hypertension Current Visit: No Status: Chronic Titrate antihypertensive medications as tolerated. Qualifiers: Hypertension type: essential hypertension Qualified Code(s): I10 - Essential (primary) hypertension Subjective Principal diagnosis: NSTEMI Interval history: Patient seen. No new complaint. No chest pain or dypnea at rest. Patient is now stating that he doesn't think he wants to pursue further treatment. He plans to talk to his daughter and the palliative care team. Objective - Vital Signs Vital signs: Vital Signs Temp Pulse Resp BP Pulse Ox 02/26/17 11:23 99.8 F H 64 17 132/57 94 02/26/17 08:35 100.5 F H 66 18 158/75 90 02/26/17 04:39 98.0 F 68 17 173/78 96 02/25/17 23:16 98.2 F 57 17 130/69 98 02/25/17 18:23 98.0 F 55 17 133/67 98 02/25/17 16:10 97.8 F 58 17 156/79 97 Intake and Output 02/25/17 02/26/17 02/26/17 23:59 07:59 15:59 Output Total 350 / 350 200 / 200 Balance -350 / -350 -200 / -200 Output: Urine 350 / 350 200 / 200 Other: Weight 82 kg 82 kg Blood Glucose* 109 89 116 Patient Weight 02/26/17 23:59 Weight 82 kg - General Appearance General appearance: Present: well-developed, well-nourished EENT: Present: ATNC Additional Comments: respirations are unlabored. Cardiology: Present: regular rate Integumentary: Present: warm and dry Neurologic: Present: alert and oriented x3 Psychiatric: Present: mood/affect appropriate - Lab 02/26/17 08:31 02/26/17 08:31 Most recent lab results Calcium 7.6 mg/dL (8.6-10.8) L 02/26/17 08:31 Magnesium 2.4 mg/dL (1.6-2.6) 02/24/17 08:08 Consult Discharge Plan - Plan Referrals: Elio Melendez MD [Primary Care Provider] -
[2017-02-26] MEDS ORDERED: *HR* OxyCODONE Immed Rel 5 MG TABLET PO PRN ×2 (13:03)
--- NOTE | 2017-02-26 16:12 | Internal Med Progress Note ---
Date of Encounter: 02/26/17 Time of Encounter: 11:00 - Assessment and plan (1) Fever Current Visit: No Status: Acute Assessment and plan: -Patient with low-grade fever this morning in addition to increased neutrophils ; unknown etiology. -Will dubose culture and start broad-spectrum antibiotics; chest x-ray ordered as well. Qualifiers: Fever type: unspecified Qualified Code(s): R50.9 - Fever, unspecified (2) NSTEMI (non-ST elevated myocardial infarction) Current Visit: Yes Status: Acute Assessment and plan: -Patient with elevated cardio biomarkers and EKG with recurrent ST depression. -TTE 02/06/17-Normal LV systolic function, LVEF 60%. Normal left ventricular diastolic function. Normal right ventricular size and function. Mildly dilated left atrium. Mildly dilated right atrium. Mild mitral regurgitation. Moderate- severe pulmonary hypertension. -Cardiology consult with recommendations for medical management due to severe anemia, thrombocytopenia, and chronic kidney disease; patient is at high risk for left heart catheter for worsening renal failure as well as his significant anemia. -Heparin infusion was stopped after 48 hours of treatment. -Patient now requesting palliative care (3) CAD (coronary artery disease) Current Visit: No Status: Chronic Assessment and plan: -Patient with known coronary arterial disease with chest pain; management as above Qualifiers: Coronary Disease-Associated Artery/Lesion type: [place] artery [place] vs. transplanted heart: [place] heart Associated angina: angina presence unspecified Qualified Code(s): I25.10 - Atherosclerotic heart disease of [place] coronary artery without angina pectoris (4) COPD (chronic obstructive pulmonary disease) Current Visit: No Status: Chronic Assessment and plan: -Stable; patient on baseline supplemental oxygen Qualifiers: COPD type: unspecified COPD Qualified Code(s): J44.9 - Chronic obstructive pulmonary disease, unspecified (5) CKD (chronic kidney disease) stage 3, GFR 30-59 ml/min Current Visit: No Status: Chronic Assessment and plan: -Stable as creatinine close to baseline -Nephrology following and appreciate any recommendations (6) Multiple myeloma Current Visit: No Status: Acute Assessment and plan: -Management as an outpatient by oncology -Oncology has been consulted and appreciate recommendations. Qualifiers: Multiple myeloma remission status: not in remission Qualified Code(s): C90.00 - Multiple myeloma not having achieved remission (7) Thrombocytopenia Current Visit: Yes Status: Chronic Assessment and plan: -Oncology consult at recommendations to keep platelet counts above 50K or a platelet goal >75K if he experiences recurrent bleeding ( epistaxis). (8) Anemia Current Visit: No Status: Acute Assessment and plan: -Stable status post 2 units of packed red blood cells; recommendations to keep hemoglobin above 9. -Will continue to monitor Qualifiers: Anemia type: other cause Other causes of anemia: chronic disease, neoplastic Qualified Code(s): D63.0 - Anemia in neoplastic disease (9) DVT prophylaxis Current Visit: Yes Status: Acute Assessment and plan: Subcutaneous heparin - Subjective Interval history: Patient reports of "wanting to give up" because he has to many medical conditions to treat. Patient has requested to speak to palliative care for family meeting to determine future medical treatment. - Constitutional Vitals: Temp Pulse Resp BP Pulse Ox 99.8 F H 64 17 132/57 94 02/26/17 11:23 02/26/17 11:23 02/26/17 11:23 02/26/17 11:23 02/26/17 11:23 General appearance: Present: cooperative, A&O X 3, pleasant, no acute distress, loss of weight, answers questions appropriately - Respiratory Respiratory exam: Present: CTAB. Absent: accessory muscle use, rales, rhonchi, wheezes - Cardiovascular Cardiovascular exam: Present: RRR, +S1, +S2. Absent: diastolic murmur, gallop, rubs, systolic murmur Internal Medicine: Result - Labs CBC & Chem 7: 02/26/17 08:31 02/26/17 08:31 Labs: Short CBC 02/26/17 Range/Units 08:31 WBC 6.5 D (4.3-11.1) K/mcL Hgb 9.1 L (12.9-16.9) g/dL Hct 27.9 L (37.5-50.1) % Plt Count 56 L (140-400) K/mcL Neutrophils # 5.7 (1.6-8.9) K/mcL BMP 02/26/17 08:31 Sodium 139 Potassium 4.4 Chloride 114 H Carbon Dioxide 19 BUN 62 H Creatinine 2.84 H Glucose 88 Calcium 7.6 L - ABG Interpretation ABG results: PT/INR, D-dimer PT 10.7 Seconds (9.4-12.1) 02/23/17 14:42 Consult Discharge Plan - Plan Referrals: Elio Melendez MD [Primary Care Provider] -
--- NOTE | 2017-02-26 16:55 | Electrocardiograph Report ---
[place] [id number] Test Date: 2017-02-23 Pat Name: Jose Mark Department: 112 Room: 2A32 Gender: M [employer] Coordinator: : 1950 Requested By: Donell Garcia Order Number: [id number] Reading MD: Malissa Walden Measurements Intervals [place] Rate: 77 P: 37 AR: 177 QRS: 13 QRSD: 93 T: 92 QT: 368 QTc: 399 Interpretive Statements SINUS RHYTHM LEFT VENTRICULAR HYPERTROPHY AND ST-T CHANGE Electronically Signed On 02-26-2017 16:53:31 EDT by Malissa Walden
[2017-02-26] MEDS ORDERED: Vancomycin 1,250 MG in D5% in Water 250 ML IVPB SCH ×2 (17:00)
--- NOTE | 2017-02-26 17:11 | Oncology Inp Progress Note ---
<Camryn Braden L - Last Filed: 02/26/17 19:00> Date of Encounter: 02/26/17 Time of Encounter: 14:00 (1) Thrombocytopenia Current Visit: Yes Status: Chronic Assessment and plan: Received 48 hours of IV heparin therapy which was subsequently stopped due to concerns for platelet counts and development of nosebleeds/bleeding tongue lesion. Heparin DVT prophylaxis with continued goal to keep platelets at or above 50K. Reports no issues with bleeding at this time. Platelets 56 today, continue to monitor daily CBCs. (2) Anemia Current Visit: No Status: Acute Assessment and plan: Secondary to MM. Received 2 units PRBC on 02/23 and 02/24. CBC today shows hgb 9.1. Denies chest pain or SOB. EGD 02/08 and Colonoscopy 02/09 no signs of acute bleeding. EGD biopsies negative for malignancy. Continue to monitor daily CBC and plan to transfuse for hgb less than 9 in light of cardiac issues or if he experiences recurrent chest pain or worsening troponins with continued anemia. Qualifiers: Anemia type: other cause Other causes of anemia: other cause, not classified Qualified Code(s): D64.89 - Other specified anemias (3) Multiple myeloma Current Visit: No Status: Acute Assessment and plan: Receiving Velcade/Dexamethasone and aranesp for IgG kappa ISS stage III multiple myeloma with a palliative treatment intent. According to the patient he tolerated this treatment quite well but he associates his recent MS with his Velcade treatment. I attempted to explain that these appear to be unrelated along with the ramifications of stopping treatment, but the patient continues to state he wishes for palliative management at time and would like to discuss hospice. Patient states he wishes to stop treatment and go home. Palliative care has been consulted and has already discussed options with patient/patients family. Patient wishes to discuss goals of care and code status with his daughter ang[place] followed by family meeting tomorrow at 3. Further treatment to be decided following discussion with Dr. Cabral and family meeting tomorrow. Qualifiers: Multiple myeloma remission status: not in remission Qualified Code(s): C90.00 - Multiple myeloma not having achieved remission (4) NSTEMI (non-ST elevated myocardial infarction) Current Visit: Yes Status: Acute Assessment and plan: Not interested in aggressive strategy and elects conservative approach. Patient informs me declines surgical intervention. Currently denies chest pain. Medication recommendations per cardiology with aspirin, statin, beta santi and imdur therapy. Oncology: Subj Interval history: Resting comfortably in bed, no signs of distress, with nephew at bedside. Reports that chest pain has resolved, currently denies pain or shortness of breath above baseline. Reports issues with chronic constipation. Denies nausea or vomiting at this time. - Constitutional Vitals: Vital Signs Temp Pulse Resp BP Pulse Ox 02/26/17 11:23 99.8 F H 64 17 132/57 94 02/26/17 08:35 100.5 F H 66 18 158/75 90 02/26/17 04:39 98.0 F 68 17 173/78 96 02/25/17 23:16 98.2 F 57 17 130/69 98 02/25/17 18:23 98.0 F 55 17 133/67 98 Intake and Output 02/26/17 02/26/17 02/26/17 07:59 15:59 23:59 Output Total 200 / 200 Balance -200 / -200 Output: Urine 200 / 200 Other: Weight 82 kg 82 kg Blood Glucose* 89 116 Patient Weight 02/26/17 23:59 Weight 82 kg General appearance: no acute distress - Head Head exam: Present: atraumatic, normal inspection - Respiratory Respiratory exam: Present: decreased breath sounds, CTAB - Cardiovascular Cardiovascular exam: Present: RRR, +S1, +S2 - GI/Abdominal GI/Abdominal exam: Present: normal bowel sounds, soft. Absent: tenderness - Extremities Exam Extremities exam: Absent: pedal edema, tenderness - Neurological Exam Neurological exam: Present: alert, strengths equal and symetr throughout - Skin Skin exam: Present: normal color Oncology: Obj Data - Labs CBC & Chem 7: 02/26/17 08:31 02/26/17 08:31 Labs: Laboratory Results - last 24 hr 02/24/17 02/25/17 02/26/17 20:04 20:29 03:30 WBC RBC Hgb Hct MCV MCH MCHC RDW Plt Count MPV Seg Neutrophils % Band Neutrophils % Lymphocytes % Monocytes % Eosinophils % Neutrophils # Lymphocytes # Monocytes # Eosinophils # Nucleated RBCs/100 WBC Platelet Estimate APTT 29.6 D Sodium Potassium Chloride Carbon Dioxide BUN Creatinine Est GFR ( Amer) Est GFR (Non-Af Amer) BUN/Creatinine Ratio Glucose POC Glucose 105 H 109 H Calculated Osmolality Calcium 02/26/17 02/26/17 02/26/17 08:31 08:31 08:37 WBC 6.5 D RBC 3.04 L Hgb 9.1 L Hct 27.9 L MCV 91.8 MCH 29.9 MCHC 32.6 RDW 16.7 H Plt Count 56 L MPV 13.0 H Seg Neutrophils % 78.0 Band Neutrophils % 10.0 H Lymphocytes % 4.0 Monocytes % 6.0 Eosinophils % 2.0 Neutrophils # 5.7 Lymphocytes # 0.3 L Monocytes # 0.4 Eosinophils # 0.1 Nucleated RBCs/100 WBC 0.5 H Platelet Estimate Decreased L APTT Sodium 139 Potassium 4.4 Chloride 114 H Carbon Dioxide 19 BUN 62 H Creatinine 2.84 H Est GFR ( Amer) 27 L Est GFR (Non-Af Amer) 22 L BUN/Creatinine Ratio 22 Glucose 88 POC Glucose 99 H Calculated Osmolality 305 H Calcium 7.6 L 02/26/17 11:24 WBC RBC Hgb Hct MCV MCH MCHC RDW Plt Count MPV Seg Neutrophils % Band Neutrophils % Lymphocytes % Monocytes % Eosinophils % Neutrophils # Lymphocytes # Monocytes # Eosinophils # Nucleated RBCs/100 WBC Platelet Estimate APTT Sodium Potassium Chloride Carbon Dioxide BUN Creatinine Est GFR ( Amer) Est GFR (Non-Af Amer) BUN/Creatinine Ratio Glucose POC Glucose 119 H Calculated Osmolality Calcium - ABG Interpretation ABG results: PT/INR, D-dimer PT 10.7 Seconds (9.4-12.1) 02/23/17 14:42 Consult Discharge Plan - Plan Referrals: Elio Melendez MD [Primary Care Provider] - <Fransisco Cabral - Last Filed: 02/26/17 21:35> Date of Encounter: 02/26/17 - Constitutional Vitals: Vital Signs Temp Pulse Resp BP Pulse Ox 02/26/17 18:55 98.4 F 84 16 121/57 97 02/26/17 11:23 99.8 F H 64 17 132/57 94 02/26/17 08:35 100.5 F H 66 18 158/75 90 02/26/17 04:39 98.0 F 68 17 173/78 96 02/25/17 23:16 98.2 F 57 17 130/69 98 Intake and Output 02/26/17 02/26/17 02/27/17 08:59 16:59 00:59 Intake Total 120 / 120 Output Total 200 / 200 375 / 375 Balance -200 / -200 -255 / -255 Intake: Oral 120 / 120 Output: Urine 200 / 200 375 / 375 Other: Percent of Meal Consumed 10% Weight 82 kg 82 kg Blood Glucose* 99 116 144 Patient Weight 02/27/17 00:59 Weight 82 kg Oncology: Obj Data - Labs CBC & Chem 7: 02/26/17 08:31 02/26/17 08:31 Labs: Laboratory Results - last 24 hr 02/24/17 02/25/17 02/26/17 20:04 20:29 03:30 WBC RBC Hgb Hct MCV MCH MCHC RDW Plt Count MPV Seg Neutrophils % Band Neutrophils % Lymphocytes % Monocytes % Eosinophils % Neutrophils # Lymphocytes # Monocytes # Eosinophils # Nucleated RBCs/100 WBC Platelet Estimate APTT 29.6 D Sodium Potassium Chloride Carbon Dioxide BUN Creatinine Est GFR ( Amer) Est GFR (Non-Af Amer) BUN/Creatinine Ratio Glucose POC Glucose 105 H 109 H Calculated Osmolality Calcium 02/26/17 02/26/17 02/26/17 04:37 08:31 08:31 WBC 6.5 D RBC 3.04 L Hgb 9.1 L Hct 27.9 L MCV 91.8 MCH 29.9 MCHC 32.6 RDW 16.7 H Plt Count 56 L MPV 13.0 H Seg Neutrophils % 78.0 Band Neutrophils % 10.0 H Lymphocytes % 4.0 Monocytes % 6.0 Eosinophils % 2.0 Neutrophils # 5.7 Lymphocytes # 0.3 L Monocytes # 0.4 Eosinophils # 0.1 Nucleated RBCs/100 WBC 0.5 H Platelet Estimate Decreased L APTT Sodium 139 Potassium 4.4 Chloride 114 H Carbon Dioxide 19 BUN 62 H Creatinine 2.84 H Est GFR ( Amer) 27 L Est GFR (Non-Af Amer) 22 L BUN/Creatinine Ratio 22 Glucose 88 POC Glucose 89 Calculated Osmolality 305 H Calcium 7.6 L 02/26/17 02/26/17 08:37 11:24 WBC RBC Hgb Hct MCV MCH MCHC RDW Plt Count MPV Seg Neutrophils % Band Neutrophils % Lymphocytes % Monocytes % Eosinophils % Neutrophils # Lymphocytes # Monocytes # Eosinophils # Nucleated RBCs/100 WBC Platelet Estimate APTT Sodium Potassium Chloride Carbon Dioxide BUN Creatinine Est GFR ( Amer) Est GFR (Non-Af Amer) BUN/Creatinine Ratio Glucose POC Glucose 99 H 119 H Calculated Osmolality Calcium - Impressions Impressions Chest X-Ray 02/26/17 16:04 IMPRESSION: 1. Focal opacity in the left lower lung zone may represent pneumonia in the appropriate clinical setting. 2. Improved but persistent coarse reticular opacities throughout the lungs which may represent mild interstitial edema versus atypical infection. 3. Stable soft tissue mass with bony destruction of the left 6th rib. Please refer to dedicated CT chest dated December 2016, for further details. 4. Small left effusion. D/ / 02/26/2017 18:02:55 Toshia Sosa MD / bcarter Interpreting Provider: Toshia Sosa MD - ABG Interpretation ABG results: PT/INR, D-dimer PT 10.7 Seconds (9.4-12.1) 02/23/17 14:42 - Attending Attestation I examined this patient and my medical decision-making was reviewed with the Advanced Practice Nurse. I agree with the documented findings, disposition and treatment plan as described except to the extent set forth below. I met with Mr. Flores this evening and reviewed the recent turn of events. He is having difficulty tolerating a relatively straight forward therapy. I discussed trying to maintain a higher hemoglobin threshold to aid in tolerance as well as dose reducing therapy. He is frustrated with his current clinical situation and is not interested in pursuing therapy. We discussed hospice and he thinks this will be reasonable. I asked him to think about this overnight and reassess tomorrow.
[2017-02-26] MEDS ORDERED: Vancomycin 1,250 MG in D5% in Water 250 ML IVPB ONE (17:30)
[2017-02-26] MEDS: Piperacillin/Tazobactam 3.375 GM in D5% in Water (Mini-Bag+) 100 ML IVPB SCH (18:06)
[2017-02-27] MEDS: Piperacillin/Tazobactam 3.375 GM in D5% in Water (Mini-Bag+) 100 ML IVPB SCH ×2 (05:47→17:42)
[2017-02-27] MEDS: *HR* Heparin 5,000 UNIT/ML VIAL SQ SCH ×2 (05:48→17:45)
[2017-02-27] MEDS: Metoprolol XL (24 HR) Succ 50 MG TAB.ER.24H PO SCH (08:45)
[2017-02-27] MEDS: Acyclovir 200 MG CAPSULE PO SCH ×2 (08:46→21:02)
[2017-02-27] MEDS: amLODIPine 5 MG TABLET PO SCH (08:46)
[2017-02-27] MEDS: Isosorbide MONOnitrate (24 HR) 60 MG TAB.ER.24H PO SCH (08:46)
[2017-02-27] MEDS: Sennosides 8.6 MG TABLET PO SCH ×2 (08:46→21:02)
[2017-02-27] MEDS: Cyanocobalamin (B-12) 1,000 MCG TABLET PO SCH (08:46)
[2017-02-27] MEDS: Aspirin Enteric Coated 81 MG Tablet PO SCH (08:46)
--- NOTE | 2017-02-27 10:42 | Internal Med Progress Note ---
Date of Encounter: 02/27/17 Time of Encounter: 10:41 - Assessment and plan (1) Sepsis Current Visit: Yes Status: Acute Assessment and plan: Patient developed fever of 1005 with WBC <4 and XR showed LL pneumonia, va atypical pneumonia Blood culture pending Continue Gallo Plan to deescalate with culture reports Send respiratory panel Afebrile since 02/26 Qualifiers: Sepsis type: sepsis due to unspecified organism Qualified Code(s): A41.9 - Sepsis, unspecified organism (2) Pneumonia Current Visit: Yes Status: Acute Assessment and plan: As above Qualifiers: Pneumonia type: due to unspecified organism Laterality: left Lung location: unspecified part of lung Qualified Code(s): J18.9 - Pneumonia, unspecified organism (3) Weakness Current Visit: Yes Status: Resolved Assessment and plan: Ambulatory, resolved and improved per patient (4) NSTEMI (non-ST elevated myocardial infarction) Current Visit: Yes Status: Acute Assessment and plan: Patient with elevated cardio biomarkers and EKG with recurrent ST depression. TTE 02/06/17-Normal LV systolic function, LVEF 60%. Normal left ventricular diastolic function. Normal right ventricular size and function. Mildly dilated left atrium. Mildly dilated right atrium. Mild mitral regurgitation. Moderate- severe pulmonary hypertension. Cardiology consult with recommendations for medical management due to severe anemia, thrombocytopenia, and chronic kidney disease; patient is at high risk for left heart catheter for worsening renal failure as well as his significant anemia. Patient declines any invasive procedures Continue medical optimization (5) Hypertension Current Visit: Yes Status: Chronic Assessment and plan: Controlled, continue current therapy Qualifiers: Hypertension type: essential hypertension Qualified Code(s): I10 - Essential (primary) hypertension (6) Diabetes mellitus Current Visit: Yes Status: Chronic Assessment and plan: Controlled. Continue Insulin, FS ACHS Qualifiers: Diabetes mellitus type: type 2 Diabetes mellitus complication status: without complication Diabetes mellitus nursing home insulin use: without nursing home use Qualified Code(s): E11.9 - Type 2 diabetes mellitus without complications (7) Chronic hypoxemic respiratory failure Current Visit: Yes Status: Chronic Assessment and plan: ON home O2, continue same at time of discharge (8) CKD (chronic kidney disease) stage 3, GFR 30-59 ml/min Current Visit: Yes Status: Chronic Assessment and plan: -Stable as creatinine close to baseline -Nephrology following and appreciate any recommendations (9) Multiple myeloma Current Visit: Yes Status: Acute Assessment and plan: -Management as an outpatient by oncology -Oncology has been consulted and appreciate recommendations. Qualifiers: Multiple myeloma remission status: not in remission Qualified Code(s): C90.00 - Multiple myeloma not having achieved remission (10) CAD (coronary artery disease) Current Visit: Yes Status: Chronic Assessment and plan: -Patient with known coronary arterial disease with chest pain; management as above Qualifiers: Coronary Disease-Associated Artery/Lesion type: [place] artery [place] vs. transplanted heart: [place] heart Associated angina: angina presence unspecified Qualified Code(s): I25.10 - Atherosclerotic heart disease of [place] coronary artery without angina pectoris (11) Thrombocytopenia Current Visit: Yes Status: Chronic Assessment and plan: PLT 56, no labs today Check Chem a.m - Subjective Interval history: 66 M seen and evaluated at bedside He has a PMH of MM, admitted for NSTEMI He developed fever with CXR revealing Pneumonia 02/26 He denies new complains - Constitutional Vitals: Temp Pulse Resp BP Pulse Ox 98.1 F 55 16 154/72 99 02/27/17 06:49 02/27/17 06:49 02/27/17 06:49 02/27/17 06:49 02/27/17 06:49 General appearance: Present: cooperative, A&O X 3, pleasant, no acute distress, loss of weight, answers questions appropriately - Head Head exam: Present: atraumatic, normocephalic - Eye Eye exam: Present: PERRL, conjuntiva pink, sclera anicteric Pupils: Present: PERRL - Neck Neck exam general surgery: Present: supple, trachea midline. Absent: lymphadenopathy - Respiratory Respiratory exam: Present: CTAB. Absent: accessory muscle use, rales, rhonchi, wheezes - Cardiovascular Cardiovascular exam: Present: RRR, +S1, +S2. Absent: diastolic murmur, gallop, rubs, systolic murmur - GI/Abdominal GI/Abdominal exam: Present: normal bowel sounds, soft, no peritoneal signs. Absent: distended, tenderness - Extremities Exam Extremities exam: Present: warm, radial pulses palpable and symmetrical. Absent : calf tenderness, cyanotic, pedal edema - Neurological Exam Neurological exam: Present: alert, CN II-XII intact, oriented X3, no focal deficits. Absent: pronater drift, facial droop, speech deficit - Skin Skin exam: Present: dry, intact Internal Medicine: Result - Labs CBC & Chem 7: 02/26/17 08:31 02/26/17 08:31 - ABG Interpretation ABG results: PT/INR, D-dimer PT 10.7 Seconds (9.4-12.1) 02/23/17 14:42 - Impressions Impressions Chest X-Ray 02/26/17 16:04 IMPRESSION: 1. Focal opacity in the left lower lung zone may represent pneumonia in the appropriate clinical setting. 2. Improved but persistent coarse reticular opacities throughout the lungs which may represent mild interstitial edema versus atypical infection. 3. Stable soft tissue mass with bony destruction of the left 6th rib. Please refer to dedicated CT chest dated December 2016, for further details. 4. Small left effusion. D/ / 02/26/2017 18:02:55 Toshia Sosa MD / randy Interpreting Provider: Toshia Sosa MD Consult Discharge Plan - Plan Referrals: Elio Melendez MD [Primary Care Provider] - 03/05/17 3:00 pm (please follow up as schedule..)
--- NOTE | 2017-02-27 12:13 | Nephrology Progress Note ---
Date of Encounter: 02/27/17 Time of Encounter: 12:10 - Assessment and Plan (1) ARF (acute renal failure) Current Visit: No Status: Acute Creatinine stacey for now. Palliative care to discuss his goals of care. Patient wants conservative treatment. (2) Sepsis Current Visit: Yes Status: Acute Patient with fever and bandemia on his CBC with diff. Etiology is unclear. Antibiotics per primary team. Aggressiveness of care will depend on his decision after speaking with palliative care and his family. Qualifiers: Qualified Code(s): A41.9 - Sepsis, unspecified organism (3) NSTEMI (non-ST elevated myocardial infarction) Current Visit: Yes Status: Acute Per primary team and cardiology. Patient would benefit from Cardiac cath, but there is concern for possible bleeding and now he doesn't think he would consent to dialysis. He has decided on conservative therapy. Medical management for now. No active chest pain. (4) Multiple myeloma Current Visit: No Status: Acute Per oncology. Qualifiers: Multiple myeloma remission status: not in remission Qualified Code(s): C90.00 - Multiple myeloma not having achieved remission (5) CKD (chronic kidney disease) stage 3, GFR 30-59 ml/min Current Visit: No Status: Chronic Patient is stating that he will not consent to dialysis. He has decided on palliative care. (6) Hypertension Current Visit: No Status: Chronic Titrate antihypertensive medications as tolerated. Qualifiers: Hypertension type: essential hypertension Qualified Code(s): I10 - Essential (primary) hypertension Subjective Principal diagnosis: NSTEMI Interval history: Patient seen. No new complaint. No chest pain or dypnea at rest. Patient is now stating that he doesn't think he wants to pursue further treatment. He plans to talk to his daughter and the palliative care team. Objective - Vital Signs Vital signs: Vital Signs Temp Pulse Resp BP Pulse Ox 02/27/17 11:01 97.7 F 55 16 129/65 98 02/27/17 06:49 98.1 F 55 16 154/72 99 02/27/17 03:27 98.1 F 54 12 145/73 94 02/26/17 23:37 98.1 F 57 14 136/65 98 02/26/17 18:55 98.4 F 84 16 121/57 97 Intake and Output 02/26/17 02/27/17 02/27/17 23:59 07:59 15:59 Intake Total 220 / 220 300 / 300 Output Total 375 / 375 275 / 275 Balance -155 / -155 -275 / -275 300 / 300 Intake: IV Fluids 100 / 100 Zosyn 3.375 GM In Dextrose 5% ( 100 / 100 Minibag+) 100 ML 100 ML @ 25 mls/hr IVPB Q12H TETE Rx#: [id number] Oral 120 / 120 300 / 300 Output: Urine 375 / 375 275 / 275 Other: Meal Breakfast Percent of Meal Consumed 10% 95% Weight 80.6 kg Blood Glucose* 144 94 107 Patient Weight 02/27/17 23:59 Weight 80.6 kg - General Appearance General appearance: Present: well-developed, well-nourished EENT: Present: ATNC Neck: Present: supple Cardiology: Present: no edema, regular rate Integumentary: Present: warm and dry Neurologic: Present: alert and oriented x3 Psychiatric: Present: mood/affect appropriate - Lab 02/26/17 08:31 02/26/17 08:31 Most recent lab results Calcium 7.6 mg/dL (8.6-10.8) L 02/26/17 08:31 Magnesium 2.4 mg/dL (1.6-2.6) 02/24/17 08:08 Consult Discharge Plan - Plan Referrals: Elio Melendez MD [Primary Care Provider] - 03/05/17 3:00 pm (please follow up as schedule..)
--- NOTE | 2017-02-27 13:54 | Palliative Progress Note ---
Date of Encounter: 02/27/17 Time of Encounter: 13:45 - Assessment and plan (1) Nausea and vomiting Current Visit: No Status: Acute Assessment and plan: Continue Ondansetron PRN. Utilized x1 last 24 hours. Nausea has improved. Qualifiers: Vomiting type: unspecified Vomiting Intractability: unspecified Qualified Code(s): R11.2 - Nausea with vomiting, unspecified (2) Chest pain Current Visit: Yes Status: Acute (3) Goals of care, counseling/discussion Current Visit: Yes Status: Acute Assessment and plan: 80 min discussion with pt/daughter, daughter's boyfriend r/t goals of care. Discussed current clinical status. Patient has stated that he does not desire aggressive intervention, and does not desire further chemotherapy. Discussed hospice at length with pt/daughter. Discussed code status at length. Family desiring to speak with database administration project manager if possible for his recommendations. I did inform them that cardiology had signed off his case, but they still desire information from them. Reached out to Dr. Moreno who was willing stop by and speak with them. Went over power of admitted attorneys forms with daughter and they will look over forms this evening. We will follow up with pt tomorrow to complete if he is willing. Will f/u in am. - Time Spent With Patient Total time spent is greater than 50% in coordination of care (as documented) at patient's floor/unit and/or counseling patient: Greater than 35 minutes - Subjective Interval history: Patient awake and alert. Feeling better today with less nausea, and less coughing. Daughter at bedside. - Constitutional Vitals: Abnormal lab results RBC 3.04 M/mcL (4.19-5.50) L 02/26/17 08:31 Hgb 9.1 g/dL (12.9-16.9) L 02/26/17 08:31 Hct 27.9 % (37.5-50.1) L 02/26/17 08:31 RDW 16.7 % (11.5-14.5) H 02/26/17 08:31 Plt Count 56 K/mcL (140-400) L 02/26/17 08:31 MPV 13.0 fL (9.4-12.4) H 02/26/17 08:31 Immature Gran % 5.2 % (0-4) H 02/25/17 11:21 Band Neutrophils % 10.0 % (0-4) H 02/26/17 08:31 Metamyelocytes % 2.0 % (0) H 02/23/17 14:42 Lymphocytes # 0.3 K/mcL (0.6-4.6) L 02/26/17 08:31 Nucleated RBCs/100 WBC 0.5 /100 WBC (0) H 02/26/17 08:31 Toxic Granulation Present (Not Present) A 02/23/17 14:42 Platelet Estimate Decreased (Normal) L 02/26/17 08:31 Anisocytosis 1+ (Not Present) A 02/24/17 08:08 Chloride 114 mEq/L (98-109) H 02/26/17 08:31 BUN 62 mg/dL (8-26) H 02/26/17 08:31 Creatinine 2.84 mg/dL (0.72-1.25) H 02/26/17 08:31 Est GFR ( Amer) 27 (> 60) L 02/26/17 08:31 Est GFR (Non-Af Amer) 22 (> 60) L 02/26/17 08:31 POC Glucose 107 (58-89) H 02/27/17 11:04 Calculated Osmolality 305 (280-300) H 02/26/17 08:31 Calcium 7.6 mg/dL (8.6-10.8) L 02/26/17 08:31 Transferrin 149 mg/dL (174-364) L 02/23/17 20:02 Troponin I 1.30 ng/mL (0-0.03) H* 02/24/17 14:11 B-Natriuretic Peptide 823 pg/mL (0-100) H 02/23/17 14:42 Triglycerides 172 mg/dL (< 150) H 02/24/17 08:08 VLDL Cholesterol, Calc 34 mg/dL (< 31) H 02/24/17 08:08 HDL Cholesterol 18 mg/dL (40-59) L 02/24/17 08:08 Cholesterol/HDL Ratio 7.7 (0-4.9) H 02/24/17 08:08 Ur Specific [place] 1.028 (1.010-1.025) H 02/23/17 15:42 Urine Protein >=1000 mg/dL (Neg-Trace) H 02/23/17 15:42 Urine Glucose (UA) 100 mg/dL (Normal) H 02/23/17 15:42 Urine Blood Small (Negative) H 02/23/17 15:42 Urine Microscopic RBC 5-15 per hpf (0-3) H 02/23/17 15:42 Urine Microscopic WBC 5-15 per hpf (0-3) H 02/23/17 15:42 Ur Squamous Epith Cells Many per lpf (None-Few) H 02/23/17 15:42 General appearance: Present: no acute distress - Respiratory Respiratory exam: Present: decreased breath sounds, CTAB - Cardiovascular Cardiovascular exam: Present: +S1, +S2 - GI/Abdominal GI/Abdominal exam: Present: normal bowel sounds, soft - Extremities Exam Extremities exam: Present: normal capillary refill, normal inspection - Neurological Exam Neurological exam: Present: alert, oriented X3, strengths equal and symetr throughout - Skin Skin exam: Present: dry, warm Palliative Quality Palliative Quality: Screen for Code Status: Yes, Screen for Goals of Care: Yes, Screen for Pain: Yes, If Pain Regimen Started, Initiate Bowel Regimen: Yes, Screen for Nausea/Vomitting: Yes - Labs CBC & Chem 7: 02/26/17 08:31 02/26/17 08:31 Labs: Laboratory Results - last 24 hr 02/26/17 02/26/17 02/26/17 04:37 08:37 11:24 POC Glucose 89 99 H 119 H 02/26/17 02/27/17 21:04 11:04 POC Glucose 144 H 107 H - Impressions Impressions Chest X-Ray 02/26/17 16:04 IMPRESSION: 1. Focal opacity in the left lower lung zone may represent pneumonia in the appropriate clinical setting. 2. Improved but persistent coarse reticular opacities throughout the lungs which may represent mild interstitial edema versus atypical infection. 3. Stable soft tissue mass with bony destruction of the left 6th rib. Please refer to dedicated CT chest dated December 2016, for further details. 4. Small left effusion. D/ / 02/26/2017 18:02:55 Toshia Sosa MD / randy Interpreting Provider: Toshia Sosa MD - ABG Interpretation ABG results: PT/INR, D-dimer PT 10.7 Seconds (9.4-12.1) 02/23/17 14:42 Consult Discharge Plan - Plan Referrals: Elio Melendez MD [Primary Care Provider] - 03/05/17 3:00 pm (please follow up as schedule..)
[2017-02-27] MEDS ORDERED: Vancomycin 500 MG in D5% in Water (Mini-Bag+) 100 ML IVPB ONE (14:19)
[2017-02-27] MEDS ORDERED: Vancomycin 500 MG in D5% in Water 100 ML IVPB ONE (16:00)
--- NOTE | 2017-02-27 18:34 | Oncology Inp Progress Note ---
Date of Encounter: 02/27/17 Time of Encounter: 18:30 (1) NSTEMI (non-ST elevated myocardial infarction) Current Visit: Yes Status: Acute Assessment and plan: Appreciate input by Dr. Moreno. Will continue with medical management. If renal function improves, intervention can be entertained. (2) Multiple myeloma Current Visit: Yes Status: Acute Assessment and plan: I had a very nice meeting with Mr. Flores again today. As discussed yesterday, I think we can move forward with therapy with dose reduction and maintaining a higher hgb threshold. He is in agreement with this and does not want to pursue hospice at this juncture. If we have further issues with tolerance of therapy, this will be readdressed. Qualifiers: Multiple myeloma remission status: not in remission Qualified Code(s): C90.00 - Multiple myeloma not having achieved remission (3) Thrombocytopenia Current Visit: Yes Status: Chronic Assessment and plan: Present on admission. Likely multifactorial from recent velcade, possibly infection or antibiotics. He is not toxic appearing and would consider deescalating antimicrobials. Will defer to hospitalist team. Not c/w HIT clinically. Oncology: Subj Interval history: Mr. Flores is doing well. Afebrile. Eating some, but poor appetite and hospital food not appetizing. No new aches or pains and back pain remains asymptomatic. Continues on zosyn for presumed left lung pna. Cardiology, Dr. Moreno, has discussed current clinical issues with patient, and he has changed his mind regarding direction of care. - Constitutional Vitals: Vital Signs Temp Pulse Resp BP Pulse Ox 02/27/17 17:30 97.5 F L 58 18 141/82 95 02/27/17 11:01 97.7 F 55 16 129/65 98 02/27/17 06:49 98.1 F 55 16 154/72 99 02/27/17 03:27 98.1 F 54 12 145/73 94 02/26/17 23:37 98.1 F 57 14 136/65 98 02/26/17 18:55 98.4 F 84 16 121/57 97 Intake and Output 02/27/17 02/27/17 02/28/17 08:59 16:59 00:59 Intake Total 300 / 300 Output Total 275 / 275 Balance -275 / -275 300 / 300 Intake: Oral 300 / 300 Output: Urine 275 / 275 Other: Meal Breakfast Percent of Meal Consumed 95% Weight 80.6 kg 80.6 kg Blood Glucose* 94 107 99 Patient Weight 02/28/17 00:59 Weight 80.6 kg General appearance: cooperative, no acute distress - Head Head exam: Present: atraumatic, normal inspection, normocephalic - Eye Eye exam: Present: normal appearance, conjuntiva pink, sclera anicteric - ENT ENT exam: Present: mucous membranes moist, normal oropharynx - Neck Neck exam: Present: full ROM, normal inspection - Respiratory Respiratory exam: Present: CTAB - Cardiovascular Cardiovascular exam: Present: RRR - GI/Abdominal GI/Abdominal exam: Present: normal bowel sounds, soft - Extremities Exam Extremities exam: Present: normal inspection - Neurological Exam Neurological exam: Present: alert, CN II-XII intact, oriented X3 Oncology: Obj Data - Labs CBC & Chem 7: 02/26/17 08:31 02/26/17 08:31 Labs: Laboratory Results - last 24 hr 02/26/17 02/26/17 02/27/17 04:37 21:04 11:04 POC Glucose 89 144 H 107 H Random Vancomycin 02/27/17 13:35 POC Glucose Random Vancomycin 12.1 - Impressions Impressions Chest X-Ray 02/26/17 16:04 IMPRESSION: 1. Focal opacity in the left lower lung zone may represent pneumonia in the appropriate clinical setting. 2. Improved but persistent coarse reticular opacities throughout the lungs which may represent mild interstitial edema versus atypical infection. 3. Stable soft tissue mass with bony destruction of the left 6th rib. Please refer to dedicated CT chest dated December 2016, for further details. 4. Small left effusion. D/ / 02/26/2017 18:02:55 Toshia Sosa MD / bcarter Interpreting Provider: Toshia Sosa MD - ABG Interpretation ABG results: PT/INR, D-dimer PT 10.7 Seconds (9.4-12.1) 02/23/17 14:42 Consult Discharge Plan - Plan Referrals: Elio Melendez MD [Primary Care Provider] - 03/05/17 3:00 pm (please follow up as schedule..)
[2017-02-28 05:43] LABS: Basophils % 0.2 %; Lymphocytes % 9.8 %; Monocytes % 7.3 %; Red Cell Distribution Width 16.8 % (11.5-14.5)
[2017-02-28 05:45] LABS: Eosinophils # 0.2 K/mcL (0.0-0.6); Eosinophils % 2.9 %; Hemoglobin 8.8 g/dL (12.9-16.9); Immature Granulocytes % 3.9 % (0-4); Immature Platelets 5.8 % (1.1-6.1); Lymphocytes # 0.5 K/mcL (0.6-4.6); Mean Corpuscular HGB Conc 31.4 g/dL (31.6-35.5); Mean Corpuscular Hemoglobin 29.4 pg (28.0-33.3); Mean Corpuscular Volume 93.6 fL (83.0-100.0); Mean Platelet Volume 11.9 fL (9.4-12.4); Monocytes # 0.4 K/mcL (0.0-1.3); Neutrophils # 3.9 K/mcL (1.6-8.9); Red Blood Count 2.99 M/mcL (4.19-5.50); Segmented Neutrophils % 75.9 %
[2017-02-28 05:46] LABS: Platelet Count 72 K/mcL (140-400)
[2017-02-28 06:05] LABS: Calcium 7.9 mg/dL (8.6-10.8); Potassium 3.8 mEq/L (3.5-4.5)
[2017-02-28] MEDS: *HR* Heparin 5,000 UNIT/ML VIAL SQ SCH ×2 (06:17→17:27)
[2017-02-28] MEDS: Piperacillin/Tazobactam 3.375 GM in D5% in Water (Mini-Bag+) 100 ML IVPB SCH (06:18)
[2017-02-28] MEDS ORDERED: Vancomycin 500 MG in D5% in Water (Mini-Bag+) 100 ML IVPB ONE (07:00)
[2017-02-28] MEDS ORDERED: 0.9 % Sodium Chloride 500 ML IVC ONE (07:58)
[2017-02-28] MEDS ORDERED: Levofloxacin 750 MG/150 ML 750 MG/150 ML BAG IVPB SCH (08:00)
[2017-02-28] MEDS: amLODIPine 5 MG TABLET PO SCH (08:09)
[2017-02-28] MEDS: Cyanocobalamin (B-12) 1,000 MCG TABLET PO SCH (08:09)
[2017-02-28] MEDS: Acyclovir 200 MG CAPSULE PO SCH ×2 (08:09→20:17)
[2017-02-28] MEDS: Aspirin Enteric Coated 81 MG Tablet PO SCH (08:09)
[2017-02-28] MEDS: Metoprolol XL (24 HR) Succ 50 MG TAB.ER.24H PO SCH (08:10)
[2017-02-28] MEDS: Isosorbide MONOnitrate (24 HR) 60 MG TAB.ER.24H PO SCH (08:10)
--- NOTE | 2017-02-28 09:07 | Palliative Progress Note ---
Date of Encounter: 02/28/17 Time of Encounter: 09:00 - Assessment and plan (1) Nausea and vomiting Current Visit: No Status: Acute Assessment and plan: Improved. Continue antiemetics PRN. Has not utilized the last 24 hours. Qualifiers: Vomiting type: unspecified Vomiting Intractability: unspecified Qualified Code(s): R11.2 - Nausea with vomiting, unspecified (2) Chest pain Current Visit: Yes Status: Acute Assessment and plan: Resolved. (3) Constipation Current Visit: Yes Status: Acute Assessment and plan: Resolved, and loose BM today. Decrease Senokot to daily. (4) Goals of care, counseling/discussion Current Visit: Yes Status: Acute Assessment and plan: After discussions yesterday, and cardiology and oncology visiting, pt has decided to continue treatment for multiple myeloma and does not desire hospice care. However, he does not want heroic measures for cardiac arrest, and does not want intubated - code status changed to DNR/DNI, and state form completed and signed by patient. He also completed healthcare power of chain maker hand and named daughter Reena primary agent with no alternates. Updated daughter via telephone as she is working today. Will notify social work he will need renewal of [place] [employer] [facility] upon discharge. (5) Multiple myeloma Current Visit: Yes Status: Acute Assessment and plan: Oncology following Qualifiers: Multiple myeloma remission status: not in remission Qualified Code(s): C90.00 - Multiple myeloma not having achieved remission (6) NSTEMI (non-ST elevated myocardial infarction) Current Visit: Yes Status: Acute (7) Pneumonia Current Visit: Yes Status: Acute Qualifiers: Pneumonia type: due to unspecified organism Laterality: left Lung location: unspecified part of lung Qualified Code(s): J18.9 - Pneumonia, unspecified organism - Time Spent With Patient Total time spent is greater than 50% in coordination of care (as documented) at patient's floor/unit and/or counseling patient: 25 - 35 minutes - Subjective Interval history: Patient awake and alert. Not sleeping well, but otherwise feeling better. Greatly appreciate Dr. Moreno and Dr. Cabral conversations with pt yesterday. Patient has decided to continue treatments for multiple myeloma, and does not desire hospice care at this time. D/W Dr. Mcgill and Dr. Obrien this am as well. Renal function worse today, antibiotics have been adjusted and Vanco D/C' d. - Constitutional Vitals: Abnormal lab results RBC 2.99 M/mcL (4.19-5.50) L 02/28/17 05:25 Hgb 8.8 g/dL (12.9-16.9) L 02/28/17 05:25 Hct 28.0 % (37.5-50.1) L 02/28/17 05:25 MCHC 31.4 g/dL (31.6-35.5) L 02/28/17 05:25 RDW 16.8 % (11.5-14.5) H 02/28/17 05:25 Plt Count 72 K/mcL (140-400) L 02/28/17 05:25 Band Neutrophils % 10.0 % (0-4) H 02/26/17 08:31 Metamyelocytes % 2.0 % (0) H 02/23/17 14:42 Lymphocytes # 0.5 K/mcL (0.6-4.6) L 02/28/17 05:25 Nucleated RBCs/100 WBC 0.5 /100 WBC (0) H 02/26/17 08:31 Toxic Granulation Present (Not Present) A 02/23/17 14:42 Platelet Estimate Decreased (Normal) L 02/26/17 08:31 Anisocytosis 1+ (Not Present) A 02/24/17 08:08 Chloride 113 mEq/L (98-109) H 02/28/17 05:25 BUN 39 mg/dL (8-26) H D 02/28/17 05:25 Creatinine 3.02 mg/dL (0.72-1.25) H 02/28/17 05:25 Est GFR ( Amer) 25 (> 60) L 02/28/17 05:25 Est GFR (Non-Af Amer) 21 (> 60) L 02/28/17 05:25 Glucose 124 mg/dL (70-99) H 02/28/17 05:25 POC Glucose 108 (58-89) H 02/27/17 21:18 Calcium 7.9 mg/dL (8.6-10.8) L 02/28/17 05:25 Transferrin 149 mg/dL (174-364) L 02/23/17 20:02 Troponin I 1.30 ng/mL (0-0.03) H* 02/24/17 14:11 B-Natriuretic Peptide 823 pg/mL (0-100) H 02/23/17 14:42 Triglycerides 172 mg/dL (< 150) H 02/24/17 08:08 VLDL Cholesterol, Calc 34 mg/dL (< 31) H 02/24/17 08:08 HDL Cholesterol 18 mg/dL (40-59) L 02/24/17 08:08 Cholesterol/HDL Ratio 7.7 (0-4.9) H 02/24/17 08:08 Ur Specific [place] 1.028 (1.010-1.025) H 02/23/17 15:42 Urine Protein >=1000 mg/dL (Neg-Trace) H 02/23/17 15:42 Urine Glucose (UA) 100 mg/dL (Normal) H 02/23/17 15:42 Urine Blood Small (Negative) H 02/23/17 15:42 Urine Microscopic RBC 5-15 per hpf (0-3) H 02/23/17 15:42 Urine Microscopic WBC 5-15 per hpf (0-3) H 02/23/17 15:42 Ur Squamous Epith Cells Many per lpf (None-Few) H 02/23/17 15:42 General appearance: Present: no acute distress - Respiratory Respiratory exam: Present: decreased breath sounds, CTAB - Cardiovascular Cardiovascular exam: Present: +S1, +S2 - GI/Abdominal GI/Abdominal exam: Present: normal bowel sounds, soft - Extremities Exam Extremities exam: Present: normal capillary refill, normal inspection - Neurological Exam Neurological exam: Present: alert, oriented X3, strengths equal and symetr throughout - Skin Skin exam: Present: dry, warm Palliative Quality Palliative Quality: Screen for Code Status: Yes, Screen for Goals of Care: Yes, Screen for Pain: Yes, If Pain Regimen Started, Initiate Bowel Regimen: Yes, Screen for Nausea/Vomitting: Yes - Labs CBC & Chem 7: 02/28/17 05:25 02/28/17 05:25 Labs: Laboratory Results - last 24 hr 02/27/17 02/27/17 02/27/17 06:53 11:04 13:35 WBC RBC Hgb Hct MCV MCH MCHC RDW Plt Count MPV Immature Gran % Seg Neutrophils % Lymphocytes % Monocytes % Eosinophils % Basophils % Neutrophils # Lymphocytes # Monocytes # Eosinophils # Basophils # Immature Plt Fraction Sodium Potassium Chloride Carbon Dioxide BUN Creatinine Est GFR ( Amer) Est GFR (Non-Af Amer) BUN/Creatinine Ratio Glucose POC Glucose 94 H 107 H Calculated Osmolality Calcium Random Vancomycin 12.1 02/27/17 02/27/17 02/28/17 17:35 21:18 05:25 WBC 5.1 RBC 2.99 L Hgb 8.8 L Hct 28.0 L MCV 93.6 MCH 29.4 MCHC 31.4 L RDW 16.8 H Plt Count 72 L MPV 11.9 Immature Gran % 3.9 Seg Neutrophils % 75.9 Lymphocytes % 9.8 Monocytes % 7.3 Eosinophils % 2.9 Basophils % 0.2 Neutrophils # 3.9 Lymphocytes # 0.5 L Monocytes # 0.4 Eosinophils # 0.2 Basophils # 0.0 Immature Plt Fraction 5.8 Sodium Potassium Chloride Carbon Dioxide BUN Creatinine Est GFR ( Amer) Est GFR (Non-Af Amer) BUN/Creatinine Ratio Glucose POC Glucose 99 H 108 H Calculated Osmolality Calcium Random Vancomycin 02/28/17 02/28/17 05:25 05:25 WBC RBC Hgb Hct MCV MCH MCHC RDW Plt Count MPV Immature Gran % Seg Neutrophils % Lymphocytes % Monocytes % Eosinophils % Basophils % Neutrophils # Lymphocytes # Monocytes # Eosinophils # Basophils # Immature Plt Fraction Sodium 139 Potassium 3.8 Chloride 113 H Carbon Dioxide 21 BUN 39 H D Creatinine 3.02 H Est GFR ( Amer) 25 L Est GFR (Non-Af Amer) 21 L BUN/Creatinine Ratio 13 Glucose 124 H POC Glucose Calculated Osmolality 299 Calcium 7.9 L Random Vancomycin 13.4 - ABG Interpretation ABG results: PT/INR, D-dimer PT 10.7 Seconds (9.4-12.1) 02/23/17 14:42 Consult Discharge Plan - Plan Referrals: Elio Melendez MD [Primary Care Provider] - 03/05/17 3:00 pm (please follow up as schedule..)
[2017-02-28] MEDS: Sennosides 8.6 MG TABLET PO SCH (09:15)
[2017-02-28] MEDS ORDERED: Aminoglycoside Consult 1 EACH MC ONE (09:28)
--- NOTE | 2017-02-28 09:40 | Internal Med Progress Note ---
Date of Encounter: 02/28/17 Time of Encounter: 09:38 - Assessment and plan (1) Sepsis Current Visit: Yes Status: Acute Assessment and plan: Patient developed fever of 100.5 with WBC <4 and XR showed LL pneumonia, vs atypical pneumonia Blood culture prelim, no growth Received Vanco and Zosyn for 2 days D/C today 02/28 Start Levaquin Afebrile since 02/26 Qualifiers: Sepsis type: sepsis due to unspecified organism Qualified Code(s): A41.9 - Sepsis, unspecified organism (2) Pneumonia Current Visit: Yes Status: Acute Assessment and plan: As above Qualifiers: Pneumonia type: due to unspecified organism Laterality: left Lung location: unspecified part of lung Qualified Code(s): J18.9 - Pneumonia, unspecified organism (3) Weakness Current Visit: Yes Status: Resolved Assessment and plan: Ambulatory, resolved and improved per patient (4) NSTEMI (non-ST elevated myocardial infarction) Current Visit: Yes Status: Acute Assessment and plan: Patient with elevated cardio biomarkers and EKG with recurrent ST depression. TTE 02/06/17-Normal LV systolic function, LVEF 60%. Normal left ventricular diastolic function. Normal right ventricular size and function. Mildly dilated left atrium. Mildly dilated right atrium. Mild mitral regurgitation. Moderate- severe pulmonary hypertension. Cardiology consult with recommendations for medical management due to severe anemia, thrombocytopenia, and chronic kidney disease; patient is at high risk for left heart catheter for worsening renal failure as well as his significant anemia. Patient declines any invasive procedures Continue medical optimization (5) Hypertension Current Visit: Yes Status: Chronic Assessment and plan: Uncontrolled, add Hydralazine po to current regimen Qualifiers: Hypertension type: essential hypertension Qualified Code(s): I10 - Essential (primary) hypertension (6) Diabetes mellitus Current Visit: Yes Status: Chronic Assessment and plan: Controlled. Continue Insulin, FS ACHS Qualifiers: Diabetes mellitus type: type 2 Diabetes mellitus complication status: without complication Diabetes mellitus group home insulin use: without marine oil terminal superintendent use Qualified Code(s): E11.9 - Type 2 diabetes mellitus without complications (7) Chronic hypoxemic respiratory failure Current Visit: Yes Status: Chronic Assessment and plan: ON home O2, continue same at time of discharge (8) CKD (chronic kidney disease) stage 3, GFR 30-59 ml/min Current Visit: Yes Status: Chronic Assessment and plan: Slightly elevated creatinine to 1.7 Patient given one bolus of 500cc, encouraged liberal fluid intake, and vanco and zosyn discontinued Monitor renal function (9) Multiple myeloma Current Visit: Yes Status: Chronic Assessment and plan: -Management as an outpatient by oncology -Oncology has been consulted and appreciate recommendations. Qualifiers: Multiple myeloma remission status: not in remission Qualified Code(s): C90.00 - Multiple myeloma not having achieved remission (10) CAD (coronary artery disease) Current Visit: Yes Status: Chronic Assessment and plan: -Patient with known coronary arterial disease with chest pain; management as above Qualifiers: Coronary Disease-Associated Artery/Lesion type: [place] artery [place] vs. transplanted heart: [place] heart Associated angina: angina presence unspecified Qualified Code(s): I25.10 - Atherosclerotic heart disease of [place] coronary artery without angina pectoris (11) Thrombocytopenia Current Visit: Yes Status: Chronic Assessment and plan: PLT 72 - Subjective Interval history: 66 M seen and evaluated at bedside He has a PMH of MM, admitted for NSTEMI He developed sepsis secondary to Pneumonia 02/26 He denies new complains Renal function is worse this morning. Blood cultures preliminary no growth. We will de-escalate antibiotics. Oncology and palliative eval appreciated - Constitutional Vitals: Temp Pulse Resp BP Pulse Ox 98.2 F 65 18 170/83 97 02/28/17 08:13 02/28/17 08:13 02/28/17 08:13 02/28/17 08:13 02/28/17 08:13 General appearance: Present: cooperative, A&O X 3, pleasant, no acute distress, loss of weight, answers questions appropriately - Head Head exam: Present: atraumatic, normocephalic - Eye Eye exam: Present: PERRL, conjuntiva pink, sclera anicteric Pupils: Present: PERRL - Neck Neck exam general surgery: Present: supple, trachea midline. Absent: lymphadenopathy - Respiratory Respiratory exam: Present: CTAB. Absent: accessory muscle use, rales, rhonchi, wheezes - Cardiovascular Cardiovascular exam: Present: RRR, +S1, +S2. Absent: diastolic murmur, gallop, rubs, systolic murmur - GI/Abdominal GI/Abdominal exam: Present: normal bowel sounds, soft, no peritoneal signs. Absent: distended, tenderness - Extremities Exam Extremities exam: Present: warm, radial pulses palpable and symmetrical. Absent : calf tenderness, cyanotic, pedal edema - Neurological Exam Neurological exam: Present: alert, CN II-XII intact, oriented X3, no focal deficits. Absent: pronater drift, facial droop, speech deficit - Skin Skin exam: Present: dry, intact Internal Medicine: Result - Labs CBC & Chem 7: 02/28/17 05:25 02/28/17 05:25 Labs: Short CBC 02/28/17 Range/Units 05:25 WBC 5.1 (4.3-11.1) K/mcL Hgb 8.8 L (12.9-16.9) g/dL Hct 28.0 L (37.5-50.1) % Plt Count 72 L (140-400) K/mcL Neutrophils # 3.9 (1.6-8.9) K/mcL BMP 02/28/17 05:25 Sodium 139 Potassium 3.8 Chloride 113 H Carbon Dioxide 21 BUN 39 H D Creatinine 3.02 H Glucose 124 H Calcium 7.9 L - ABG Interpretation ABG results: PT/INR, D-dimer PT 10.7 Seconds (9.4-12.1) 02/23/17 14:42 Consult Discharge Plan - Plan Referrals: Elio Melendez MD [Primary Care Provider] - 03/05/17 3:00 pm (please follow up as schedule..) Fransisco Cabral MD [Partnered Physician] - 03/06/17 2:20 pm (Please follow up as schedule...)
--- NOTE | 2017-02-28 11:03 | Nephrology Progress Note ---
Date of Encounter: 02/28/17 Time of Encounter: 11:01 - Assessment and Plan (1) ARF (acute renal failure) Current Visit: No Status: Acute Creatinine starting to rise. Agree with discontinuing vancomycin. Palliative care to discuss his goals of care. Patient wants conservative treatment. (2) Sepsis Current Visit: Yes Status: Acute Patient with fever x1, but persistent and bandemia on his CBC with diff. Etiology is unclear. Antibiotics per primary team. He has decided on a more aggressive course and is agreeable to treating his possible infection. Agree that his antibiotics can be deescalated. Agree with discontinuing vancomycin. Qualifiers: Sepsis type: sepsis due to unspecified organism Qualified Code(s): A41.9 - Sepsis, unspecified organism (3) NSTEMI (non-ST elevated myocardial infarction) Current Visit: Yes Status: Acute Per primary team and cardiology. Patient might benefit from Cardiac cath, but there is concern for possible bleeding and now he doesn't think he would consent to dialysis. After talking with cardiology he is willing to be aggressively managed medically. No active chest pain. (4) Multiple myeloma Current Visit: Yes Status: Acute Per oncology. Patient has changed his mind and is willing to be treated for his myeloma. Qualifiers: Multiple myeloma remission status: not in remission Qualified Code(s): C90.00 - Multiple myeloma not having achieved remission (5) CKD (chronic kidney disease) stage 3, GFR 30-59 ml/min Current Visit: Yes Status: Chronic Patient is stating that he will not consent to dialysis. Will continue to follow. (6) Hypertension Current Visit: Yes Status: Chronic Titrate antihypertensive medications as tolerated. Will increase hydralazine as his blood pressure is increasing. Qualifiers: Hypertension type: essential hypertension Qualified Code(s): I10 - Essential (primary) hypertension Subjective Principal diagnosis: NSTEMI Interval history: Patient seen. No new complaint. No chest pain or dypnea at rest. Patient is now willing to continue palliative chemotherapy and medical management of his NSTEMI. He has not changed his mind about dialysis at this time. Objective - Vital Signs Vital signs: Vital Signs Temp Pulse Resp BP Pulse Ox 02/28/17 08:13 98.2 F 65 18 170/83 97 02/28/17 04:33 98.0 F 62 17 172/84 98 02/27/17 23:19 98.9 F 60 17 154/75 98 02/27/17 18:45 98.3 F 59 18 155/73 99 02/27/17 17:30 97.5 F L 58 18 141/82 95 Intake and Output 02/27/17 02/28/17 02/28/17 23:59 07:59 15:59 Intake Total 100 / 100 240 / 240 Balance 100 / 100 240 / 240 Intake: IV Fluids 100 / 100 Zosyn 3.375 GM In Dextrose 5% ( 100 / 100 Minibag+) 100 ML 100 ML @ 25 mls/hr IVPB Q12H TETE Rx#: [id number] Oral 240 / 240 Other: Meal Breakfast Percent of Meal Consumed 100% Weight 80.1 kg Blood Glucose* 108 90 Patient Weight 02/28/17 23:59 Weight 80.1 kg - General Appearance General appearance: Present: well-developed, well-nourished EENT: Present: ATNC Neck: Present: supple Respiratory: Present: clear Cardiology: Present: no edema, regular rate Integumentary: Present: warm and dry Neurologic: Present: alert and oriented x3 Psychiatric: Present: mood/affect appropriate - Lab 02/28/17 05:25 02/28/17 05:25 Most recent lab results Calcium 7.9 mg/dL (8.6-10.8) L 02/28/17 05:25 Magnesium 2.4 mg/dL (1.6-2.6) 02/24/17 08:08 Consult Discharge Plan - Plan Referrals: Elio Melendez MD [Primary Care Provider] - 03/05/17 3:00 pm (please follow up as schedule..) Fransisco Cabral MD [Partnered Physician] - 03/08/17 11:40 am (Please follow up as schedule...)
[2017-02-28] MEDS ORDERED: hydrALAZINE 10 MG TABLET PO SCH (12:00)
[2017-02-28] MEDS: hydrALAZINE 10 MG TABLET PO SCH ×3 (13:49→23:51)
--- NOTE | 2017-02-28 15:37 | Oncology Inp Progress Note ---
<Camryn Braden L - Last Filed: 02/28/17 16:03> Date of Encounter: 02/28/17 Time of Encounter: 12:30 (1) Thrombocytopenia Current Visit: Yes Status: Chronic Assessment and plan: Improving, platelets 72 today. No reported issues with bleeding. Likely multifactorial from velcade, infection and/or antimicrobials. De-escalating antimicrobials due to worsening renal failure, vancomycin discontinued, he has started levaquin at direction of hospitalist team. He continues to decline dialysis at this time. (2) Anemia Current Visit: No Status: Acute Assessment and plan: Secondary to MM. Received 2 units PRBC on 02/23 and 02/24. CBC today shows hgb 8.8. Denies chest pain or SOB. EGD 02/08 and Colonoscopy 02/09 no signs of acute bleeding. EGD biopsies negative for malignancy. Will monitor CBC tomorrow , may consider transfusion for worsening anemia Qualifiers: Anemia type: other cause Other causes of anemia: other cause, not classified Qualified Code(s): D64.89 - Other specified anemias (3) Multiple myeloma Current Visit: Yes Status: Chronic Assessment and plan: Receiving Velcade/Dexamethasone and aranesp for IgG kappa ISS stage III multiple myeloma with a palliative treatment intent. Following previous discussions with Dr. Cabral, patient is agreeable to continue treatment with dose reduction and goal to maintain higher hgb threshold. Clarified with patient again today and he is still in agreement with this plan. He does not wish to pursue hospice at this time but will reconsider in future if he is unable to tolerate therapy, this can be readdressed at a future date if needed. He is scheduled to follow up with Dr. Cabral early next week. Qualifiers: Multiple myeloma remission status: not in remission Qualified Code(s): C90.00 - Multiple myeloma not having achieved remission (4) NSTEMI (non-ST elevated myocardial infarction) Current Visit: Yes Status: Acute Assessment and plan: Managed by Dr. Moreno, continue with planned medical management, no surgical intervention at this time. Oncology: Subj Interval history: Mr. Flores is doing well. Appetite improving, denies nausea or vomiting. Denies pain or symptoms of bleeding. Energy is improving, he is ambulating to bathroom. Reports a more positive outlook on treatment goals and has agreed to more aggressive treatment following his discussions with Dr. Cabral and Dr. Moreno. - Constitutional Vitals: Vital Signs Temp Pulse Resp BP Pulse Ox 02/28/17 11:17 98.6 F 61 16 136/80 96 02/28/17 08:13 98.2 F 65 18 170/83 97 02/28/17 04:33 98.0 F 62 17 172/84 98 02/27/17 23:19 98.9 F 60 17 154/75 98 02/27/17 18:45 98.3 F 59 18 155/73 99 02/27/17 17:30 97.5 F L 58 18 141/82 95 Intake and Output 02/27/17 02/28/17 02/28/17 23:59 07:59 15:59 Intake Total 100 / 100 240 / 240 Balance 100 / 100 240 / 240 Intake: IV Fluids 100 / 100 Zosyn 3.375 GM In Dextrose 5% ( 100 / 100 Minibag+) 100 ML 100 ML @ 25 mls/hr IVPB Q12H TETE Rx#: [id number] Oral 240 / 240 Other: Meal Breakfast Percent of Meal Consumed 100% Weight 80.1 kg 80.1 kg Blood Glucose* 108 95 Patient Weight 02/28/17 23:59 Weight 80.1 kg General appearance: cooperative, no acute distress - Eye Eye exam: Present: EOMI - ENT ENT exam: Present: mucous membranes moist, normal exam - Neck Neck exam: Present: full ROM. Absent: lymphadenopathy - Respiratory Respiratory exam: Present: CTAB - Cardiovascular Cardiovascular exam: Present: RRR. Absent: diastolic murmur, systolic murmur - GI/Abdominal GI/Abdominal exam: Present: normal bowel sounds, soft. Absent: tenderness - Extremities Exam Extremities exam: Present: full ROM. Absent: pedal edema, tenderness - Neurological Exam Neurological exam: Present: alert, oriented X3 - Psychiatric Psychiatric exam: Present: normal affect - Skin Skin exam: Present: normal color Oncology: Obj Data - Labs CBC & Chem 7: 02/28/17 05:25 02/28/17 05:25 Labs: Laboratory Results - last 24 hr 02/27/17 02/27/17 02/27/17 06:53 17:35 21:18 WBC RBC Hgb Hct MCV MCH MCHC RDW Plt Count MPV Immature Gran % Seg Neutrophils % Lymphocytes % Monocytes % Eosinophils % Basophils % Neutrophils # Lymphocytes # Monocytes # Eosinophils # Basophils # Immature Plt Fraction Sodium Potassium Chloride Carbon Dioxide BUN Creatinine Est GFR ( Amer) Est GFR (Non-Af Amer) BUN/Creatinine Ratio Glucose POC Glucose 94 H 99 H 108 H Calculated Osmolality Calcium Random Vancomycin 02/28/17 02/28/17 02/28/17 05:25 05:25 05:25 WBC 5.1 RBC 2.99 L Hgb 8.8 L Hct 28.0 L MCV 93.6 MCH 29.4 MCHC 31.4 L RDW 16.8 H Plt Count 72 L MPV 11.9 Immature Gran % 3.9 Seg Neutrophils % 75.9 Lymphocytes % 9.8 Monocytes % 7.3 Eosinophils % 2.9 Basophils % 0.2 Neutrophils # 3.9 Lymphocytes # 0.5 L Monocytes # 0.4 Eosinophils # 0.2 Basophils # 0.0 Immature Plt Fraction 5.8 Sodium 139 Potassium 3.8 Chloride 113 H Carbon Dioxide 21 BUN 39 H D Creatinine 3.02 H Est GFR ( Amer) 25 L Est GFR (Non-Af Amer) 21 L BUN/Creatinine Ratio 13 Glucose 124 H POC Glucose Calculated Osmolality 299 Calcium 7.9 L Random Vancomycin 13.4 02/28/17 11:21 WBC RBC Hgb Hct MCV MCH MCHC RDW Plt Count MPV Immature Gran % Seg Neutrophils % Lymphocytes % Monocytes % Eosinophils % Basophils % Neutrophils # Lymphocytes # Monocytes # Eosinophils # Basophils # Immature Plt Fraction Sodium Potassium Chloride Carbon Dioxide BUN Creatinine Est GFR ( Amer) Est GFR (Non-Af Amer) BUN/Creatinine Ratio Glucose POC Glucose 95 H Calculated Osmolality Calcium Random Vancomycin - ABG Interpretation ABG results: PT/INR, D-dimer PT 10.7 Seconds (9.4-12.1) 02/23/17 14:42 Consult Discharge Plan - Plan Referrals: Elio Melendez MD [Primary Care Provider] - 03/05/17 3:00 pm (please follow up as schedule..) Fransisco Cabral MD [Partnered Physician] - 03/06/17 2:20 pm (Please follow up as schedule...) <Fransisco Cabral - Last Filed: 02/28/17 21:06> Date of Encounter: 02/28/17 (1) NSTEMI (non-ST elevated myocardial infarction) Current Visit: Yes Status: Acute (2) Multiple myeloma Current Visit: Yes Status: Chronic Qualifiers: Multiple myeloma remission status: not in remission Qualified Code(s): C90.00 - Multiple myeloma not having achieved remission (3) Thrombocytopenia Current Visit: Yes Status: Chronic - Constitutional Vitals: Vital Signs Temp Pulse Resp BP Pulse Ox 02/28/17 19:06 97.7 F 69 17 150/82 98 02/28/17 15:57 97.9 F 60 18 152/76 98 02/28/17 11:17 98.6 F 61 16 136/80 96 02/28/17 08:13 98.2 F 65 18 170/83 97 02/28/17 04:33 98.0 F 62 17 172/84 98 02/27/17 23:19 98.9 F 60 17 154/75 98 Intake and Output 02/28/17 02/28/17 03/01/17 08:59 16:59 00:59 Intake Total 240 / 240 240 / 240 Balance 240 / 240 240 / 240 Intake: Oral 240 / 240 240 / 240 Other: Meal Breakfast Dinner Percent of Meal Consumed 100% 25% Weight 80.1 kg 80.1 kg Blood Glucose* 90 95 104 Patient Weight 03/01/17 00:59 Weight 80.1 kg Oncology: Obj Data - Labs CBC & Chem 7: 02/28/17 05:25 02/28/17 05:25 Labs: Laboratory Results - last 24 hr 02/27/17 02/27/17 02/27/17 06:53 17:35 21:18 WBC RBC Hgb Hct MCV MCH MCHC RDW Plt Count MPV Immature Gran % Seg Neutrophils % Lymphocytes % Monocytes % Eosinophils % Basophils % Neutrophils # Lymphocytes # Monocytes # Eosinophils # Basophils # Immature Plt Fraction Sodium Potassium Chloride Carbon Dioxide BUN Creatinine Est GFR ( Amer) Est GFR (Non-Af Amer) BUN/Creatinine Ratio Glucose POC Glucose 94 H 99 H 108 H Calculated Osmolality Calcium Random Vancomycin 02/28/17 02/28/17 02/28/17 05:25 05:25 05:25 WBC 5.1 RBC 2.99 L Hgb 8.8 L Hct 28.0 L MCV 93.6 MCH 29.4 MCHC 31.4 L RDW 16.8 H Plt Count 72 L MPV 11.9 Immature Gran % 3.9 Seg Neutrophils % 75.9 Lymphocytes % 9.8 Monocytes % 7.3 Eosinophils % 2.9 Basophils % 0.2 Neutrophils # 3.9 Lymphocytes # 0.5 L Monocytes # 0.4 Eosinophils # 0.2 Basophils # 0.0 Immature Plt Fraction 5.8 Sodium 139 Potassium 3.8 Chloride 113 H Carbon Dioxide 21 BUN 39 H D Creatinine 3.02 H Est GFR ( Amer) 25 L Est GFR (Non-Af Amer) 21 L BUN/Creatinine Ratio 13 Glucose 124 H POC Glucose Calculated Osmolality 299 Calcium 7.9 L Random Vancomycin 13.4 02/28/17 11:21 WBC RBC Hgb Hct MCV MCH MCHC RDW Plt Count MPV Immature Gran % Seg Neutrophils % Lymphocytes % Monocytes % Eosinophils % Basophils % Neutrophils # Lymphocytes # Monocytes # Eosinophils # Basophils # Immature Plt Fraction Sodium Potassium Chloride Carbon Dioxide BUN Creatinine Est GFR ( Amer) Est GFR (Non-Af Amer) BUN/Creatinine Ratio Glucose POC Glucose 95 H Calculated Osmolality Calcium Random Vancomycin - ABG Interpretation ABG results: PT/INR, D-dimer PT 10.7 Seconds (9.4-12.1) 02/23/17 14:42 - Attending Attestation I examined this patient and my medical decision-making was reviewed with the Advanced Practice Nurse. I agree with the documented findings, disposition and treatment plan as described except to the extent set forth below. He is feeling a bit better. Transitioned to oral antibiotics. Will watch H/H tomorrow and consider transfusion prior to d/c. He will see me in the office Sunday to continue treatment.
[2017-03-01 05:56] LABS: Eosinophils # 0.1 K/mcL (0.0-0.6); Eosinophils % 2.7 %; Hematocrit 25.6 % (37.5-50.1); Hemoglobin 8.4 g/dL (12.9-16.9); Lymphocytes # 0.5 K/mcL (0.6-4.6); Lymphocytes % 13.9 %; Mean Corpuscular HGB Conc 32.8 g/dL (31.6-35.5); Mean Corpuscular Hemoglobin 29.9 pg (28.0-33.3); Mean Corpuscular Volume 91.1 fL (83.0-100.0); Mean Platelet Volume 11.8 fL (9.4-12.4); Monocytes # 0.3 K/mcL (0.0-1.3); Monocytes % 10.1 %; Neutrophils # 2.4 K/mcL (1.6-8.9); Nucleated Red Blood Cells 0.6 /100 WBC (0); Platelet Count 103 K/mcL (140-400); Red Blood Count 2.81 M/mcL (4.19-5.50); Segmented Neutrophils % 70.3 %
[2017-03-01] MEDS: *HR* Heparin 5,000 UNIT/ML VIAL SQ SCH (06:01)
[2017-03-01] MEDS: hydrALAZINE 10 MG TABLET PO SCH ×2 (06:01→13:48)
[2017-03-01 06:10] LABS: Calcium 7.5 mg/dL (8.6-10.8); Phosphorous 3.7 mg/dL (2.3-4.7)
[2017-03-01] MEDS ORDERED: Sennosides 8.6 MG TABLET PO SCH (09:00)
[2017-03-01] MEDS: Cyanocobalamin (B-12) 1,000 MCG TABLET PO SCH (09:17)
[2017-03-01] MEDS: Aspirin Enteric Coated 81 MG Tablet PO SCH (09:17)
[2017-03-01] MEDS: amLODIPine 5 MG TABLET PO SCH (09:17)
[2017-03-01] MEDS: Acyclovir 200 MG CAPSULE PO SCH (09:17)
[2017-03-01] MEDS: Isosorbide MONOnitrate (24 HR) 60 MG TAB.ER.24H PO SCH (09:17)
[2017-03-01] MEDS: Metoprolol XL (24 HR) Succ 50 MG TAB.ER.24H PO SCH (09:17)
--- NOTE | 2017-03-01 09:41 | Electrocardiograph Report ---
[place] [id number] Test Date: 2017-02-23 Pat Name: Jose Mark Department: 104 Room: 2A32 Gender: M [employer] Operator: SHELBY : [id number] Requested By: Ed Aguilar Order Number: [id number] Reading MD: Malissa Walden Measurements Intervals [place] Rate: 97 P: 69 [place]: 146 QRS: 9 QRSD: 97 T: 84 QT: 331 QTc: 386 Interpretive Statements SINUS RHYTHM POSSIBLE RIGHT VENTRICULAR CONDUCTION DELAY [RSR (QR) IN V1/V2] POSSIBLE ANTEROSEPTAL MYOCARDIAL INFARCTION OF INDETERMINATE AGE Electronically Signed On 03-01-2017 9:40:32 EDT by Malissa Walden
[2017-03-01] MEDS ORDERED: 0.9 % Sodium Chloride 250 ML ONE (10:08)
--- NOTE | 2017-03-01 11:07 | Nephrology Progress Note ---
Date of Encounter: 03/01/17 Time of Encounter: 11:04 - Assessment and Plan (1) ARF (acute renal failure) Current Visit: No Status: Acute Creatinine improving today. Agree with discontinuing vancomycin. Palliative care to discuss his goals of care. Patient wants conservative treatment. He does not want dialysis. (2) Sepsis Current Visit: Yes Status: Acute Patient with fever x1, and bandemia on his CBC with diff that has resolved. Etiology is unclear, but seems to have resolved. Antibiotics per primary team. He has decided on a more aggressive course and is agreeable to treating his possible infection. Agree that his antibiotics can be deescalated. Agree with discontinuing vancomycin. Qualifiers: Sepsis type: sepsis due to unspecified organism Qualified Code(s): A41.9 - Sepsis, unspecified organism (3) NSTEMI (non-ST elevated myocardial infarction) Current Visit: Yes Status: Acute Per primary team and cardiology. Patient might benefit from Cardiac cath, but there is concern for possible bleeding and now he doesn't think he would consent to dialysis. After talking with cardiology he is willing to be aggressively managed medically. No active chest pain. (4) Multiple myeloma Current Visit: Yes Status: Chronic Per oncology. Patient has changed his mind and is willing to be treated for his myeloma. Qualifiers: Multiple myeloma remission status: not in remission Qualified Code(s): C90.00 - Multiple myeloma not having achieved remission (5) CKD (chronic kidney disease) stage 3, GFR 30-59 ml/min Current Visit: Yes Status: Chronic Patient is stating that he will not consent to dialysis. Will continue to follow. (6) Hypertension Current Visit: Yes Status: Chronic Titrate antihypertensive medications as tolerated. Improved. Qualifiers: Hypertension type: essential hypertension Qualified Code(s): I10 - Essential (primary) hypertension Subjective Principal diagnosis: NSTEMI Interval history: Patient seen. No new complaint. No chest pain or dypnea at rest. Patient is willing to continue palliative chemotherapy and medical management of his NSTEMI. He has not changed his mind about dialysis at this time. Objective - Vital Signs Vital signs: Vital Signs Temp Pulse Resp BP Pulse Ox 03/01/17 10:29 98.2 F 64 16 130/63 95 03/01/17 10:24 98.1 F 66 16 129/64 94 11/02/17 09:23 98 03/01/17 06:39 98.0 F 68 18 155/74 98 03/01/17 02:55 97.9 F 69 17 152/76 98 02/28/17 23:07 98.2 F 70 17 160/72 96 02/28/17 19:06 97.7 F 69 17 150/82 98 02/28/17 15:57 97.9 F 60 18 152/76 98 02/28/17 11:17 98.6 F 61 16 136/80 96 Intake and Output 02/28/17 03/01/17 03/01/17 23:59 07:59 15:59 Intake Total 440 / 440 360 / 360 Output Total 300 / 300 Balance 440 / 440 -300 / -300 360 / 360 Intake: Oral 440 / 440 360 / 360 Blood Product 0 / 0 Rbcs Leuko Poor As-1 Unit 0 / 0 [id number] Output: Urine 300 / 300 Other: Meal Dinner Breakfast Percent of Meal Consumed 25% 50% Blood Glucose* 104 85 128 - General Appearance General appearance: Present: well-developed, well-nourished, chronically ill EENT: Present: ATNC Cardiology: Present: regular rate Neurologic: Present: alert and oriented x3 Psychiatric: Present: mood/affect appropriate - Lab 03/01/17 05:06 03/01/17 05:06 Most recent lab results Calcium 7.5 mg/dL (8.6-10.8) L 03/01/17 05:06 Phosphorus 3.7 mg/dL (2.3-4.7) 03/01/17 05:06 Magnesium 2.4 mg/dL (1.6-2.6) 02/24/17 08:08 Consult Discharge Plan - Plan Referrals: Elio Melendez MD [Primary Care Provider] - 03/05/17 3:00 pm (please follow up as schedule..) Fransisco Cabral MD [Partnered Physician] - 03/06/17 2:20 pm (Please follow up as schedule...)
--- NOTE | 2017-03-01 11:17 | Discharge Summary ---
Date of Encounter: 03/01/17 Time of Encounter: 09:30 - Discharge Diagnosis (1) Sepsis Priority: Primary Status: Resolved Comments: Patient developed fever of 100.5 on 02/26, with with WBC <4 and XR showed LL pneumonia, vs atypical pneumonia Blood culture had no growth He Received Vanco and Zosyn for 2 days Afebrile since 02/26 He has been started on Leavquin 02/28 and is stable to be discharged home on same q48H for 3 more doses Qualifiers: Sepsis type: sepsis due to unspecified organism Qualified Code(s): A41.9 - Sepsis, unspecified organism (2) Pneumonia Priority: Primary Status: Acute Comments: As above Qualifiers: Pneumonia type: due to unspecified organism Laterality: left Lung location: unspecified part of lung Qualified Code(s): J18.9 - Pneumonia, unspecified organism (3) Weakness Priority: Secondary Status: Resolved Comments: Resolved, patient is ambulatory (4) NSTEMI (non-ST elevated myocardial infarction) Priority: Primary Status: Acute Comments: Patient with elevated cardio biomarkers and EKG with recurrent ST depression on admission TTE 02/06/17-Normal LV systolic function, LVEF 60%. Normal left ventricular diastolic function. Normal right ventricular size and function. Mildly dilated left atrium. Mildly dilated right atrium. Mild mitral regurgitation. Moderate- severe pulmonary hypertension. Cardiology consult with recommendations for medical management due to severe anemia, thrombocytopenia, and chronic kidney disease; patient is at high risk for left heart catheter for worsening renal failure as well as his significant anemia. Patient declined any invasive procedures We changed his home simvastatin to high intensity lipitor Continue medical optimization and follow up with PCP (5) Hypertension Priority: Secondary Status: Chronic Comments: Controlled, discharged on current regimen of Norvasc, Toprol, Hydralazine, Spironolactone, Qualifiers: Hypertension type: essential hypertension Qualified Code(s): I10 - Essential (primary) hypertension (6) Diabetes mellitus Priority: Secondary Status: Chronic Qualifiers: Diabetes mellitus type: type 2 Diabetes mellitus complication status: without complication Diabetes mellitus fpc insulin use: without fpc use Qualified Code(s): E11.9 - Type 2 diabetes mellitus without complications (7) Chronic hypoxemic respiratory failure Priority: Secondary Status: Chronic (8) CKD (chronic kidney disease) stage 3, GFR 30-59 ml/min Priority: Secondary Status: Chronic (9) Multiple myeloma Priority: Secondary Status: Chronic Qualifiers: Multiple myeloma remission status: not in remission Qualified Code(s): C90.00 - Multiple myeloma not having achieved remission (10) CAD (coronary artery disease) Priority: Secondary Status: Chronic Qualifiers: Coronary Disease-Associated Artery/Lesion type: [place] artery [place] vs. transplanted heart: [place] heart Associated angina: angina presence unspecified Qualified Code(s): I25.10 - Atherosclerotic heart disease of [place] coronary artery without angina pectoris (11) Thrombocytopenia Priority: Secondary Status: Chronic - Discharge Medications Prescriptions: hydrALAZINE [HydrALAZINE] 20 mg PO Q6HR #90 tablet Atorvastatin [Lipitor] 80 mg PO HS #30 tablet Ergocalciferol (VITAMIN D2) [Drisdol (50,000 Unit)] 50,000 unit PO QWEEK #7 capsule Isosorbide MONOnitrate (24 HR) [Imdur] 60 mg PO DAILY #30 tab.er.24h Levofloxacin [Levaquin] 750 mg PO Q48H #3 tablet Home Medications: Aspirin Enteric Coated [Aspirin EC] 81 mg PO DAILY 09/06/15 [History] Amlodipine Besylate 10 mg PO DAILY 01/11/17 [History] Gabapentin [Neurontin] 300 mg PO HS 01/11/17 [History] Lidocaine Patch [Lidoderm 5% patch] 1 - 2 each TP DAILY PRN 01/11/17 [History] Metoprolol Succinate 100 mg PO DAILY 01/11/17 [History] Tamsulosin [Flomax] 0.4 mg PO DAILY 01/11/17 [History] Acyclovir [Zovirax] 400 mg PO BID #30 capsule 01/17/17 [Rx] Cyanocobalamin (Vitamin B-12) [Vitamin B12] 1,000 mcg PO DAILY #30 tablet [Rx] Promethazine [Phenergan] 25 mg PO Q6HR PRN #60 tablet 02/01/17 [Rx] Omeprazole [PriLOSEC] 40 mg PO DAILY@0730 #30 capsule.dr 02/12/17 [Rx] Cyclobenzaprine [Flexeril] 10 mg PO TID PRN #30 tablet 02/15/17 [Rx] HYDROcodone/Acet 5/325 mg [[place] 5-325 mg] 1 tab PO Q6H PRN #60 tab 02/15/17 [Rx ] Sennosides [Senokot] 8.6 mg PO BID #60 tablet 02/22/17 [Rx] Dexamethasone [Decadron] 40 mg PO AD 02/23/17 [History] Oxygen 3 l NS AD 02/23/17 [History] Atorvastatin [Lipitor] 80 mg PO HS #30 tablet 03/01/17 [Rx] Ergocalciferol (VITAMIN D2) [Drisdol (50,000 Unit)] 50,000 unit PO QWEEK #7 capsule 03/01/17 [Rx] Isosorbide MONOnitrate (24 HR) [Imdur] 60 mg PO DAILY #30 tab.er.24h 03/01/17 [ Rx] Levofloxacin [Levaquin] 750 mg PO Q48H #3 tablet 03/01/17 [Rx] hydrALAZINE [HydrALAZINE] 20 mg PO Q6HR #90 tablet 03/01/17 [Rx] Allergies/Adverse Reactions: 3 Allergy/AdvReac Type Severity Reaction Status Date / Time No Known Allergies Allergy Verified 02/22/17 11:28 Date of admission: 02/23/17 20:58 Primary care physician: Elio Melendez MD Consults: 02/23/17 21:11 Consult to Cardiology [CONS] Routine Comment: Consulting Provider: Card[facility] [place] Reason for Consult: elevated troponin Call Completed: Yes 02/23/17 21:39 Consult to Oncology [CONS] Routine Consulting Provider: On[facility] Reason for Consult: thrombocytopenia, multiple myeloma Call Completed: Yes 02/24/17 08:27 Consult to Nephrology [CONS] Routine Consulting Provider: [facility]/ANTONIO/BRITNI/ABHILASH Reason for Consult: EVER on CKD Call Completed: No 02/25/17 12:58 Consult to Palliative Care [CONS] Routine Comment: Consulting Provider: Palliative [facility] [place] Reason for Consult: Assist with goals of care Call Completed: No Discharging clinician: Arya Mcgill Anticipated date of discharge: 03/01/17 - Patient Status Disposition: Home Health Service Condition: Good Functional capacity at discharge: independent ambulation Overall status at discharge: patient is back to baseline - Discharge Instructions Follow Up With: Elio Melendez MD [Primary Care Provider] - 03/05/17 3:00 pm (please follow up as schedule..) Fransisco Cabral MD [Partnered Physician] - 03/06/17 2:20 pm (Please follow up as schedule...) - Diet and Activity Activity: resume usual activities as tolerated Diet: low salt diet Interval History: See below Hospital course: Mr. Flores is a 66 year old male with MM with chronic anemia and thrombocytoenia , CKD, HTN, Chronic resp failure on home O2 He was admitted for NSTEMI with incidental finding of worsening renal function and Sepsis on admission He is seen and evaluated at bedside this morning He has no complains He is ambulatory His sepsis has resolved He has chronic anemia , Hb at baseline is around 8. Which is the same. He had been ordered blood by oncologist. Follow up with Oncologist as outpatient Patient is medically optimized and clinically stable to be discharged Rest of details as in section on diagnoses - Time Spent with Patient Total time spent providing and/or coordinating discharge services: Greater than 30 minutes - Constitutional Vitals: Temp Pulse Resp BP Pulse Ox 98.2 F 64 16 130/63 95 03/01/17 10:29 03/01/17 10:29 03/01/17 10:29 03/01/17 10:29 03/01/17 10:29 General appearance: Present: cooperative, A&O X 3, pleasant, no acute distress, loss of weight, answers questions appropriately - Head Head exam: Present: atraumatic, normocephalic - Eye Eye exam: Present: PERRL, conjuntiva pink, sclera anicteric Pupils: Present: PERRL - Neck Neck exam general surgery: Present: supple, trachea midline. Absent: lymphadenopathy - Respiratory Respiratory exam: Present: CTAB. Absent: accessory muscle use, rales, rhonchi, wheezes - Cardiovascular Cardiovascular exam: Present: RRR, +S1, +S2. Absent: diastolic murmur, gallop, rubs, systolic murmur - GI/Abdominal GI/Abdominal exam: Present: normal bowel sounds, soft, no peritoneal signs. Absent: distended, tenderness - Extremities Exam Extremities exam: Present: warm, radial pulses palpable and symmetrical. Absent : calf tenderness, cyanotic, pedal edema - Neurological Exam Neurological exam: Present: alert, CN II-XII intact, oriented X3, no focal deficits. Absent: pronater drift, facial droop, speech deficit - Skin Skin exam: Present: dry, intact
--- NOTE | 2017-03-01 12:16 | Physician Discharge Referral ---
Home Health/Hosp Referral Info Transfer to: Home Health Attending Provider: Marci Mcgill Provider in Charge Post Discharge: PCP - Diagnosis (1) Sepsis Priority: Primary Status: Resolved (2) Pneumonia Priority: Primary Status: Acute (3) Weakness Priority: Secondary Status: Resolved (4) NSTEMI (non-ST elevated myocardial infarction) Priority: Primary Status: Acute (5) Hypertension Priority: Secondary Status: Chronic (6) Diabetes mellitus Priority: Secondary Status: Chronic (7) Chronic hypoxemic respiratory failure Priority: Secondary Status: Chronic (8) CKD (chronic kidney disease) stage 3, GFR 30-59 ml/min Priority: Secondary Status: Chronic (9) Multiple myeloma Priority: Secondary Status: Chronic (10) CAD (coronary artery disease) Priority: Secondary Status: Chronic (11) Thrombocytopenia Priority: Secondary Status: Chronic - Respiratory Orders Oxygen / L per min (2-3 L per minute prn) Smoking Cessation: Smoking cessation has been advised. For more information, call the [employer] Quit Line at 1-594-NBDA-NOW. - Diet/Nutrition Diet/Nutrition Orders: Renal, Cardiac - Activity Activity Orders: Up ad chani, Ambulate - Services Needed Following services are medically necessary services: Home Health Aide Home Care Orders: Out patient palliative care - Transfer Medications Home Medications: Aspirin Enteric Coated [Aspirin EC] 81 mg PO DAILY 09/06/15 [History] Simvastatin [Zocor] 40 mg PO HS 09/07/15 [History] Amlodipine Besylate 10 mg PO DAILY 01/11/17 [History] Gabapentin [Neurontin] 300 mg PO HS 01/11/17 [History] Lidocaine Patch [Lidoderm 5% patch] 1 - 2 each TP DAILY PRN 01/11/17 [History] Metoprolol Succinate 100 mg PO DAILY 01/11/17 [History] Tamsulosin [Flomax] 0.4 mg PO DAILY 01/11/17 [History] Acyclovir [Zovirax] 400 mg PO BID #30 capsule 01/17/17 [Rx] Cyanocobalamin (Vitamin B-12) [Vitamin B12] 1,000 mcg PO DAILY #30 tablet [Rx] hydrALAZINE [HydrALAZINE] 25 mg PO Q8HR #90 tablet 01/17/17 [Rx] Promethazine [Phenergan] 25 mg PO Q6HR PRN #60 tablet 02/01/17 [Rx] Omeprazole [PriLOSEC] 40 mg PO DAILY@0730 #30 capsule. 02/12/17 [Rx] Cyclobenzaprine [Flexeril] 10 mg PO TID PRN #30 tablet 02/15/17 [Rx] HYDROcodone/Acet 5/325 mg [[place] 5-325 mg] 1 tab PO Q6H PRN #60 tab 02/15/17 [Rx ] Sennosides [Senokot] 8.6 mg PO BID #60 tablet 02/22/17 [Rx] Dexamethasone [Decadron] 40 mg PO AD 02/23/17 [History] Oxygen 3 l NS AD 02/23/17 [History] Allergies/Adverse Reactions: 3 Allergy/AdvReac Type Severity Reaction Status Date / Time No Known Allergies Allergy Verified 02/22/17 11:28 Certification: Further, I certify that my clinical findings support that this patient is homebound (i.e. absences from home require considerable and taxing effort and are for medical reasons or temple services or infrequently or short duration when for other reasons) because: Homebound Reason: Leaving home requires considerable and taxing effort due to condition Attestation: My signature below is to certify that this patient is under my care and that I, or nurse practitioner, or a physician's insurance claims assistant working with me, has a face-to -face encounter with this patient.
[2017-03-01 14:52] VITALS: BP 138/65
== END 2017-03-01 16:05 | disposition home health service (06) | DRG 280 ==
LOC: EMEROO 14:06 → 2ANU 14:06 → SUATTDRO 20:58
PROVIDERS: ADMIT Family Medicine; ATTEND Internal Medicine

== ENCOUNTER 2017-04-28 18:15 | Observation (INO) ==
[2017-04-28] MEDS ORDERED: 0.9 % Sodium Chloride 1,000 ML IVC ONE (18:22)
--- NOTE | 2017-04-28 18:26 | Emergency Department Note ---
Disposition Clinical Impression: Generalized weakness, Dehydration Chronic kidney disease (CKD) Qualifiers: Chronic kidney disease stage: unspecified stage Qualified Code(s): N18.9 - Chronic kidney disease, unspecified Disposition: Admitted As Inpatient Condition: Fair Referrals: Elio Melendez MD [Primary Care Provider] - Forms: ED Satisfaction Letter, Work/School Release Time of Disposition: 19:18 Weakness HPI - General Chief complaint: ED General Medical Stated complaint: generalized weakness, dehydration Time Seen by Provider: 04/28/17 18:21 Source: patient, EMS Mode of arrival: EMS Limitations: no limitations Nursing Notes Reviewed: Yes Vital Signs Reviewed: Yes - History of Present Illness HPI Narrative: Patient arrives from home by EMS. He states for the past 3 days he has been laying on his couch. He is too weak to walk. He notes increasing weakness in his legs. No fall or injury. He denies pain. He has a history of multiple myeloma currently undergoing palliative therapy per Dr. Cabral. Pt Subjective Complaint: generalized weakness/fatigue Onset (ago): day(s) Duration: constant Location: LLE, RLE Pain Severity: severe Pain Scale: 0 Improves with: none Worsens with: none Context: other Associated symptoms: Reports: confusion, nausea/vomiting - Related Data Home Medications Medication Instructions Recorded Confirmed Aspirin Enteric Coated [Aspirin EC] 81 mg PO DAILY 09/06/15 04/09/17 Amlodipine Besylate 10 mg PO DAILY 01/11/17 04/09/17 Lidocaine Patch [Lidoderm 5% patch] 1 - 2 each TP DAILY PRN 01/11/17 04/09/17 Metoprolol Succinate 100 mg PO DAILY 01/11/17 04/09/17 Tamsulosin [Flomax] 0.4 mg PO DAILY 01/11/17 04/09/17 Dexamethasone [Decadron] 20 mg PO AD 02/23/17 04/09/17 Oxygen 3 l NS AD 02/23/17 04/09/17 Previous Rx's Medication Instructions Recorded Acyclovir [Zovirax] 400 mg PO BID #30 capsule 01/17/17 Cyanocobalamin (Vitamin B-12) 1,000 mcg PO DAILY #30 tablet 01/17/17 [Vitamin B12] Promethazine [Phenergan] 25 mg PO Q6HR PRN #60 tablet 02/01/17 Omeprazole [PriLOSEC] 40 mg PO DAILY@0730 #30 capsule.dr 02/12/17 Cyclobenzaprine [Flexeril] 10 mg PO TID PRN #30 tablet 02/15/17 HYDROcodone/Acet 5/325 mg [[place] 1 tab PO Q6H PRN #60 tab 02/15/17 5-325 mg] Sennosides [Senokot] 8.6 mg PO BID #60 tablet 02/22/17 Atorvastatin [Lipitor] 80 mg PO HS #30 tablet 03/01/17 Ergocalciferol (VITAMIN D2) 50,000 unit PO QWEEK #7 capsule 03/01/17 [Drisdol (50,000 Unit)] Isosorbide MONOnitrate (24 HR) 60 mg PO DAILY #30 tab.er.24h 03/01/17 [Imdur] hydrALAZINE [HydrALAZINE] 20 mg PO Q6HR #90 tablet 03/01/17 OxyCODONE/APAP 5/325 [Percocet 1 - 2 each PO Q6HR PRN #60 tablet 04/13/17 5/325 MG] OxyCODONE/APAP 10/325 [Percocet 1 - 2 tab PO Q4HR PRN #90 tablet 04/20/17 10/325 MG] Allergies Allergy/AdvReac Type Severity Reaction Status Date / Time No Known Allergies Allergy Verified 04/09/17 13:43 All systems ED: reviewed and negative except as stated. Constitutional: Reports: weakness Eyes: Reports: as per HPI ENT ED: Reports: as per HPI Cardiovascular: Reports: as per HPI Respiratory: Reports: as per HPI Gastrointestinal: Reports: nausea, vomiting, constipation Genitourinary: Reports: as per HPI Musculoskeletal: Reports: as per HPI Integumentary: Reports: as per HPI Neurological: Reports: weakness Psychiatric: Reports: as per HPI Endocrine: Reports: as per HPI Hematological/Lymphatic: Reports: as per HPI Allergic/Immunologic: Reports: as per HPI Past Medical History - Past Medical History Source: patient Medical history: Reports: COPD, coronary artery disease, diabetes, hypertension , myocardial infarction Surgical history: Reports: angioplasty/stent Psychiatric history: Reports: anxiety, depression - Social History Smoking Status: Former smoker Smokeless Tobacco Status: No Alcohol use: Reports: none Drug use: Reports: none Physical Exam - General Limitations: no limitations General appearance: alert, in no apparent distress - Head Head exam: atraumatic - Eye Eye exam: Present: normal appearance - ENT ENT exam: mucous membranes dry - Neck Neck exam: Present: normal inspection - Chest Chest inspection: Present: normal inspection - Respiratory Respiratory exam: Present: normal lung sounds bilaterally - Cardiovascular Cardiovascular exam: Present: regular rate, normal rhythm, normal heart sounds - Abdominal Exam Abdominal exam: Present: soft, Non-Tender. Absent: tenderness - Rectal Exam Rectal exam: Present: deferred - Extremities Exam Extremities exam: Present: normal inspection - Neurological Exam Neurological exam: Present: alert, oriented X3, CN II-XII intact - Psychiatric Psychiatric exam: Present: normal affect, normal mood - Skin Skin exam: Present: warm, dry, intact Course Course Narrative: Patient presents with generalized weakness. He states he is unable to walk due to leg weakness. He has history of multiple myeloma. I will initiate a metabolic and infectious workup. He will be administered IV hydration - Reevaluation(s) Reevaluation #1: Patient feeling better and has tolerated ice chips at the time of reassessment. Per my review of labs his creatinine is at baseline. He is dehydrated. I will request admission due to generalized weakness Vital Signs Temperature 97.9 F 04/28/17 18:17 Pulse Rate 84 04/28/17 18:17 Respiratory Rate 18 04/28/17 18:17 Blood Pressure 164/122 04/28/17 18:17 O2 Sat by Pulse Oximetry 99 04/28/17 18:17 Temperature 97.9 F 04/28/17 18:17 Pulse Rate 84 04/28/17 18:38 Respiratory Rate 18 04/28/17 18:38 Blood Pressure 158/92 04/28/17 18:38 O2 Sat by Pulse Oximetry 98 04/28/17 18:38 Oxygen Delivery Oxygen Delivery Nasal Cannula Weakness - Medical Records Medical records reviewed: Yes I reviewed the patient's medical records. Recent oncology note reviewed - Lab Data Lab results reviewed: Yes I reviewed the patient's lab results. Result diagrams: 04/28/17 18:35 04/28/17 18:35 Lab Results 04/28/17 04/28/17 04/28/17 Range/Units 18:31 18:35 18:35 WBC 4.7 (4.3-11.1) K/mcL RBC 3.34 L (4.19-5.50) M/mcL Hgb 10.5 L (12.9-16.9) g/dL Hct 31.4 L (37.5-50.1) % MCV 94.0 (83.0-100.0) fL MCH 31.4 (28.0-33.3) pg MCHC 33.4 (31.6-35.5) g/dL RDW 16.3 H (11.5-14.5) % Plt Count 196 (140-400) K/mcL MPV 10.3 (9.4-12.4) fL Immature Gran % 1.7 (0-4) % Seg Neutrophils % 70.5 % Lymphocytes % 15.8 % Monocytes % 9.2 % Eosinophils % 2.4 % Basophils % 0.4 % Neutrophils # 3.3 (1.6-8.9) K/mcL Lymphocytes # 0.7 (0.6-4.6) K/mcL Monocytes # 0.4 (0.0-1.3) K/mcL Eosinophils # 0.1 (0.0-0.6) K/mcL Basophils # 0.0 (0.0-0.2) K/mcL VBG pH (7.32-7.42) pH Units Sodium 139 (136-145) mEq/L Potassium 3.8 (3.5-5.1) mEq/L Chloride 109 H (98-107) mEq/L Carbon Dioxide 23 (23-29) mEq/L BUN 40 H (8-23) mg/dL Creatinine 2.49 H (0.70-1.30) mg/dL Est GFR ( Amer) 31 L (> 60) Est GFR (Non-Af Amer) 26 L (> 60) BUN/Creatinine Ratio 16 (6-26) Glucose 128 H (70-105) mg/dL POC Glucose 106 H (58-89) Calculated Osmolality 299 (280-300) Calcium 9.4 (8.6-10.3) mg/dL Venous Ioniz Calcium (1.15-1.35) mmol/L Magnesium 1.7 (1.6-2.6) mg/dL Total Bilirubin 0.5 (0.3-1.0) mg/dL AST 26 (13-39) Units/L ALT 24 (7-52) Units/L Alkaline Phosphatase 83 (34-104) Units/L Creatine Kinase 26 L (30-223) Units/L Troponin I (< 0.04) ng/mL Serum Total Protein 8.2 (6.4-8.9) g/dL Albumin 3.0 L (3.5-5.7) g/dL Globulin 5.2 H (2.4-3.5) g/dL Albumin/Globulin Ratio 0.6 L (1.1-2.2) Urine Color (Yellow) Urine Clarity (Clear) Urine pH (5.0-8.0) pH Units Ur Specific [place] (1.010-1.025) Urine Protein (Neg-Trace) mg/dL Urine Glucose (UA) (Normal) mg/dL Urine Ketones (Negative) mg/dL Urine Blood (Negative) Urine Nitrite (Negative) Urine Bilirubin (Negative) Urine Urobilinogen (Normal) mg/dL Ur Leukocyte Esterase (Negative) Urine Microscopic RBC (0-3) per hpf Urine Microscopic WBC (0-3) per hpf Ur Squamous Epith Cells (None-Few) per lpf Urine Bacteria (None-Few) per hpf Hyaline Casts (None-Few) per lpf 04/28/17 04/28/17 04/28/17 Range/Units 18:35 18:45 18:48 WBC (4.3-11.1) K/mcL RBC (4.19-5.50) M/mcL Hgb (12.9-16.9) g/dL Hct (37.5-50.1) % MCV (83.0-100.0) fL MCH (28.0-33.3) pg MCHC (31.6-35.5) g/dL RDW (11.5-14.5) % Plt Count (140-400) K/mcL MPV (9.4-12.4) fL Immature Gran % (0-4) % Seg Neutrophils % % Lymphocytes % % Monocytes % % Eosinophils % % Basophils % % Neutrophils # (1.6-8.9) K/mcL Lymphocytes # (0.6-4.6) K/mcL Monocytes # (0.0-1.3) K/mcL Eosinophils # (0.0-0.6) K/mcL Basophils # (0.0-0.2) K/mcL VBG pH 7.47 H (7.32-7.42) pH Units Sodium (136-145) mEq/L Potassium (3.5-5.1) mEq/L Chloride (98-107) mEq/L Carbon Dioxide (23-29) mEq/L BUN (8-23) mg/dL Creatinine (0.70-1.30) mg/dL Est GFR ( Amer) (> 60) Est GFR (Non-Af Amer) (> 60) BUN/Creatinine Ratio (6-26) Glucose (70-105) mg/dL POC Glucose (58-89) Calculated Osmolality (280-300) Calcium (8.6-10.3) mg/dL Venous Ioniz Calcium 1.24 (1.15-1.35) mmol/L Magnesium (1.6-2.6) mg/dL Total Bilirubin (0.3-1.0) mg/dL AST (13-39) Units/L ALT (7-52) Units/L Alkaline Phosphatase (34-104) Units/L Creatine Kinase (30-223) Units/L Troponin I 0.03 (< 0.04) ng/mL Serum Total Protein (6.4-8.9) g/dL Albumin (3.5-5.7) g/dL Globulin (2.4-3.5) g/dL Albumin/Globulin Ratio (1.1-2.2) Urine Color Yellow (Yellow) Urine Clarity Clear (Clear) Urine pH 6.0 (5.0-8.0) pH Units Ur Specific [place] 1.026 H (1.010-1.025) Urine Protein >=1000 H (Neg-Trace) mg/dL Urine Glucose (UA) 100 H (Normal) mg/dL Urine Ketones Negative (Negative) mg/dL Urine Blood Negative (Negative) Urine Nitrite Negative (Negative) Urine Bilirubin Negative (Negative) Urine Urobilinogen Normal (Normal) mg/dL Ur Leukocyte Esterase Negative (Negative) Urine Microscopic RBC 3-5 H (0-3) per hpf Urine Microscopic WBC 5-15 H (0-3) per hpf Ur Squamous Epith Cells Many H (None-Few) per lpf Urine Bacteria None Seen (None-Few) per hpf Hyaline Casts Few (None-Few) per lpf - Radiology Data Radiology results reviewed: Yes I reviewed the patient's radiology results. - EKG Data EKG attestation: Yes I reviewed and interpreted this EKG. EKG results narrative: Normal sinus rhythm rate 80 beats per minute [place] 149 QRS 99 QT/QTC 365/462. Study compared previous dated 02/23/17
[2017-04-28] MEDS ORDERED: Ondansetron 4 MG/2 ML VIAL IVP ONE (18:34)
[2017-04-28 18:46] LABS: Basophils % 0.4 %; Eosinophils # 0.1 K/mcL (0.0-0.6); Eosinophils % 2.4 %; Hematocrit 31.4 % (37.5-50.1); Hemoglobin 10.5 g/dL (12.9-16.9); Immature Granulocytes % 1.7 % (0-4); Lymphocytes # 0.7 K/mcL (0.6-4.6); Lymphocytes % 15.8 %; Mean Corpuscular HGB Conc 33.4 g/dL (31.6-35.5); Mean Corpuscular Hemoglobin 31.4 pg (28.0-33.3); Mean Platelet Volume 10.3 fL (9.4-12.4); Monocytes # 0.4 K/mcL (0.0-1.3); Monocytes % 9.2 %; Neutrophils # 3.3 K/mcL (1.6-8.9); Platelet Count 196 K/mcL (140-400); Red Blood Count 3.34 M/mcL (4.19-5.50); Red Cell Distribution Width 16.3 % (11.5-14.5); Segmented Neutrophils % 70.5 %
[2017-04-28 18:51] LABS: VBG Ionized Calcium 1.24 mmol/L (1.15-1.35); VBG PH 7.47 pH Units (7.32-7.42)
[2017-04-28 18:57] LABS: Bilirubin,Urine Negative (Negative); Blood,Urine Negative (Negative); Clarity,Urine Clear (Clear); Color,Urine Yellow (Yellow); Glucose,Urine (UA) 100 mg/dL (Normal); Ketones,Urine Negative (Negative); Leukocyte Esterase,Urine Negative (Negative); Nitrite,Urine Negative (Negative); Protein,Urine >=1000 mg/dL (Neg-Trace); Specific Gravity,Urine 1.026 (1.010-1.025); Urobilinogen,Urine Normal (Normal)
[2017-04-28 19:00] LABS: Bacteria,Urine None Seen per hpf (None-Few); Squamous Epithelial Cell,Urine Many per lpf (None-Few)
[2017-04-28 19:09] LABS: Hyaline Casts,Urine Few per lpf (None-Few)
[2017-04-28 19:14] LABS: Albumin/Globulin Ratio 0.6 (1.1-2.2); Bilirubin,Total 0.5 mg/dL (0.3-1.0); Calcium 9.4 mg/dL (8.6-10.3); Globulin 5.2 g/dL (2.4-3.5); Magnesium 1.7 mg/dL (1.6-2.6); Potassium 3.8 mEq/L (3.5-5.1); Total Protein 8.2 g/dL (6.4-8.9)
[2017-04-28] MEDS ORDERED: Acetaminophen 325 MG TABLET PO PRN (20:37)
[2017-04-28] MEDS ORDERED: Naloxone 0.4 MG/ML INJ IVP PRN (20:37)
[2017-04-28] MEDS ORDERED: *HR* OxyCODONE/APAP 5/325 TABLET PO PRN (20:41)
--- NOTE | 2017-04-28 20:50 | Internal Med History&Physical ---
Date of Encounter: 04/28/17 Time of Encounter: 20:46 Assessment and Plan (1) Nausea and vomiting Current visit: Yes Status: Acute Appears to have a viral gastroenteritis. N/V x3 days, unable to tolerate PO intake resulting in dehydration, weakness, and fatigue Zofran 4 mg every 8 hours Continue IVF 0.9% NS at 100ml/hr CBCD, BMP in the am Qualifiers: Vomiting type: unspecified Vomiting Intractability: unspecified Qualified Code(s): R11.2 - Nausea with vomiting, unspecified (2) Weakness Current visit: Yes Status: Resolved caused by 3 day h/o n/v, poor oral intake, and h/o multiple myeloma obtain rapid influenza PT/OT consult SS consult to assess for potential short term rehab placement Up with assist (3) CKD (chronic kidney disease) stage 4, GFR 15-29 ml/min Current visit: Yes Status: Acute 3 day h/o nausea and vomiting. The patient is dehydrated and unable to tolerate food or liquids prompting acute on chronic kidney injury. Also, of note he has a h/o CKD stage IV with a GFR of 26. avoid nephrotoxins Received a 1L fluid bolus in the ED continue hydration with 100ml/hr 0.9% NS (4) Anemia Current visit: Yes Status: Acute Stable. No active bleeding noted. Qualifiers: Anemia type: other cause Other causes of anemia: chronic disease, neoplastic Qualified Code(s): D63.0 - Anemia in neoplastic disease (5) DVT prophylaxis Current visit: Yes Status: Acute Heparin 5000units SC BID Internal Medicine - H&P: HPI Chief complaint: Generalized weakness, fatigue, nausea vomiting Admitted From: Home Plans for Post Hospital Care: Home History of present illness: Mr. Flores is a 67 year old male with PMH of multiple myeloma, COPD, CAD, DM, HTN and [place] with angioplasty and stents. Patient has history of multiple myeloma and is being treated with palliative therapy by Dr. Cabral. She presents today with generalized weakness, nausea, vomiting for the last few days. He reports that he is normally ambulatory and for the last 72 hours he hasn't been able to do anything besides lay on his couch. He admits to chills, weakness, fatigue, n/v, decrease in appetite and generalized muscle/joint pain. Denies any CP, SOB, fevers, abdominal pain, back pain, dysuria, or unilateral extremity swelling or pain. Past Med Surg Social Fam HX - Past Medical History Medical history: COPD, coronary artery disease, diabetes, hypertension, myocardial infarction Psychiatric history: anxiety, depression - Past Surgical History Surgical History: angioplasty/stent - Social History Smoking Status: Former smoker Smokeless Tobacco Status: No Alcohol use: none Drug use: none - Family History Sister Adopted: No Family Member Ethnicity: Non- Living Status: Still Living Hx Family Cancer: Yes (history of breast cancer s/p bilateral mastectomy.) Father Living Status: Hx Family Cardiac Disorders: Yes ([place]) Hx Family Endocrine Disorder: Yes (DM) Mother Living Status: Hx Family Endocrine Disorder: Yes (DM) Internal Medicine - H&P: Meds Aspirin Enteric Coated [Aspirin EC] 81 mg PO DAILY 09/06/15 [History] Amlodipine Besylate 10 mg PO DAILY 01/11/17 [History] Lidocaine Patch [Lidoderm 5% patch] 1 - 2 each TP DAILY PRN 01/11/17 [History] Metoprolol Succinate 100 mg PO DAILY 01/11/17 [History] Tamsulosin [Flomax] 0.4 mg PO DAILY 01/11/17 [History] Acyclovir [Zovirax] 400 mg PO BID #30 capsule 01/17/17 [Rx] Cyanocobalamin (Vitamin B-12) [Vitamin B12] 1,000 mcg PO DAILY #30 tablet [Rx] Promethazine [Phenergan] 25 mg PO Q6HR PRN #60 tablet 02/01/17 [Rx] Omeprazole [PriLOSEC] 40 mg PO DAILY@0730 #30 capsule. 02/12/17 [Rx] Cyclobenzaprine [Flexeril] 10 mg PO TID PRN #30 tablet 02/15/17 [Rx] HYDROcodone/Acet 5/325 mg [[place] 5-325 mg] 1 tab PO Q6H PRN #60 tab 02/15/17 [Rx ] Sennosides [Senokot] 8.6 mg PO BID #60 tablet 02/22/17 [Rx] Dexamethasone [Decadron] 20 mg PO AD 02/23/17 [History] Oxygen 3 l NS AD 02/23/17 [History] Atorvastatin [Lipitor] 80 mg PO HS #30 tablet 03/01/17 [Rx] Ergocalciferol (VITAMIN D2) [Drisdol (50,000 Unit)] 50,000 unit PO QWEEK #7 capsule 03/01/17 [Rx] Isosorbide MONOnitrate (24 HR) [Imdur] 60 mg PO DAILY #30 tab.er.24h 03/01/17 [ Rx] hydrALAZINE [HydrALAZINE] 20 mg PO Q6HR #90 tablet 03/01/17 [Rx] OxyCODONE/APAP 5/325 [Percocet 5/325 MG] 1 - 2 each PO Q6HR PRN #60 tablet 04/13 [Rx] OxyCODONE/APAP 10/325 [Percocet 10/325 MG] 1 - 2 tab PO Q4HR PRN #90 tablet [Rx] 3 Allergy/AdvReac Type Severity Reaction Status Date / Time No Known Allergies Allergy Verified 04/09/17 13:43 All Systems PM: A 10-system review of systems was performed and is negative for pertinent findings except as documented above in the HPI. Review of systems: REVIEW OF SYSTEMS GENERAL: Positive for chills, decrease in appetite, weakness, fatigue NEUROLOGIC: Negative for any blurry vision, blind spots, double vision, facial asymmetry, dysphagia, dysarthria, hemiparesis, hemisensory deficits, vertigo, ataxia. HEENT: Negative for any head trauma, neck trauma, neck stiffness, photophobia, phonophobia, sinusitis, rhinitis. CARDIAC: Negative for any chest pain, dyspnea on exertion, paroxysmal nocturnal dyspnea, peripheral edema. PULMONARY: Negative for any shortness of breath, wheezing, COPD, or TB exposure. GASTROINTESTINAL: Negative for any abdominal pain, bright red blood per rectum, melena. Positive for nausea/vomiting GENITOURINARY: Negative for any dysuria, hematuria, incontinence. INTEGUMENTARY: Negative for any rashes, cuts, insect bites. RHEUMATOLOGIC: photosensitive rashes, history of vasculitis or kidney problems. Positive for generalized joint/muscle pains, does have history of multiple myeloma HEMATOLOGIC: Negative for any abnormal bruising, frequent infections or bleeding. - Constitutional Vitals: Temp Pulse Resp BP Pulse Ox 97.9 F 70 18 160/88 98 04/28/17 18:17 04/28/17 19:25 04/28/17 19:25 04/28/17 19:25 04/28/17 19:25 General appearance: Present: cooperative, A&O X 3, no acute distress, answers questions appropriately Exam: PHYSICAL EXAMINATION: GENERAL: The patient is an ill appearing malnourished male, who is in no apparent distress. He is alert and oriented x3. VITAL SIGNS: Temperature 97.9, RR17, 98% BP 160/88 HEENT: Head is normocephalic and atraumatic. Extraocular muscles are intact. Pupils are equal, round, and reactive to light and accommodation. Nares appeared normal. Mucous membranes are dry but oral cavity is without lesions. Posterior pharynx clear of any exudate or lesions. NECK: Supple. No carotid bruits. No lymphadenopathy or thyromegaly. LUNGS: Clear/Diminished to auscultation. HEART: Regular rate and rhythm without murmur. ABDOMEN: Soft, nontender, and nondistended. Positive bowel sounds. No hepatosplenomegaly was noted. EXTREMITIES: Without any cyanosis, clubbing, rash, lesions or edema. NEUROLOGIC: Cranial nerves II through XII are grossly intact. PSYCHIATRIC: Flat affect, but denies suicidal or homicidal ideations. SKIN: No ulceration or induration present. Internal Med - H&P Results - Labs CBC & Chem 7: 04/28/17 18:35 04/28/17 18:35 - EKG Data -: EKG Interpreted by Myself EKG shows normal: sinus rhythm Rate: normal - EKG Data Prior EKG available for review: yes When compared to previous EKG: there is no significant change - Diagnostic Studies CT scan - chest Status: image reviewed by me Additional comments: Resolution of airspace opacities. There is an oval-shaped opacity along the left chest wall corresponding to known chest wall mass
[2017-04-28] MEDS ORDERED: 0.9 % Sodium Chloride 1,000 ML ONE (20:52)
[2017-04-28] MEDS: Sennosides 8.6 MG TABLET PO SCH (23:02)
[2017-04-28] MEDS: Acyclovir 200 MG CAPSULE PO SCH (23:03)
[2017-04-28] MEDS: hydrALAZINE 10 MG TABLET PO SCH (23:03)
[2017-04-28] MEDS: 0.9 % Sodium Chloride 1,000 ML IVC SCH (23:08)
[2017-04-29 03:07] LABS: Hemoglobin 9.2 g/dL (12.9-16.9)
[2017-04-29 03:13] LABS: Hematocrit 27.7 % (37.5-50.1); Immature Platelets 2.4 % (1.1-6.1); Mean Corpuscular HGB Conc 33.2 g/dL (31.6-35.5); Mean Corpuscular Hemoglobin 31.3 pg (28.0-33.3); Mean Corpuscular Volume 94.2 fL (83.0-100.0); Mean Platelet Volume 10.3 fL (9.4-12.4); Red Blood Count 2.94 M/mcL (4.19-5.50); Red Cell Distribution Width 16.4 % (11.5-14.5)
[2017-04-29 03:21] LABS: Calcium 8.7 mg/dL (8.6-10.3)
[2017-04-29] MEDS ORDERED: *HR* Morphine 2 MG/ML SYRINGE IVP PRN (04:13)
[2017-04-29] MEDS: hydrALAZINE 10 MG TABLET PO SCH ×3 (05:54→17:45)
[2017-04-29] MEDS: *HR* Heparin 5,000 UNIT/ML VIAL SQ SCH ×2 (05:54→17:44)
[2017-04-29] MEDS: amLODIPine 5 MG TABLET PO SCH (08:17)
[2017-04-29] MEDS: Acyclovir 200 MG CAPSULE PO SCH ×2 (08:17→19:56)
[2017-04-29] MEDS: Aspirin Enteric Coated 81 MG Tablet PO SCH (08:18)
[2017-04-29] MEDS: Isosorbide MONOnitrate (24 HR) 60 MG TAB.ER.24H PO SCH (08:18)
[2017-04-29] MEDS: Cyanocobalamin (B-12) 1,000 MCG TABLET PO SCH (08:18)
[2017-04-29] MEDS: Metoprolol XL (24 HR) Succ 50 MG TAB.ER.24H PO SCH (08:18)
[2017-04-29] MEDS: Sennosides 8.6 MG TABLET PO SCH ×2 (08:18→19:56)
[2017-04-29] MEDS: 0.9 % Sodium Chloride 1,000 ML IVC SCH (08:20)
[2017-04-29] MEDS: *HR* OxyCODONE/APAP 10/325 TABLET PO PRN ×2 (08:39→12:45)
--- NOTE | 2017-04-29 10:28 | Oncology Inp Consult Note ---
Date of Encounter: 04/29/17 Time of Encounter: 09:00 - Data of Consult Requesting Physician: Jojo Patel CNP Primary Care Provider: Elio Melendez MD - Consult Narrative Reason for consult: myeloma History of present illness: 67 yo mlae with a diagnosis of IgG kappa, stage III MM, diagnosed in 01/14, 70% marro winvolved at diagnosis, hyperploidy, hx CKD, anemia, hx AL, on Rx with Velcade dexamethasone, staging labs 03/16 showed response in protein levels, admitted with c/o nausea, vomiting 3 days duration. Last velcade on 04/24/17. He denied any abdominal pain. Had fullness in the throat when he tried to vomit. On today's exam he feels well, medication helped.. Reports no fever/cough with exp. Influenza negative. Reports on and off constipation, no diarrhea. A/P Myeloma--s/p palliative treatment as above, to continue next wk if he feels well. Nausea/vomiting-?constipation. Symptoms improved--possible gastroenteritis. Add stool softners. DEnies any pain issues today. On home meds. Labs non neutropenic, no leucocytosis. Cr stable anemia. Paln d/w pt bedside. Past Med Surg Social Fam HX - Past Medical History Medical history: cancer, COPD, coronary artery disease, diabetes, hypertension, myocardial infarction Psychiatric history: anxiety, depression - Past Surgical History Surgical History: angioplasty/stent - Social History Smoking Status: Former smoker Smokeless Tobacco Status: No Alcohol use: none Drug use: none - Family History Sister Adopted: No Family Member Ethnicity: Non- Living Status: Still Living Hx Family Cancer: Yes (history of breast cancer s/p bilateral mastectomy.) Father Living Status: Hx Family Cardiac Disorders: Yes ([place]) Hx Family Endocrine Disorder: Yes (DM) Mother Living Status: Hx Family Endocrine Disorder: Yes (DM) Medications and Allergies Aspirin Enteric Coated [Aspirin EC] 81 mg PO DAILY 09/06/15 [History] Amlodipine Besylate 10 mg PO DAILY 01/11/17 [History] Lidocaine Patch [Lidoderm 5% patch] 1 - 2 each TP DAILY PRN 01/11/17 [History] Metoprolol Succinate 100 mg PO DAILY 01/11/17 [History] Tamsulosin [Flomax] 0.4 mg PO DAILY 01/11/17 [History] Acyclovir [Zovirax] 400 mg PO BID #30 capsule 01/17/17 [Rx] Cyanocobalamin (Vitamin B-12) [Vitamin B12] 1,000 mcg PO DAILY #30 tablet [Rx] Promethazine [Phenergan] 25 mg PO Q6HR PRN #60 tablet 02/01/17 [Rx] Omeprazole [PriLOSEC] 40 mg PO DAILY@0730 #30 capsule.dr 02/12/17 [Rx] Cyclobenzaprine [Flexeril] 10 mg PO TID PRN #30 tablet 02/15/17 [Rx] HYDROcodone/Acet 5/325 mg [[place] 5-325 mg] 1 tab PO Q6H PRN #60 tab 02/15/17 [Rx ] Sennosides [Senokot] 8.6 mg PO BID #60 tablet 02/22/17 [Rx] Dexamethasone [Decadron] 20 mg PO AD 02/23/17 [History] Oxygen 3 l NS AD 02/23/17 [History] Atorvastatin [Lipitor] 80 mg PO HS #30 tablet 03/01/17 [Rx] Ergocalciferol (VITAMIN D2) [Drisdol (50,000 Unit)] 50,000 unit PO QWEEK #7 capsule 03/01/17 [Rx] Isosorbide MONOnitrate (24 HR) [Imdur] 60 mg PO DAILY #30 tab.er.24h 03/01/17 [ Rx] hydrALAZINE [HydrALAZINE] 20 mg PO Q6HR #90 tablet 03/01/17 [Rx] OxyCODONE/APAP 5/325 [Percocet 5/325 MG] 1 - 2 each PO Q6HR PRN #60 tablet 04/13 [Rx] OxyCODONE/APAP 10/325 [Percocet 10/325 MG] 1 - 2 tab PO Q4HR PRN #90 tablet [Rx] Allopurinol [Zyloprim 100 MG] 100 mg PO DAILY 04/28/17 [History] Ergocalciferol (VITAMIN D2) [Vitamin D2] 50,000 unit PO Q1W 04/28/17 [History] Gabapentin [Neurontin] 300 mg PO HS 04/28/17 [History] Nitroglycerin [Nitrostat] 0.4 mg SL Q5M PRN 04/28/17 [History] Pantoprazole Sodium [Protonix] 20 mg PO HS 04/28/17 [History] 3 Allergy/AdvReac Type Severity Reaction Status Date / Time No Known Allergies Allergy Verified 04/09/17 13:43 Review of systems: as in HPI Oncology - Exam - Constitutional Vitals: Temp Pulse Resp BP Pulse Ox 98.3 F 74 17 126/73 94 04/29/17 06:54 04/29/17 06:54 04/29/17 06:54 04/29/17 06:54 04/29/17 06:54 General appearance: average body habitus, no acute distress - Head Head exam: Present: atraumatic, normal inspection - Eye Eye exam: Present: sclera anicteric - ENT ENT exam: Present: mucous membranes moist - Neck Neck exam: Present: full ROM, normal inspection - Respiratory Respiratory exam: Present: CTAB - Cardiovascular Cardiovascular exam: Present: +S1, +S2 - GI/Abdominal GI/Abdominal exam: Present: normal bowel sounds, soft Additional comments: non tender - Extremities Exam Extremities exam: Present: normal inspection - Neurological Exam Neurological exam: Present: alert, CN II-XII intact, oriented X3, no focal deficits Oncology - Results Labs: Short CBC 04/29/17 Range/Units 02:39 WBC 4.9 (4.3-11.1) K/mcL Hgb 9.2 L (12.9-16.9) g/dL Hct 27.7 L (37.5-50.1) % Plt Count 177 (140-400) K/mcL [facility] 04/29/17 02:39 Sodium 141 Potassium 4.0 Chloride 112 H Carbon Dioxide 26 BUN 36 H Creatinine 2.39 H Glucose 94 Calcium 8.7 Cardiac Enzymes 04/28/17 Range/Units 23:38 Troponin I 0.03 (< 0.04) ng/mL Consult Discharge Plan - Plan Referrals: Elio Melendez MD [Primary Care Provider] -
--- NOTE | 2017-04-29 11:25 | Internal Med Progress Note ---
Date of Encounter: 04/29/17 Time of Encounter: 11:15 - Assessment and plan (1) Gastroenteritis Current Visit: Yes Status: Acute Assessment and plan: possible; presented with N/V and inability to tolerate PO per ED notes, however patient reports not being able to see/smell food without becoming nauseated. Says he took some medicine (does remeber which one) 3 days ago and thre-up. Since then, he has not been able to see, smell or eat food due to nausea. No ABD pain, no emesis, no loose stool. Afebrile, no elevated WBC. Cont IV fluids, PPI. Advance diet as able. (2) Failure to thrive Current Visit: Yes Status: Acute Assessment and plan: with poor PO intake, decreased immobility. Lives alone; evaluated by PT/OT who is recommending acute inpatient rehabilitation. Consult medical social consultant available. Qualifiers: Failure to thrive age range: in adult Qualified Code(s): R62.7 - Adult failure to thrive (3) CKD (chronic kidney disease) stage 4, GFR 15-29 ml/min Current Visit: Yes Status: Acute Assessment and plan: known CKD; follows with Nephrology. Renal function at baseline. (4) Multiple myeloma Current Visit: No Status: Chronic Assessment and plan: per hx. Follows with Dr. Cabral. Recently completed 3 weeks of Velcade dexamethasone. Oncology consulted Qualifiers: Multiple myeloma remission status: not in remission Qualified Code(s): C90.00 - Multiple myeloma not having achieved remission (5) Anemia Current Visit: Yes Status: Acute Assessment and plan: per hx. In the setting multiple myeloma. Hgb 9.2; stable. Possible dayo from recent chemo. No active bleeding. Cont to monitor H&H Qualifiers: Anemia type: other cause Other causes of anemia: chronic disease, neoplastic Qualified Code(s): D63.0 - Anemia in neoplastic disease (6) DVT prophylaxis Current Visit: Yes Status: Acute Assessment and plan: heparin - Time Spent With Patient less than 15 minutes - Constitutional Vitals: Temp Pulse Resp BP Pulse Ox 98.3 F 74 17 126/73 94 04/29/17 06:54 04/29/17 06:54 04/29/17 06:54 04/29/17 06:54 04/29/17 06:54 General appearance: Present: cooperative, A&O X 3, no acute distress, answers questions appropriately - Head Head exam: Present: atraumatic, normocephalic - Eye Eye exam: Present: PERRL, conjuntiva pink, sclera anicteric Pupils: Present: PERRL - Neck Neck exam general surgery: Present: supple, trachea midline. Absent: lymphadenopathy - Respiratory Respiratory exam: Present: CTAB. Absent: accessory muscle use, rales, rhonchi, wheezes - Cardiovascular Cardiovascular exam: Present: RRR, +S1, +S2. Absent: diastolic murmur, gallop, rubs, systolic murmur - GI/Abdominal GI/Abdominal exam: Present: normal bowel sounds, soft, no peritoneal signs. Absent: distended, tenderness - Extremities Exam Extremities exam: Present: warm, radial pulses palpable and symmetrical. Absent : calf tenderness, cyanotic, pedal edema - Neurological Exam Neurological exam: Present: CN II-XII intact, oriented X3, no focal deficits. Absent: pronater drift, facial droop, speech deficit - Skin Skin exam: Present: dry, intact Internal Medicine: Result - Labs CBC & Chem 7: 04/29/17 02:39 04/29/17 02:39 Labs: Short CBC 04/29/17 Range/Units 02:39 WBC 4.9 (4.3-11.1) K/mcL Hgb 9.2 L (12.9-16.9) g/dL Hct 27.7 L (37.5-50.1) % Plt Count 177 (140-400) K/mcL BMP 04/29/17 02:39 Sodium 141 Potassium 4.0 Chloride 112 H Carbon Dioxide 26 BUN 36 H Creatinine 2.39 H Glucose 94 Calcium 8.7 Cardiac Enzymes 04/28/17 Range/Units 23:38 Troponin I 0.03 (< 0.04) ng/mL Consult Discharge Plan - Plan Referrals: Elio Melendez MD [Primary Care Provider] -
[2017-04-29] MEDS: *HR* OxyCODONE/APAP 10/325 TABLET PO SCH ×2 (17:45→21:44)
[2017-04-30] MEDS: *HR* OxyCODONE/APAP 10/325 TABLET PO SCH ×6 (01:37→21:10)
[2017-04-30] MEDS: hydrALAZINE 10 MG TABLET PO SCH ×2 (01:37→06:23)
[2017-04-30 03:41] LABS: Hematocrit 26.7 % (37.5-50.1); Hemoglobin 8.5 g/dL (12.9-16.9); Mean Corpuscular HGB Conc 31.8 g/dL (31.6-35.5); Mean Corpuscular Hemoglobin 31.3 pg (28.0-33.3); Mean Corpuscular Volume 98.2 fL (83.0-100.0); Mean Platelet Volume 10.9 fL (9.4-12.4); Platelet Count 168 K/mcL (140-400); Red Blood Count 2.72 M/mcL (4.19-5.50); Red Cell Distribution Width 16.7 % (11.5-14.5)
[2017-04-30 03:54] LABS: Calcium 8.4 mg/dL (8.6-10.3); Potassium 4.2 mEq/L (3.5-5.1)
[2017-04-30] MEDS: *HR* Heparin 5,000 UNIT/ML VIAL SQ SCH ×2 (06:23→17:47)
[2017-04-30] MEDS: Metoprolol XL (24 HR) Succ 50 MG TAB.ER.24H PO SCH (08:13)
[2017-04-30] MEDS: Sennosides 8.6 MG TABLET PO SCH ×2 (08:14→20:57)
[2017-04-30] MEDS: Aspirin Enteric Coated 81 MG Tablet PO SCH (08:14)
[2017-04-30] MEDS: Isosorbide MONOnitrate (24 HR) 60 MG TAB.ER.24H PO SCH (08:14)
[2017-04-30] MEDS: amLODIPine 5 MG TABLET PO SCH (08:14)
[2017-04-30] MEDS: Cyanocobalamin (B-12) 1,000 MCG TABLET PO SCH (08:14)
[2017-04-30] MEDS: Acyclovir 200 MG CAPSULE PO SCH ×2 (08:14→20:57)
--- NOTE | 2017-04-30 14:17 | Internal Med Progress Note ---
Date of Encounter: 04/30/17 Time of Encounter: 14:15 - Assessment and plan (1) Gastroenteritis Current Visit: Yes Status: Acute Assessment and plan: possible; presented with N/V and inability to tolerate PO per ED notes, however patient reports not being able to see/smell food without becoming nauseated. Says he took some medicine (does remember which one) 3 days ago and threw-up. Since then, he has not been able to see, smell or eat food due to nausea. No ABD pain, no emesis, no loose stool. Afebrile, no elevated WBC. Cont IV fluids, PPI. Tolerating regular diet as of 04/30/17 (2) Failure to thrive Current Visit: Yes Status: Acute Assessment and plan: with poor PO intake, decreased immobility. Lives alone; evaluated by PT/OT who is recommending acute inpatient rehabilitation. Consult social work therapist available. Qualifiers: Failure to thrive age range: in adult Qualified Code(s): R62.7 - Adult failure to thrive (3) CKD (chronic kidney disease) stage 4, GFR 15-29 ml/min Current Visit: Yes Status: Acute Assessment and plan: known CKD; follows with Nephrology. Renal function at baseline. (4) Multiple myeloma Current Visit: No Status: Chronic Assessment and plan: per hx. Follows with Dr. Cabral. Recently completed 3 weeks of Velcade dexamethasone. Oncology following Qualifiers: Multiple myeloma remission status: not in remission Qualified Code(s): C90.00 - Multiple myeloma not having achieved remission (5) Anemia Current Visit: Yes Status: Acute Assessment and plan: per hx. In the setting multiple myeloma. Hgb 9.2; stable. Possible dayo from recent chemo. No active bleeding. Cont to monitor H&H Qualifiers: Anemia type: other cause Other causes of anemia: chronic disease, neoplastic Qualified Code(s): D63.0 - Anemia in neoplastic disease (6) DVT prophylaxis Current Visit: Yes Status: Acute Assessment and plan: heparin - Subjective Interval history: Seen and examined at bedside; says he feels much better today. Pain is controlled and he is tolerating a regular diet without nausea or vomiting. He is agreeable to go to acute inpatient rehabilitation. No CP, no SOB - Constitutional Vitals: Temp Pulse Resp BP Pulse Ox 97.5 F L 61 16 119/63 96 04/30/17 10:52 04/30/17 10:52 04/30/17 10:52 04/30/17 10:52 04/30/17 10:52 General appearance: Present: cooperative, A&O X 3, no acute distress, answers questions appropriately - Head Head exam: Present: atraumatic, normocephalic - Eye Eye exam: Present: PERRL, conjuntiva pink, sclera anicteric Pupils: Present: PERRL - Neck Neck exam general surgery: Present: supple, trachea midline. Absent: lymphadenopathy - Respiratory Respiratory exam: Present: CTAB. Absent: accessory muscle use, rales, rhonchi, wheezes - Cardiovascular Cardiovascular exam: Present: RRR, +S1, +S2. Absent: diastolic murmur, gallop, rubs, systolic murmur - GI/Abdominal GI/Abdominal exam: Present: normal bowel sounds, soft, no peritoneal signs. Absent: distended, tenderness - Extremities Exam Extremities exam: Present: warm, radial pulses palpable and symmetrical. Absent : calf tenderness, cyanotic, pedal edema - Neurological Exam Neurological exam: Present: CN II-XII intact, oriented X3, no focal deficits. Absent: pronater drift, facial droop, speech deficit - Skin Skin exam: Present: dry, intact Internal Medicine: Result - Labs CBC & Chem 7: 04/30/17 02:33 04/30/17 02:33 Labs: Short CBC 04/30/17 Range/Units 02:33 WBC 3.4 L (4.3-11.1) K/mcL Hgb 8.5 L (12.9-16.9) g/dL Hct 26.7 L (37.5-50.1) % Plt Count 168 (140-400) K/mcL [facility] 04/30/17 02:33 Sodium 140 Potassium 4.2 Chloride 113 H Carbon Dioxide 25 BUN 32 H Creatinine 2.56 H Glucose 83 Calcium 8.4 L Consult Discharge Plan - Plan Referrals: Elio Melendez MD [Primary Care Provider] -
[2017-04-30] MEDS: Ondansetron 4 MG/2 ML VIAL IVP PRN (17:51)
[2017-04-30] MEDS: Mirtazapine 15 MG TABLET PO SCH (20:58)
[2017-05-01] MEDS: *HR* OxyCODONE/APAP 10/325 TABLET PO SCH ×6 (00:10→21:23)
[2017-05-01] MEDS: *HR* Heparin 5,000 UNIT/ML VIAL SQ SCH ×2 (04:35→16:20)
[2017-05-01] MEDS: Acyclovir 200 MG CAPSULE PO SCH ×2 (08:06→21:23)
[2017-05-01] MEDS: amLODIPine 5 MG TABLET PO SCH (08:07)
[2017-05-01] MEDS: Sennosides 8.6 MG TABLET PO SCH ×2 (08:07→21:23)
[2017-05-01] MEDS: Isosorbide MONOnitrate (24 HR) 60 MG TAB.ER.24H PO SCH (08:07)
[2017-05-01] MEDS: Aspirin Enteric Coated 81 MG Tablet PO SCH (08:07)
[2017-05-01] MEDS: Metoprolol XL (24 HR) Succ 50 MG TAB.ER.24H PO SCH (08:08)
[2017-05-01] MEDS: Cyanocobalamin (B-12) 1,000 MCG TABLET PO SCH (08:09)
--- NOTE | 2017-05-01 12:01 | Internal Med Progress Note ---
Date of Encounter: 05/01/17 Time of Encounter: 11:57 - Assessment and plan (1) Gastroenteritis Current Visit: Yes Status: Acute Assessment and plan: possible; presented with N/V and inability to tolerate PO per ED notes, however patient reports not being able to see/smell food without becoming nauseated. Says he took some medicine (does remember which one) 3 days ago and threw-up. Since then, he has not been able to see, smell or eat food due to nausea. No ABD pain, no emesis, no loose stool. Afebrile, no elevated WBC. Cont IV fluids, PPI. Tolerating regular diet as of 04/30/17 (2) Failure to thrive Current Visit: Yes Status: Acute Assessment and plan: with poor PO intake, decreased immobility. Lives alone; evaluated by PT/OT who is recommending acute inpatient rehabilitation. aquacultural worker supervisor assisting with placement Qualifiers: Failure to thrive age range: in adult Qualified Code(s): R62.7 - Adult failure to thrive (3) CKD (chronic kidney disease) stage 4, GFR 15-29 ml/min Current Visit: Yes Status: Acute Assessment and plan: known CKD; follows with Nephrology. Renal function at baseline. (4) Multiple myeloma Current Visit: No Status: Chronic Assessment and plan: per hx. Follows with Dr. Cabral. Recently completed 3 weeks of Velcade dexamethasone. Can follow-up with Oncology outpatient. Oncology followed Qualifiers: Multiple myeloma remission status: not in remission Qualified Code(s): C90.00 - Multiple myeloma not having achieved remission (5) Anemia Current Visit: Yes Status: Acute Assessment and plan: per hx. In the setting multiple myeloma. Hgb 10.5 on arrival, drop in Hgb likely dayo from recent chemo. No active bleeding. Cont to monitor H&H. Hgb 8.5 on 05/01 Qualifiers: Anemia type: other cause Other causes of anemia: chronic disease, neoplastic Qualified Code(s): D63.0 - Anemia in neoplastic disease (6) DVT prophylaxis Current Visit: Yes Status: Acute Assessment and plan: scd - Subjective Interval history: Seen and examined at bedside. Uneventful night, says she slept well. Pain is well controlled and he is tolerating regular diet without difficulty. Awaiting placement to acute inpatient rehabilitation - Constitutional Vitals: Temp Pulse Resp BP Pulse Ox 98.3 F 60 14 106/55 95 05/01/17 10:18 05/01/17 10:18 05/01/17 10:18 05/01/17 10:18 05/01/17 10:18 General appearance: Present: cooperative, A&O X 3, no acute distress, answers questions appropriately - Head Head exam: Present: atraumatic, normocephalic - Eye Eye exam: Present: PERRL, conjuntiva pink, sclera anicteric Pupils: Present: PERRL - Neck Neck exam general surgery: Present: supple, trachea midline. Absent: lymphadenopathy - Respiratory Respiratory exam: Present: CTAB. Absent: accessory muscle use, rales, rhonchi, wheezes - Cardiovascular Cardiovascular exam: Present: RRR, +S1, +S2. Absent: diastolic murmur, gallop, rubs, systolic murmur - GI/Abdominal GI/Abdominal exam: Present: normal bowel sounds, soft, no peritoneal signs. Absent: distended, tenderness - Extremities Exam Extremities exam: Present: warm, radial pulses palpable and symmetrical. Absent : calf tenderness, cyanotic, pedal edema - Neurological Exam Neurological exam: Present: CN II-XII intact, oriented X3, no focal deficits. Absent: pronater drift, facial droop, speech deficit - Skin Skin exam: Present: dry, intact Internal Medicine: Result - Labs CBC & Chem 7: 04/30/17 02:33 04/30/17 02:33 Consult Discharge Plan - Plan Referrals: Elio Melendez MD [Primary Care Provider] -
--- NOTE | 2017-05-01 15:59 | Electrocardiograph Report ---
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
[2017-05-01] MEDS: Mirtazapine 15 MG TABLET PO SCH (21:23)
[2017-05-02] MEDS: *HR* OxyCODONE/APAP 10/325 TABLET PO SCH ×6 (00:44→20:52)
[2017-05-02 04:32] LABS: Hematocrit 28.4 % (37.5-50.1); Hemoglobin 9.3 g/dL (12.9-16.9); Mean Corpuscular HGB Conc 32.7 g/dL (31.6-35.5); Mean Corpuscular Hemoglobin 31.5 pg (28.0-33.3); Mean Corpuscular Volume 96.3 fL (83.0-100.0); Mean Platelet Volume 10.1 fL (9.4-12.4); Platelet Count 182 K/mcL (140-400); Red Blood Count 2.95 M/mcL (4.19-5.50); Red Cell Distribution Width 17.1 % (11.5-14.5)
[2017-05-02 04:48] LABS: Calcium 8.3 mg/dL (8.6-10.3); Potassium 4.2 mEq/L (3.5-5.1)
[2017-05-02] MEDS: *HR* Heparin 5,000 UNIT/ML VIAL SQ SCH ×2 (05:39→17:53)
[2017-05-02] MEDS: Aspirin Enteric Coated 81 MG Tablet PO SCH (08:29)
[2017-05-02] MEDS: Sennosides 8.6 MG TABLET PO SCH ×2 (08:30→20:51)
[2017-05-02] MEDS: Metoprolol XL (24 HR) Succ 50 MG TAB.ER.24H PO SCH (08:30)
[2017-05-02] MEDS: Cyanocobalamin (B-12) 1,000 MCG TABLET PO SCH (08:30)
[2017-05-02] MEDS: amLODIPine 5 MG TABLET PO SCH (08:30)
[2017-05-02] MEDS: Isosorbide MONOnitrate (24 HR) 60 MG TAB.ER.24H PO SCH (08:30)
[2017-05-02] MEDS: Acyclovir 200 MG CAPSULE PO SCH ×2 (08:30→20:51)
--- NOTE | 2017-05-02 16:43 | Internal Med Progress Note ---
Date of Encounter: 05/02/17 Time of Encounter: 09:25 - Assessment and plan (1) Gastroenteritis Current Visit: Yes Status: Acute Assessment and plan: Patient presented to the emergency department with complaint of inability to tolerate the sight or smell of food, and increased weakness for 3 days by her to arrival. He also reports early satiety for one week. Yesterday, patient was able to tolerate food and regular diet, this morning he was unable to tolerate breakfast tray due to nausea. Patient is able to tolerate by mouth fluids without difficulty. He denies abdominal pain, vomiting, diarrhea. He is afebrile and has no leukocytosis. Abdomen soft and nontender to palpation. Nausea resolved with antiemetics. Continue IV fluids, PPI, anti-emetics. C (2) Anemia Current Visit: No Status: Acute Assessment and plan: Anemia in the setting of multiple myeloma. Hemoglobin is 9.3 today. Continue to monitor. Qualifiers: Anemia type: other cause Other causes of anemia: other cause, not classified Qualified Code(s): D64.89 - Other specified anemias (3) Multiple myeloma Current Visit: No Status: Chronic Assessment and plan: Patient recently completed 3 weeks of Velcade dexamethasone. Patient follows with Dr. [facility] oncology. Oncology has followed here, palliative treatment, will continue next week if he feels well. Qualifiers: Multiple myeloma remission status: not in remission Qualified Code(s): C90.00 - Multiple myeloma not having achieved remission (4) CKD (chronic kidney disease) stage 4, GFR 15-29 ml/min Current Visit: Yes Status: Acute Assessment and plan: Serum creatinine 3.03, GFR 21. Continue to avoid nephrotoxins. GFR appears to be patient's baseline. (5) Failure to thrive Current Visit: Yes Status: Acute Assessment and plan: Patient lives at home alone. He has recent poor by mouth intake and decreased mobility related to multiple myeloma. Evaluated by PT/OT, recommends inpatient rehabilitation. Patient was accepted at [facility] and they were to start the precertification process, however, patient's daughter wants patient to go to [facility]. We are currently waiting on [facility] to accept the patient, did not precertification process will begin. Continue PT/OT here Continue to encourage by mouth intake Continue fall precautions and bed alarm. Qualifiers: Failure to thrive age range: in adult Qualified Code(s): R62.7 - Adult failure to thrive (6) DVT prophylaxis Current Visit: Yes Status: Acute Assessment and plan: Subcutaneous heparin twice a day. (7) Nausea Current Visit: Yes Status: Acute Assessment and plan: Plan as above. - Time Spent With Patient less than 15 minutes - Subjective Interval history: Patient was seen and assessed at bedside at 9:25 AM. He is alert and awake. He reports nausea with the sight or smell of food. He reports that he can drink without any difficulty. As of yesterday, patient was able to tolerate a regular diet, this morning the nausea returned and he was unable to eat his breakfast. Patient also reports long history of early satiety. He denies any headache, vomiting, dizziness, abdominal pain. He denies any shortness of breath and cough. He reports relief with anti-emetics. - Constitutional Vitals: Temp Pulse Resp BP Pulse Ox 98.1 F 58 16 133/72 96 05/02/17 15:32 05/02/17 15:32 05/02/17 15:32 05/02/17 15:32 05/02/17 15:32 General appearance: Present: cooperative, A&O X 3, pleasant, no acute distress, answers questions appropriately - Head Head exam: Present: atraumatic, normal inspection, normocephalic - Eye Eye exam: Present: normal appearance, conjuntiva pink, sclera anicteric - Neck Neck exam general surgery: Present: supple, trachea midline. Absent: lymphadenopathy, tenderness - Respiratory Respiratory exam: Present: CTAB. Absent: accessory muscle use, chest wall tenderness, rales, respiratory distress, rhonchi, wheezes - Cardiovascular Cardiovascular exam: Present: RRR, +S1, +S2. Absent: diastolic murmur, gallop, rubs, systolic murmur - GI/Abdominal GI/Abdominal exam: Present: normal bowel sounds, soft. Absent: distended, hepatomegaly, tenderness - Extremities Exam Extremities exam: Present: normal capillary refill, warm, radial pulses palpable and symmetrical. Absent: calf tenderness, cyanotic, joint swelling, pedal edema - Neurological Exam Neurological exam: Present: alert, oriented X3, no focal deficits. Absent: facial droop, speech deficit - Skin Skin exam: Present: dry, intact, normal color, warm. Absent: rash Internal Medicine: Result - Labs CBC & Chem 7: 05/02/17 04:05 05/02/17 04:05 Labs: Short CBC 05/02/17 Range/Units 04:05 WBC 7.3 D (4.3-11.1) K/mcL Hgb 9.3 L (12.9-16.9) g/dL Hct 28.4 L (37.5-50.1) % Plt Count 182 (140-400) K/mcL BMP 05/02/17 04:05 Sodium 140 Potassium 4.2 Chloride 112 H Carbon Dioxide 24 BUN 38 H Creatinine 3.03 H Glucose 86 Calcium 8.3 L Consult Discharge Plan - Plan Referrals: Elio Melendez MD [Primary Care Provider] - Scooby Moreno DO [Partnered Physician] - 05/08/17 1:30 pm
[2017-05-02] MEDS: Mirtazapine 15 MG TABLET PO SCH (20:52)
[2017-05-03] MEDS: *HR* OxyCODONE/APAP 10/325 TABLET PO SCH ×4 (01:22→13:18)
[2017-05-03] MEDS: *HR* Heparin 5,000 UNIT/ML VIAL SQ SCH ×2 (05:53→17:53)
[2017-05-03 06:33] LABS: Basophils % 0.4 %; Eosinophils # 0.2 K/mcL (0.0-0.6); Eosinophils % 4.6 %; Hematocrit 26.6 % (37.5-50.1); Hemoglobin 8.7 g/dL (12.9-16.9); Immature Granulocytes % 0.8 % (0-4); Lymphocytes % 19.5 %; Mean Corpuscular HGB Conc 32.7 g/dL (31.6-35.5); Mean Corpuscular Hemoglobin 31.4 pg (28.0-33.3); Mean Platelet Volume 10.2 fL (9.4-12.4); Monocytes # 0.4 K/mcL (0.0-1.3); Monocytes % 7.8 %; Neutrophils # 3.3 K/mcL (1.6-8.9); Platelet Count 190 K/mcL (140-400); Red Blood Count 2.77 M/mcL (4.19-5.50); Red Cell Distribution Width 17.3 % (11.5-14.5); Segmented Neutrophils % 66.9 %
[2017-05-03 06:34] LABS: Calcium 8.3 mg/dL (8.6-10.3); Potassium 4.5 mEq/L (3.5-5.1)
[2017-05-03] MEDS: amLODIPine 5 MG TABLET PO SCH (10:00)
[2017-05-03] MEDS: Aspirin Enteric Coated 81 MG Tablet PO SCH (10:00)
[2017-05-03] MEDS: Sennosides 8.6 MG TABLET PO SCH ×2 (10:00→20:06)
[2017-05-03] MEDS: Metoprolol XL (24 HR) Succ 50 MG TAB.ER.24H PO SCH (10:00)
[2017-05-03] MEDS: 0.9 % Sodium Chloride 1,000 ML IVC SCH (10:00)
[2017-05-03] MEDS: Acyclovir 200 MG CAPSULE PO SCH ×2 (10:00→20:06)
[2017-05-03] MEDS: Cyanocobalamin (B-12) 1,000 MCG TABLET PO SCH (10:02)
[2017-05-03] MEDS: Isosorbide MONOnitrate (24 HR) 60 MG TAB.ER.24H PO SCH (10:02)
[2017-05-03] MEDS ORDERED: *HR* OxyCODONE/APAP 10/325 TABLET PO PRN (18:05)
--- NOTE | 2017-05-03 18:15 | Internal Med Progress Note ---
Date of Encounter: 05/03/17 Time of Encounter: 09:15 - Assessment and plan (1) Gastroenteritis Current Visit: Yes Status: Acute Assessment and plan: Patient presented to the emergency department with complaint of inability to tolerate the sight or smell of food, and increased weakness for 3 days by her to arrival. He also reports early satiety for one week. Patient is able to tolerate by mouth fluids without difficulty. He denies abdominal pain, vomiting, diarrhea. He is afebrile and has no leukocytosis. Abdomen soft and nontender to palpation. Nausea resolved with antiemetics. Continue IV fluids, PPI, anti-emetics. We are going to try Compazine by mouth tonight to see if he can tolerate his dinner. Continue gentle IV fluid hydration. C (2) Anemia Current Visit: No Status: Acute Assessment and plan: Anemia in the setting of multiple myeloma. Hemoglobin is 8.7 today. Continue to monitor. Prepare to Transfuse if hemoglobin less than 8 and patient symptomatic. Qualifiers: Anemia type: other cause Other causes of anemia: other cause, not classified Qualified Code(s): D64.89 - Other specified anemias (3) Multiple myeloma Current Visit: No Status: Chronic Assessment and plan: Patient recently completed 3 weeks of Velcade dexamethasone. Patient follows with [facility]. Oncology has followed here, palliative treatment, will continue next week if he feels well. Qualifiers: Multiple myeloma remission status: not in remission Qualified Code(s): C90.00 - Multiple myeloma not having achieved remission (4) CKD (chronic kidney disease) stage 4, GFR 15-29 ml/min Current Visit: Yes Status: Acute Assessment and plan: Serum creatinine 2.91, GFR 22. Continue to avoid nephrotoxins. GFR appears to be patient's baseline, and is improving. (5) Failure to thrive Current Visit: Yes Status: Acute Assessment and plan: Patient lives at home alone. He has recent poor po intake and decreased mobility related to multiple myeloma. Evaluated by PT/OT, recommends inpatient rehabilitation. Patient was accepted at [facility] and they were to start the precertification process, however, patient's daughter wants patient to go to [facility]. [facility] started precertification process today. Continue PT/OT here Continue to encourage by mouth intake Continue fall precautions and bed alarm. Qualifiers: Failure to thrive age range: in adult Qualified Code(s): R62.7 - Adult failure to thrive (6) DVT prophylaxis Current Visit: Yes Status: Acute Assessment and plan: Heparin subcutaneous BID (7) Nausea Current Visit: Yes Status: Acute Assessment and plan: Plan as above. Will add Compazine. - Subjective Interval history: Patient was seen and assessed at bedside at 9:15 AM. He is alert and awake. He still reports nausea with the sight or smell of food. He reports that he can drink without any difficulty. He denies abdominal pain, vomiting. He states once he gets the food down his spine. He denies any headache or blurred vision. He denies chest pain or shortness of breath. - Constitutional Vitals: Temp Pulse Resp BP Pulse Ox 98.2 F 76 16 146/72 99 05/03/17 16:20 05/03/17 16:20 05/03/17 16:20 05/03/17 16:20 05/03/17 16:20 General appearance: Present: cooperative, A&O X 3, pleasant, no acute distress, answers questions appropriately - Head Head exam: Present: atraumatic, normal inspection, normocephalic - Eye Eye exam: Present: conjuntiva pink, sclera anicteric - Neck Neck exam general surgery: Present: supple, trachea midline. Absent: lymphadenopathy - Respiratory Respiratory exam: Present: CTAB. Absent: accessory muscle use, chest wall tenderness, decreased breath sounds, rales, respiratory distress, rhonchi, wheezes - Cardiovascular Cardiovascular exam: Present: RRR, +S1, +S2. Absent: diastolic murmur, gallop, rubs, systolic murmur - GI/Abdominal GI/Abdominal exam: Present: normal bowel sounds, soft. Absent: distended, hepatomegaly, tenderness - Extremities Exam Extremities exam: Present: normal capillary refill, normal inspection, warm, radial pulses palpable and symmetrical. Absent: calf tenderness, cyanotic, pedal edema - Neurological Exam Neurological exam: Present: alert, oriented X3, no focal deficits. Absent: facial droop, speech deficit - Skin Skin exam: Present: dry, intact, normal color, warm. Absent: rash Internal Medicine: Result - Labs CBC & Chem 7: 05/03/17 05:50 05/03/17 05:50 Labs: Short CBC 05/03/17 Range/Units 05:50 WBC 5.0 (4.3-11.1) K/mcL Hgb 8.7 L (12.9-16.9) g/dL Hct 26.6 L (37.5-50.1) % Plt Count 190 (140-400) K/mcL Neutrophils # 3.3 (1.6-8.9) K/mcL BMP 05/03/17 05:50 Sodium 141 Potassium 4.5 Chloride 114 H Carbon Dioxide 25 BUN 41 H Creatinine 2.91 H Glucose 84 Calcium 8.3 L Consult Discharge Plan - Plan Referrals: Elio Melendez MD [Primary Care Provider] - Scooby Moreno DO [Partnered Physician] - 05/08/17 1:30 pm
[2017-05-03] MEDS: Mirtazapine 15 MG TABLET PO SCH (20:06)
[2017-05-04] MEDS: *HR* OxyCODONE/APAP 10/325 TABLET PO PRN (03:14)
[2017-05-04] MEDS: 0.9 % Sodium Chloride 1,000 ML IVC SCH ×2 (03:21→22:15)
[2017-05-04] MEDS: *HR* Heparin 5,000 UNIT/ML VIAL SQ SCH ×2 (06:02→16:53)
[2017-05-04 09:21] LABS: Basophils % 0.5 %; Eosinophils # 0.2 K/mcL (0.0-0.6); Eosinophils % 4.3 %; Hematocrit 27.4 % (37.5-50.1); Hemoglobin 8.7 g/dL (12.9-16.9); Lymphocytes # 0.8 K/mcL (0.6-4.6); Lymphocytes % 19.4 %; Mean Corpuscular HGB Conc 31.8 g/dL (31.6-35.5); Mean Corpuscular Hemoglobin 30.7 pg (28.0-33.3); Mean Corpuscular Volume 96.8 fL (83.0-100.0); Monocytes # 0.4 K/mcL (0.0-1.3); Monocytes % 8.4 %; Neutrophils # 2.8 K/mcL (1.6-8.9); Platelet Count 218 K/mcL (140-400); Red Blood Count 2.83 M/mcL (4.19-5.50); Red Cell Distribution Width 16.8 % (11.5-14.5); Segmented Neutrophils % 66.4 %
[2017-05-04] MEDS: Metoprolol XL (24 HR) Succ 50 MG TAB.ER.24H PO SCH (09:23)
[2017-05-04] MEDS: Aspirin Enteric Coated 81 MG Tablet PO SCH (09:23)
[2017-05-04] MEDS: Isosorbide MONOnitrate (24 HR) 60 MG TAB.ER.24H PO SCH (09:23)
[2017-05-04] MEDS: Acyclovir 200 MG CAPSULE PO SCH ×2 (09:24→22:13)
[2017-05-04] MEDS: Cyanocobalamin (B-12) 1,000 MCG TABLET PO SCH (09:25)
[2017-05-04] MEDS: Sennosides 8.6 MG TABLET PO SCH ×2 (09:25→22:14)
[2017-05-04] MEDS: Ondansetron 4 MG/2 ML VIAL IVP PRN ×2 (09:29→22:23)
[2017-05-04] MEDS: amLODIPine 5 MG TABLET PO SCH (09:29)
[2017-05-04 10:12] LABS: Calcium 8.3 mg/dL (8.6-10.3)
--- NOTE | 2017-05-04 19:05 | Internal Med Progress Note ---
Date of Encounter: 05/04/17 Time of Encounter: 12:00 - Assessment and plan (1) Gastroenteritis Current Visit: Yes Status: Acute Assessment and plan: Patient presented to the emergency department with complaint of inability to tolerate the sight or smell of food, and increased weakness for 3 days by her to arrival. He also reports early satiety for one week. Patient is able to tolerate by mouth fluids without difficulty. I am not so sure the patient actually has gastroenteritis, I believe he has a food aversion related to recent chemotherapy. He denies abdominal pain, vomiting, diarrhea. He is afebrile and has no leukocytosis. Abdomen soft and nontender to palpation. Nausea resolved with antiemetics. Patient was able to tolerate part of his dinner tonight and states that he would like to start drinking ensure shakes. We have ordered them and have them delivered from the cafeteria. Continue IV fluids, PPI, anti-emetics. Continue gentle IV fluid hydration. C (2) Anemia Current Visit: No Status: Acute Assessment and plan: Anemia in the setting of multiple myeloma. Hemoglobin is 8.7 again today. Continue to monitor. Prepare to Transfuse if hemoglobin less than 8 and patient symptomatic. Qualifiers: Anemia type: other cause Other causes of anemia: other cause, not classified Qualified Code(s): D64.89 - Other specified anemias (3) Multiple myeloma Current Visit: No Status: Chronic Assessment and plan: Patient recently completed 3 weeks of Velcade dexamethasone. Patient follows with [facility]. Oncology has followed here, palliative treatment, will continue next week if he feels well. Qualifiers: Multiple myeloma remission status: not in remission Qualified Code(s): C90.00 - Multiple myeloma not having achieved remission (4) CKD (chronic kidney disease) stage 4, GFR 15-29 ml/min Current Visit: Yes Status: Acute Assessment and plan: Serum creatinine 2.54, GFR 25. Renal function continues to improve. Continue to avoid nephrotoxins. GFR appears to be patient's baseline, and is improving. (5) Failure to thrive Current Visit: Yes Status: Acute Assessment and plan: Patient lives at home alone. He has recent poor po intake and decreased mobility related to multiple myeloma. Evaluated by PT/OT, recommends inpatient rehabilitation. Continue PT/OT here Continue to encourage by mouth intake Continue fall precautions and bed alarm. The patient awaiting pre-certification to go to longterm. Qualifiers: Failure to thrive age range: in adult Qualified Code(s): R62.7 - Adult failure to thrive (6) DVT prophylaxis Current Visit: Yes Status: Acute Assessment and plan: Heparin subcutaneous BID (7) Nausea Current Visit: Yes Status: Acute Assessment and plan: Plan as above. Continue antibiotics. Nausea seems to be improving. (8) Food aversion Current Visit: Yes Status: Acute Assessment and plan: Plan as above. - Time Spent With Patient less than 15 minutes - Subjective Interval history: Patient was seen and assessed at bedside at noon. He is alert and awake. Patient was attempted to eat lunch tray. He states that he is doing better. He asked me for ensure shakes. He denies any headache or blurred vision, no abdominal pain, no vomiting or diarrhea. He still reports that nausea is improving, as his appetite. We are still waiting on longterm placement at this time. Precertification was started on May 03. Admission person at longterm stated that research should be received today and patient can go once precert has received. Patient is aware of this. - Constitutional Vitals: Temp Pulse Resp BP Pulse Ox 98 F 69 19 125/66 92 05/04/17 15:07 05/04/17 15:07 05/04/17 15:07 05/04/17 15:07 05/04/17 15:07 General appearance: Present: cooperative, A&O X 3, pleasant, no acute distress, answers questions appropriately - Head Head exam: Present: atraumatic, normal inspection, normocephalic - Eye Eye exam: Present: normal appearance, conjuntiva pink, sclera anicteric - Neck Neck exam general surgery: Present: supple, trachea midline. Absent: lymphadenopathy, tenderness - Respiratory Respiratory exam: Present: CTAB. Absent: accessory muscle use, chest wall tenderness, decreased breath sounds, rales, rhonchi, wheezes - Cardiovascular Cardiovascular exam: Present: RRR, +S1, +S2. Absent: diastolic murmur, gallop, rubs, systolic murmur - GI/Abdominal GI/Abdominal exam: Present: normal bowel sounds, soft. Absent: distended, hepatomegaly, tenderness - Extremities Exam Extremities exam: Present: normal capillary refill, normal inspection, warm, radial pulses palpable and symmetrical. Absent: calf tenderness, cyanotic, pedal edema, tenderness - Neurological Exam Neurological exam: Present: alert, oriented X3, no focal deficits. Absent: altered, facial droop, speech deficit - Skin Skin exam: Present: dry, intact, warm. Absent: rash Internal Medicine: Result - Labs CBC & Chem 7: 05/04/17 08:50 05/04/17 08:50 Labs: Short CBC 05/04/17 Range/Units 08:50 WBC 4.2 L (4.3-11.1) K/mcL Hgb 8.7 L (12.9-16.9) g/dL Hct 27.4 L (37.5-50.1) % Plt Count 218 (140-400) K/mcL Neutrophils # 2.8 (1.6-8.9) K/mcL BMP 05/04/17 08:50 Sodium 141 Potassium 4.0 Chloride 116 H Carbon Dioxide 24 BUN 35 H Creatinine 2.54 H Glucose 92 Calcium 8.3 L Consult Discharge Plan - Plan Referrals: Elio Melendez MD [Primary Care Provider] - Scooby Moreno DO [Partnered Physician] - 05/08/17 1:30 pm
[2017-05-04] MEDS ORDERED: *HR* LORazepam 0.5 MG TABLET PO PRN (20:30)
[2017-05-04] MEDS: Mirtazapine 15 MG TABLET PO SCH (22:14)
[2017-05-05] MEDS: *HR* Heparin 5,000 UNIT/ML VIAL SQ SCH ×2 (05:59→17:42)
[2017-05-05] MEDS: Ondansetron 4 MG/2 ML VIAL IVP PRN (09:23)
[2017-05-05 09:48] LABS: Calcium 8.5 mg/dL (8.6-10.3); Potassium 3.8 mEq/L (3.5-5.1)
[2017-05-05] MEDS: *HR* OxyCODONE/APAP 10/325 TABLET PO PRN (10:06)
[2017-05-05] MEDS ORDERED: Prochlorperazine 10 MG/2 ML VIAL IVP PRN (12:00)
[2017-05-05 12:37] LABS: Bilirubin,Urine Negative (Negative); Blood,Urine Trace (Negative); Clarity,Urine Clear (Clear); Color,Urine Yellow (Yellow); Glucose,Urine (UA) 100 mg/dL (Normal); Ketones,Urine Negative (Negative); Leukocyte Esterase,Urine Negative (Negative); Nitrite,Urine Negative (Negative); PH,Urine 6.5 pH Units (5.0-8.0); Protein,Urine >=300 mg/dL (Neg-Trace); Specific Gravity,Urine 1.012 (1.010-1.025); Urobilinogen,Urine Normal (Normal)
[2017-05-05 12:40] LABS: Bacteria,Urine None Seen per hpf (None-Few); Hyaline Casts,Urine None Seen per lpf (None-Few); Squamous Epithelial Cell,Urine Many per lpf (None-Few); WBC,Urine 0-3 per hpf (0-3)
[2017-05-05] MEDS: Metoprolol XL (24 HR) Succ 50 MG TAB.ER.24H PO SCH (12:44)
[2017-05-05] MEDS: Sennosides 8.6 MG TABLET PO SCH ×2 (12:45→20:38)
[2017-05-05] MEDS: Acyclovir 200 MG CAPSULE PO SCH ×2 (12:46→20:38)
[2017-05-05] MEDS: Cyanocobalamin (B-12) 1,000 MCG TABLET PO SCH (12:46)
[2017-05-05] MEDS: amLODIPine 5 MG TABLET PO SCH (12:47)
[2017-05-05] MEDS: Aspirin Enteric Coated 81 MG Tablet PO SCH (12:47)
[2017-05-05] MEDS: Isosorbide MONOnitrate (24 HR) 60 MG TAB.ER.24H PO SCH (12:47)
[2017-05-05] MEDS: 0.9 % Sodium Chloride 1,000 ML IVC SCH (15:40)
--- NOTE | 2017-05-05 16:57 | Internal Med Progress Note ---
Date of Encounter: 05/05/17 Time of Encounter: 08:15 - Assessment and plan (1) Gastroenteritis Current Visit: Yes Status: Acute Assessment and plan: Patient presented to the emergency department with complaint of inability to tolerate the sight or smell of food, and increased weakness for 3 days by her to arrival. He also reports early satiety for one week. Patient is able to tolerate by mouth fluids without difficulty. I am not so sure the patient actually has gastroenteritis, I believe he has a food aversion related to recent chemotherapy. He denies abdominal pain, vomiting, diarrhea. He is afebrile and has no leukocytosis. Abdomen soft and nontender to palpation. Nausea resolved with antiemetics. Patient was able to tolerate part of his dinner tonight and states that he would like to start drinking ensure shakes. We have ordered them and have them delivered from the cafeteria. Continue IV fluids, PPI, anti-emetics. Continue gentle IV fluid hydration. Megace 800mg po daily C (2) Anemia Current Visit: No Status: Acute Assessment and plan: Anemia in the setting of multiple myeloma. Hemoglobin is 8.7 again today. Continue to monitor. Prepare to Transfuse if hemoglobin less than 8 and patient symptomatic. No active signs of bleeding. Qualifiers: Anemia type: other cause Other causes of anemia: other cause, not classified Qualified Code(s): D64.89 - Other specified anemias (3) Multiple myeloma Current Visit: No Status: Chronic Assessment and plan: Patient recently completed 3 weeks of Velcade dexamethasone. Patient follows with [facility]. Oncology has followed here, palliative treatment, will continue next week if he feels well. Qualifiers: Multiple myeloma remission status: not in remission Qualified Code(s): C90.00 - Multiple myeloma not having achieved remission (4) CKD (chronic kidney disease) stage 4, GFR 15-29 ml/min Current Visit: Yes Status: Acute Assessment and plan: Serum creatinine 2.22, GFR 30. Renal function continues to improve. Continue to avoid nephrotoxins. GFR appears to be patient's baseline, and is improving. Gentle IVF hydration continued due to renal function and decreased po intake. (5) Failure to thrive Current Visit: Yes Status: Acute Assessment and plan: Patient lives at home alone. He has recent poor po intake and decreased mobility related to multiple myeloma. Evaluated by PT/OT, recommends inpatient rehabilitation. Continue PT/OT here Continue to encourage by mouth intake and Megace 800mg po daily Continue fall precautions and bed alarm. The patient awaiting pre-certification to go to [facility]. Qualifiers: Failure to thrive age range: in adult Qualified Code(s): R62.7 - Adult failure to thrive (6) DVT prophylaxis Current Visit: Yes Status: Acute Assessment and plan: Heparin subcutaneous BID (7) Nausea Current Visit: Yes Status: Acute Assessment and plan: Plan as above. Continue antibiotics. Nausea seems to be improving. Add Compazine 10mg IV (8) Food aversion Current Visit: Yes Status: Acute Assessment and plan: Plan as above. - Subjective Interval history: Patient was seen and assessed at bedside at 0815. He is alert and awake. We are still waiting on [facility] placement at this time. Precertification was started on May 03. Admission person at [facility] stated that research should be received today and patient can go once precert has received. Patient is aware of this. - Constitutional Vitals: Temp Pulse Resp BP Pulse Ox 98.7 F 66 16 167/80 93 05/05/17 11:35 05/05/17 11:35 05/05/17 11:35 05/05/17 11:35 05/05/17 11:35 General appearance: Present: cooperative, A&O X 3, pleasant, no acute distress, answers questions appropriately - Head Head exam: Present: atraumatic, normal inspection, normocephalic - Eye Eye exam: Present: conjuntiva pink, sclera anicteric - Neck Neck exam general surgery: Present: normal inspection, supple, trachea midline. Absent: lymphadenopathy, tenderness - Respiratory Respiratory exam: Present: CTAB. Absent: accessory muscle use, rales, rhonchi, wheezes - Cardiovascular Cardiovascular exam: Present: RRR, +S1, +S2. Absent: diastolic murmur, gallop, rubs, systolic murmur - GI/Abdominal GI/Abdominal exam: Present: normal bowel sounds, soft, no peritoneal signs. Absent: distended, hepatomegaly, tenderness - Extremities Exam Extremities exam: Present: normal capillary refill, normal inspection, warm, radial pulses palpable and symmetrical. Absent: calf tenderness, cyanotic, pedal edema, tenderness - Neurological Exam Neurological exam: Present: alert, oriented X3, no focal deficits. Absent: facial droop, speech deficit - Skin Skin exam: Present: dry, intact, normal color, warm. Absent: rash Internal Medicine: Result - Labs CBC & Chem 7: 05/04/17 08:50 05/05/17 09:09 Labs: BMP 05/05/17 09:09 Sodium 142 Potassium 3.8 Chloride 116 H Carbon Dioxide 23 BUN 28 H Creatinine 2.22 H Glucose 96 Calcium 8.5 L Urine 05/05/17 Range/Units 12:10 Urine Color Yellow (Yellow) Urine Clarity Clear (Clear) Urine pH 6.5 (5.0-8.0) pH Units Ur Specific [place] 1.012 (1.010-1.025) Urine Protein >=300 H (Neg-Trace) mg/dL Urine Glucose (UA) 100 H (Normal) mg/dL Consult Discharge Plan - Plan Referrals: Elio Melendez MD [Primary Care Provider] - Scooby Moreno DO [Partnered Physician] - 05/08/17 1:30 pm
[2017-05-05] MEDS: Megestrol Acetate 400 MG/10 ML UDC PO SCH (17:41)
[2017-05-05] MEDS: *HR* OxyCODONE/APAP 10/325 TABLET PO SCH (19:31)
[2017-05-05] MEDS: Mirtazapine 15 MG TABLET PO SCH (20:38)
[2017-05-06] MEDS: *HR* Heparin 5,000 UNIT/ML VIAL SQ SCH (06:21)
[2017-05-06] MEDS: 0.9 % Sodium Chloride 1,000 ML IVC SCH ×2 (06:25→09:13)
[2017-05-06 08:26] LABS: Basophils % 0.5 %; Eosinophils # 0.1 K/mcL (0.0-0.6); Eosinophils % 2.9 %; Hematocrit 25.4 % (37.5-50.1); Hemoglobin 8.3 g/dL (12.9-16.9); Immature Granulocytes % 3.4 % (0-4); Lymphocytes # 0.9 K/mcL (0.6-4.6); Lymphocytes % 24.3 %; Mean Corpuscular HGB Conc 32.7 g/dL (31.6-35.5); Mean Corpuscular Hemoglobin 31.3 pg (28.0-33.3); Mean Corpuscular Volume 95.8 fL (83.0-100.0); Mean Platelet Volume 9.4 fL (9.4-12.4); Monocytes # 0.3 K/mcL (0.0-1.3); Monocytes % 7.3 %; Neutrophils # 2.4 K/mcL (1.6-8.9); Platelet Count 227 K/mcL (140-400); Red Blood Count 2.65 M/mcL (4.19-5.50); Red Cell Distribution Width 16.6 % (11.5-14.5); Segmented Neutrophils % 61.6 %
[2017-05-06 08:44] LABS: Calcium 8.4 mg/dL (8.6-10.3); Potassium 3.6 mEq/L (3.5-5.1)
[2017-05-06] MEDS: Megestrol Acetate 400 MG/10 ML UDC PO SCH (09:14)
[2017-05-06] MEDS: *HR* OxyCODONE/APAP 10/325 TABLET PO PRN ×2 (09:14→22:14)
[2017-05-06] MEDS: Acyclovir 200 MG CAPSULE PO SCH ×2 (09:16→22:09)
[2017-05-06] MEDS: Metoprolol XL (24 HR) Succ 50 MG TAB.ER.24H PO SCH (09:17)
[2017-05-06] MEDS: Aspirin Enteric Coated 81 MG Tablet PO SCH (09:17)
[2017-05-06] MEDS: Isosorbide MONOnitrate (24 HR) 60 MG TAB.ER.24H PO SCH (09:19)
[2017-05-06] MEDS: Sennosides 8.6 MG TABLET PO SCH ×2 (09:19→22:09)
[2017-05-06] MEDS: Cyanocobalamin (B-12) 1,000 MCG TABLET PO SCH (09:19)
[2017-05-06] MEDS: amLODIPine 5 MG TABLET PO SCH (09:19)
[2017-05-06] MEDS: Prochlorperazine 10 MG/2 ML VIAL IVP SCH ×3 (09:25→17:02)
--- NOTE | 2017-05-06 16:33 | Internal Med Progress Note ---
Date of Encounter: 05/06/17 Time of Encounter: 15:40 - Assessment and plan (1) Gastroenteritis Current Visit: Yes Status: Acute Assessment and plan: Patient presented to the emergency department with complaint of inability to tolerate the sight or smell of food, and increased weakness for 3 days by her to arrival. He also reports early satiety for one week. Resolved. Most likely nausea and decreased by mouth intake after chemotherapy. He denies abdominal pain, vomiting, diarrhea. He is afebrile and has no leukocytosis. Abdomen soft and nontender to palpation. Nausea resolved with antiemetics. Nausea has waxed and waned throughout visit. He has been placed on Megace and Compazine. He reports he has been able to eat better today and nausea has subsided. Continue IV fluids, PPI, anti-emetics. Continue gentle IV fluid hydration. Megace 800mg po daily C (2) Anemia Current Visit: No Status: Acute Assessment and plan: Anemia in the setting of multiple myeloma. Hemoglobin is 8.3 today. Iron studies were within normal limits in January, folate and B12 within normal limits, as well. Prepare to Transfuse if hemoglobin less than 8 and patient symptomatic. Stool occult blood positive today. We will consult GI for possible endoscopy or for any other recommendations. Continue to monitor labs. Qualifiers: Anemia type: other cause Other causes of anemia: other cause, not classified Qualified Code(s): D64.89 - Other specified anemias (3) Multiple myeloma Current Visit: No Status: Chronic Assessment and plan: Patient recently completed 3 weeks of Velcade dexamethasone. Patient follows with [facility]. Oncology has followed here, palliative treatment, will continue after discharge. Qualifiers: Multiple myeloma remission status: not in remission Qualified Code(s): C90.00 - Multiple myeloma not having achieved remission (4) CKD (chronic kidney disease) stage 4, GFR 15-29 ml/min Current Visit: Yes Status: Acute Assessment and plan: Serum creatinine 2.12, GFR 31. Renal function continues to improve. Continue to avoid nephrotoxins. GFR appears to be patient's baseline, and is improving. Gentle IVF hydration with 0.9 normal saline at 60 miles per hour continued due to renal function and decreased po intake. (5) Failure to thrive Current Visit: Yes Status: Acute Assessment and plan: Patient lives at home alone. He has recent poor po intake and decreased mobility related to multiple myeloma. Evaluated by PT/OT, recommends inpatient rehabilitation. Continue PT/OT here Continue to encourage by mouth intake and Megace 800mg po daily Continue fall precautions and bed alarm. The patient awaiting pre-certification to go to care home. [facility] [place] Qualifiers: Failure to thrive age range: in adult Qualified Code(s): R62.7 - Adult failure to thrive (6) DVT prophylaxis Current Visit: Yes Status: Acute Assessment and plan: Heparin subcutaneous stopped due to stool occult blood being positive. [place] has been ordered. (7) Nausea Current Visit: Yes Status: Acute Assessment and plan: Plan as above. Continue antiemetics. Nausea seems to be improving. Continue Compazine 10mg IV (8) Food aversion Current Visit: Yes Status: Acute Assessment and plan: Plan as above. - Time Spent With Patient less than 15 minutes - Subjective Interval history: Patient was seen and assessed at bedside at 1540. He is alert and awake. We are still waiting on care home placement at this time. Precertification was started on May 03. Patient states that nausea has subsided and he is feeling better today. He has been able to eat some of his meal tray today. He denies any headache or chest pain, no shortness of breath. He denies abdominal pain vomiting or diarrhea. Constipation has resolved. Patient reports that his family has been trying to find a care home for him and will talk to me about it tomorrow. - Constitutional Vitals: Temp Pulse Resp BP Pulse Ox 98.6 F 67 16 124/70 93 05/06/17 15:36 05/06/17 15:36 05/06/17 15:36 05/06/17 15:36 05/06/17 15:36 General appearance: Present: cooperative, A&O X 3, pleasant, no acute distress, answers questions appropriately - Head Head exam: Present: atraumatic, normal inspection, normocephalic - Eye Eye exam: Present: normal appearance, conjuntiva pink, sclera anicteric - Neck Neck exam general surgery: Present: supple, trachea midline. Absent: lymphadenopathy, tenderness - Respiratory Respiratory exam: Present: CTAB. Absent: accessory muscle use, chest wall tenderness, rales, respiratory distress, rhonchi, wheezes - Cardiovascular Cardiovascular exam: Present: RRR, +S1, +S2. Absent: diastolic murmur, gallop, rubs, systolic murmur - GI/Abdominal GI/Abdominal exam: Present: normal bowel sounds, soft. Absent: distended, hepatomegaly, tenderness - Extremities Exam Extremities exam: Present: normal capillary refill, warm, radial pulses palpable and symmetrical. Absent: calf tenderness, cyanotic, pedal edema, tenderness - Neurological Exam Neurological exam: Present: alert, oriented X3, no focal deficits. Absent: facial droop, speech deficit - Skin Skin exam: Present: dry, intact, normal color, rash. Absent: warm Internal Medicine: Result - Labs CBC & Chem 7: 05/06/17 08:20 05/06/17 08:20 Labs: Short CBC 05/06/17 Range/Units 08:20 WBC 3.8 L (4.3-11.1) K/mcL Hgb 8.3 L (12.9-16.9) g/dL Hct 25.4 L (37.5-50.1) % Plt Count 227 (140-400) K/mcL Neutrophils # 2.4 (1.6-8.9) K/mcL BMP 05/06/17 08:20 Sodium 142 Potassium 3.6 Chloride 116 H Carbon Dioxide 22 L BUN 25 H Creatinine 2.12 H Glucose 96 Calcium 8.4 L Consult Discharge Plan - Plan Referrals: Elio Melendez MD [Primary Care Provider] - Scooby Moreno DO [Partnered Physician] - 05/08/17 1:30 pm
[2017-05-06] MEDS: Mirtazapine 15 MG TABLET PO SCH (22:08)
[2017-05-07 05:49] LABS: Basophils % 0.4 %; Eosinophils # 0.1 K/mcL (0.0-0.6); Eosinophils % 2.4 %; Hematocrit 25.2 % (37.5-50.1); Hemoglobin 8.2 g/dL (12.9-16.9); Immature Granulocytes % 2.9 % (0-4); Lymphocytes # 0.9 K/mcL (0.6-4.6); Lymphocytes % 20.4 %; Mean Corpuscular HGB Conc 32.5 g/dL (31.6-35.5); Mean Corpuscular Hemoglobin 31.4 pg (28.0-33.3); Mean Corpuscular Volume 96.6 fL (83.0-100.0); Mean Platelet Volume 9.5 fL (9.4-12.4); Monocytes # 0.3 K/mcL (0.0-1.3); Monocytes % 6.4 %; Platelet Count 238 K/mcL (140-400); Red Blood Count 2.61 M/mcL (4.19-5.50); Red Cell Distribution Width 16.9 % (11.5-14.5); Segmented Neutrophils % 67.5 %
[2017-05-07 06:10] LABS: Calcium 8.3 mg/dL (8.6-10.3); Potassium 3.4 mEq/L (3.5-5.1)
[2017-05-07 08:25] LABS: % Iron Saturation 33 % (20-55); Iron 64 mcg/dL (65-175); Transferrin 139 mg/dL (203-362)
[2017-05-07] MEDS: Sennosides 8.6 MG TABLET PO SCH (08:57)
[2017-05-07] MEDS: Prochlorperazine 10 MG/2 ML VIAL IVP SCH ×3 (08:57→17:52)
[2017-05-07] MEDS: Metoprolol XL (24 HR) Succ 50 MG TAB.ER.24H PO SCH (08:57)
[2017-05-07] MEDS: amLODIPine 5 MG TABLET PO SCH (08:57)
[2017-05-07] MEDS: Megestrol Acetate 400 MG/10 ML UDC PO SCH (08:57)
[2017-05-07] MEDS: Aspirin Enteric Coated 81 MG Tablet PO SCH (08:57)
[2017-05-07] MEDS: Cyanocobalamin (B-12) 1,000 MCG TABLET PO SCH (08:57)
[2017-05-07] MEDS: Isosorbide MONOnitrate (24 HR) 60 MG TAB.ER.24H PO SCH (08:57)
[2017-05-07] MEDS: Acyclovir 200 MG CAPSULE PO SCH (08:58)
[2017-05-07] MEDS: 0.9 % Sodium Chloride 1,000 ML IVC SCH (08:58)
[2017-05-07] MEDS: *HR* OxyCODONE/APAP 10/325 TABLET PO PRN ×2 (09:00→17:52)
[2017-05-07 10:12] LABS: Folate 19.1 ng/mL (3.0-16.0)
[2017-05-07 16:23] VITALS: BP 122/54
--- NOTE | 2017-05-07 17:04 | Discharge Summary ---
Date of Encounter: 05/07/17 Time of Encounter: 10:15 - Discharge Diagnosis (1) Gastroenteritis Priority: Primary Status: Acute Comments: Patient presented to the emergency department with complaint of inability to tolerate the sight or smell of food, and increased weakness for 3 days by her to arrival. He also reports early satiety for one week. Resolved. Most likely nausea and decreased by mouth intake after chemotherapy. He denies abdominal pain, vomiting, diarrhea. He is afebrile and has no leukocytosis. Abdomen soft and nontender to palpation. Nausea resolved with antiemetics. Nausea has waxed and waned throughout visit. He has been placed on Megace and Compazine. I discussed nausea and inability to eat with oncologist, he states that at this time, perhaps there is nothing more to be done. Patient can follow up with the cancer center. Continue Compazine before meals continue to PPI and Megace. (2) Anemia Priority: Secondary Status: Acute Comments: Anemia in the setting of multiple myeloma. Hemoglobin is 8.3 today. Iron studies today showed iron level at 64, percent saturation 33. Vitamin B- 12 1141, folate 19.1. I spoke with Dr. Buck regarding positive stool occult blood as well as hemoglobin. He did not feel this time that any intervention was necessary and that we should continue to monitor patient. He does not have any signs of bleeding. Labs repeated at discretion of ECF. Qualifiers: Anemia type: other cause Other causes of anemia: other cause, not classified Qualified Code(s): D64.89 - Other specified anemias (3) Multiple myeloma Priority: Secondary Status: Chronic Comments: Patient recently completed 3 weeks of Velcade and dexamethasone. He is a patient at [facility]. Patient has been evaluated again today by oncology. It is felt that his multiple myeloma is progressing. They have ordered a workup and patient can be discharged to follow up outpatient. Patient is being discharged to [facility]. Recommend [facility] hospice discuss hospice care with family in the near future. Qualifiers: Multiple myeloma remission status: not in remission Qualified Code(s): C90.00 - Multiple myeloma not having achieved remission (4) CKD (chronic kidney disease) stage 4, GFR 15-29 ml/min Priority: Secondary Status: Acute Comments: Renal function continues to improve. Serum creatinine 2.06, GFR 32. Continue to avoid nephrotoxins and maintain adequate by mouth hydration. (5) Failure to thrive Priority: Secondary Status: Acute Comments: Patient was living at home alone. Patient has progressing multiple myeloma with recent nausea vomiting, food aversion and poor by mouth intake. He has decreased mobility and is becoming increasingly weak. He is being sent to [facility] for rehabilitation. Qualifiers: Failure to thrive age range: in adult Qualified Code(s): R62.7 - Adult failure to thrive (6) DVT prophylaxis Priority: Secondary Status: Acute Comments: Heparin subcutaneous was stopped due to stool occult blood being positive. WES hose were ordered. (7) Nausea Priority: Secondary Status: Acute Comments: Patient reports some moderate relief with Compazine today. He did eat about 5- 10% of his lunch tray and states that he was full and tired. (8) Food aversion Priority: Secondary Status: Acute Comments: Plan as above. (9) Weight loss, unintentional Priority: Secondary Status: Acute Comments: Pt with approximately 3.1 kg weight loss since arrival. Patient has decreased appetite and is still not consuming much despite Megace and control of nausea. Patient will follow up with oncology for continued workup. - Discharge Medications Prescriptions: Prochlorperazine Maleate [Compazine] 10 mg PO Q6HR PRN #5 tablet PRN Reason: Nausea Home Medications: Aspirin Enteric Coated [Aspirin EC] 81 mg PO DAILY 09/06/15 [History] Amlodipine Besylate 10 mg PO DAILY 01/11/17 [History] Metoprolol Succinate 100 mg PO DAILY 01/11/17 [History] Tamsulosin [Flomax] 0.4 mg PO DAILY 01/11/17 [History] Acyclovir [Zovirax] 400 mg PO BID #30 capsule 01/17/17 [Rx] Cyanocobalamin (Vitamin B-12) [Vitamin B12] 1,000 mcg PO DAILY #30 tablet [Rx] Promethazine [Phenergan] 25 mg PO Q6HR PRN #60 tablet 02/01/17 [Rx] Cyclobenzaprine [Flexeril] 10 mg PO TID PRN #30 tablet 02/15/17 [Rx] Sennosides [Senokot] 8.6 mg PO BID #60 tablet 02/22/17 [Rx] Dexamethasone [Decadron] 40 mg PO AD 02/23/17 [History] Oxygen 3 l NS AD 02/23/17 [History] Atorvastatin [Lipitor] 80 mg PO HS #30 tablet 03/01/17 [Rx] Isosorbide MONOnitrate (24 HR) [Imdur] 60 mg PO DAILY #30 tab.er.24h 03/01/17 [ Rx] Allopurinol [Zyloprim 100 MG] 100 mg PO DAILY 04/28/17 [History] Ergocalciferol (VITAMIN D2) [Vitamin D2] 50,000 unit PO QWEEK 04/28/17 [History] Nitroglycerin [Nitrostat] 0.4 mg SL Q5M PRN 04/28/17 [History] Pantoprazole Sodium [Protonix] 20 mg PO HS 04/28/17 [History] Mirtazapine [Remeron] 15 mg PO HS 04/29/17 [History] Megestrol Acetate [Megace] 800 mg PO DAILY udc 05/07/17 [Rx] Metoclopramide [Reglan] 5 mg PO Q6HR ud.liq 05/07/17 [Rx] Omeprazole [PriLOSEC] 40 mg PO DAILY@0730 capsule.dr 05/07/17 [Rx] Prochlorperazine Maleate [Compazine] 10 mg PO Q6HR PRN #5 tablet 05/07/17 [Rx] Allergies/Adverse Reactions: 3 Allergy/AdvReac Type Severity Reaction Status Date / Time No Known Allergies Allergy Verified 04/09/17 13:43 Date of admission: 04/28/17 19:51 Primary care physician: Elio Melendez MD Consults: 05/03/17 13:01 Consult to Speech Therapy [CONS] Routine Comment: Evaluate, develop and implement POC Reason for Consult: Pt states he feels like his throat tightens up when he swallows sometimes. Call Completed: No 05/07/17 10:26 Consult to Oncology [CONS] Routine Consulting Provider: [facility] Reason for Consult: Reassess for n/v, weight loss Time Notified: 10:27 Call Completed: Yes 04/28/17 21:06 Consult to Occupational Therapy [CONS] Routine Comment: Evaluate, develop and implement POC Reason for Consult: assess functional capacity Consult to Physical Therapy [CONS] Routine Comment: Evaluate, develop and implement POC Reason for Consult: assess functional capacity Consult to [employer] ([facility]) [CONS] Routine Reason For Exam: Reason for SW Consult: May need short-term placement to rehab facility d/t weakness and fatigue. H/o multiple myeloma 04/29/17 08:26 Consult to Oncology Hematology [CONS] Routine Consulting Provider: Sierra Gutiérrez Reason for Consult: Follows with Dr. Cabral for multiple myeloma. Now with N/V / and trouble swallowing Call Completed: Yes Discharging clinician: Nohemy Jiang Anticipated date of discharge: 05/07/17 - Patient Status Disposition: Transfer SNF Condition: Fair Functional capacity at discharge: uses cane/walker Overall status at discharge: patient is progressing back to baseline - Discharge Instructions Follow Up With: Elio Melendez MD [Primary Care Provider] - Scooby Moreno DO [Partnered Physician] - 05/08/17 1:30 pm - Diet and Activity Activity: as per physical therapy, increase activity as tolerated Diet: advance to your usual diet Hospital course: Mr. Flores is a 67 year old male with recent history of multiple myeloma. He has been living at home alone. He recently finished treatment and since that time has had nausea, vomiting, food aversion, failure to thrive at home. He has become weak. He has been seen by oncology who feel that his multiple myeloma is progressing. They have started a new workup and I spoke with oncologist by phone this evening, [facility] and follow up at the cancer center for results and further evaluation. He has had approximately 4-5 pound weight loss due to inability to eat. He has been started on Megace and is taking Reglan and Compazine for nausea. Renal function is improving since arrival. Patient still has poor by mouth intake. He has no fever or white count. He is anemic, he has a positive stool occult blood that I spoke to oncology and GI about. No further intervention at this time. Continue to monitor him. He is stable and appropriate for discharge to [facility]. Would recommend after oncology follow-up, possible discussion about hospice with patient in family. - Time Spent with Patient Total time spent providing and/or coordinating discharge services: - Constitutional Vitals: Temp Pulse Resp BP Pulse Ox 99.2 F 63 16 122/54 97 05/07/17 16:23 05/07/17 16:23 05/07/17 16:23 05/07/17 16:23 05/07/17 16:23 General appearance: Present: cooperative, A&O X 3, pleasant, no acute distress, answers questions appropriately - Head Head exam: Present: atraumatic, normal inspection, normocephalic - Eye Eye exam: Present: normal appearance, conjuntiva pink, sclera anicteric - Neck Neck exam general surgery: Present: supple, trachea midline. Absent: lymphadenopathy, tenderness - Respiratory Respiratory exam: Present: CTAB. Absent: accessory muscle use, rales, rhonchi, wheezes - Cardiovascular Cardiovascular exam: Present: RRR, +S1, +S2. Absent: diastolic murmur, gallop, rubs, systolic murmur - GI/Abdominal GI/Abdominal exam: Present: normal bowel sounds, soft. Absent: distended, hepatomegaly, tenderness - Extremities Exam Extremities exam: Present: warm, radial pulses palpable and symmetrical. Absent : calf tenderness, cyanotic, normal capillary refill, normal inspection, pedal edema, tenderness - Neurological Exam Neurological exam: Present: alert, oriented X3, no focal deficits. Absent: facial droop, speech deficit - Skin Skin exam: Present: dry, intact, normal color, warm. Absent: rash
--- NOTE | 2017-05-07 17:23 | Physician Discharge Referral ---
ExtendedCare Referral Info Provider in Charge after Transfer: PCP Institutional Level of Care: Skilled - Diagnosis (1) Gastroenteritis Priority: Primary Status: Acute (2) Anemia Priority: Secondary Status: Acute (3) Multiple myeloma Priority: Secondary Status: Chronic (4) CKD (chronic kidney disease) stage 4, GFR 15-29 ml/min Priority: Secondary Status: Acute (5) Failure to thrive Priority: Secondary Status: Acute (6) DVT prophylaxis Priority: Secondary Status: Acute (7) Nausea Priority: Secondary Status: Acute (8) Food aversion Priority: Secondary Status: Acute (9) Weight loss, unintentional Priority: Secondary Status: Acute Prognosis: Poor Aware of Diagnosis: Family Aware of Prognosis: Patient - Transfer Medications Prescriptions: Prochlorperazine Maleate [Compazine] 10 mg PO Q6HR PRN #5 tablet PRN Reason: Nausea Home Medications: Aspirin Enteric Coated [Aspirin EC] 81 mg PO DAILY 09/06/15 [History] Amlodipine Besylate 10 mg PO DAILY 01/11/17 [History] Metoprolol Succinate 100 mg PO DAILY 01/11/17 [History] Tamsulosin [Flomax] 0.4 mg PO DAILY 01/11/17 [History] Acyclovir [Zovirax] 400 mg PO BID #30 capsule 01/17/17 [Rx] Cyanocobalamin (Vitamin B-12) [Vitamin B12] 1,000 mcg PO DAILY #30 tablet [Rx] Promethazine [Phenergan] 25 mg PO Q6HR PRN #60 tablet 02/01/17 [Rx] Cyclobenzaprine [Flexeril] 10 mg PO TID PRN #30 tablet 02/15/17 [Rx] Sennosides [Senokot] 8.6 mg PO BID #60 tablet 02/22/17 [Rx] Dexamethasone [Decadron] 40 mg PO AD 02/23/17 [History] Oxygen 3 l NS AD 02/23/17 [History] Atorvastatin [Lipitor] 80 mg PO HS #30 tablet 03/01/17 [Rx] Isosorbide MONOnitrate (24 HR) [Imdur] 60 mg PO DAILY #30 tab.er.24h 03/01/17 [ Rx] Allopurinol [Zyloprim 100 MG] 100 mg PO DAILY 04/28/17 [History] Ergocalciferol (VITAMIN D2) [Vitamin D2] 50,000 unit PO QWEEK 04/28/17 [History] Nitroglycerin [Nitrostat] 0.4 mg SL Q5M PRN 04/28/17 [History] Pantoprazole Sodium [Protonix] 20 mg PO HS 04/28/17 [History] Mirtazapine [Remeron] 15 mg PO HS 04/29/17 [History] Megestrol Acetate [Megace] 800 mg PO DAILY udc 05/07/17 [Rx] Metoclopramide [Reglan] 5 mg PO Q6HR ud.liq 05/07/17 [Rx] Omeprazole [PriLOSEC] 40 mg PO DAILY@0730 capsule. 05/07/17 [Rx] Prochlorperazine Maleate [Compazine] 10 mg PO Q6HR PRN #5 tablet 05/07/17 [Rx] Allergies/Adverse Reactions: 3 Allergy/AdvReac Type Severity Reaction Status Date / Time No Known Allergies Allergy Verified 04/09/17 13:43 - Respiratory Orders Smoking Cessation: Smoking cessation has been advised. For more information, call the [place] Tobacco Quit Line at 9-832-JUGP-NOW. - Lab Orders Lab Orders: 2 Step Mantoux Test per State regulation, CBC, U/A, [place] 17, CXR yearly - Ancillary Orders May use pressure relief devices daily prn, May go on LEDY w/family/respon democrat w /meds at nurse discretion PRN, May consult with Dentist, Bagger Meat, Dental Detail Representative PRN - Advance Directives Code Status: Full Code - Mobility Orders Chair, Ambulate - Rehabiliation Orders Rehab Potential: Poor Rehab Orders: Sternal Precautions, ROM Exercises, Evaluation for Physical Therapy, Evaluation for Occupational Therapy - Treatments Skin tear care topically daily PRN per policy, May check for fecal impaction rectally daily PRN, Fleet enema rectally every other day PRN cleansing purposes - Diet Orders Regular CERTIFICATION: I certify that the transfer of the above named patient to an Extended Care Facility is necessary for the continuing treatment of the diagnosis listed. The above information is true and accurate reflection of patient's current condition. Confidential - Redisclosure prohibited without a patient's written consent.
[2017-05-07] MEDS ORDERED: Metoclopramide 10 MG/10 ML UD.LIQ PO SCH (18:00)
--- NOTE | 2017-05-07 21:02 | Oncology Inp Progress Note ---
Date of Encounter: 05/07/17 Time of Encounter: 14:30 (1) Acute kidney injury Current Visit: Yes Status: Acute Assessment and plan: Creatinine has improved to best levels since I first met Mr. Flores. However, has significant proteinuria on spot prot/cr. 24 hour urine collection ordered. No nephrotoxic meds identified. Follows with nephrology. (2) Anemia Current Visit: Yes Status: Acute Assessment and plan: Secondary to myeloma and CKD. Indices stable. Iron stores adequate. Will consider Aranesp as outpatient. 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 Unsure there is much less I can do as this is as simple and minimally toxic as therapy gets. D/W patient and daughter today. He has had a good response. Restaging studies ordered. Will try to give a break from therapy to see if this helps. Has multiple comorbid conditions (severe CAD, COPD) that has complicated treatment. Also discussed pursuing hospice which was discussed at prior hospital stay. Plan to reinitiate therapy after a break for now. Will establish outpatient f/u with me 2-3 weeks. Qualifiers: Multiple myeloma remission status: not in remission Qualified Code(s): C90.00 - Multiple myeloma not having achieved remission Oncology: Subj Interval history: Feeling better today. Nausea has improved. Still with "gagging" sensation at times. No fever or chills. Tired. Planning to go ECF. - Constitutional Vitals: Vital Signs Temp Pulse Resp BP Pulse Ox 05/07/17 16:23 99.2 F 63 16 122/54 97 05/07/17 11:23 98.8 F 65 16 133/62 93 05/07/17 06:59 98.6 F 67 16 149/83 96 05/07/17 04:36 98.4 F 79 16 174/75 96 05/06/17 23:32 98.6 F 59 15 136/56 96 Intake and Output 05/07/17 05/07/17 05/08/17 08:59 16:59 00:59 Intake Total 1000 / 1000 440 / 440 Output Total 200 / 200 275 / 275 Balance 800 / 800 165 / 165 Intake: IV Fluids 1000 / 1000 0.9 % Sodium Chloride 1,000 ML 1000 / 1000 @ 60 mls/hr IVC .[id number] TETE Rx #:[id number] Oral 440 / 440 Output: Urine 200 / 200 275 / 275 Other: Meal Lunch Percent of Meal Consumed 90% Weight 63.231 kg 72.4 kg Blood Glucose* 98 127 Patient Weight 05/08/17 00:59 Weight 72.4 kg General appearance: average body habitus, cooperative - Head Head exam: Present: atraumatic, normal inspection, normocephalic - Eye Eye exam: Present: normal appearance, conjuntiva pink, sclera anicteric - ENT ENT exam: Present: mucous membranes moist, normal exam - Neck Neck exam: Present: normal inspection - Respiratory Respiratory exam: Present: decreased breath sounds - Cardiovascular Cardiovascular exam: Present: RRR - GI/Abdominal GI/Abdominal exam: Present: normal bowel sounds, soft - Extremities Exam Extremities exam: Present: normal inspection - Neurological Exam Neurological exam: Present: alert, CN II-XII intact, oriented X3, no focal deficits Oncology: Obj Data - Labs CBC & Chem 7: 05/07/17 05:15 05/07/17 05:15 Labs: Laboratory Results - last 24 hr 05/06/17 05/06/17 05/06/17 07:39 11:16 15:35 WBC RBC Hgb Hct MCV MCH MCHC RDW Plt Count MPV Immature Gran % Seg Neutrophils % Lymphocytes % Monocytes % Eosinophils % Basophils % Neutrophils # Lymphocytes # Monocytes # Eosinophils # Basophils # Sodium Potassium Chloride Carbon Dioxide BUN Creatinine Est GFR ( Amer) Est GFR (Non-Af Amer) BUN/Creatinine Ratio Glucose POC Glucose 103 H 140 H 116 H Calculated Osmolality Calcium Iron % Saturation Transferrin Vitamin B12 Folate 05/07/17 05/07/17 05/07/17 05:15 05:15 07:59 WBC 4.5 RBC 2.61 L Hgb 8.2 L Hct 25.2 L MCV 96.6 MCH 31.4 MCHC 32.5 RDW 16.9 H Plt Count 238 MPV 9.5 Immature Gran % 2.9 Seg Neutrophils % 67.5 Lymphocytes % 20.4 Monocytes % 6.4 Eosinophils % 2.4 Basophils % 0.4 Neutrophils # 3.0 Lymphocytes # 0.9 Monocytes # 0.3 Eosinophils # 0.1 Basophils # 0.0 Sodium 141 Potassium 3.4 L Chloride 117 H Carbon Dioxide 22 L BUN 24 H Creatinine 2.06 H Est GFR ( Amer) 39 L Est GFR (Non-Af Amer) 32 L BUN/Creatinine Ratio 12 Glucose 94 POC Glucose Calculated Osmolality 296 Calcium 8.3 L Iron % Saturation Transferrin Vitamin B12 1141 H Folate 19.1 H 05/07/17 07:59 WBC RBC Hgb Hct MCV MCH MCHC RDW Plt Count MPV Immature Gran % Seg Neutrophils % Lymphocytes % Monocytes % Eosinophils % Basophils % Neutrophils # Lymphocytes # Monocytes # Eosinophils # Basophils # Sodium Potassium Chloride Carbon Dioxide BUN Creatinine Est GFR ( Amer) Est GFR (Non-Af Amer) BUN/Creatinine Ratio Glucose POC Glucose Calculated Osmolality Calcium Iron 64 L % Saturation 33 Transferrin 139 L Vitamin B12 Folate Consult Discharge Plan - Plan Referrals: Elio Melendez MD [Primary Care Provider] - Scooby Moreno DO [Partnered Physician] - 05/08/17 1:30 pm Prescriptions: OxyCODONE/APAP 10/325 [Percocet 10/325 MG] 1 each PO Q4HR PRN #4 tablet PRN Reason: Pain Prochlorperazine Maleate [Compazine] 10 mg PO Q6HR PRN #5 tablet PRN Reason: Nausea
== END 2017-05-07 18:55 ==
LOC: EMEROO 18:15 → 3BNU 18:15
PROVIDERS: ADMIT Internal Medicine; ATTEND Registered Nurse

== ENCOUNTER 2017-05-22 17:45 | Inpatient (IN) ==
--- NOTE | 2017-05-22 18:20 | Emergency Department Note ---
Disposition Clinical Impression: Nausea Altered mental status Qualifiers: Altered mental status type: unspecified Qualified Code(s): R41.82 - Altered mental status, unspecified Disposition: Still a Patient Referrals: Elio Melendez MD [Primary Care Provider] - Forms: ED Satisfaction Letter Nausea/Vomiting/Diarrhea HPI - General Chief complaint: ED Nausea/Vomiting/Diarrhea Stated complaint: vomiting, nose bleed Time Seen by Provider: 05/22/17 17:58 Source: EMS Mode of arrival: EMS Limitations: no limitations Nursing Notes Reviewed: Yes Vital Signs Reviewed: Yes - History of Present Illness HPI Narrative: 67-year-old male presented to the emergency department with nausea vomiting as well as a Taxus. Patient does have history of multiple myeloma he was recently admitted here for dehydration when he was discharged and was oncology consultation and he actually stopped having chemotherapy on May 07. This was due to him to recover from this. Patient was sent to [facility]. He was discharged from there today home and said to go to his daughter's tomorrow. Patient is a very poor historian starting much of the history this is all basically from EMS. Patient was found on the ground and vomit this up there was some blood streaking up and fentanyl was all from the epistaxis. Epistaxis has since stopped. Patient now is only complaining of mild epigastric pain. He is a very poor historian. He is not complaining of vomiting at this time but is nauseous. Patient otherwise is not able to answer any questions but overall studies having no other complaints. - Related Data Home Medications Medication Instructions Recorded Confirmed Aspirin Enteric Coated [Aspirin EC] 81 mg PO DAILY 09/06/15 04/29/17 Amlodipine Besylate 10 mg PO DAILY 01/11/17 04/29/17 Metoprolol Succinate 100 mg PO DAILY 01/11/17 04/29/17 Tamsulosin [Flomax] 0.4 mg PO DAILY 01/11/17 04/29/17 Dexamethasone [Decadron] 40 mg PO AD 02/23/17 04/29/17 Oxygen 3 l NS AD 02/23/17 04/29/17 Allopurinol [Zyloprim 100 MG] 100 mg PO DAILY 04/28/17 04/29/17 Ergocalciferol (VITAMIN D2) 50,000 unit PO QWEEK 04/28/17 04/29/17 [Vitamin D2] Nitroglycerin [Nitrostat] 0.4 mg SL Q5M PRN 04/28/17 04/29/17 Pantoprazole Sodium [Protonix] 20 mg PO HS 04/28/17 04/29/17 Mirtazapine [Remeron] 15 mg PO HS 04/29/17 04/29/17 Previous Rx's Medication Instructions Recorded Acyclovir [Zovirax] 400 mg PO BID #30 capsule 01/17/17 Cyanocobalamin (Vitamin B-12) 1,000 mcg PO DAILY #30 tablet 01/17/17 [Vitamin B12] Promethazine [Phenergan] 25 mg PO Q6HR PRN #60 tablet 02/01/17 Cyclobenzaprine [Flexeril] 10 mg PO TID PRN #30 tablet 02/15/17 Sennosides [Senokot] 8.6 mg PO BID #60 tablet 02/22/17 Atorvastatin [Lipitor] 80 mg PO HS #30 tablet 03/01/17 Isosorbide MONOnitrate (24 HR) 60 mg PO DAILY #30 tab.er.24h 03/01/17 [Imdur] Megestrol Acetate [Megace] 800 mg PO DAILY udc 05/07/17 Metoclopramide [Reglan] 5 mg PO Q6HR ud.liq 05/07/17 Omeprazole [PriLOSEC] 40 mg PO DAILY@0730 capsule. 05/07/17 OxyCODONE/APAP 10/325 [Percocet 1 each PO Q4HR PRN #4 tablet 05/07/17 10/325 MG] Prochlorperazine Maleate 10 mg PO Q6HR PRN #5 tablet 05/07/17 [Compazine] Allergies Allergy/AdvReac Type Severity Reaction Status Date / Time No Known Allergies Allergy Verified 04/09/17 13:43 Limitations: ROS unobtainable due to patients medical condition Past Medical History - Past Medical History Attestation: Yes The following information was validated with the patient. Medical history: Reports: cancer, COPD, coronary artery disease, diabetes, hypertension, myocardial infarction Surgical history: Reports: angioplasty/stent Psychiatric history: Reports: anxiety, depression - Social History Smoking Status: Former smoker Smokeless Tobacco Status: No Alcohol use: Reports: none Drug use: Reports: none Physical Exam - General Limitations: no limitations General appearance: alert, in no apparent distress - Head Head exam: atraumatic, normocephalic, normal inspection - Eye Eye exam: Present: normal appearance, PERRL, EOMI - ENT ENT exam: normal exam, normal oropharynx, mucous membranes moist, other (Blood around the nares.) - Neck Neck exam: Present: normal inspection, full ROM, trachea midline - Chest Chest inspection: Present: normal inspection, symmetric chest wall rise - Respiratory Respiratory exam: Present: normal lung sounds bilaterally. Absent: respiratory distress, wheezes - Cardiovascular Cardiovascular exam: Present: regular rate, normal rhythm - Abdominal Exam Abdominal exam: Present: soft, Non-Tender. Absent: tenderness, distention, guarding, rebound, rigidity - Extremities Exam Extremities exam: Present: normal inspection, full ROM. Absent: tenderness, pedal edema - Expanded Lower Extremity Exam Neurovascular/Tendon exam: Present: normal capillary refill. Absent: pulse deficit, motor deficit, sensory deficit, tendon deficit - Back Exam Back exam: Present: normal inspection, full ROM. Absent: tenderness, CVA tenderness (R), CVA tenderness (L) - Neurological Exam Neurological exam: Present: alert. Absent: oriented X3 (Oriented 1 to self not to place or time.) - Skin Skin exam: Present: warm, dry, intact, normal color Course Course Narrative: 67-year-old male presented to the emergency department with nausea does not history of multiple myeloma. Family is not here so is very hard to get a complete history and from the patient. Patient is altered as he only knows his name. We will do a broad altered mental status workup including CBC, CMP, lactate, urinalysis, coags, VBG, EKG, chest x-ray, CT head as well as CT abdomen and pelvis he does have known kidney issues we will do these without contrast. Most likely disposition will be admission. Vital Signs Temperature 99.4 F 05/22/17 17:52 Pulse Rate 104 05/22/17 17:52 Respiratory Rate 18 05/22/17 17:52 Blood Pressure 135/89 05/22/17 17:52 O2 Sat by Pulse Oximetry 98 05/22/17 17:52 Temperature 99.4 F 05/22/17 17:52 Pulse Rate 97 05/22/17 18:06 Respiratory Rate 18 05/22/17 18:06 Blood Pressure 139/97 05/22/17 18:06 O2 Sat by Pulse Oximetry 97 05/22/17 18:06 Oxygen Delivery Oxygen Delivery Room Air Nausea/Vomiting/Diarrhea - MDM Narrative Medical decision making narrative: 67-year-old male presents to the emergency department complaining of nausea. We will give patient IV fluids as he did seem dehydrated as well as Zofran for his nausea. Family was not at bedside when he came here his heart get a full history from him all of his labs and imaging were still pending and I did sign this patient out to the night team, Dr. Quinones and Dr. Batista. They accept the patient and said that they will follow-up on all labs and imaging. - Medical Records Medical records reviewed: Yes I reviewed the patient's medical records. - EKG Data EKG attestation: Yes I reviewed and interpreted this EKG. EKG results narrative: EKG done at 1929 myself and attending shows sinus rhythm at a rate of 89, NC 139 , QRS 92, QTc 382 with a normal axis. There is no acute ST changes no acute T- wave abnormalities, no other signs of ischemia.. No signs of any heart blocks. There is moderate LVH. No signs of heart strain. No signs of W Darío OB/ Brugada syndrome. No old EKG to compare with. Attestation Statement - Attestation Attestation: I examined this patient and my medical decision-making was reviewed with the Resident Physician. I agree with the documented findings, disposition and treatment plan as described except to the extent set forth below. Altered mental status, possible epistaxis. Will obtain altered mental status workup, head CT, CT of the abdomen and pelvis to evaluate for nausea or vomiting. Final disposition pending results of imaging and laboratory analyses.
[2017-05-22] MEDS ORDERED: 0.9 % Sodium Chloride 1,000 ML IVC ONE (18:24)
[2017-05-22] MEDS ORDERED: Ondansetron 4 MG/2 ML VIAL IVP ONE (19:38)
[2017-05-22 19:50] LABS: Basophils % 0.1 %; Eosinophils # 0.1 K/mcL (0.0-0.6); Hematocrit 28.7 % (37.5-50.1); Hemoglobin 9.5 g/dL (12.9-16.9); Immature Granulocytes % 1.3 % (0-4); Lymphocytes # 0.4 K/mcL (0.6-4.6); Lymphocytes % 5.6 %; Mean Corpuscular HGB Conc 33.1 g/dL (31.6-35.5); Mean Corpuscular Hemoglobin 31.7 pg (28.0-33.3); Mean Corpuscular Volume 95.7 fL (83.0-100.0); Mean Platelet Volume 9.6 fL (9.4-12.4); Monocytes # 0.3 K/mcL (0.0-1.3); Monocytes % 4.2 %; Neutrophils # 6.8 K/mcL (1.6-8.9); Platelet Count 298 K/mcL (140-400); Segmented Neutrophils % 87.8 %
[2017-05-22 19:59] LABS: INR 1.1; Prothrombin Time 11.9 Seconds (9.4-12.1)
[2017-05-22 20:01] LABS: Activated Partial Thrombo Time 32.5 Seconds (26.0-36.0)
[2017-05-22 20:02] LABS: VBG HCO3 18 mEq/L (21-27); VBG PCO2 29 mmHg (41-51); VBG PH 7.41 pH Units (7.32-7.42); VBG PO2 40 mmHg (25-50)
[2017-05-22 20:13] LABS: Alanine Aminotransferase 17 Units/L (7-52); Albumin 3.1 g/dL (3.5-5.7); Albumin/Globulin Ratio 0.5 (1.1-2.2); Alkaline Phosphatase 93 Units/L (34-104); Aspartate Amino Transferase 23 Units/L (13-39); BUN/Creatinine Ratio 15 (6-26); Bilirubin,Direct 0.1 mg/dL (0.0-0.2); Bilirubin,Indirect 0.2 mg/dL (0.0-1.2); Bilirubin,Total 0.3 mg/dL (0.3-1.0); Blood Urea Nitrogen 45 mg/dL (8-23); Carbon Dioxide 18 mEq/L (23-29); Chloride 109 mEq/L (98-107); Globulin 5.8 g/dL (2.4-3.5); Glucose 121 mg/dL (70-105); Osmolality,Calculated 287 (280-300); Potassium 5.4 mEq/L (3.5-5.1); Sodium 132 mEq/L (136-145); Total Protein 8.9 g/dL (6.4-8.9); eGFR For African Americans 25 (> 60); eGFR For Non-African Americans 21 (> 60)
[2017-05-22 20:14] LABS: Ethanol < 10 mg/dL (0-10)
[2017-05-22 20:23] LABS: Bilirubin,Urine Small (Negative); Blood,Urine Moderate (Negative); Clarity,Urine Turbid (Clear); Color,Urine Yellow (Yellow); Glucose,Urine (UA) 100 mg/dL (Normal); Ketones,Urine Negative (Negative); Leukocyte Esterase,Urine Negative (Negative); Nitrite,Urine Negative (Negative); Protein,Urine >=1000 mg/dL (Neg-Trace); Specific Gravity,Urine > 1.030 (1.010-1.025); Urobilinogen,Urine Normal (Normal)
[2017-05-22 20:26] LABS: Bacteria,Urine None Seen per hpf (None-Few); Squamous Epithelial Cell,Urine Many per lpf (None-Few)
[2017-05-22 20:28] LABS: Amphetamine Screen,Urine Negative ng/mL (Cutoff=1000); Barbiturate Screen,Urine Negative ng/mL (Cutoff=200); Benzodiazepines Screen,Urine Negative ng/mL (Cutoff=200); Cannabinoid Screen,Urine Negative ng/mL (Cutoff = 50); Cocaine Screen,Urine Negative ng/mL (Cutoff= 300); Opiate Screen,Urine Positive ng/mL (Cutoff=300); Phencyclidine Screen,Urine Negative ng/mL (Cutoff=25)
[2017-05-22 20:46] LABS: Amorphous Sediment,Urine Many (Few); Granular Casts,Urine Few per lpf (None Seen)
--- NOTE | 2017-05-22 21:24 | Emergency Department Note ---
Disposition Clinical Impression: Altered mental status, Nausea, Acute kidney injury, Dehydration, Elevated troponin Disposition: Admitted As Inpatient Condition: Fair General Adult HPI - General Chief complaint: ED Nausea/Vomiting/Diarrhea Stated complaint: vomiting, nose bleed Time Seen by Provider: 05/22/17 17:58 Source: EMS Mode of arrival: EMS Limitations: no limitations - History of Present Illness Pain Scale: 0 - Related Data Home Medications Medication Instructions Recorded Confirmed Aspirin Enteric Coated [Aspirin EC] 81 mg PO DAILY 09/06/15 04/29/17 Amlodipine Besylate 10 mg PO DAILY 01/11/17 04/29/17 Metoprolol Succinate 100 mg PO DAILY 01/11/17 04/29/17 Tamsulosin [Flomax] 0.4 mg PO DAILY 01/11/17 04/29/17 Dexamethasone [Decadron] 40 mg PO AD 02/23/17 04/29/17 Oxygen 3 l NS AD 02/23/17 04/29/17 Allopurinol [Zyloprim 100 MG] 100 mg PO DAILY 04/28/17 04/29/17 Ergocalciferol (VITAMIN D2) 50,000 unit PO QWEEK 04/28/17 04/29/17 [Vitamin D2] Nitroglycerin [Nitrostat] 0.4 mg SL Q5M PRN 04/28/17 04/29/17 Pantoprazole Sodium [Protonix] 20 mg PO HS 04/28/17 04/29/17 Mirtazapine [Remeron] 15 mg PO HS 04/29/17 04/29/17 Previous Rx's Medication Instructions Recorded Acyclovir [Zovirax] 400 mg PO BID #30 capsule 01/17/17 Cyanocobalamin (Vitamin B-12) 1,000 mcg PO DAILY #30 tablet 01/17/17 [Vitamin B12] Promethazine [Phenergan] 25 mg PO Q6HR PRN #60 tablet 02/01/17 Cyclobenzaprine [Flexeril] 10 mg PO TID PRN #30 tablet 02/15/17 Sennosides [Senokot] 8.6 mg PO BID #60 tablet 02/22/17 Atorvastatin [Lipitor] 80 mg PO HS #30 tablet 03/01/17 Isosorbide MONOnitrate (24 HR) 60 mg PO DAILY #30 tab.er.24h 03/01/17 [Imdur] Megestrol Acetate [Megace] 800 mg PO DAILY udc 05/07/17 Metoclopramide [Reglan] 5 mg PO Q6HR ud.liq 05/07/17 Omeprazole [PriLOSEC] 40 mg PO DAILY@0730 capsule. 05/07/17 OxyCODONE/APAP 10/325 [Percocet 1 each PO Q4HR PRN #4 tablet 05/07/17 10/325 MG] Prochlorperazine Maleate 10 mg PO Q6HR PRN #5 tablet 05/07/17 [Compazine] Allergies Allergy/AdvReac Type Severity Reaction Status Date / Time No Known Allergies Allergy Verified 04/09/17 13:43 Past Medical History - Past Medical History Medical history: Reports: cancer, COPD, coronary artery disease, diabetes, hypertension, myocardial infarction Surgical history: Reports: angioplasty/stent Psychiatric history: Reports: anxiety, depression - Social History Smoking Status: Former smoker Smokeless Tobacco Status: No Alcohol use: Reports: none Drug use: Reports: none Physical Exam - General Limitations: no limitations General appearance: alert, in no apparent distress Course Course Narrative: Received signout from the day team. He has been confused, but no vomiting since I arrived to the ED. Scans negative. He is dehydrated and received 1L of NS. Will admit for. No ST elevation on EKG. Troponin is 0.04 Vital Signs Temperature 99.4 F 05/22/17 17:52 Pulse Rate 104 05/22/17 17:52 Respiratory Rate 18 05/22/17 17:52 Blood Pressure 135/89 05/22/17 17:52 O2 Sat by Pulse Oximetry 98 05/22/17 17:52 Temperature 98.9 F 05/22/17 23:16 Pulse Rate 90 05/22/17 23:16 Respiratory Rate 16 05/22/17 23:16 Blood Pressure 154/85 05/22/17 23:16 O2 Sat by Pulse Oximetry 96 05/22/17 23:16 Oxygen Delivery Oxygen Delivery Room Air Medical Decision Making - Medical Records Medical records reviewed: Yes I reviewed the patient's medical records. - Lab Data Lab results reviewed: Yes I reviewed the patient's lab results. Result diagrams: 05/23/17 01:30 05/22/17 19:36 Lab Results 05/22/17 05/22/17 05/22/17 Range/Units 19:36 19:36 19:36 WBC 7.7 D (4.3-11.1) K/mcL RBC 3.00 L (4.19-5.50) M/mcL Hgb 9.5 L (12.9-16.9) g/dL Hct 28.7 L (37.5-50.1) % MCV 95.7 (83.0-100.0) fL MCH 31.7 (28.0-33.3) pg MCHC 33.1 (31.6-35.5) g/dL RDW 16.0 H (11.5-14.5) % Plt Count 298 (140-400) K/mcL MPV 9.6 (9.4-12.4) fL Immature Gran % 1.3 (0-4) % Seg Neutrophils % 87.8 % Lymphocytes % 5.6 % Monocytes % 4.2 % Eosinophils % 1.0 % Basophils % 0.1 % Neutrophils # 6.8 (1.6-8.9) K/mcL Lymphocytes # 0.4 L (0.6-4.6) K/mcL Monocytes # 0.3 (0.0-1.3) K/mcL Eosinophils # 0.1 (0.0-0.6) K/mcL Basophils # 0.0 (0.0-0.2) K/mcL PT 11.9 (9.4-12.1) Seconds INR 1.1 APTT 32.5 (26.0-36.0) Seconds VBG pH (7.32-7.42) pH Units VBG pCO2 (41-51) mmHg VBG pO2 (25-50) mmHg VBG HCO3 (21-27) mEq/L Carboxyhemoglobin (0-5) % Sodium 132 L (136-145) mEq/L Potassium 5.4 H (3.5-5.1) mEq/L Chloride 109 H (98-107) mEq/L Carbon Dioxide 18 L (23-29) mEq/L BUN 45 H (8-23) mg/dL Creatinine 3.02 H (0.70-1.30) mg/dL Est GFR ( Amer) 25 L (> 60) Est GFR (Non-Af Amer) 21 L (> 60) BUN/Creatinine Ratio 15 (6-26) Glucose 121 H (70-105) mg/dL Calculated Osmolality 287 (280-300) Calcium 10.0 (8.6-10.3) mg/dL Total Bilirubin 0.3 (0.3-1.0) mg/dL Direct Bilirubin 0.1 (0.0-0.2) mg/dL Indirect Bilirubin 0.2 (0.0-1.2) mg/dL AST 23 (13-39) Units/L ALT 17 (7-52) Units/L Alkaline Phosphatase 93 (34-104) Units/L Ammonia (16-53) mcmol/L Creatine Kinase 23 L (30-223) Units/L Troponin I (< 0.04) ng/mL Serum Total Protein 8.9 (6.4-8.9) g/dL Albumin 3.1 L (3.5-5.7) g/dL Globulin 5.8 H (2.4-3.5) g/dL Albumin/Globulin Ratio 0.5 L (1.1-2.2) Urine Color (Yellow) Urine Clarity (Clear) Urine pH (5.0-8.0) pH Units Ur Specific [place] (1.010-1.025) Urine Protein (Neg-Trace) mg/dL Urine Glucose (UA) (Normal) mg/dL Urine Ketones (Negative) mg/dL Urine Blood (Negative) Urine Nitrite (Negative) Urine Bilirubin (Negative) Urine Urobilinogen (Normal) mg/dL Ur Leukocyte Esterase (Negative) Urine Microscopic RBC (0-3) per hpf Urine Microscopic WBC (0-3) per hpf Ur Squamous Epith Cells (None-Few) per lpf Amorphous Sediment (Few) Urine Bacteria (None-Few) per hpf Granular Casts (None Seen) per lpf Ur Culture Indicated? (NO) Urine Opiates Screen (Kkwvvv=146) ng/mL Ur Barbiturates Screen (Ztnzli=986) ng/mL Ur Phencyclidine Scrn (Cutoff=25) ng/mL Ur Amphetamines Screen (Hkrbxe=4285) ng/mL U Benzodiazepines Scrn (Aaprpy=521) ng/mL Urine Cocaine Screen (Cutoff= 300) ng/mL U Marijuana (THC) Screen (Cutoff = 50) ng/mL Ethyl Alcohol < 10 (0-10) mg/dL 01/23/18 01/23/18 01/23/18 Range/Units 19:36 19:36 19:36 WBC (4.3-11.1) K/mcL RBC (4.19-5.50) M/mcL Hgb (12.9-16.9) g/dL Hct (37.5-50.1) % MCV (83.0-100.0) fL MCH (28.0-33.3) pg MCHC (31.6-35.5) g/dL RDW (11.5-14.5) % Plt Count (140-400) K/mcL MPV (9.4-12.4) fL Immature Gran % (0-4) % Seg Neutrophils % % Lymphocytes % % Monocytes % % Eosinophils % % Basophils % % Neutrophils # (1.6-8.9) K/mcL Lymphocytes # (0.6-4.6) K/mcL Monocytes # (0.0-1.3) K/mcL Eosinophils # (0.0-0.6) K/mcL Basophils # (0.0-0.2) K/mcL PT (9.4-12.1) Seconds INR APTT (26.0-36.0) Seconds VBG pH (7.32-7.42) pH Units VBG pCO2 (41-51) mmHg VBG pO2 (25-50) mmHg VBG HCO3 (21-27) mEq/L Carboxyhemoglobin 3.8 (0-5) % Sodium (136-145) mEq/L Potassium (3.5-5.1) mEq/L Chloride (98-107) mEq/L Carbon Dioxide (23-29) mEq/L BUN (8-23) mg/dL Creatinine (0.70-1.30) mg/dL Est GFR ( Amer) (> 60) Est GFR (Non-Af Amer) (> 60) BUN/Creatinine Ratio (6-26) Glucose (70-105) mg/dL Calculated Osmolality (280-300) Calcium (8.6-10.3) mg/dL Total Bilirubin (0.3-1.0) mg/dL Direct Bilirubin (0.0-0.2) mg/dL Indirect Bilirubin (0.0-1.2) mg/dL AST (13-39) Units/L ALT (7-52) Units/L Alkaline Phosphatase (34-104) Units/L Ammonia 35 (16-53) mcmol/L Creatine Kinase (30-223) Units/L Troponin I 0.04 H* (< 0.04) ng/mL Serum Total Protein (6.4-8.9) g/dL Albumin (3.5-5.7) g/dL Globulin (2.4-3.5) g/dL Albumin/Globulin Ratio (1.1-2.2) Urine Color (Yellow) Urine Clarity (Clear) Urine pH (5.0-8.0) pH Units Ur Specific [place] (1.010-1.025) Urine Protein (Neg-Trace) mg/dL Urine Glucose (UA) (Normal) mg/dL Urine Ketones (Negative) mg/dL Urine Blood (Negative) Urine Nitrite (Negative) Urine Bilirubin (Negative) Urine Urobilinogen (Normal) mg/dL Ur Leukocyte Esterase (Negative) Urine Microscopic RBC (0-3) per hpf Urine Microscopic WBC (0-3) per hpf Ur Squamous Epith Cells (None-Few) per lpf Amorphous Sediment (Few) Urine Bacteria (None-Few) per hpf Granular Casts (None Seen) per lpf Ur Culture Indicated? (NO) Urine Opiates Screen (Xrxwrq=270) ng/mL Ur Barbiturates Screen (Vqmdks=101) ng/mL Ur Phencyclidine Scrn (Cutoff=25) ng/mL Ur Amphetamines Screen (Hnputd=7111) ng/mL U Benzodiazepines Scrn (Umykip=812) ng/mL Urine Cocaine Screen (Cutoff= 300) ng/mL U Marijuana (THC) Screen (Cutoff = 50) ng/mL Ethyl Alcohol (0-10) mg/dL 05/22/17 05/22/17 05/22/17 Range/Units 19:52 19:59 19:59 WBC (4.3-11.1) K/mcL RBC (4.19-5.50) M/mcL Hgb (12.9-16.9) g/dL Hct (37.5-50.1) % MCV (83.0-100.0) fL MCH (28.0-33.3) pg MCHC (31.6-35.5) g/dL RDW (11.5-14.5) % Plt Count (140-400) K/mcL MPV (9.4-12.4) fL Immature Gran % (0-4) % Seg Neutrophils % % Lymphocytes % % Monocytes % % Eosinophils % % Basophils % % Neutrophils # (1.6-8.9) K/mcL Lymphocytes # (0.6-4.6) K/mcL Monocytes # (0.0-1.3) K/mcL Eosinophils # (0.0-0.6) K/mcL Basophils # (0.0-0.2) K/mcL PT (9.4-12.1) Seconds INR APTT (26.0-36.0) Seconds VBG pH 7.41 (7.32-7.42) pH Units VBG pCO2 29 L (41-51) mmHg VBG pO2 40 (25-50) mmHg VBG HCO3 18 L (21-27) mEq/L Carboxyhemoglobin (0-5) % Sodium (136-145) mEq/L Potassium (3.5-5.1) mEq/L Chloride (98-107) mEq/L Carbon Dioxide (23-29) mEq/L BUN (8-23) mg/dL Creatinine (0.70-1.30) mg/dL Est GFR ( Amer) (> 60) Est GFR (Non-Af Amer) (> 60) BUN/Creatinine Ratio (6-26) Glucose (70-105) mg/dL Calculated Osmolality (280-300) Calcium (8.6-10.3) mg/dL Total Bilirubin (0.3-1.0) mg/dL Direct Bilirubin (0.0-0.2) mg/dL Indirect Bilirubin (0.0-1.2) mg/dL AST (13-39) Units/L ALT (7-52) Units/L Alkaline Phosphatase (34-104) Units/L Ammonia (16-53) mcmol/L Creatine Kinase (30-223) Units/L Troponin I (< 0.04) ng/mL Serum Total Protein (6.4-8.9) g/dL Albumin (3.5-5.7) g/dL Globulin (2.4-3.5) g/dL Albumin/Globulin Ratio (1.1-2.2) Urine Color Yellow (Yellow) Urine Clarity Turbid A (Clear) Urine pH 6.0 (5.0-8.0) pH Units Ur Specific [place] > 1.030 H (1.010-1.025) Urine Protein >=1000 H (Neg-Trace) mg/dL Urine Glucose (UA) 100 H (Normal) mg/dL Urine Ketones Negative (Negative) mg/dL Urine Blood Moderate H (Negative) Urine Nitrite Negative (Negative) Urine Bilirubin Small H (Negative) Urine Urobilinogen Normal (Normal) mg/dL Ur Leukocyte Esterase Negative (Negative) Urine Microscopic RBC 3-5 H (0-3) per hpf Urine Microscopic WBC 3-5 H (0-3) per hpf Ur Squamous Epith Cells Many H (None-Few) per lpf Amorphous Sediment Many H (Few) Urine Bacteria None Seen (None-Few) per hpf Granular Casts Few H (None Seen) per lpf Ur Culture Indicated? NO (NO) Urine Opiates Screen Positive H (Iweoqq=060) ng/mL Ur Barbiturates Screen Negative (Gnharg=081) ng/mL Ur Phencyclidine Scrn Negative (Cutoff=25) ng/mL Ur Amphetamines Screen Negative (Nllwao=6062) ng/mL U Benzodiazepines Scrn Negative (Mfppmo=690) ng/mL Urine Cocaine Screen Negative (Cutoff= 300) ng/mL U Marijuana (THC) Screen Negative (Cutoff = 50) ng/mL Ethyl Alcohol (0-10) mg/dL - Radiology Data Radiology results reviewed: Yes I reviewed the patient's radiology results. - EKG Data EKG #1 EKG attestation: Yes I reviewed and interpreted this EKG. EKG shows normal: sinus rhythm Rate: normal Rhythm: NSR Attestation Statement - Attestation Attestation: I, Bert Quinones, examined this patient and my medical decision-making was reviewed with the TIMBER SELECTOR/PA/Advanced Practice Nurse/Resident Physician. I agree with the documented findings, disposition and treatment plan as described except to the extent set forth below. 67-year-old male received in sign out pending laboratory evaluation, imaging and reevaluation and disposition. Patient was found laying face down in a full blood which was secondary to epistaxis. Patient has altered mental status on evaluation in emergency department. Patient is unable to give a history regarding his case presentation. Patient was recently discharged from nursing facility and was meant to live with his daughter. Patient is unable to take care of himself and he will be evaluated further in the emergency department. CT of his head was negative for acute fracture or intracranial hemorrhage however he does have a history of multiple myeloma.. Laboratory evaluation is largely within normal limits other than mild acute renal insufficiency, hyperkalemia, elevated troponin and anemia.
[2017-05-22] MEDS ORDERED: *HR* Promethazine 25 MG/ML VIAL IVP PRN (23:07)
[2017-05-22] MEDS ORDERED: Ondansetron 4 MG/2 ML VIAL IVP PRN (23:07)
[2017-05-22] MEDS ORDERED: Naloxone 0.4 MG/ML INJ IVP PRN (23:07)
[2017-05-22] MEDS ORDERED: Acetaminophen 325 MG TABLET PO PRN (23:07)
--- NOTE | 2017-05-22 23:24 | Internal Med History&Physical ---
<Jamin Chirinos - Last Filed: 05/23/17 00:02> Date of Encounter: 05/23/17 Time of Encounter: 23:21 Assessment and Plan (1) Dehydration Current visit: Yes Status: Acute Patient appears clinically dry, with EVER on BMP secondary to vomiting, BUN 45 Zofran for nausea has stopped the patient's vomiting He did get 1 L in the ED We will give the patient maintenance fluids Continue antiemetics (2) Syncope Current visit: Yes Status: Acute Apparently found down, according to friend patient is unaware of any syncope, does not complain We will do the standard syncope workup due to this controversial story TTE, b/l US Carotid, Continuous cardiac monitoring Qualifiers: Syncope type: unspecified Qualified Code(s): R55 - Syncope and collapse (3) Altered mental status Current visit: Yes Status: Resolved Patient apparently had altered mental status at time of arrival, which has now resolved Qualifiers: Altered mental status type: unspecified Qualified Code(s): R41.82 - Altered mental status, unspecified (4) Nausea Current visit: Yes Status: Acute Continue antiemetics Give maintenance fluids for dehydration (5) Acute kidney injury superimposed on chronic kidney disease Current visit: Yes Status: Acute EVER on CKD3, SCr 3.02 from BL ~2.3 Patient is dehydrated on exam, however was also found down on floor for unknown amount of time I will check the patient's CK, and resume hydration for EVER Avoid nephrotoxic agents as able (6) Hyperkalemia Current visit: Yes Status: Acute Likely secondary to volume contraction and EVER on CKD We will provide maintenance fluids to the patient and expect a decrease in potassium Consider kayexelate or nephrology consult if the potassium continues to elevate (7) Elevated troponin Current visit: Yes Status: Acute Elevated troponin, 0.05 Likely secondary to demand ischemia in context of severe EVER Initial CXR negative, EKG appears similar to prior, no history of chest pain We will continue to trend troponins, repeat EKG and TTE in the morning (8) Anemia Current visit: No Status: Acute Chronic, improved from prior visit Hgb 9.5 up from 8.3, likely due to volume contraction We will do Q6h H/H, Stool guiac test We will continue to monitor Qualifiers: Anemia type: other cause Other causes of anemia: other cause, not classified Qualified Code(s): D64.89 - Other specified anemias (9) Diabetes mellitus Current visit: No Status: Chronic Stable, continue ACHS checks Qualifiers: Diabetes mellitus type: type 2 Diabetes mellitus complication status: without complication Diabetes mellitus intermodal dispatcher insulin use: without intermodal dispatcher use Qualified Code(s): E11.9 - Type 2 diabetes mellitus without complications (10) Hypertension Current visit: No Status: Chronic Stable Continue home meds Qualifiers: Hypertension type: essential hypertension Qualified Code(s): I10 - Essential (primary) hypertension (11) Multiple myeloma Current visit: Yes Status: Chronic Managed by Dr. Cabral No acute changes needed Qualifiers: Multiple myeloma remission status: not in remission Qualified Code(s): C90.00 - Multiple myeloma not having achieved remission (12) DVT prophylaxis Current visit: No Status: Acute SQ Heparin Internal Medicine - H&P: HPI Chief complaint: Vomiting Admitted From: Emergency Dept Plans for Post Hospital Care: Transfer Inp Rehab Fac History of present illness: Mr. Flores is a 67 year old male with history of CAD status post PCI, hypertension, diabetes, COPD, CKD, multiple myeloma who presented to the ED with what he says is 15-hour history of excessive vomiting and epistaxis. She was recently discharged from the hospital on 05/07/2017 to an inpatient rehab facility at which time he was admitted due to gastroenteritis and dehydration. From the rehabilitation facility, the patient apparently agreed to be discharged to a family member's house, however he apparently went home instead. He says that when he woke up this morning he began vomiting and was not able to stop. He was concerned that there is blood in his vomit due to the bright red nature of the vomit. Complains of nausea, however no other acute symptoms. According to the ED note, the patient was actually found on the ground lying in vomit this morning by one of his neighbors. At that time, the neighbor called EMS who brought the patient to the hospital. Apparently he was also altered upon arrival to the hospital. The patient denies any history of this and the individual question is not present at the time of interview. Past Med Surg Social Fam HX - Past Medical History Medical history: cancer, COPD, coronary artery disease, diabetes, hypertension, myocardial infarction Psychiatric history: anxiety, depression - Past Surgical History Surgical History: angioplasty/stent - Social History Smoking Status: Former smoker Smokeless Tobacco Status: No Alcohol use: none Drug use: none - Family History Sister Adopted: No Family Member Ethnicity: Non- Living Status: Still Living Hx Family Cancer: Yes (history of breast cancer s/p bilateral mastectomy.) Father Living Status: Hx Family Cardiac Disorders: Yes ([place]) Hx Family Endocrine Disorder: Yes ([place]) Mother Living Status: Hx Family Endocrine Disorder: Yes ([place]) Internal Medicine - H&P: Meds Aspirin Enteric Coated [Aspirin EC] 81 mg PO DAILY 09/06/15 [History] Amlodipine Besylate 10 mg PO DAILY 01/11/17 [History] Metoprolol Succinate 100 mg PO DAILY 01/11/17 [History] Tamsulosin [Flomax] 0.4 mg PO DAILY 01/11/17 [History] Acyclovir [Zovirax] 400 mg PO BID #30 capsule 01/17/17 [Rx] Cyanocobalamin (Vitamin B-12) [Vitamin B12] 1,000 mcg PO DAILY #30 tablet [Rx] Promethazine [Phenergan] 25 mg PO Q6HR PRN #60 tablet 02/01/17 [Rx] Cyclobenzaprine [Flexeril] 10 mg PO TID PRN #30 tablet 02/15/17 [Rx] Sennosides [Senokot] 8.6 mg PO BID #60 tablet 02/22/17 [Rx] Dexamethasone [Decadron] 40 mg PO AD 02/23/17 [History] Oxygen 3 l NS AD 02/23/17 [History] Atorvastatin [Lipitor] 80 mg PO HS #30 tablet 03/01/17 [Rx] Isosorbide MONOnitrate (24 HR) [Imdur] 60 mg PO DAILY #30 tab.er.24h 03/01/17 [ Rx] Allopurinol [Zyloprim 100 MG] 100 mg PO DAILY 04/28/17 [History] Ergocalciferol (VITAMIN D2) [Vitamin D2] 50,000 unit PO QWEEK 04/28/17 [History] Nitroglycerin [Nitrostat] 0.4 mg SL Q5M PRN 04/28/17 [History] Pantoprazole Sodium [Protonix] 20 mg PO HS 04/28/17 [History] Mirtazapine [Remeron] 15 mg PO HS 04/29/17 [History] Megestrol Acetate [Megace] 800 mg PO DAILY udc 05/07/17 [Rx] Metoclopramide [Reglan] 5 mg PO Q6HR ud.liq 05/07/17 [Rx] Omeprazole [PriLOSEC] 40 mg PO DAILY@0730 capsule. 05/07/17 [Rx] OxyCODONE/APAP 10/325 [Percocet 10/325 MG] 1 each PO Q4HR PRN #4 tablet [Rx] Prochlorperazine Maleate [Compazine] 10 mg PO Q6HR PRN #5 tablet 05/07/17 [Rx] 3 Allergy/AdvReac Type Severity Reaction Status Date / Time No Known Allergies Allergy Verified 04/09/17 13:43 All Systems PM: A 10-system review of systems was performed and is negative for pertinent findings except as documented above in the HPI. Review of systems: Constitutional: Denies fevers, chills, weight loss, generalized fatigue Head/Neck: Denies SOLANO, neck stiffness EENT: Denies vision changes/blurriness, rhinorrhea, congestion, sore throat CVS: Denies chest pain, palpitations, AGGARWAL, orthopnea, edema, PND Pulm: Denies SOB, cough, sputum, hematemesis, wheezing GI: Admits only to nausea and intractable vomiting. : Denies dysuria, increased frequency, urgency, hematuria Heme: Denies ease of bleeding or bruising MSK: Denies joint pain, limited ROM Skin: Denies rashes, ulcers, color changes Neuro: Denies SOLANO, paresthesias, focal deficits, ataxia - Constitutional Vitals: Temp Pulse Resp BP Pulse Ox 98.9 F 90 16 154/85 96 05/22/17 23:16 05/22/17 23:16 05/22/17 23:16 05/22/17 23:16 05/22/17 23:16 Exam: Gen.: Vitals noted. No acute distress. AAOx3 HEENT: PERRL/EOMI, no scleral icterus, oropharynx clear with dry membranes, Normocephalic, atraumatic Neck: Supple. No adenopathy. Cardiac: RRR, no murmur, +S1/S2 Pulmonary: CTA bilaterally, no wheezes, rales or rhonchi, equal chest expansion Abdomen: soft, mildly tender on palpation of epigastric region, BS noted, no guarding Back: Nontender throughout. MSK: ROM intact, no joint swelling noted Extremities: no BLE edema, nontender calf, no cyanosis or clubbings Neuro: A&Ox3, moves all extremities, no focal deficits Psych: Flat affect and depressed mood Internal Med - H&P Results - Labs CBC & Chem 7: 05/22/17 19:36 05/22/17 19:36 <Amrit Lomas - Last Filed: 05/23/17 05:58> Date of Encounter: 05/23/17 Internal Medicine - H&P: HPI History of present illness: Mr. Flores is a 67 year old male All Systems PM: A 10-system review of systems was performed and is negative for pertinent findings except as documented above in the HPI. - Constitutional Vitals: Temp Pulse Resp BP Pulse Ox 97.5 F L 78 16 179/90 98 05/23/17 05:52 05/23/17 05:52 05/23/17 05:52 05/23/17 05:52 05/23/17 05:52 Internal Med - H&P Results - Labs CBC & Chem 7: 05/23/17 01:30 05/23/17 01:30 Labs: Short CBC 05/23/17 Range/Units 01:30 WBC 6.6 (4.3-11.1) K/mcL Hgb 8.2 L (12.9-16.9) g/dL Hct 24.8 L (37.5-50.1) % Plt Count 241 (140-400) K/mcL Neutrophils # 5.4 (1.6-8.9) K/mcL BMP 05/23/17 01:30 Sodium 137 Potassium 5.0 Chloride 113 H Carbon Dioxide 18 L BUN 48 H Creatinine 3.29 H Glucose 114 H Calcium 9.4 Cardiac Enzymes 05/23/17 Range/Units 01:30 Troponin I 0.04 H* (< 0.04) ng/mL Liver Function 05/23/17 Range/Units 01:30 Total Bilirubin 0.3 (0.3-1.0) mg/dL AST 19 (13-39) Units/L ALT 14 (7-52) Units/L Alkaline Phosphatase 78 (34-104) Units/L Albumin 2.8 L (3.5-5.7) g/dL - Attending Attestation I have seen and examined the patient independently. I have discussed with resident physician Dr. Chirinos regarding the management plan. Agree with the documentation.
[2017-05-22 23:54] LABS: Creatine Kinase 23 Units/L (30-223)
[2017-05-23] MEDS: *HR* OxyCODONE/APAP 10/325 TABLET PO PRN ×2 (00:20→20:33)
[2017-05-23] MEDS: 0.9 % Sodium Chloride 1,000 ML IVC SCH ×2 (00:20→09:30)
[2017-05-23 02:06] LABS: Basophils % 0.2 %; Eosinophils # 0.1 K/mcL (0.0-0.6); Eosinophils % 1.4 %; Hematocrit 24.8 % (37.5-50.1); Hemoglobin 8.2 g/dL (12.9-16.9); Immature Granulocytes % 1.5 % (0-4); Lymphocytes # 0.7 K/mcL (0.6-4.6); Lymphocytes % 10.9 %; Mean Corpuscular HGB Conc 33.1 g/dL (31.6-35.5); Mean Corpuscular Hemoglobin 31.8 pg (28.0-33.3); Mean Corpuscular Volume 96.1 fL (83.0-100.0); Mean Platelet Volume 9.8 fL (9.4-12.4); Monocytes # 0.3 K/mcL (0.0-1.3); Monocytes % 4.1 %; Neutrophils # 5.4 K/mcL (1.6-8.9); Platelet Count 241 K/mcL (140-400); Red Blood Count 2.58 M/mcL (4.19-5.50); Segmented Neutrophils % 81.9 %
[2017-05-23 02:56] LABS: Platelet Estimate Normal (Normal); Toxic Granulation Present (Not Present)
[2017-05-23] MEDS: Pantoprazole 40 MG VIAL IVP SCH ×2 (04:57→19:02)
[2017-05-23 05:46] LABS: Albumin 2.8 g/dL (3.5-5.7); Albumin/Globulin Ratio 0.5 (1.1-2.2); Bilirubin,Total 0.3 mg/dL (0.3-1.0); Calcium 9.4 mg/dL (8.6-10.3); Globulin 5.7 g/dL (2.4-3.5); Magnesium 1.8 mg/dL (1.6-2.6); Total Protein 8.5 g/dL (6.4-8.9)
[2017-05-23 07:22] LABS: Hematocrit 25.1 % (37.5-50.1); Hemoglobin 8.1 g/dL (12.9-16.9)
--- NOTE | 2017-05-23 08:22 | Electrocardiograph Report ---
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
--- NOTE | 2017-05-23 09:25 | Electrocardiograph Report ---
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
[2017-05-23] MEDS: Aspirin Enteric Coated 81 MG Tablet PO SCH (09:31)
[2017-05-23] MEDS: Isosorbide MONOnitrate (24 HR) 60 MG TAB.ER.24H PO SCH (09:31)
[2017-05-23] MEDS: amLODIPine 5 MG TABLET PO SCH (09:31)
[2017-05-23] MEDS: Metoprolol XL (24 HR) Succ 50 MG TAB.ER.24H PO SCH (09:31)
[2017-05-23] MEDS: Cyanocobalamin (B-12) 1,000 MCG TABLET PO SCH (09:31)
[2017-05-23] MEDS: Megestrol Acetate 400 MG/10 ML UDC PO SCH (09:32)
--- NOTE | 2017-05-23 11:10 | Nephrology Consult Note ---
Date of Encounter: 05/23/17 Time of Encounter: 11:07 Assessment and Plan (1) Acute kidney injury superimposed on chronic kidney disease Current Visit: Yes Status: Acute Patient with CKD stage IV and previous AKIs Avoid nephrotoxins including NSAIDs and iodonated contrast dye Renal U/S reveals no evidence of hydronephrosis, mild increased echogenicity of the kidneys bilaterally, which can be seen with medical renal disease. Start 1/2 NS + 75meq Sodium bicarbonate at 100cc/hr Continue IVF hydration Continue to monitor (2) CKD (chronic kidney disease) stage 4, GFR 15-29 ml/min Current Visit: Yes Status: Chronic Patient with CKD Stage 4 eGFR of 20 since December 2016. Renally dose medications Continue to monitor (3) Proteinuria Current Visit: Yes Status: Acute UA revealed > 1g/dL proteinuria Elevated Urine Protein/Creatinine Ratio was 7.56 on 05/16/17 and 10.42 on 04/02/17 Patient has nephrotic range proteinuria, with no lower extremity edema. Unable to use KAMILAH-I/ARB secondary to the low eGFR Urine immunofixation, serum free lightchain, and protein electrophoresis pending Qualifiers: Proteinuria type: unspecified Qualified Code(s): R80.9 - Proteinuria, unspecified (4) Hypertension Current Visit: Yes Status: Chronic Maintain a blood pressure goal of less than 130/80 Unable to use KAMILAH-I/ARB secondary to the low eGFR Patient is on Amlodipine and BB at home Qualifiers: Hypertension type: essential hypertension Qualified Code(s): I10 - Essential (primary) hypertension (5) Anemia Current Visit: Yes Status: Chronic Anemia in the setting of CKD stage IV and possible GI blood loss Iron studies 05/16/17: Iron 85, % iron saturation 34, Transferrin 178 Vitamin D level 14 Patient to undergo EGD per GI recommendations Continue to monitor Qualifiers: Anemia type: other cause Other causes of anemia: chronic disease, neoplastic Qualified Code(s): D63.0 - Anemia in neoplastic disease (6) Multiple myeloma Current Visit: Yes Status: Chronic Management per oncology Qualifiers: Multiple myeloma remission status: not in remission Qualified Code(s): C90.00 - Multiple myeloma not having achieved remission (7) Diabetes mellitus Current Visit: Yes Status: Chronic HGB a1c 4.9 on 05/16/17 Management per primary team Qualifiers: Diabetes mellitus type: type 2 Diabetes mellitus complication status: without complication Diabetes mellitus chcf insulin use: without chcf use Qualified Code(s): E11.9 - Type 2 diabetes mellitus without complications History of Present Illness - Reason for Consult Consult date: 05/23/17 Acute Kidney Injury, Chronic Kidney Disease Requesting physician: Inessa Machado - Chief Complaint N/V - History of Present Illness Mr. Flores is a 67yo male with a PMH of HTN, multiple myeloma, CKD stage IV, DM, and recent hospitalization for gastroenteritis that presented to the ED via EMS after a neighbor found him laying on the floor covered in vomit. Patient does not recall ho he got on the floor or how long he was down. He reports persistent vomiting since yesterday and epistaxis. Patient reports decreased fluid intake, decreased urinary output, and hematuria. His statistics manager is Dr. Obrien and oncologist is Dr. Cabral. Past Med Surg Social Fam HX - Past Medical History Medical history: cancer, COPD, coronary artery disease, diabetes, hypertension, myocardial infarction Psychiatric history: anxiety, depression - Past Surgical History Surgical History: angioplasty/stent - Social History Smoking Status: Former smoker Smokeless Tobacco Status: No Alcohol use: none Drug use: none - Family History Sister Adopted: No Family Member Ethnicity: Non- Living Status: Still Living Hx Family Cancer: Yes (history of breast cancer s/p bilateral mastectomy.) Father Living Status: Hx Family Cardiac Disorders: Yes ([place]) Hx Family Endocrine Disorder: Yes ([place]) Mother Living Status: Hx Family Endocrine Disorder: Yes ([place]) Medications and Allergies Aspirin Enteric Coated [Aspirin EC] 81 mg PO DAILY 09/06/15 [History] Amlodipine Besylate 10 mg PO DAILY 01/11/17 [History] Metoprolol Succinate 100 mg PO DAILY 01/11/17 [History] Tamsulosin [Flomax] 0.4 mg PO DAILY 01/11/17 [History] Acyclovir [Zovirax] 400 mg PO BID #30 capsule 01/17/17 [Rx] Cyanocobalamin (Vitamin B-12) [Vitamin B12] 1,000 mcg PO DAILY #30 tablet [Rx] Promethazine [Phenergan] 25 mg PO Q6HR PRN #60 tablet 02/01/17 [Rx] Cyclobenzaprine [Flexeril] 10 mg PO TID PRN #30 tablet 02/15/17 [Rx] Sennosides [Senokot] 8.6 mg PO BID #60 tablet 02/22/17 [Rx] Dexamethasone [Decadron] 40 mg PO AD 02/23/17 [History] Oxygen 3 l NS AD 02/23/17 [History] Atorvastatin [Lipitor] 80 mg PO HS #30 tablet 03/01/17 [Rx] Isosorbide MONOnitrate (24 HR) [Imdur] 60 mg PO DAILY #30 tab.er.24h 03/01/17 [ Rx] Allopurinol [Zyloprim 100 MG] 100 mg PO DAILY 04/28/17 [History] Ergocalciferol (VITAMIN D2) [Vitamin D2] 50,000 unit PO QWEEK 04/28/17 [History] Nitroglycerin [Nitrostat] 0.4 mg SL Q5M PRN 04/28/17 [History] Pantoprazole Sodium [Protonix] 20 mg PO HS 04/28/17 [History] Mirtazapine [Remeron] 15 mg PO HS 04/29/17 [History] Megestrol Acetate [Megace] 800 mg PO DAILY udc 05/07/17 [Rx] Metoclopramide [Reglan] 5 mg PO Q6HR ud.liq 05/07/17 [Rx] Omeprazole [PriLOSEC] 40 mg PO DAILY@0730 capsule. 05/07/17 [Rx] OxyCODONE/APAP 10/325 [Percocet 10/325 MG] 1 each PO Q4HR PRN #4 tablet [Rx] Prochlorperazine Maleate [Compazine] 10 mg PO Q6HR PRN #5 tablet 05/07/17 [Rx] 3 Allergy/AdvReac Type Severity Reaction Status Date / Time No Known Allergies Allergy Verified 04/09/17 13:43 Review of Systems Nose, mouth and throat: epistaxis, no sore throat Cardiovascular: no chest pain, no palpitations Respiratory: no dyspnea, no hemoptysis, no chest congestion Gastrointestinal: abdominal pain, nausea, vomiting, no constipation, no diarrhea , no hematemesis, no hematochezia, no loose stools Genitourinary Male: hematuria, no urinary frequency, no urinary urgency Musculoskeletal: no back pain, no numbness, no tingling Integumentary: no lesions, no swelling Neurological: weakness, no numbness, no tingling Psychiatric: no anxiety, no confusion, no depression Exam - Vital Signs Vital signs: Initial Vital Signs Temp Pulse Resp BP Pulse Ox 99.4 F 104 18 135/89 98 05/22/17 17:52 05/22/17 17:52 05/22/17 17:52 05/22/17 17:52 05/22/17 17:52 Vital Signs - Last 8 Hours Temp Pulse Resp BP Pulse Ox 05/23/17 07:25 97.9 F 78 15 171/89 98 Intake and Output 05/22/17 05/23/17 05/23/17 23:59 07:59 15:59 Intake Total 1000 / 1000 Balance 1000 / 1000 Intake: IV Fluids 1000 / 1000 0.9 % Sodium Chloride 1,000 ML 1000 / 1000 @ 110 mls/hr IVC .Q9H6M TETE Rx# :[id number] Other: Blood Glucose* 105 - General Appearance General appearance: well-developed, appears started age EENT: ATNC, PERRL, mucous membranes dry Neck: no JVD, supple Respiratory: clear Cardiology: edema, regular rate, regular rhythm Gastrointestinal: normoactive bowel sounds, tenderness (diffuse), no guarding, no organomegaly Integumentary: no rash, warm and dry Additional Comments: increased skin turgor Neurologic: no focal deficit, alert and oriented x3 Musculoskeletal: no deformities, no erythema, no cyanosis Psychiatric: depressed, cooperative Results - Lab Results 05/23/17 12:30 05/23/17 01:30 Most recent lab results Calcium 9.4 mg/dL (8.6-10.3) 05/23/17 01:30 Magnesium 1.8 mg/dL (1.6-2.6) 05/23/17 01:30 - Image Kidney/bladder ultrasound: report reviewed Consult Discharge Plan - Plan Referrals: Elio Melendez MD [Primary Care Provider] -
--- NOTE | 2017-05-23 12:17 | Gastroenterology Consult Note ---
<Jamin Otoole - Last Filed: 05/23/17 12:15> Date of Encounter: 05/23/17 Time of Encounter: 11:55 - Assessment and plan (1) Anemia Current Visit: No Status: Acute Assessment and plan: Hgb 9.5 on admission and 8.1 this AM. Continue to monitor CBC and transfuse PRBC as needed. Plan for EGD today to r/o esophagitis, gastritis, duodenitis, PUD, MW tear, or AVM. Check iron profile and ferritin. Qualifiers: Anemia type: other cause Other causes of anemia: other cause, not classified Qualified Code(s): D64.89 - Other specified anemias (2) Multiple myeloma Current Visit: Yes Status: Chronic Qualifiers: Multiple myeloma remission status: not in remission Qualified Code(s): C90.00 - Multiple myeloma not having achieved remission (3) CKD (chronic kidney disease) stage 4, GFR 15-29 ml/min Current Visit: Yes Status: Chronic (4) Hematemesis with nausea Current Visit: Yes Status: Acute Assessment and plan: Pt reports bright red blood in his vomit. Plan for EGD today to r/o esophagitis , gastritis, duodenitis, PUD, MW tear, or AVM. Keep patient NPO. (5) Altered mental status Current Visit: Yes Status: Resolved Assessment and plan: Pt alert and oriented and agreed to EGD today. I also spoke with his daughter, Reena, who also agreed to EGD. Qualifiers: Altered mental status type: unspecified Qualified Code(s): R41.82 - Altered mental status, unspecified - Time Spent With Patient Total time spent is greater than 50% in coordination of care (as documented) at patient's floor/unit and/or counseling patient: GI History of Present Illness - Data of Consult Patient: known to practice within the last 3 years Consult date: 05/23/17 Requesting Physician: Jojo Patel CNP - Consult Narrative Reason for consult: Suspected GI bleed History of present illness: Mr. Flores is a 67 year old male with PMHx of multiple myeloma, CAD s/p PCI, HTN , DM, COPD, CKD who presented to the ED with c/o 15-hour history of vomiting and epistaxis. He was recently admitted to the hospital with gastroenteritis and dehydration, and was discharged to rehab facility on 05/07/2017. He reports he began vomiting the day of admission, and was unable to stop. The patient was concerned about blood in his vomit due to the bright red nature of the vomit. CT A/P with no acute abnormality. Hgb on admission was 9.5 and this AM Hgb 8.1. Procedures: Colonoscopy 02/09/2017 Dr. Javier: Non-bleeding internal hemorrhoids. EGD 02/08/2017 Dr. Hutson: [place] colored mucosa-negative for Fuentes's, gastritis , granular mucosa in duodenum. Colonoscopy 10/20/2014 Dr. Hutson: Internal hemorrhoids NSAIDs: ASA Anticoagulation: None Past Med Surg Social Fam HX - Past Medical History Medical history: cancer, COPD, coronary artery disease, diabetes, hypertension, myocardial infarction Psychiatric history: anxiety, depression - Past Surgical History Surgical History: angioplasty/stent - Social History Smoking Status: Former smoker Smokeless Tobacco Status: No Alcohol use: none Drug use: none - Family History Sister Adopted: No Family Member Ethnicity: Non- Living Status: Still Living Hx Family Cancer: Yes (history of breast cancer s/p bilateral mastectomy.) Father Living Status: Hx Family Cardiac Disorders: Yes ([place]) Hx Family Endocrine Disorder: Yes (DM) Mother Living Status: Hx Family Endocrine Disorder: Yes (DM) - Gastrointestinal Gastrointestinal: Present: as per HPI - Constitutional Constitutional: as per HPI - EENT Eyes: as per HPI Ears: Present: as per HPI Nose, mouth and throat: Present: as per HPI - Cardiovascular Cardiovascular ROS: Present: as per HPI - Respiratory Respiratory IM: Present: as per HPI - Genitourinary Genitourinary: Absent: change in color, Urinary frequency - Neurological ROS Neurological GI: Present: as per HPI - Hematologic/Lymphatic Hematologic/Lymphatic pediatric: Present: as per HPI - Musculoskeletal Musculoskeletal ROS GI: Present: as per HPI - Integumentary Integumentary GI: Present: as per HPI - Psychiatric ROS Psychiatric GI: Present: as per HPI - Endocrine Endocrine IM: Present: as per HPI - Constitutional Vitals: Temp Pulse Resp BP Pulse Ox 97.5 F L 75 15 162/72 98 05/23/17 11:19 05/23/17 11:19 05/23/17 11:19 05/23/17 11:19 05/23/17 11:19 General appearance: Present: cooperative, A&O X 3, no acute distress, answers questions appropriately - Head Head exam: Present: atraumatic, normocephalic - Eye Eye exam: Present: normal appearance, sclera anicteric - ENT ENT exam: Present: mucous membranes dry - Neck Neck exam general surgery: Present: normal inspection, trachea midline - Respiratory Respiratory exam: Present: CTAB. Absent: rales - Cardiovascular Cardiovascular exam: Present: RRR, +S1, +S2 - GI/Abdominal GI/Abdominal exam: Present: soft, tenderness (mild epigastric tenderness), no peritoneal signs. Absent: distended, firm, guarding - Rectal Rectal exam: Present: deferred - Extremities Exam Extremities exam: Present: warm - Neurological Exam Neurological exam: Present: no focal deficits - Psychiatric Psychiatric exam: Present: normal affect, normal mood - Skin Skin exam: Present: dry, intact, normal color, warm Results - Labs CBC & Chem 7: 05/23/17 07:03 05/23/17 01:30 Labs: Last Result Calcium 9.4 mg/dL (8.6-10.3) 05/23/17 01:30 Troponin I 0.03 ng/mL (< 0.04) 05/23/17 07:03 Urine Opiates Screen Positive ng/mL ([id number]=663) H 05/22/17 19:59 Entire Visit Hgb 8.1 g/dL (12.9-16.9) L 05/23/17 07:03 Hct 25.1 % (37.5-50.1) L 05/23/17 07:03 PT 11.9 Seconds (9.4-12.1) 05/22/17 19:36 Total Bilirubin 0.3 mg/dL (0.3-1.0) 05/23/17 01:30 AST 19 Units/L (13-39) 05/23/17 01:30 ALT 14 Units/L (7-52) 05/23/17 01:30 Ammonia 35 mcmol/L (16-53) 05/22/17 19:36 - ABG ABG results: PT/INR, D-dimer PT 11.9 Seconds (9.4-12.1) 05/22/17 19:36 Consult Discharge Plan - Plan Referrals: Elio Melendez MD [Primary Care Provider] - <Marisa Hutson - Last Filed: 05/23/17 20:47> Date of Encounter: 05/23/17 Time of Encounter: 17:30 - Time Spent With Patient Total time spent is greater than 50% in coordination of care (as documented) at patient's floor/unit and/or counseling patient: GI History of Present Illness - Data of Consult Requesting Physician: Jojo Patel CNP - Consult Narrative History of present illness: Mr. Flores is a 67 year old male - Constitutional Vitals: Temp Pulse Resp BP Pulse Ox 98.4 F 65 16 156/83 95 05/23/17 18:23 05/23/17 18:34 05/23/17 18:34 05/23/17 18:34 05/23/17 18:34 Results - Labs CBC & Chem 7: 05/23/17 12:30 05/23/17 01:30 Labs: Last Result Calcium 9.4 mg/dL (8.6-10.3) 05/23/17 01:30 Iron 75 mcg/dL (65-175) 05/23/17 12:32 % Saturation 35 % (20-55) 05/23/17 12:32 Transferrin 153 mg/dL (203-362) L 05/23/17 12:32 Ferritin > 1350 ng/ml (20-250) H 05/23/17 12:32 Troponin I 0.03 ng/mL (< 0.04) 05/23/17 07:03 Urine Opiates Screen Positive ng/mL (Ivdrqr=103) H 05/22/17 19:59 Entire Visit Hgb 7.8 g/dL (12.9-16.9) L 05/23/17 12:30 Hct 24.7 % (37.5-50.1) L 05/23/17 12:30 PT 11.9 Seconds (9.4-12.1) 05/22/17 19:36 Ferritin > 1350 ng/ml (20-250) H 05/23/17 12:32 Total Bilirubin 0.3 mg/dL (0.3-1.0) 05/23/17 01:30 AST 19 Units/L (13-39) 05/23/17 01:30 ALT 14 Units/L (7-52) 05/23/17 01:30 Ammonia 35 mcmol/L (16-53) 05/22/17 19:36 - ABG ABG results: PT/INR, D-dimer PT 11.9 Seconds (9.4-12.1) 05/22/17 19:36 - Impressions Impressions Retroperitoneum Ultrasound 05/23/17 13:00 IMPRESSION: 1. No evidence of hydronephrosis. 2. Mild increased echogenicity of the kidneys bilaterally, which can be seen with medical renal disease. 3. No acute sonographic abnormality of the urinary bladder. 4. Mildly enlarged prostate gland. D/ / Contreras Pope MD / Contreras Pope MD Interpreting Provider: Contreras Pope MD - Attending Attestation I examined this patient and my medical decision-making was reviewed with the BARN OPERATOR. I agree with the documented findings, disposition and treatment plan as described except to the extent set forth below. Pt 67 hour with multiple medical problems including CKD and MM now with anemia and ?? Hematemeis. Had EGD-colon recently for nemai w/u in January REc: EGD to r/o upper GI causes for bleeding/anemia. If EGD negtaive then cap endo as out pt. No need for colon as on rectal exam stool are brown.
[2017-05-23 13:04] LABS: Hematocrit 24.7 % (37.5-50.1); Hemoglobin 7.8 g/dL (12.9-16.9)
--- NOTE | 2017-05-23 13:53 | Oncology Inp Consult Note ---
<Camryn Braden L - Last Filed: 05/24/17 16:14> Date of Encounter: 05/24/17 Time of Encounter: 14:30 Assessment and Plan (1) Multiple myeloma Status: Chronic Assessment and plan: 1. Previously on weekly Velcade/Dex (VD light) with initial good response. Restaging studies ordered. He has had a recent break from therapy since last admission earlier this month while in rehab facility with the plan to meet around this time as an outpatient for restaging and discussion on pursuing therapy vs. hospice. Awaiting SPEP, Serum free light chains and 24 hour urine BJP immunofixation studies at this time. Mr. Flores seems slightly agitated during our discussion today, he reports feeling just tired and worn out with medical treatments, he is wanting to know when he can go home. Although he appears to be tired of medical interventions at this time, he wishes to continue to explore treatment options for his multiple myeloma. I encouraged him to participate with therapy as he has not yet been out of bed and we need to build his strength if he wishes to pursue further treatments and to establish how he can safely return home. Anemia- secondary to multiple myeloma and chronic disease with signs of likely recent acute bleed. EGD revealed adherent blood in the entire examined stomach. Hgb stable at 7.8 today, discussed blood transfusion however he is reluctant due to fluid overload experiences with previous transfusions. Monitor CBC and discuss transfusion if hgb continues to trend down. Please refer to Dr. Gill's attestation below for further details. Qualifiers: Multiple myeloma remission status: not in remission Qualified Code(s): C90.00 - Multiple myeloma not having achieved remission - Data of Consult Patient: known to practice within the last 3 years Consult date: 05/23/17 Requesting Physician: Jojo Patel CNP Primary Care Provider: Elio Melendez MD - Consult Narrative Reason for consult: IgG kappa, stage III Multiple Myeloma History of present illness: Mr. Flores is a 67 year old male with psat medical history significant for CAD status post PCI, hypertension, diabetes, COPD, CKD. Known patient to the [facility], patient of Dr. Cabral with recently diagnosed multiple myeloma. Initially diagnosed 01/11/17 during hospitalization for back pain, hypercalcemia and EVER. BM bx 01/16/17 with hypocellular marrow with ~70% kappa restricted involvement. Normal (46XY) cytogenetics, FISH with gain 5,9,15 (Hyperploidy), standard risk disease. Previous treatment included Velcade/Dexamethasone with poor tolerance secondary to anemia and NSTEMI. VD light initiated 03/12/17. He initially a good response to therapy with M-Clifton 3.8->2.3 by labs 03/06/17. Most recent M-Clifton 2.51 on 04/09/17. He was recently admitted to the hospital earlier this month with gastroenteritis and dehydration. Dr. Cabral discussed treatment options with patient during prior hospitalization and it was decided to try to give a break from therapy with the plan to reinitiate after some time once he completed rehabilitation in [facility]. The idea of hospice was also introduced , however patient wished to pursue rehabilitation and treatment at a future date. Mr. Flores was scheduled to follow up with Dr. Cabral on May 30. Apparently during this time the patient was discharged from [facility] with the understanding he would be going to a stay with a family member, however, he returned home along. A neighbor came to check on Mr. Flores and found him laying on the floor face down, covered in vomit, EMS was notified and patient presented to [facility] ER. Admitted to unit with dehydration, syncope, AMS, N&V, hematemesis, EVER superimposed on CKD, hyperkalemia, elevated troponin and anemia. Past Med Surg Social Fam HX - Past Medical History Medical history: cancer, COPD, coronary artery disease, diabetes, hypertension, myocardial infarction Psychiatric history: anxiety, depression - Past Surgical History Surgical History: angioplasty/stent - Social History Smoking Status: Former smoker Smokeless Tobacco Status: No Alcohol use: none Drug use: none - Family History Sister Adopted: No Family Member Ethnicity: Non- Living Status: Still Living Hx Family Cancer: Yes (history of breast cancer s/p bilateral mastectomy.) Father Living Status: Hx Family Cardiac Disorders: Yes ([place]) Hx Family Endocrine Disorder: Yes (DM) Mother Living Status: Hx Family Endocrine Disorder: Yes (DM) Medications and Allergies Aspirin Enteric Coated [Aspirin EC] 81 mg PO DAILY 09/06/15 [History] Amlodipine Besylate 10 mg PO DAILY 01/11/17 [History] Metoprolol Succinate 100 mg PO DAILY 01/11/17 [History] Tamsulosin [Flomax] 0.4 mg PO DAILY 01/11/17 [History] Acyclovir [Zovirax] 400 mg PO BID #30 capsule 01/17/17 [Rx] Cyanocobalamin (Vitamin B-12) [Vitamin B12] 1,000 mcg PO DAILY #30 tablet [Rx] Dexamethasone [Decadron] 40 mg PO AD 02/23/17 [History] Oxygen 3 l NS AD 02/23/17 [History] Atorvastatin [Lipitor] 80 mg PO HS #30 tablet 03/01/17 [Rx] Isosorbide MONOnitrate (24 HR) [Imdur] 60 mg PO DAILY #30 tab.er.24h 03/01/17 [ Rx] Allopurinol [Zyloprim 100 MG] 100 mg PO DAILY 04/28/17 [History] Ergocalciferol (VITAMIN D2) [Vitamin D2] 50,000 unit PO QWEEK 04/28/17 [History] Nitroglycerin [Nitrostat] 0.4 mg SL Q5M PRN 04/28/17 [History] Pantoprazole Sodium [Protonix] 20 mg PO HS 04/28/17 [History] Omeprazole [PriLOSEC] 40 mg PO DAILY@0730 capsule. 05/07/17 [Rx] OxyCODONE/APAP 10/325 [Percocet 10/325 MG] 1 each PO Q4HR PRN #4 tablet [Rx] Albuterol Sulfate [Ventolin Hfa] 2 puff IH Q4H PRN 05/24/17 [History] Amitriptyline [Elavil] 25 mg PO HS 05/24/17 [History] Budesonide/Formoterol 160/4.5 [Symbicort 160/4.5] 2 puff IH BIDR 05/24/17 [ History] Gabapentin [Neurontin] 600 mg PO Q8H PRN 05/24/17 [History] 3 Allergy/AdvReac Type Severity Reaction Status Date / Time No Known Allergies Allergy Verified 04/09/17 13:43 Constitutional: Present: fatigue, weakness. Absent: chills, fever(s), headache( s), weight loss Eyes: Absent: change in vision Cardiovascular: Absent: chest pain, edema, irregular heart rhythm, palpitations Respiratory: Present: dyspnea on exertion. Absent: cough, hemoptysis Gastrointestinal: Present: hematemesis. Absent: abdominal pain, nausea, vomiting Musculoskeletal: Absent: numbness, tingling Integumentary: Absent: sores, wounds Neurological: Present: syncope. Absent: focal weakness, headache(s), numbness, tingling, tremor(s) Hematologic/Lymphatic: Absent: easy bleeding Oncology - Exam - Constitutional Vitals: Temp Pulse Resp BP Pulse Ox 97.5 F L 75 15 162/72 98 05/23/17 11:19 05/23/17 11:19 05/23/17 11:19 05/23/17 11:19 05/23/17 11:19 General appearance: febrile, no acute distress - Head Head exam: Present: atraumatic - Respiratory Respiratory exam: Present: decreased breath sounds, CTAB - Cardiovascular Cardiovascular exam: Present: RRR, +S1, +S2 - GI/Abdominal GI/Abdominal exam: Present: normal bowel sounds, soft. Absent: guarding, tenderness - Extremities Exam Extremities exam: Present: normal inspection. Absent: calf tenderness - Neurological Exam Neurological exam: Present: alert, oriented X3, no focal deficits, strengths equal and symetr throughout - Psychiatric Psychiatric exam: Present: agitated - Skin Skin exam: Present: pallor, warm Oncology - Results Labs: Short CBC 05/23/17 05/23/17 Range/Units 07:03 12:30 Hgb 8.1 L 7.8 L (12.9-16.9) g/dL Hct 25.1 L 24.7 L (37.5-50.1) % Cardiac Enzymes 05/23/17 Range/Units 07:03 Troponin I 0.03 (< 0.04) ng/mL Consult Discharge Plan - Plan Referrals: Elio Melendez MD [Primary Care Provider] - <Italo Gill - Last Filed: 05/25/17 09:31> Date of Encounter: 05/24/17 - Data of Consult Requesting Physician: Jojo Patel CNP Primary Care Provider: Elio Melendez MD - Consult Narrative History of present illness: Mr. Flores is a 67 year old male Oncology - Exam - Constitutional Vitals: Temp Pulse Resp BP Pulse Ox 98.2 F 67 17 157/76 97 05/25/17 07:01 05/25/17 07:01 05/25/17 07:01 05/25/17 07:01 05/25/17 07:01 Oncology - Results Labs: Short CBC 05/24/17 05/25/17 Range/Units 09:32 04:51 WBC 6.5 4.6 (4.3-11.1) K/mcL Hgb 7.8 L 7.6 L (12.9-16.9) g/dL Hct 23.7 L 22.9 L (37.5-50.1) % Plt Count 230 212 (140-400) K/mcL Neutrophils # 5.0 (1.6-8.9) K/mcL BMP 05/24/17 05/25/17 09:32 04:51 Sodium 137 138 Potassium 3.6 3.3 L Chloride 112 H 111 H Carbon Dioxide 20 L 23 BUN 46 H 38 H Creatinine 2.87 H 2.69 H Glucose 88 92 Calcium 8.9 8.7 Liver Function 05/24/17 Range/Units 09:32 Total Bilirubin 0.3 (0.3-1.0) mg/dL AST 21 (13-39) Units/L ALT 14 (7-52) Units/L Alkaline Phosphatase 69 (34-104) Units/L Albumin 2.6 L (3.5-5.7) g/dL - Attending Attestation Seen and examined patient and agree with plan. We are planning to restage his myeloma. However, it appears that his renal failure and new anemia are from gastroenteritis with upper GI bleeding and pre- renal volume depletion from vomiting. Therefore, it does not seem that his myeloma is necessarily progressing at this time. Repeat labs are, however, pending. During our discussion with the patient, he was quite recalcitrant. He declines transfusion at this time because it made him feel bloated and overall worse. If Hgb is otherwise stable, we can potentially defer transfusion. Currently, he seems uninclined to significantly participate in his care. Therefore, given his significant intolerance of even dose adjusted myeloma treatment, continued myeloma treatment will be a challenge. At this time, I would agree with d/c back to ECF with f/u with Dr. cabral as outpatient to determine further what would be the next course of action regarding his myeloma.
[2017-05-23 15:17] LABS: % Iron Saturation 35 % (20-55); Iron 75 mcg/dL (65-175); Transferrin 153 mg/dL (203-362)
[2017-05-23] MEDS ORDERED: Sodium Bicarbonate 75 MEQ in 0.45 % Sodium Chloride 1,000 ML IVC SCH (17:00)
[2017-05-23] MEDS ORDERED: *HR* FentaNYL (PF) 100 MCG/2 ML VIAL ONE (18:02)
[2017-05-23] MEDS ORDERED: *HR* Midazolam HCl 5 MG/5 ML VIAL IVP ONE (18:02)
[2017-05-23] MEDS ORDERED: Tetracaine/Benzocaine/Butamben 200MG/SPRAY (100SPY/BOT) MM ONE (18:19)
[2017-05-23] MEDS ORDERED: *HR* Midazolam HCl 2 MG/2 ML VIAL IVP ONE (18:19)
[2017-05-23] MEDS ORDERED: Simethicone 40 MG/0.6 ML MLS IR ONE (18:19)
[2017-05-23] MEDS ORDERED: *HR* FentaNYL (PF) 100 MCG/2 ML VIAL IVP ONE (18:19)
--- NOTE | 2017-05-23 18:24 | Internal Med Progress Note ---
Date of Encounter: 05/23/17 Time of Encounter: 18:15 - Assessment and plan (1) Acute kidney injury superimposed on chronic kidney disease Current Visit: Yes Status: Acute Assessment and plan: Patient dehydrated on exam, however was also found down on floor for unknown amount of time No improvement in BUN/creatinine in spite of IV hydration Nephrology consulted and wrote following plan Patient with CKD stage IV and previous AKIs Avoid nephrotoxins including NSAIDs and iodonated contrast dye Renal U/S reveals no evidence of hydronephrosis, mild increased echogenicity of the kidneys bilaterally, which can be seen with medical renal disease. Start 1/2 NS + 75meq Sodium bicarbonate at 100cc/hr Continue IVF hydration Continue to monitor (2) Anemia Current Visit: Yes Status: Chronic Assessment and plan: Acute on chronic Stool guaiac ordered GI consult and EGD pending Monitor H&H Qualifiers: Anemia type: other cause Other causes of anemia: chronic disease, neoplastic Qualified Code(s): D63.0 - Anemia in neoplastic disease (3) Elevated troponin Current Visit: Yes Status: Acute Assessment and plan: No complaints of chest pain Elevated troponin, initially 0.05, trended down to 0.04 and 0.03 respectively Likely secondary to demand ischemia in context of severe EVER Initial CXR negative, EKG appears similar to prior, no history of chest pain Repeat EKG TTE report pending (4) Multiple myeloma Current Visit: Yes Status: Chronic Assessment and plan: Oncology consult. CT of the head revealed several calvarial lucent lesions that are nonspecific but given history of multiple myeloma myelomatous involvement is not excluded Qualifiers: Multiple myeloma remission status: not in remission Qualified Code(s): C90.00 - Multiple myeloma not having achieved remission (5) Generalized weakness Current Visit: No Status: Acute Assessment and plan: PT OT consult (6) Dehydration Current Visit: Yes Status: Acute Assessment and plan: see plan below (7) Hyperkalemia Current Visit: Yes Status: Acute Assessment and plan: Likely volume depletion , 5.0 after IV fluids (8) Hypertension Current Visit: Yes Status: Chronic Assessment and plan: Stable Continue home medications Qualifiers: Hypertension type: essential hypertension Qualified Code(s): I10 - Essential (primary) hypertension (9) Diabetes mellitus Current Visit: Yes Status: Chronic Assessment and plan: Stable Accu-Cheks before meals and at bedtime Low-dose sliding scale Qualifiers: Diabetes mellitus type: type 2 Diabetes mellitus complication status: without complication Diabetes mellitus nursing home insulin use: without nursing home use Qualified Code(s): E11.9 - Type 2 diabetes mellitus without complications (10) DVT prophylaxis Current Visit: No Status: Acute Assessment and plan: Ambulation and SCDs No pharmacological intervention secondary to anemia - Subjective Interval history: The patient was lying in bed in no acute distress. He is very fatigued and weak. He was cooperative with his exam. He denies shortness of breath at rest , chest pain, fevers, chills, vomiting, or syncope He has no questions at this time. He is aware that we have consolidated oncology and nephrology. He is aware of pending testing and has no questions at this time - Constitutional Vitals: Temp Pulse Resp BP Pulse Ox 98.4 F 67 16 156/79 98 05/23/17 14:56 05/23/17 14:56 05/23/17 14:56 05/23/17 14:56 05/23/17 14:56 General appearance: Present: cooperative, disheveled, A&O X 3, no acute distress , answers questions appropriately - Head Head exam: Present: atraumatic, normocephalic - Eye Eye exam: Present: conjuntiva pink, sclera anicteric - Neck Neck exam general surgery: Present: lymphadenopathy, tenderness, supple, trachea midline - Respiratory Respiratory exam: Present: decreased breath sounds. Absent: accessory muscle use, rales, rhonchi, wheezes - Cardiovascular Cardiovascular exam: Present: RRR, +S1, +S2. Absent: diastolic murmur, gallop, rubs, systolic murmur - GI/Abdominal GI/Abdominal exam: Present: normal bowel sounds, soft, no peritoneal signs. Absent: distended, tenderness - Extremities Exam Extremities exam: Present: warm, radial pulses palpable and symmetrical. Absent : calf tenderness, cyanotic, pedal edema - Neurological Exam Neurological exam: Present: oriented X3, no focal deficits. Absent: pronater drift, facial droop, speech deficit - Skin Skin exam: Present: dry, intact Internal Medicine: Result - Labs CBC & Chem 7: 05/23/17 12:30 05/23/17 01:30 Labs: Short CBC 05/23/17 05/23/17 Range/Units 07:03 12:30 Hgb 8.1 L 7.8 L (12.9-16.9) g/dL Hct 25.1 L 24.7 L (37.5-50.1) % Cardiac Enzymes 05/23/17 Range/Units 07:03 Troponin I 0.03 (< 0.04) ng/mL - ABG Interpretation ABG results: PT/INR, D-dimer PT 11.9 Seconds (9.4-12.1) 05/22/17 19:36 - Impressions Impressions Retroperitoneum Ultrasound 05/23/17 13:00 IMPRESSION: 1. No evidence of hydronephrosis. 2. Mild increased echogenicity of the kidneys bilaterally, which can be seen with medical renal disease. 3. No acute sonographic abnormality of the urinary bladder. 4. Mildly enlarged prostate gland. D/ / Contreras Pope MD / Contreras Pope MD Interpreting Provider: Contreras Pope MD Consult Discharge Plan - Plan Referrals: Elio Melendez MD [Primary Care Provider] -
[2017-05-23] MEDS: Mirtazapine 15 MG TABLET PO SCH (20:33)
[2017-05-23] MEDS: Sodium Bicarbonate 75 MEQ in 0.45 % Sodium Chloride 1,000 ML IVC SCH (20:34)
[2017-05-24] MEDS: Pantoprazole 40 MG VIAL IVP SCH ×2 (05:46→18:03)
[2017-05-24] MEDS: Sodium Bicarbonate 75 MEQ in 0.45 % Sodium Chloride 1,000 ML IVC SCH (05:46)
[2017-05-24 06:07] LABS: Albumin 2.5 g/dL (3.5-5.7); Magnesium 1.7 mg/dL (1.6-2.6); Phosphorous 4.5 mg/dL (2.7-4.5)
[2017-05-24 06:14] LABS: Calcium 8.7 mg/dL (8.6-10.3); Potassium 3.7 mEq/L (3.5-5.1)
--- NOTE | 2017-05-24 07:09 | Nephrology Progress Note ---
Date of Encounter: 05/24/17 Time of Encounter: 07:09 - Assessment and Plan (1) Acute kidney injury superimposed on chronic kidney disease Current Visit: Yes Status: Acute Patient with EVER on CKD stage IV with hx of MM and previous AKIs Avoid nephrotoxins including NSAIDs and iodonated contrast dye Renal U/S reveals no evidence of hydronephrosis, mild increased echogenicity of the kidneys bilaterally, which can be seen with medical renal disease. Continue 1/2 NS + 75meq Sodium bicarbonate at 100cc/hr until patient is tolerating PO intake Continue IVF hydration Continue to monitor (2) CKD (chronic kidney disease) stage 4, GFR 15-29 ml/min Current Visit: Yes Status: Chronic Patient with CKD Stage 4 eGFR of 20 since December 2016. Renally dose medications Continue to monitor (3) Metabolic acidosis Current Visit: Yes Status: Acute Nonanion gap, hyperchloremic metabolic acidosis Continue isotonic 1/2NS+75mEq Bicarb. Monitor for hypokalemia No urgent need for dialysis Continue to monitor (4) Proteinuria Current Visit: Yes Status: Acute UA revealed > 1g/dL proteinuria Elevated Urine Protein/Creatinine Ratio was 7.56 on 05/16/17 and 10.42 on 04/02/17 Patient has nephrotic range proteinuria, with no lower extremity edema. Unable to use KAMILAH-I/ARB secondary to the low eGFR With the patient's active urinary sediment (+hematuria, +proteinuria and + granular casts), he may have ATN vs myeloma cast nephropathy as well as pre- renal injury. Serum light chains, urine P/C ratio and SPEP pending Qualifiers: Proteinuria type: unspecified Qualified Code(s): R80.9 - Proteinuria, unspecified (5) Hypertension Current Visit: Yes Status: Chronic Maintain a blood pressure goal of less than 130/80 Unable to use KAMILAH-I/ARB secondary to the low eGFR Patient is on Amlodipine and BB at home Qualifiers: Hypertension type: essential hypertension Qualified Code(s): I10 - Essential (primary) hypertension (6) Anemia Current Visit: Yes Status: Chronic Anemia in the setting of CKD stage IV and possible GI blood loss Iron studies 05/16/17: Iron 85, % iron saturation 34, Transferrin 178 Vitamin D level 14 Patient to undergo EGD per GI recommendations Continue to monitor Qualifiers: Anemia type: other cause Other causes of anemia: chronic disease, neoplastic Qualified Code(s): D63.0 - Anemia in neoplastic disease (7) Multiple myeloma Current Visit: Yes Status: Chronic Management per oncology Patient may have ATN vs myeloma cast nephropathy given active urinary sediment ( + hematuria, + proteinuria and + granular casts) Serum light chains, urine P/C ratio and SPEP pending Qualifiers: Multiple myeloma remission status: not in remission Qualified Code(s): C90.00 - Multiple myeloma not having achieved remission (8) Diabetes mellitus Current Visit: Yes Status: Chronic HGB a1c 4.9 on 05/16/17 Management per primary team Qualifiers: Diabetes mellitus type: type 2 Diabetes mellitus complication status: without complication Diabetes mellitus detention insulin use: without detention use Qualified Code(s): E11.9 - Type 2 diabetes mellitus without complications Subjective Principal diagnosis: EVER Interval history: Patient seen and examined. Patient is agitated this AM because he remains NPO status. EGD yesterday revealed gastritis. Patient denies any other c/o at this time. He has 150cc UOP documented yesterday. Objective - Vital Signs Vital signs: Vital Signs Temp Pulse Resp BP Pulse Ox 05/23/17 22:37 98.8 F 82 16 160/83 95 05/23/17 21:50 97.9 F 70 16 158/82 97 05/23/17 20:24 68 167/83 96 05/23/17 19:13 66 150/73 94 05/23/17 18:43 97.8 F 67 18 135/68 95 05/23/17 18:34 65 16 156/83 95 05/23/17 18:25 64 16 156/87 93 05/23/17 18:23 98.4 F 70 16 147/68 98 05/23/17 18:20 68 16 156/70 99 05/23/17 14:56 98.4 F 67 16 156/79 98 05/23/17 11:19 97.5 F L 75 15 162/72 98 05/23/17 10:26 98 05/23/17 07:25 97.9 F 78 15 171/89 98 Intake and Output 05/23/17 05/23/17 05/24/17 15:59 23:59 07:59 Intake Total 1000 / 1000 1075 / 1075 Output Total 150 / 150 Balance 1000 / 1000 -150 / -150 1075 / 1075 Intake: IV Fluids 1000 / 1000 1075 / 1075 0.9 % Sodium Chloride 1,000 ML 1000 / 1000 @ 110 mls/hr IVC .[id number] [facility] Rx# :[id number] Sodium Bicarbonate 75 MEQ In 0. 1075 / 1075 45% Sodium Chloride 1000 Ml 1000 Ml 1,000 ML @ 100 mls/hr IVC .[id number] [facility] Rx#:[id number] Output: Urine 150 / 150 Other: Blood Glucose* 105 96 - General Appearance General appearance: Present: well-developed, appears started age EENT: Present: ATNC, PERRL, mucous membranes dry Neck: Present: no JVD, supple Respiratory: Present: clear Cardiology: Present: no murmurs, no edema, regular rate, regular rhythm Gastrointestinal: Present: normoactive bowel sounds, no tenderness, no guarding , no organomegaly Integumentary: Present: no rash, warm and dry Neurologic: Present: no focal deficit, alert and oriented x3 Musculoskeletal: Present: no deformities, no erythema Psychiatric: Present: agitated, cooperative - Lab 05/24/17 09:32 05/24/17 09:32 Most recent lab results Calcium 8.7 mg/dL (8.6-10.3) 05/24/17 05:33 Phosphorus 4.5 mg/dL (2.7-4.5) 05/24/17 05:33 Magnesium 1.7 mg/dL (1.6-2.6) 05/24/17 05:33 - Imaging Kidney/bladder ultrasound: report reviewed Consult Discharge Plan - Plan Referrals: Elio Melendez MD [Primary Care Provider] -
[2017-05-24] MEDS: Aspirin Enteric Coated 81 MG Tablet PO SCH (09:11)
[2017-05-24] MEDS: Megestrol Acetate 400 MG/10 ML UDC PO SCH (09:11)
[2017-05-24] MEDS: amLODIPine 5 MG TABLET PO SCH (09:11)
[2017-05-24] MEDS: Isosorbide MONOnitrate (24 HR) 60 MG TAB.ER.24H PO SCH (09:11)
[2017-05-24] MEDS: Cyanocobalamin (B-12) 1,000 MCG TABLET PO SCH (09:11)
[2017-05-24] MEDS: Metoprolol XL (24 HR) Succ 50 MG TAB.ER.24H PO SCH (09:12)
[2017-05-24 09:39] LABS: Basophils % 0.2 %; Eosinophils # 0.2 K/mcL (0.0-0.6); Eosinophils % 2.8 %; Hematocrit 23.7 % (37.5-50.1); Hemoglobin 7.8 g/dL (12.9-16.9); Immature Granulocytes % 1.2 % (0-4); Lymphocytes # 0.9 K/mcL (0.6-4.6); Lymphocytes % 13.3 %; Mean Corpuscular HGB Conc 32.9 g/dL (31.6-35.5); Mean Corpuscular Hemoglobin 31.8 pg (28.0-33.3); Mean Corpuscular Volume 96.7 fL (83.0-100.0); Mean Platelet Volume 9.4 fL (9.4-12.4); Monocytes # 0.3 K/mcL (0.0-1.3); Monocytes % 4.9 %; Platelet Count 230 K/mcL (140-400); Red Blood Count 2.45 M/mcL (4.19-5.50); Red Cell Distribution Width 15.8 % (11.5-14.5); Segmented Neutrophils % 77.6 %
[2017-05-24 09:58] LABS: Albumin 2.6 g/dL (3.5-5.7); Albumin/Globulin Ratio 0.6 (1.1-2.2); Bilirubin,Total 0.3 mg/dL (0.3-1.0); Calcium 8.9 mg/dL (8.6-10.3); Globulin 4.7 g/dL (2.4-3.5); Potassium 3.6 mEq/L (3.5-5.1); Total Protein 7.3 g/dL (6.4-8.9)
[2017-05-24] MEDS: *HR* OxyCODONE/APAP 10/325 TABLET PO PRN (14:11)
--- NOTE | 2017-05-24 19:21 | Internal Med Progress Note ---
Date of Encounter: 05/24/17 Time of Encounter: 19:19 - Assessment and plan (1) Acute kidney injury superimposed on chronic kidney disease Current Visit: Yes Status: Acute Assessment and plan: Patient dehydrated on initial exam, however was also found down on floor at home for unknown amount of time Improvement in BUN/creatinine, continue IV hydration Nephrology consulted and wrote following plan Patient with CKD stage IV and previous AKIs Avoid nephrotoxins including NSAIDs and iodonated contrast dye Renal U/S reveals no evidence of hydronephrosis, mild increased echogenicity of the kidneys bilaterally, which can be seen with medical renal disease. Start 1/2 NS + 75meq Sodium bicarbonate at 100cc/hr Continue to monitor (2) Anemia Current Visit: Yes Status: Chronic Assessment and plan: Acute on chronic Stool guaiac ordered GI consult and EGD completed with report reviewed. Scattered mild inflammation characterized by congestion, erythema and friability, adherent blood was found in the entire examined stomach, biopsies were taken. The duodenum was normal. Diffuse granular mucosa was found in the duodenal bulb biopsies were done Monitor H&H Hemoglobin is 7.8 with a drop from 9.5 on admission but he was dehydrated. Oncology is considering transfusion as he is a cardiac patient to keep hemoglobin greater than 8. Defer to oncology regarding transfusion Qualifiers: Anemia type: other cause Other causes of anemia: chronic disease, neoplastic Qualified Code(s): D63.0 - Anemia in neoplastic disease (3) Elevated troponin Current Visit: Yes Status: Acute Assessment and plan: No complaints of chest pain Elevated troponin, initially 0.05, trended down to 0.04 and 0.03 respectively Likely secondary to demand ischemia in context of severe EVER Initial CXR negative, EKG appears similar to prior, no history of chest pain Repeat EKG Echocardiogram report reviewed (4) Multiple myeloma Current Visit: Yes Status: Chronic Assessment and plan: Oncology following. CT of the head revealed several calvarial lucent lesions that are nonspecific but given history of multiple myeloma myelomatous involvement is not excluded Qualifiers: Multiple myeloma remission status: not in remission Qualified Code(s): C90.00 - Multiple myeloma not having achieved remission (5) Generalized weakness Current Visit: No Status: Acute Assessment and plan: PT OT consult, patient refused to work with him today and needs to be encouraged for the discharge plan can be developed (6) Dehydration Current Visit: Yes Status: Resolved Assessment and plan: Resolved with IV hydration (7) Hyperkalemia Current Visit: Yes Status: Acute Assessment and plan: Likely volume depletion , 5.0 after IV fluids (8) Hypertension Current Visit: Yes Status: Chronic Assessment and plan: Stable Continue home medications Qualifiers: Hypertension type: essential hypertension Qualified Code(s): I10 - Essential (primary) hypertension (9) Diabetes mellitus Current Visit: Yes Status: Chronic Assessment and plan: Stable Accu-Cheks before meals and at bedtime Low-dose sliding scale Qualifiers: Diabetes mellitus type: type 2 Diabetes mellitus complication status: without complication Diabetes mellitus senior living insulin use: without senior living use Qualified Code(s): E11.9 - Type 2 diabetes mellitus without complications (10) DVT prophylaxis Current Visit: No Status: Acute Assessment and plan: Ambulation and SCDs No pharmacological intervention secondary to anemia - Subjective Interval history: The patient was lying in bed in no acute distress. He is very fatigued and weak. He was cooperative with his exam. He denies shortness of breath at rest , chest pain, fevers, chills, vomiting, or syncope He has no questions at this time. He is not cooperating with therapy, he wants to go home. He is very flat and did not make eye contact with me. He states he is hungry. - Constitutional Vitals: Temp Pulse Resp BP Pulse Ox 98.7 F 67 15 121/53 95 05/24/17 18:39 05/24/17 18:39 05/24/17 18:39 05/24/17 18:39 05/24/17 18:39 General appearance: Present: cooperative, disheveled, A&O X 3, no acute distress , underweight, answers questions appropriately - Head Head exam: Present: atraumatic, normocephalic - Eye Eye exam: Present: conjuntiva pink, sclera anicteric - Neck Neck exam general surgery: Present: supple, trachea midline. Absent: lymphadenopathy - Respiratory Respiratory exam: Present: CTAB. Absent: accessory muscle use, rales, rhonchi, wheezes - Cardiovascular Cardiovascular exam: Present: RRR, +S1, +S2. Absent: diastolic murmur, gallop, rubs, systolic murmur - GI/Abdominal GI/Abdominal exam: Present: normal bowel sounds, soft, no peritoneal signs. Absent: distended, tenderness - Extremities Exam Extremities exam: Present: warm, radial pulses palpable and symmetrical. Absent : calf tenderness, cyanotic, pedal edema - Neurological Exam Neurological exam: Present: oriented X3, no focal deficits. Absent: pronater drift, facial droop, speech deficit - Skin Skin exam: Present: dry, intact Internal Medicine: Result - Labs CBC & Chem 7: 05/24/17 09:32 05/24/17 09:32 Labs: Short CBC 05/24/17 Range/Units 09:32 WBC 6.5 (4.3-11.1) K/mcL Hgb 7.8 L (12.9-16.9) g/dL Hct 23.7 L (37.5-50.1) % Plt Count 230 (140-400) K/mcL Neutrophils # 5.0 (1.6-8.9) K/mcL BMP 05/24/17 05/24/17 05:33 09:32 Sodium 138 137 Potassium 3.7 3.6 Chloride 114 H 112 H Carbon Dioxide 20 L 20 L BUN 47 H 46 H Creatinine 2.91 H 2.87 H Glucose 87 88 Calcium 8.7 8.9 Liver Function 05/24/17 05/24/17 Range/Units 05:33 09:32 Total Bilirubin 0.3 (0.3-1.0) mg/dL AST 21 (13-39) Units/L ALT 14 (7-52) Units/L Alkaline Phosphatase 69 (34-104) Units/L Albumin 2.5 L 2.6 L (3.5-5.7) g/dL - ABG Interpretation ABG results: PT/INR, D-dimer PT 11.9 Seconds (9.4-12.1) 05/22/17 19:36 Consult Discharge Plan - Plan Referrals: Elio Melendez MD [Primary Care Provider] -
[2017-05-24] MEDS: Mirtazapine 15 MG TABLET PO SCH (21:36)
[2017-05-25 05:17] LABS: Calcium 8.7 mg/dL (8.6-10.3); Potassium 3.3 mEq/L (3.5-5.1)
[2017-05-25 05:28] LABS: Hematocrit 22.9 % (37.5-50.1); Hemoglobin 7.6 g/dL (12.9-16.9); Mean Corpuscular HGB Conc 33.2 g/dL (31.6-35.5); Mean Corpuscular Hemoglobin 31.7 pg (28.0-33.3); Mean Corpuscular Volume 95.4 fL (83.0-100.0); Mean Platelet Volume 9.7 fL (9.4-12.4); Platelet Count 212 K/mcL (140-400); Red Cell Distribution Width 15.3 % (11.5-14.5)
[2017-05-25] MEDS: Pantoprazole 40 MG VIAL IVP SCH (05:54)
--- NOTE | 2017-05-25 07:00 | Nephrology Progress Note ---
<Ryan Mcginnis - Last Filed: 05/25/17 12:03> Date of Encounter: 05/25/17 Time of Encounter: 07:00 - Assessment and Plan (1) Acute kidney injury superimposed on chronic kidney disease Status: Acute Patient with EVER on CKD stage IV with hx of MM and previous AKIs Avoid nephrotoxins including NSAIDs and iodonated contrast dye Renal U/S reveals no evidence of hydronephrosis, mild increased echogenicity of the kidneys bilaterally, which can be seen with medical renal disease. EVER slowly correcting Continue PO hydration Continue NS at 75cc/hr Continue to monitor (2) CKD (chronic kidney disease) stage 4, GFR 15-29 ml/min Status: Chronic Patient with CKD Stage 4 eGFR of 20 since December 2016. Renally dose medications Continue to monitor (3) Hypokalemia Status: Acute K+ is trending from hyperkalemic to hypokalemic Switch from 1/2 NS + bicarb to NS IVF Supplement K Continue electrolyte monitoring (4) Metabolic acidosis Status: Acute Nonanion gap, hyperchloremic metabolic acidosis resolving Continue NS No urgent need for dialysis Continue to monitor (5) Proteinuria Status: Acute UA revealed > 1g/dL proteinuria Elevated Urine Protein/Creatinine Ratio was 7.56 on 05/16/17 and 10.42 on 04/02/17 Patient has nephrotic range proteinuria, with no lower extremity edema. Unable to use KAMILAH-I/ARB secondary to the low eGFR With the patient's active urinary sediment (+hematuria, +proteinuria and + granular casts), he may have ATN vs myeloma cast nephropathy as well as pre- renal injury. Serum light chains, urine P/C ratio and SPEP pending Qualifiers: Proteinuria type: unspecified Qualified Code(s): R80.9 - Proteinuria, unspecified (6) Hypertension Status: Chronic Maintain a blood pressure goal of less than 130/80 Unable to use KAMILAH-I/ARB secondary to the low eGFR Patient is on Amlodipine and BB at home Qualifiers: Hypertension type: essential hypertension Qualified Code(s): I10 - Essential (primary) hypertension (7) Anemia Status: Chronic Anemia in the setting of CKD stage IV and possible GI blood loss Iron studies 05/16/17: Iron 85, % iron saturation 34, Transferrin 178 Vitamin D level 14 Patient to undergo EGD per GI recommendations Continue to monitor Qualifiers: Anemia type: other cause Other causes of anemia: chronic disease, neoplastic Qualified Code(s): D63.0 - Anemia in neoplastic disease (8) Multiple myeloma Status: Chronic Management per oncology Patient may have ATN vs myeloma cast nephropathy given active urinary sediment ( + hematuria, + proteinuria and + granular casts) Serum light chains, urine P/C ratio and SPEP pending Qualifiers: Multiple myeloma remission status: not in remission Qualified Code(s): C90.00 - Multiple myeloma not having achieved remission (9) Diabetes mellitus Status: Chronic HGB a1c 4.9 on 05/16/17 Management per primary team Qualifiers: Diabetes mellitus type: type 2 Diabetes mellitus complication status: without complication Diabetes mellitus custodial insulin use: without truck terminal manager use Qualified Code(s): E11.9 - Type 2 diabetes mellitus without complications Subjective Principal diagnosis: EVER Interval history: Patient seen and examined sitting in bedside chair. Patient is somnolent this AM and requests pain medication for chronic hip pain upon arousal. Patient denies any other c/o at this time. He has 900cc UOP documented yesterday compared to 150 cc in the preceding 24hrs. Objective - Vital Signs Vital signs: Vital Signs Temp Pulse Resp BP Pulse Ox 05/24/17 18:39 98.7 F 67 15 121/53 95 05/24/17 17:09 98.7 F 66 16 114/61 96 05/24/17 12:10 98.2 F 65 16 144/75 97 05/24/17 09:00 98.8 F 68 14 139/77 97 05/24/17 08:00 97 05/24/17 07:26 98.3 F 75 18 148/78 97 Intake and Output 05/24/17 05/24/17 05/25/17 15:59 23:59 07:59 Output Total 200 / 200 700 / 700 700 / 700 Balance -200 / -200 -700 / -700 -700 / -700 Output: Urine 200 / 200 700 / 700 700 / 700 Other: Weight 71.35 kg Blood Glucose* 99 118 Patient Weight 05/25/17 23:59 Weight 71.35 kg - General Appearance General appearance: Present: well-developed, appears started age, chronically ill Exam: somnolent EENT: Present: ATNC, PERRL, mucous membranes moist Neck: Present: no JVD, supple Additional Comments: poor respiratory effort, equal breath sounds Cardiology: Present: no murmurs, no edema, regular rate, normal S1, normal S2 Gastrointestinal: Present: normoactive bowel sounds, no tenderness, no guarding , no organomegaly Integumentary: Present: no rash, warm and dry Neurologic: Present: no focal deficit, alert and oriented x3 Musculoskeletal: Present: no deformities, no erythema, no cyanosis Psychiatric: Present: depressed, cooperative - Lab 05/25/17 04:51 05/25/17 04:51 Most recent lab results Calcium 8.7 mg/dL (8.6-10.3) 05/25/17 04:51 Phosphorus 4.5 mg/dL (2.7-4.5) 05/24/17 05:33 Magnesium 1.7 mg/dL (1.6-2.6) 05/24/17 05:33 - Imaging Kidney/bladder ultrasound: report reviewed Consult Discharge Plan - Plan Referrals: Elio Melendez MD [Primary Care Provider] - 05/30/17 2:00 pm Fransisco Cabral MD [Partnered Physician] - <Jeff Bermudez - Last Filed: 06/22/17 09:33> Date of Encounter: 05/25/17 Objective - Lab 05/25/17 04:51 05/25/17 04:51 Most recent lab results Calcium 8.7 mg/dL (8.6-10.3) 05/25/17 04:51 Phosphorus 4.5 mg/dL (2.7-4.5) 05/24/17 05:33 Magnesium 1.7 mg/dL (1.6-2.6) 05/24/17 05:33 Urine Total Protein SEE NOTE mg/d (10-140) 05/23/17 20:51 - Attending Attestation I examined this patient and my medical decision-making was reviewed with the Resident Physician. I agree with the documented findings, disposition and treatment plan as described except to the extent set forth below. Pt seen and examined with pain today. Interim events noted. SCr improving. UOP improving. Continue po fluids and IVF, change from bicarb to NS. Continue to avoid nephrotoxins if possible. No acute indication for EMISSION TECHNICIAN at this time.
--- NOTE | 2017-05-25 08:55 | Oncology Inp Progress Note ---
Date of Encounter: 05/25/17 Time of Encounter: 08:54 (1) Multiple myeloma Current Visit: Yes Status: Chronic Assessment and plan: 1. Previously on weekly Velcade/Dex (VD light) with initial good response. Restaging studies ordered. He has had a recent break from therapy since last admission earlier this month while in rehab facility with the plan to meet around this time as an outpatient for restaging and discussion on pursuing therapy vs. hospice. Awaiting SPEP, Serum free light chains and 24 hour urine BJP immunofixation studies at this time. Mr. Flores again seems agitated during our discussion today and not engaging in further discussions with me regarding his plan of care. He did speak enough to say he would like to continue to see Dr. Cabral and continue to pursue treatment, I tried to explain to him that in order to do this we need some participation from him to work with therapy and his care team. I introduced the idea of hospice as he appears to be exhausted with medical interventions at this juncture and wishing to go home, hospice would allow him to do so, he did not make conversation on this topic. I discussed this case with the palliative team , however, if the patient continues to voice that he wishes to pursue oncology treatment options and refuses hospice, no role for palliative team at this time. Anemia- secondary to multiple myeloma and chronic disease with signs of likely recent acute bleed. EGD revealed adherent blood in the entire examined stomach. Hgb stable at 7.6 today, he does not endorse any related symptoms of anemia, discussed blood transfusion however he is reluctant due to fluid overload experiences with previous transfusions. He declines blood transfusion today. Monitor CBC and discuss transfusion again if hgb continues to trend down. If patient is discharged home would recommend home health lab draws for continued monitoring. Will arrange for follow up with the Dr. Cabral in about 2 weeks time for further discussions regarding goals of care. Qualifiers: Multiple myeloma remission status: not in remission Qualified Code(s): C90.00 - Multiple myeloma not having achieved remission Oncology: Subj Interval history: Mr. Flores is resting in bed with his eyes closed. He is comfortable, denies pain and in no sign of distress. He is alert and oriented x3. He is at this time refusing to make conversation with me regarding his plan of care, he is refusing therapy and to participate with other care providers as well. - Constitutional Vitals: Vital Signs Temp Pulse Resp BP Pulse Ox 05/25/17 07:01 98.2 F 67 17 157/76 97 05/24/17 18:39 98.7 F 67 15 121/53 95 05/24/17 17:09 98.7 F 66 16 114/61 96 05/24/17 12:10 98.2 F 65 16 144/75 97 05/24/17 09:00 98.8 F 68 14 139/77 97 Intake and Output 05/24/17 05/25/17 05/25/17 23:59 07:59 15:59 Output Total 700 / 700 700 / 700 Balance -700 / -700 -700 / -700 Output: Urine 700 / 700 700 / 700 Other: Weight 71.35 kg Blood Glucose* 118 108 Patient Weight 05/25/17 23:59 Weight 71.35 kg General appearance: cooperative, no acute distress, no febrile - Respiratory Respiratory exam: Present: CTAB - Cardiovascular Cardiovascular exam: Present: RRR, +S1, +S2 - GI/Abdominal GI/Abdominal exam: Present: normal bowel sounds, soft. Absent: tenderness - Extremities Exam Extremities exam: Present: normal inspection - Neurological Exam Neurological exam: Present: alert, oriented X3, no focal deficits, strengths equal and symetr throughout - Psychiatric Psychiatric exam: Present: agitated - Skin Skin exam: Present: pallor, warm Oncology: Obj Data - Labs CBC & Chem 7: 05/25/17 04:51 05/25/17 04:51 - ABG Interpretation ABG results: PT/INR, D-dimer PT 11.9 Seconds (9.4-12.1) 05/22/17 19:36 Consult Discharge Plan - Plan Referrals: Elio Melendez MD [Primary Care Provider] - Fransisco Cabral MD [Partnered Physician] -
[2017-05-25] MEDS: Metoprolol XL (24 HR) Succ 50 MG TAB.ER.24H PO SCH (09:04)
[2017-05-25] MEDS: amLODIPine 5 MG TABLET PO SCH (09:04)
[2017-05-25] MEDS: Cyanocobalamin (B-12) 1,000 MCG TABLET PO SCH (09:04)
[2017-05-25] MEDS: Megestrol Acetate 400 MG/10 ML UDC PO SCH (09:04)
[2017-05-25] MEDS: Aspirin Enteric Coated 81 MG Tablet PO SCH (09:04)
[2017-05-25] MEDS: Isosorbide MONOnitrate (24 HR) 60 MG TAB.ER.24H PO SCH (09:04)
[2017-05-25 10:51] VITALS: BP 156/67
[2017-05-25] MEDS ORDERED: 0.9 % Sodium Chloride 1,000 ML IVC SCH (12:15)
--- NOTE | 2017-05-25 14:17 | Discharge Summary ---
Date of Encounter: 05/25/17 Time of Encounter: 14:18 - Discharge Diagnosis (1) Acute kidney injury superimposed on chronic kidney disease Priority: Primary Status: Acute Comments: Patient with EVER on CKD stage IV with hx of MM and previous AKIs Avoid nephrotoxins including NSAIDs and iodonated contrast dye Renal U/S reveals no evidence of hydronephrosis, mild increased echogenicity of the kidneys bilaterally, which can be seen with medical renal disease. EVER slowly correcting Continue PO hydration Continue to monitor labs and f/u with nephrology Patient with CKD Stage 4 eGFR of 20 since December 2016. Renally dose medications (2) Anemia Priority: Primary Status: Chronic Comments: The patient has chronic anemia secondary to multiple myeloma and chronic disease with signs of likely recent acute bleed with EGD revealing adherent blood in the entire examined stomach. Hemoglobin is currently 7.6. The patient denies any symptoms related to anemia and when oncology presented the idea of a blood transfusion he was not receptive to the plan. Continue to monitor his CBC as an outpatient and transfusion as per oncology service. Patient is following up with Dr. Cabral in 2 weeks' time. Qualifiers: Anemia type: other cause Other causes of anemia: chronic disease, neoplastic Qualified Code(s): D63.0 - Anemia in neoplastic disease (3) Elevated troponin Priority: Primary Status: Acute Comments: No complaints of chest pain Elevated troponin, initially 0.05, trended down to 0.04 and 0.03 respectively Likely secondary to demand ischemia in context of severe EVER CXR negative, EKG similar to prior, no history of chest pain Echocardiogram report reviewed (4) Multiple myeloma Priority: Primary Status: Chronic Comments: Oncology following. CT of the head revealed several calvarial lucent lesions that are nonspecific but given history of multiple myeloma myelomatous involvement is not excluded According to Oncology note was previously on weekly Velcade/Dex (VD light) with initial good response. Restaging studies have been ordered. The patient has not been cooperating with care including vital signs, physical therapy, or communicating well with staff. When approached by oncology regarding hospice he is not interested at this time. He wants to go to his daughters who has arranged for home health there. Qualifiers: Multiple myeloma remission status: not in remission Qualified Code(s): C90.00 - Multiple myeloma not having achieved remission (5) Generalized weakness Priority: Secondary Status: Acute Comments: Patient is not cooperating with physical therapy or occupational therapy. He is not wanting to get out of bed and is lying very quietly. He does not engage with staff very well either. The nurse called his daughter and when he talks his daughter becomes very animated and responsive. He wants to go and live with his daughter who has arranged home health at her home. (6) Dehydration Priority: Primary Status: Resolved Comments: Poor oral intake as he does not want to participate here with meals etc. (7) Hypertension Priority: Secondary Status: Chronic Comments: Blood pressure is stable, continue home medications on discharge Qualifiers: Hypertension type: essential hypertension Qualified Code(s): I10 - Essential (primary) hypertension (8) Diabetes mellitus Priority: Secondary Status: Chronic Comments: Blood sugars stable at this time, continue home medications on discharge Qualifiers: Diabetes mellitus type: type 2 Diabetes mellitus complication status: without complication Diabetes mellitus assisted insulin use: without termite technician use Qualified Code(s): E11.9 - Type 2 diabetes mellitus without complications - Discharge Medications Home Medications: Aspirin Enteric Coated [Aspirin EC] 81 mg PO DAILY 09/06/15 [History] Amlodipine Besylate 10 mg PO DAILY 01/11/17 [History] Metoprolol Succinate 100 mg PO DAILY 01/11/17 [History] Tamsulosin [Flomax] 0.4 mg PO DAILY 01/11/17 [History] Acyclovir [Zovirax] 400 mg PO BID #30 capsule 01/17/17 [Rx] Cyanocobalamin (Vitamin B-12) [Vitamin B12] 1,000 mcg PO DAILY #30 tablet [Rx] Dexamethasone [Decadron] 40 mg PO AD 02/23/17 [History] Oxygen 3 l NS AD 02/23/17 [History] Atorvastatin [Lipitor] 80 mg PO HS #30 tablet 03/01/17 [Rx] Isosorbide MONOnitrate (24 HR) [Imdur] 60 mg PO DAILY #30 tab.er.24h 03/01/17 [ Rx] Allopurinol [Zyloprim 100 MG] 100 mg PO DAILY 04/28/17 [History] Ergocalciferol (VITAMIN D2) [Vitamin D2] 50,000 unit PO QWEEK 04/28/17 [History] Nitroglycerin [Nitrostat] 0.4 mg SL Q5M PRN 04/28/17 [History] Pantoprazole Sodium [Protonix] 20 mg PO HS 04/28/17 [History] Omeprazole [PriLOSEC] 40 mg PO DAILY@0730 capsule. 05/07/17 [Rx] OxyCODONE/APAP 10/325 [Percocet 10/325 MG] 1 each PO Q4HR PRN #4 tablet [Rx] Albuterol Sulfate [Ventolin Hfa] 2 puff IH Q4H PRN 05/24/17 [History] Amitriptyline [Elavil] 25 mg PO HS 05/24/17 [History] Budesonide/Formoterol 160/4.5 [Symbicort 160/4.5] 2 puff IH BIDR 05/24/17 [ History] Gabapentin [Neurontin] 600 mg PO Q8H PRN 05/24/17 [History] Allergies/Adverse Reactions: 3 Allergy/AdvReac Type Severity Reaction Status Date / Time No Known Allergies Allergy Verified 04/09/17 13:43 Date of admission: 05/23/17 05:53 Primary care physician: Elio Melendez MD Consults: 05/23/17 10:09 Consult to Nephrology [CONS] Routine Consulting Provider: [facility] [place] Reason for Consult: worsening renal function Time Notified: 10:11 Call Completed: Yes Consult to Oncology [CONS] Routine Consulting Provider: [facility] [place] Reason for Consult: multiple myeloma with lesions on ct brain Time Notified: 10:11 Call Completed: Yes 05/23/17 17:23 Consult to Inspector Set Up And Lay Out [CONS] Routine Reason for SW Consult: Patient lives alone Discharging clinician: Inessa Machado Anticipated date of discharge: 05/25/17 - Patient Status Disposition: Home Health Service Condition: Fair Functional capacity at discharge: independent ambulation Overall status at discharge: patient is progressing back to baseline - Discharge Instructions Follow Up With: Elio Melendez MD [Primary Care Provider] - Fransisco Cabral MD [Partnered Physician] - - Diet and Activity Activity: resume usual activities as tolerated Interval History: Patient is rather despondent this morning not making eye contact with staff, refusing vital signs and working with physical therapy and occupational therapy , not eating much. His daughter was called and when he was talking to her on the phone he became very animated and states he wants to go to her house as planned and he does not going to purchase a patent year because he does not want to stay here. He was approached by oncology regarding his wish to continue treatment and he does at this time so there is no role for palliative or hospice conversations currently. Nephrology stated the patient would not make eye contact or speak to him either. They had him on maintenance IV fluids as his diet has been poor and they agree that it might benefit for him to go home to his daughters. The patient did tell me he has only complaint is bilateral foot pain which is not new. He denies shortness of breath or chest pain no fever or chills. He is anxious for discharge to his daughters Hospital course: Please see details in the assessment and plan - Time Spent with Patient Total time spent providing and/or coordinating discharge services: Less than 30 minutes - Constitutional Vitals: Temp Pulse Resp BP Pulse Ox 98.3 F 59 16 156/67 96 05/25/17 10:50 05/25/17 10:50 05/25/17 10:50 05/25/17 10:50 05/25/17 10:50 General appearance: Present: disheveled, A&O X 3, no acute distress, underweight , answers questions appropriately. Absent: cooperative - Head Head exam: Present: atraumatic, normocephalic - Eye Eye exam: Present: conjuntiva pink, sclera anicteric - Neck Neck exam general surgery: Present: supple, trachea midline. Absent: lymphadenopathy - Respiratory Respiratory exam: Present: CTAB. Absent: accessory muscle use, rales, rhonchi, wheezes - Cardiovascular Cardiovascular exam: Present: RRR, +S1, +S2. Absent: diastolic murmur, gallop, rubs, systolic murmur - GI/Abdominal GI/Abdominal exam: Present: normal bowel sounds, soft, no peritoneal signs. Absent: distended, tenderness - Extremities Exam Extremities exam: Present: warm, radial pulses palpable and symmetrical. Absent : calf tenderness, cyanotic, pedal edema - Neurological Exam Neurological exam: Present: CN II-XII intact, oriented X3, no focal deficits. Absent: pronater drift, facial droop, speech deficit - Skin Skin exam: Present: dry, intact, warm
--- NOTE | 2017-05-25 15:57 | Physician Discharge Referral ---
Home Health/Hosp Referral Info Transfer to: Home Health ([facility]) Attending Provider: leatha rogers Provider in Charge Post Discharge: PCP - Diagnosis (1) Acute kidney injury superimposed on chronic kidney disease Status: Acute (2) Anemia Priority: Secondary Status: Chronic (3) Elevated troponin Priority: Secondary Status: Acute (4) Multiple myeloma Priority: Primary Status: Chronic (5) Generalized weakness Priority: Primary Status: Acute (6) Dehydration Priority: Primary Status: Resolved (7) Hypertension Priority: Secondary Status: Chronic (8) Diabetes mellitus Priority: Secondary Status: Chronic - Respiratory Orders Smoking Cessation: Smoking cessation has been advised. For more information, call the [place] Tobacco Quit Line at 5-661-SLIX-NOW. - Diet/Nutrition Diet/Nutrition Orders: Regular - Activity Activity Orders: Up ad chani - Services Needed Following services are medically necessary services: Nursing, Home Health Aide, Physical Therapy, Occupational Therapy - Transfer Medications Home Medications: Aspirin Enteric Coated [Aspirin EC] 81 mg PO DAILY 09/06/15 [History] Amlodipine Besylate 10 mg PO DAILY 01/11/17 [History] Metoprolol Succinate 100 mg PO DAILY 01/11/17 [History] Tamsulosin [Flomax] 0.4 mg PO DAILY 01/11/17 [History] Acyclovir [Zovirax] 400 mg PO BID #30 capsule 01/17/17 [Rx] Cyanocobalamin (Vitamin B-12) [Vitamin B12] 1,000 mcg PO DAILY #30 tablet [Rx] Dexamethasone [Decadron] 40 mg PO AD 02/23/17 [History] Oxygen 3 l NS AD 02/23/17 [History] Atorvastatin [Lipitor] 80 mg PO HS #30 tablet 03/01/17 [Rx] Isosorbide MONOnitrate (24 HR) [Imdur] 60 mg PO DAILY #30 tab.er.24h 03/01/17 [ Rx] Allopurinol [Zyloprim 100 MG] 100 mg PO DAILY 04/28/17 [History] Ergocalciferol (VITAMIN D2) [Vitamin D2] 50,000 unit PO QWEEK 04/28/17 [History] Nitroglycerin [Nitrostat] 0.4 mg SL Q5M PRN 04/28/17 [History] Pantoprazole Sodium [Protonix] 20 mg PO HS 04/28/17 [History] Omeprazole [PriLOSEC] 40 mg PO DAILY@0730 capsule. 05/07/17 [Rx] OxyCODONE/APAP 10/325 [Percocet 10/325 MG] 1 each PO Q4HR PRN #4 tablet [Rx] Albuterol Sulfate [Ventolin Hfa] 2 puff IH Q4H PRN 05/24/17 [History] Amitriptyline [Elavil] 25 mg PO HS 05/24/17 [History] Budesonide/Formoterol 160/4.5 [Symbicort 160/4.5] 2 puff IH BIDR 05/24/17 [ History] Gabapentin [Neurontin] 600 mg PO Q8H PRN 05/24/17 [History] Allergies/Adverse Reactions: 3 Allergy/AdvReac Type Severity Reaction Status Date / Time No Known Allergies Allergy Verified 04/09/17 13:43 Certification: Further, I certify that my clinical findings support that this patient is homebound (i.e. absences from home require considerable and taxing effort and are for medical reasons or gnosticist services or infrequently or short duration when for other reasons) because: Homebound Reason: Patient requires assistance of a person or device to safely leave home Attestation: My signature below is to certify that this patient is under my care and that I, or nurse practitioner, or a physician's medical office receptionist assistant working with me, has a face-to -face encounter with this patient.
[2017-05-26 06:29] LABS: Urine Collection Duration RANDOM hr; Urine Collection Volume RANDOM mL
[2017-05-26 15:50] LABS: Lambda Qnt Free Light Chains 0.39 mg/dL (0.57-2.63)
[2017-05-28 08:14] LABS: Immunoglobulin G 2340 mg/dL (768-1632)
[2017-05-28 08:15] LABS: IFE Reflexed IFE Done; Immunoglobulin A < 7 mg/dL (68-408); Immunoglobulin M < 5 mg/dL (35-263)
== END 2017-05-25 16:55 | disposition home health service (06) | DRG 683 ==
LOC: EMEROO 17:45 → 3BNU 17:45
PROVIDERS: ADMIT Internal Medicine; ATTEND Registered Nurse
PROC: ENDOEBX (2017-05-23 16:00)